=== PATIENT | male | born 1945 | race Caucasian/White ===

== ENCOUNTER 2023-04-27 04:09 | Outpatient (CLI) | payer MEDICARE, SELFPAY | END 2023-04-27 04:10 | disposition home or self-care (01) | LOC: AMB 04-28 12:17 | PROVIDERS: Visit Provider Family Medicine | DX: R50.9 Fever, unspecified (principal); R53.1 Weakness | CPT/HCPCS: A0998 ==

== ENCOUNTER 2023-04-28 07:03 | Outpatient (CLI) | payer MEDICARE, SELFPAY | END 2023-04-28 07:04 | disposition home or self-care (01) | LOC: AMB 05-02 23:54 | PROVIDERS: Visit Provider Family Medicine | DX: R53.1 Weakness (principal) | CPT/HCPCS: A0998 ==

== ENCOUNTER 2023-04-30 07:23 | Outpatient (CLI) | payer MEDICARE, SELFPAY | END 2023-04-30 07:24 | disposition home or self-care (01) | LOC: AMB 05-03 01:24 | PROVIDERS: Visit Provider Internal Medicine | DX: R53.1 Weakness (principal); R06.09 Other forms of dyspnea | CPT/HCPCS: A0425; A0427 ==

== ENCOUNTER 2023-12-06 08:57 | Outpatient (CLI) | payer MEDICARE, SELFPAY ==
--- OUTSIDE RECORDS SUMMARY | 2023-12-13 06:14 | XMS_ITS | Clinical Summary ---
Author Organization [facility] Address [address] [place] [address] Care Team Providers Care Alumnae Secretary Name Role Phone Dalia Dill M.D. Primary Care Provider [phone] Source Comments Patient records contain information from all sites at [facility]. For routine questions regarding patient records, call [phone] during business hours, M-F 8:00 AM - 5:00 PM Central Time. Record requests for emergency care only can be directed to [phone] at any time.[facility] Allergies Active Allergy Reactions Criticality Noted Date Comments Cortisone Rash Medium 02/26/2002 Swelling, rash Prednisone Rash Medium 02/26/2002 Swelling, rash Medications * This document contains information received from the source organization and may not represent a complete record from that organization. blood-glucose meter misc Test as directed for diabetes control. 1 each 02/12/19 Active lancets Test once daily 100 each 1 02/16/19 20 Active DME Bi-level PAPIndications: Central Sleep Apnea Syndrome,Apnea Sleep Obstructive DME Order 1 each 01/20/20 Active blood sugar diagnostic strips (Accu-Chek Guide test strips) 1 test by other route daily. for testing 100 strip 3 07/07/19 24 Active blood glucose ctl high,nml,low solution Glucose control solution provides an easy way to ensure accurate blood glucose testing. 1 each 07/07/19 Active multivitamin tablet Take 1 tablet by mouth daily. 90 tablet 10/31/19 Active nitroglycerin (Nitrostat) 0.[address] 1 tablet (0.4 mg total) under the tongue every 5 (five) minutes as needed for chest pain. Chest pain 10/31/19 Active amLODIPine (Norvasc) 5 mg tabletIndicatio ns:Chronic Kidney Disease (CKD), Stage 3 Unspecified (HCC) Take 1 tablet (5 mg total) by mouth daily. For hypertension 10/31/19 Active aspirin 81 mg chewable tablet Chew 1 tablet (81 mg total) daily. For cardiovascular event prevention 10/31/19 Active cyanocobalamin (Vitamin B-12) 1,000 mcg tablet Take 1 tablet (1,000 mcg total) by mouth daily. For low Vitamin B12 10/31/19 Active FLUoxetine (PROzac) 40 mg capsule Take 1 capsule (40 mg total) by mouth daily. For depression. 10/31/19 Active fluticasone furoate (Arnuity Ellipta) 100 mcg/actuation diskus inhaler Inhale 1 puff daily. For COPD. 10/31/19 Active losartan (Cozaar) 50 mg tablet Take 1 tablet (50 mg total) by mouth daily. For hypertension. 10/31/19 Active metFORMIN (Glucophage) 1,000 mg tablet Take 1 tablet (1,000 mg total) by mouth 2 (two) times a day. For diabetes. 10/31/19 Active metoprolol succinate (Toprol XL) 25 mg 24 hr tablet Take 0.5 tablets (12.5 mg total) by mouth daily. Do not crush or chew. For CAD. 10/31/19 Active pantoprazole (Protonix) 40 mg EC tablet Take 1 tablet (40 mg total) by mouth daily. For GERD. 10/31/19 Active rosuvastatin (Crestor) 10 mg tablet Take 1 tablet (10 mg total) by mouth daily. For hyperlipidemia 10/31/19 Active albuterol 90 mcg/actuation inhaler Inhale 1 puff every 4 (four) hours as needed for wheezing or shortness of breath. For COPD. 11/01/19 Active semaglutide (Ozempic) 1 mg/dose (4 mg/3 mL) injection Inject 1 mg under the skin every 7 (seven) days. on Fridays for diabetes. 4 mL 11/18/19 Active semaglutide (Ozempic) 1 mg/dose (4 mg/3 mL) injection Inject 1 mg under the skin every 7 (seven) days. on Fridays for diabetes. 4 mL 3 11/07/19 24 024 Discontin ued(Reord er) Active Problems Problem Noted Date Diagnosed Date Frailty Age Related Physical Debility 10/30/2023 Assessment & Plan (11/28/2023 1:09 PM CDT): He will have home care PT/OT/nursing and home health aide Sarcopenia 10/30/2023 Obesity Body Mass Index 30-39.9 Adult 10/30/2023 Assessment & Plan (11/01/2023 2:29 PM CDT): Follow with in house dietitian Hypomagnesemia 04/30/2023 Chronic Obstructive Pulmonary Disease Without Ex acerbation 12/21/2022 Assessment & Plan (11/28/2023 1:08 PM CDT): Continue Arnuity Ellipta Continue albuterol as needed Assessment & Plan (11/01/2023 2:27 PM CDT): Continue Arnuity Ellipta Continue albuterol as needed Neuropathy Ulnar Right 11/05/2021 Diabetes Mellitus Type 2 Wit h Diabetic Chronic Kidney Disease 04/21/2021 Assessment & Plan (11/01/2023 2:30 PM CDT): Continue semaglutide 1 mg every 7 days Continue metformin 100 mg twice day with B12 supplementation Chronic Kidney Disease (CKD) , Stage 3a Glomerular Filtration Rate (GFR) 45 To 59 02/29/2020 Assessment & Plan (11/01/2023 2:29 PM CDT): Avoid nephrotoxins Assessment & Plan (08/05/2020 7:20 PM CDT): Blood pressure 119/76. Taking amlodipine and losartan. Urine albumin: 106. EGFR: 49 ml/min. Plan: continue current antihypertensive regimen. Hopeful that with improved glycemic control and addition of Ozempic that urine albumin will have improved with next check. Assessment & Plan (04/08/2020 1:19 PM SURVEY STATISTICIAN): Initial blood pressure is 135/94 but repeat was 116/82. Urine albumin 106 milligrams/gram. Estimated GFR: 54 mL/min. Plan: Continue current antihypertensive regimen. Diabetes Mellitus Type 2 Peripheral Neuropathy 0 08/30/2019 Assessment & Plan (11/28/2023 1:06 PM CDT): Continue metformin 1000 mg twice a day Continue semaglutide weekly Assessment & Plan (08/05/2020 7:21 PM CDT): Continue daily foot exams. Feet not painful to point medication is necessary. This does affect his balance and his walking is limited because of this. 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 seen by Gi. treated with Canasa. no surveillance colonoscopies needed for ulcerative proctitis. However colonoscopy for follow up of colon polyps recommended 09/21: 5 mm and 7 mm polyps. Tubular adenoma low grade dysplasia 11/27: 2 x 2 mm polyps . Path: One polyp: no diagnostic abnormality. The other: hyperplastic. 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 09/21 gi consult: This was based on his original EGD. He has had multiple EGDs here at the clinic since without any intestinal metaplasia noted. He merely has an irregular Z line, and I do not think that he requires any ongoing surveillance upper endoscopies. 11/27: egd done for symptom indications and esophageal biopsy negative/normal Assessment & Plan (11/28/2023 1:08 PM CDT): Continue pantoprazole 40 mg daily Assessment & Plan (11/01/2023 2:28 PM CDT): Continue pantoprazole 40 mg daily Tremor Essential 03/21/2015 Tubular Adenoma Colon Personal History 5 Overview (11/18/2020): 09/21: 5 mm and 7 mm polyps. Tubular adenoma low grade dysplasia 11/27: 2 x 2 mm polyps . Path: One polyp: no diagnostic abnormality. The other: hyperplastic. 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 Small fixed defect consistent with infarction involving the inferior segment. The area of infarction is quantitated at 17% of the myocardium. LVEF is quantitated at 51%. Regional wall motion abnormalities include hypokinesis involving the inferior segment. Compared to 07/10/2007 the inferior perfusion defect is larger and more severe. cath 08/16: totally occluded very distal intermediate vessel at which point the vessel is approximately 1 mm in diameter at most. Mild disease of the remainder of his coronary system including an enlarged right dominant vessel that does not warrant any intervention Assessment & Plan (11/28/2023 1:06 PM CDT): Continue aspirin 81 mg daily Assessment & Plan (11/01/2023 2:24 PM CDT): Continue aspirin 81 mg daily Partner Relational Problem 07/24/2008 Depression Major Recurrent Full Remission 2008 Assessment & Plan (11/28/2023 1:08 PM CDT): Continue fluoxetine Assessment & Plan (11/01/2023 2:30 PM CDT): Continue fluoxetine Neuropathy Peripheral 08/01/2007 Assessment & Plan (11/28/2023 1:07 PM CDT): He is not currently on medication for this. He states it does limit his mobility Assessment & Plan (11/01/2023 2:27 PM CDT): He is not currently on medication for this. He states it does limit his mobility Assessment & Plan (07/25/2019 1:29 PM CDT): Patient reports numbness in his feet. On exam today he does have decreased monofilament sensation. No skin breakdown. He has been having falls. I am not certain that these falls are related to his neuropathy directly as they have occurred at times when he is kneeling or simply standing up and bending forward. Plan: Continue with daily foot exams. He is scheduled for nail care later this month. He is not having pain so no medication is warranted. I recommended that he schedule appoint with his primary care provider in regards to the falls he has been having. Check vitamin B12 today. 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 Recommended: avoid driving, use gait aid, PT/PMR referral if desired. If cognitive or gait decline we will be happy to see him back in follow-up Assessment & Plan (11/28/2023 1:10 PM CDT): He is no longer driving Uses walker Will order transport wheelchair Elevated Prostate-Specific Antigen 04/06/2004 Hypertensive Chronic Kidney Disease With Stage 1 Through Stage 4 Chronic Kidney Disease, Or Unspecified Chronic Kidney Disease 01/14/2003 Overview (06/29/2023): June 2023: home machine checked for accuracy and found to be accurate Assessment & Plan (11/01/2023 2:28 PM CDT): Continue amlodipine 5 mg daily Continue losartan 50 mg daily Continue metoprolol 12.5 mg daily Assessment & Plan (12/12/2019 2:14 PM SURVEY STATISTICIAN): Blood pressure is controlled at 131/87. Continues on amlodipine, losartan, Toprol. Does have elevated urine albumin of 106 milligrams/gram which has been essentially stable for several years. Plan: Continue current antihypertensive regimen. Discussed with patient that he does have early diabetic kidney disease which reinforce is need for good glycemic and hypertension control. He is already on ARB. Assessment & Plan (07/25/2019 1:31 PM CDT): Blood pressure is well-controlled at 113/78 on current regimen of losartan, metoprolol, Norvasc,. Urine albumin is 62 milligrams/gram. Creatinine 1.3. Has had falls but these are not preceded by orthostasis. Plan: Continue current antihypertensive regimen. Check urine albumin in 3 months. Apnea Sleep Obstructive 01/14/2003 Assessment & Plan (11/28/2023 1:07 PM CDT): Continue with BiPAP while sleeping Assessment & Plan (11/01/2023 2:25 PM CDT): Continue with BiPAP Hyperlipidemia 01/14/2003 Assessment & Plan (11/28/2023 1:08 PM CDT): Continue rosuvastatin Assessment & Plan (11/01/2023 2:28 PM CDT): Continue rosuvastatin Resolved Problems Problem Noted Date Diagnosed Date Resolved Date Urinary Tract Infection Site Not Specified 10/27/2023 11/01/2023 Viral Syndrome 04/30/2023 06/13/2023 Diabetes Mellitus Type 2 Wit h Diabetic Neuropathy 02/29/2020 08/05/2020 Dystrophic Toenail 02/29/2020 Morbid Severe Obesity Due To Excess Calories 0 06/13/2023 Dermatochalasis Right Upper Eyelid 04/24/2019 08/31/2021 Dermatochalasis Left Upper Eyelid 04/24/2019 08/31/2021 Astigmatism Regular Bilateral 04/24/2019 06/13/2023 Presbyopia 04/24/2019 06/13/2023 Influenza 03/30/2018 12/21/2022 Lesion Bladder 11/16/2017 03/28/2018 Overview (11/16/2017): Added automatically from request for surgery [id number] Department Of Transportation Examination Department Of Motor Vehicles 09/27/2017 12/21/2022 Microhematuria 08/26/2017 03/28/2018 Overview (11/09/2017): hematuria 10/16. cystoscopy: trabeculation. ct: multiple renal cysts, increased bladder trabeculation. right inguinal hernia. enlarged prostate. fatty liver per urology: no evaluation needed for renal cysts. return visit 08/16: neg cytology. treatment for BPH thought to be optional. follow up in one year with urology recommended--patient declined 08/2011 Ct urogram 11/24: slight interval increase in cysts since 2008 Urinary Tract Infection (UTI)/Bacteriuria NOS 08/22/19 18 12/21/2022 Overview (03/08/2022): Diagnosis Maintenance Updates Parkinsonism Unspecified 04/05/2016 Overview (08/31/2021): wondered about parkinsonism and he went as far as have a trial of carbidopa levodopa in the past but since it did not really do much for him that was discontinued. Dr. Pressley did not think Parkinson's disease was part of this syndrome Dilatation Ascending Aorta 03/25/2015 0 09/12/2019 Overview (09/12/2019): dilated ascending aorta (39 mm) 03/25. 39 mm 02/23. 08/24 echo: 1. Normal ascending aorta dimension. 2. Borderline left ventricular enlargement. Calculated ejection fraction 57%, no regional wall motion abnormalities. 3. Grade 1/4 left ventricular diastolic dysfunction, consistent with low to normal left ventricular filling pressure. 4. Normal right ventricular size with mildly decreased systolic function. 5. Unable to detect peak tricuspid regurgitation velocity for pulmonary artery systolic pressure calculation. 6. No significant valvular heart disease. 7. No pericardial effusion. See communication from [facility] (Dr Andrews) 08/18/17: ?? Given the sinus diameter measurement of 41 mm, I think it would be reasonable to obtain repeat echocardiography in 2 years. If the aortic measurements have not changed at that time, he would not require further surveillance echocardiography, unless he develops uncontrolled hypertension in the interim??(ordered) 08/26: 1. Normal ascending aorta diameter (39 mm). Upper limit of normal for age, sex, and BSA 44 mm. 2. Normal aortic sinus of Valsalva (43 mm). Upper limit of normal for age, sex, and BSA 44 mm. 3. Borderline enlarged left ventricular chamber size, calculated ejection fraction 56%. No regional wall motion abnormalities. 4. Grade 1/4 left ventricular diastolic dysfunction, consistent with low to normal left ventricular filling pressure. 5. Borderline enlarged right ventricular chamber size, normal systolic function. 6. Unable to detect peak tricuspid regurgitation velocity for pulmonary artery systolic pressure calculation. 7. No significant valvular heart disease. 8. No pericardial effusion. 9. Compared to the report of 08/17/2017 no significant change has occurred. Side by side comparison of images performed. Since now considered normal and no change will resolve this problem. Ischemic Heart Chronic Disease 03/21/2015 08/17/2017 Incontinence Fecal 09/08/2014 9 Diabetes Mellitus Type 2 08/17/2011 Assessment & Plan (08/05/2020 7:17 PM CDT): HbA1c improved to 6.3% on Ozempic, Metformin, and Amaryl. Not having hypoglycemia. Weight is down 4 kg since Ozempic start. Diabetes related complications include: CAD, CKD, neuropathy. Plan as follows: Medication: No change recommended. Reviewed that if routinely having readings below 100 to contact provider so Amaryl can be reduced. Does have some cost concerns related to Ozempic as he is currently in the donut hole and anticipates he will be for rest of the year. Encouraged them to check the patient assistance plan for possible enrollment. If cost becomes prohibitive they are to let us know. Monitoring: daily as he has been doing. Goal: 90-140. Goal HbA1c: 7% -lower OK if not having hypoglcyemia. Follow up: no longer needs specialty care. Recommend follow up with PCP in 3-6 months. Other: Needs eye exam-message sent regarding this. Assessment & Plan (04/08/2020 1:18 PM SURVEY STATISTICIAN): Hemoglobin A1c has worsened to 7.8%. He is currently taking Ozempic 0.5 mg weekly, glimepiride, metformin. He is tolerating the Ozempic without problems but they are concerned about the cost. Currently the cost is 45 dollars per month but when he hits the donut hole it will be much more costly. Diabetes-related complications include coronary artery disease, nephropathy, neuropathy. Plan is as follows: Medication: I have recommended increasing the Ozempic to 1 mg weekly. Discussed with him that if the cost becomes too much they should let me know and we will explore other options. Other option likely would be insulin. I have given them the [employer] patient assistance plan literature. They will contact to see if they would be eligible for this based on their income level. Reviewed that this medication must be delivered to their home and not to the clinic if he is going to participate. Continue glimepiride. Continue metformin. Monitoring: Monitor blood sugar before breakfast and supper. Goal glucose 100- 140. Diet: I am hopeful that with the higher Ozempic dose his appetite will be further reduced. Activity: This is significantly limited due to lower extremity weakness and neuropathy. He did undergo physical therapy last fall and found this very helpful. Unfortunately he has gotten away from the exercises and therefore is experiencing more weakness. Encouraged to resume the exercises he learned in PT. Follow-up: Plan to see him back in 3 months with hemoglobin A1c then. Will message him in about 2 weeks to review glucose control and see if they have found anything more from her insurance [employer] patients assistance program regarding his Ozempic cost. Other: Needs to schedule an eye exam on his own. Assessment & Plan (12/12/2019 2:13 PM SURVEY STATISTICIAN): Hemoglobin A1c: 7.3% on current regimen of glimepiride, metformin, Januvia. He is not having hypoglycemia. His last visit we talked about transitioning to a GLP 1 agonist for weight loss benefit, cardiac benefit, further improved glycemic control. He notes that he is currently in the donin hole and therefore has a high co-pay for his Januvia. Notes that after the of the year his medication should again become more affordable. Diabetes-related complications include nephropathy, coronary artery disease, neuropathy. Plan is as follows: Medication: His glucose is reasonably well controlled at this point. Given that he would be paying a high co-pay for GLP 1 agonist at this time we decided to defer this until after the of the year when cost would be more affordable. He has no history of pancreatitis, pancreatic cancer, thyroid cancer which would exclude use of these agents. I plan to call him early February and confirmed that he still wants to move forward with 1 of these. He would prefer to use a weekly formulation. Therefore I have recommended using Ozempic. For now we will continue with his current regimen of Januvia, metformin, glimepiride. Monitoring: Continue to test daily and try to alternate times. Goal glucose 100- 140. Goal hemoglobin A1c 7-7.5%. Activity: He has completed a course of physical therapy and notes that his balance is much improved and his lower extremity strength has improved as well. Encouraged to be as active as possible. Follow-up: Plan to see him back in 3 months with hemoglobin A1c. And again I will call him in early February to review possibility of starting a GLT 1 agonist. Other: He did mention some new eye symptoms today. This includes a dark bar that he notices when he turns the lights off at night. Have given him the Ophthalmology triage number to call for further evaluation. Assessment & Plan (07/25/2019 1:28 PM CDT): Did not have hemoglobin A1c results available at time of visit. Have reviewed patient's glucose record book and based on this I would expect that his hemoglobin A1c has improved. His glimepiride dose was increased mid June and since then we have seen improvement in glycemic control with most readings below 150 morning and before supper. In addition to glimepiride he is taking Januvia and metformin. He has had only 1 episode of hypoglycemia in the past couple months and this was related to increased activity. Diabetes-related complications include coronary artery disease, nephropathy, neuropathy. I am most concerned with his neuropathy and the fact that he has been having falls. I am not certain that these falls are related directly to his neuropathy as they occur when he is not even standing. Plan is as follows: Medication: For now recommend continuing current regimen. It appears that glycemic control has improved with the increase in his glimepiride dose. Today I did introduce the idea of changing to a GLP 1 agonist and metformin alone. If we are able to do this week would eliminate the risk for hypoglycemia which I think is important in this gentleman who has been having falls. I have given he and his the names of these agents to check on their insurance coverage. Of note they do note that there Januvia has not been expensive and therefore I am hopeful that the GLP 1 agonist would be covered well. Can consider making this therapy change at next visit, or if hemoglobin A1c shows need for better control. Monitoring: Continue testing twice daily as he has been doing. Goal glucose 100- 140. Goal hemoglobin A1c 7-7.5%. Slightly higher goal given recent falls. Education: Reviewed hypoglycemia treatment. Treatment options given. Follow-up: Patient has previously seen my colleague. I would be happy to see him back or he can return to see her in 3 months. Will check hemoglobin A1c at that time. Additionally will check hemoglobin A1c and vitamin B12 which were previously ordered today. Loss Hearing Conductive Unilateral 06/10/2010 08/31/2021 Encounters Date Type Department Care Team Description 12/09/2023 Clinical Communication Department of Family Medicine, [address] [address] Dalia Dill M.D. Pand Doc [facility] physician order [id number] 12/09/2023 Clinical Communication [facility] in [place] [address] [place] [address] Nisreen Preciado APRN, C.N.P. PandaDoc Form ([facility] order [id number]) 12/09/2023 Clinical Communication Department of Family Medicine, [address] [phone] Dalia Dill M.D. PandaDoc Form ([facility] order [id number]) 12/09/2023 Clinical Communication Department of Family Medicine, [address] [phone] Nisreen Preciado APRN, C.N.P. PandaDoc Form ([facility] order [id number]) 12/03/2023 CPAP Download Remote Patient Monitoring [id number] [address] [facility] 12/02/2023 Clinical Communication Department of Family Medicine in [place], [place] [address] [place] [address] Nisreen Preciado APRN, C.N.P. Order Request (Verbal ) 11/28/2023 8:30 AM CDT External Outreach [facility] in [place] [address] [place] [id number] Nisreen Preciado APRN, C.N.P. History Of Falling (Primary Dx); Weakness General; Coronary Artery Disease Without Angina Pectoris; Diabetes Mellitus Type 2 Peripheral Neuropathy (HCC); Neuropathy Peripheral; Apnea Sleep Obstructive; Asthma Mild Persistent (HCC); Chronic Obstructive Pulmonary Disease Without Exacerbation (HCC); Depression Major Recurrent Full Remission (HCC); Hyperlipidemia; Valenzuela's Esophagus Personal History; Frailty Age Related Physical Debility; Imbalance Non Orthopedic 11/17/2023 8:00 AM CDT [facility] [place] [address] [place] [address] Jammie Lyons D.O. 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 Kidney Disease, Or Unspecified Chronic Kidney Disease; Chronic Kidney Disease (CKD), Stage 3a Glomerular Filtration Rate (GFR) 45 To 59 (HCC); Coronary Artery Disease Without Angina Pectoris; Asthma Mild Persistent (HCC); Chronic Obstructive Pulmonary Disease Without Exacerbation (HCC); Apnea Sleep Obstructive; Valenzuela's Esophagus Personal History; Hyperlipidemia; Obesity Body Mass Index 30-39.9 Adult; Diabetes Mellitus Type 2 Peripheral Neuropathy (HCC); Depression Major Recurrent Mild (HCC); Deficiency Vitamin B12 11/15/2023 Refill Department of Family Medicine, [address] [phone] Dalia Dill M.D. Med Refill (Nisreen Preciado) 11/09/2023 Clinical Communication [facility] in [place] [address] [place] [address] Veronica Brown R.N. SNF Nurse Intake 11/08/2023 12:33 AM CDT - 11/08/2023 11:59 PM CDT Hospital Encounter Department of Laboratory Medicine in [place], [place] [address] [place] [address] Nisreen Preciado APRN C.N.PAurelio Weakness General Discharge Disposition: Home or Self Care 11/07/2023 [facility] in [place] [address] [place] [address] Veronica Brown R.N. SNF Nurse Intake 11/03/2023 2:50 PM CDT - 11/03/2023 11:59 PM CDT Hospital Encounter Department of Laboratory Medicine in [place], [place] [address] [place] [address] Nisreen Preciado APRN, C.N.P. Test Blood Tuberculosis Discharge Disposition: Home or Self Care 11/03/2023 Clinical [facility] in [place] [address] [place] [address] Veronica Brown R.N. [facility] Nurse Intake 11/02/2023 CPAP Download Remote Patient Monitoring [facility] [address] [place] [address] [facility] 11/01/2023 2:00 PM CDT [facility] in [place] [address] [place] [address] Nisreen Preciado APRN, C.N.P. Coronary Artery Disease Without Angina Pectoris (Primary Dx); Hypertensive Chronic Kidney Disease With Stage 1 Through Stage 4 Chronic Kidney Disease, Or Unspecified Chronic Kidney Disease; Apnea Sleep Obstructive; History Of Falling; Frailty Age Related Physical Debility; Unsteadiness Gait Disorder Non Orthopedic; Weakness General; Imbalance Non Orthopedic; Asthma Mild Persistent (HCC); Chronic Obstructive Pulmonary Disease Without Exacerbation (HCC); Neuropathy Peripheral; Hyperlipidemia; Valenzuela's Esophagus Personal History; Obesity Body Mass Index 30-39.9 Adult; Chronic Kidney Disease (CKD), Stage 3a Glomerular Filtration Rate (GFR) 45 To 59 (HCC); Diabetes Mellitus Type 2 With Diabetic Chronic Kidney Disease (HCC); Diabetes Mellitus Type 2 Peripheral Neuropathy (HCC); Depression Major Recurrent Full Remission (HCC) 10/28/2023 Patient Outreach Division of Community Internal Medicine, [facility], in [place], [place] [address] [place] [address] Gwendolyn Wiggins R.N. CTP Eligibility 10/27/2023 10:56 AM CDT - 10/31/2023 1:43 PM CDT Hospital Encounter [facility], Second Floor [address] [place] [phone] Luis Carlos Card M.D. Wilfahrt, Robert P, M.D. Miller, Nathaniel E, M.D. Mohn, Kelli J, P.A.-C. Urinary Tract Infection Site Not Specified (Primary Dx); Weakness General; Decline Functional Status [R53.81]; Frailty Age Related Physical Debility [R54]; Chronic Kidney Disease (CKD), Stage 3 Unspecified (HCC) Discharge Disposition: Detention Facility 10/20/2023 Clinical Communication Department of Family Medicine, [address] [address] Dalia Dill M.D. 10/02/2023 CPAP Download Remote Patient Monitoring [facility] [address] [place] [address] [facility] 09/23/2023 9:13 AM CDT - 09/23/2023 11:59 PM CDT Hospital Encounter Department of Laboratory Medicine in [address] [address] Dalia Dill M.D. Diabetes Mellitus Type 2 Peripheral Neuropathy (HCC) Discharge Disposition: Home or Self Care 09/23/2023 9:00 AM CDT Office Visit Department of Orthopedic Surgery in [address] [address] Nikki Moraes D.PAurelioMAurelio Diabetes Mellitus Type 2 Peripheral Neuropathy (HCC); Onychomycosis; Pain Toe Left; Pain Toe Right Discharge Disposition: Home or Self Care 09/20/2023 Clinical Communication Department of Family Medicine, [address] [place] [address] [place] [address] Dalia Dill M.D. PandaDoc Form (Diabetic Standard Written Order, Helen) 09/20/2023 Orders Only RST PCP HLTH SHYT Dalia Dill M.D. Diabetes Mellitus Type 2 Peripheral Neuropathy (HCC) from Last 3 Months Immunizations Name Administration Dates Next Due HepB Adult 11/24/2009,04/14/2009,03/13/2009 Influenza high dose QV(65 ye ars or older) (PF) 12/10/2022,12/01/2021,12/08/2020,2019 PCV13 09/06/2014 PPSV23 05/21/2010 SARS-COV-2 (COVID-19) - MODE RNA (12 YEARS AND OLDER) Fall Seasonal 12/10/2022 SARS-COV-2 (COVID-19) - PFIZ ER (Discontinued)(12 years or older) 11/12/2020,04/17/2020,03/27/2020 SARS-COV-2 (COVID-19) - PFIZ ER BIVALENT TS(Discontinued)(12 YEARS OR OLDER) 12/01/2021 SARS-COV-2 (COVID-19) - PFIZ ER TS(Discontinued)(12 years or older) 07/22/2021 Td, (Adult) Unspecified 12/08/2006 Tdap 08/17/2013 influenza trivalent high dos e (HD)(PF) 11/27/2018,12/01/2017,12/13/2016,2015 Family History Medical History Relation Name Comments Coronary artery disease Brother Dangelo Diabetes Brother Dangelo Heart valve replacement Brother Dangelo Diabetes Father Felipe Diabetes Father's Sister Hypertension Mother Breast cancer Sister 1 Mariah Cancer Sister 1 Mariah Breast cancer Sister 2 Barbie Dementia Sister 2 Barbie Diabetes Sister 2 Barbie Lung cancer Sister 2 Barbie Alcoholic Neg Hx Relation Name Status Comments Brother Dangelo Alive Father Felipe Father's Sister Mother Sister 1 Mariah Alive Sister 2 Barbie Alive Son Social History Tobacco Use Types Packs/Day Years Used Date Smoking Tobacco: Former Cigarettes 1 35 0 02/07/1962 - 02/07/1997 Smokeless Tobacco: Never Quit: 05/23/1999 Tobacco Cessation:Counseling Given: Not Answered Alcohol Use Standard Drinks/Week Comments Yes 1 (1 standard drink = 0.6 oz pur e alcohol) [facility] Utilities Answer Date Recorded In the past 12 months has th e [employer], [employer], oil, or water [employer] threatened to shut off services in your home? No 10/27/2023 Humiliation, Afraid, Rape, and Kick questionnair e Answer Date Recorded Within the last year, have y ou been afraid of your partner or ex-partner? No 10/27/2023 Within the last year, have y ou been humiliated or emotionally abused in other ways by your partner or ex-partner? No Within the last year, have y ou been kicked, hit, slapped, or otherwise physically hurt by your partner or ex-partner? No 10/27/2023 Within the last year, have y ou been raped or forced to have any kind of sexual activity by your partner or ex-partner? No 10/27/2023 Social Connection and Isolation Panel [NHANES] A nswer Date Recorded In a typical week, how many times do you talk on the phone with family, friends, or neighbors? Once a week 04/02/19 23 Frequency of Social Gatherin gs with Friends and Family Not on file 04/02/2022 How often do you attend chur ch or adventist services? 1 to 4 times per year 04/02/2022 Do you belong to any clubs o r organizations such as presybeterian groups, unions, fraternal or athletic groups, or school groups? No 04/02/2022 How often do you attend meet ings of the clubs or organizations you belong to? Patient declined 04/02/2022 Are you , , di vorced, , never , or living with a partner? 04/02/2022 AUDIT-C Answer Date Recorded Q1: How often do you have a drink containing alc ohol? Monthly or less 04/02/2022 Q2: How many drinks containi ng alcohol do you have on a typical day when you are drinking? 1 or 2 04/02/2022 Q3: How often do you have si x or more drinks on one occasion? Never 04/02/2022 Overall Financial Resource Strain (CARDIA) Answe r Date Recorded How hard is it for you to pa y for the very basics like food, housing, medical care, and heating? Not hard at all 04/02/2022 PHQ-2 Answer Date Recorded PHQ-2 Score 0 06/13/2023 [facility] Answer Date Recorded Do you feel stress - tense, restless, nervous, or anxious, or unable to sleep at night because your mind is troubled all the time - these days? To some extent 04/02/2022 Exercise Vital Sign Answer Date Recorde d On average, how many days pe r week do you engage in moderate to strenuous exercise (like a brisk walk)? 3 days 05/21/2023 On average, how many minutes do you engage in exercise at this level? 20 min 05/21/2023 Hunger Vital Sign Answer Date Recorded Within the past 12 months, y ou worried that your food would run out before you got the money to buy more. Never true 10/27/19 24 Within the past 12 months, t he food you bought just didn't last and you didn't have money to get more. Never true 10/27/2023 PRAPARE - Transportation Answer Date Re corded In the past 12 months, has l ack of transportation kept you from medical appointments or from getting medications? No 10/08 In the past 12 months, has l ack of transportation kept you from meetings, work, or from getting things needed for daily living? No 10/27/2023 Depression Answer Date Recor ded PHQ-9 Total Score (max 27) 1 06/12 Nutrition Answer Date Recorded On average, how many serving s of fruits and vegetables do you eat per day (serving size is equal to 1 cup or approximately the size of a tennis ball)? 3-5 05/21/2023 Dental Answer Date Recorded Dental: Regular Dentist No 10/14/19 21 Employment Answer Date Recorded Employment status Retired 05/21/2023 Housing Stability Answer Date Recorded What is your living situation today? I have a [facility] place to live 10/27/2023 Education Answer Date Recorded What is the highest level of school you have completed or the highest degree you have received? 12th grade 03/14/2019 Sex and Gender Information Value Date Recorded Sex Assigned at Male 08/23/2017 10:02 AM CDT Legal Sex Male 7:12 PM SURVEY STATISTICIAN Gender Identity Male 08/23/2017 10:02 AM CDT Sexual Orientation Straight 08/23/2017 10 :02 AM CDT Last Filed Vital Signs Vital Sign Reading Time Taken Comments Blood Pressure 115/82 11/28/2023 8:33 AM CDT Pulse 94 11/28/2023 8:33 AM CDT Temperature 36.3 ??C (97.3 ??F) 11/28/2023 8:33 AM CD T Respiratory Rate 16 11/28/2023 8:33 AM CDT Oxygen Saturation 97% 11/28/2023 8:33 AM CDT Inhaled Oxygen Concentration - - Weight 92.7 kg (204 lb 6.4 oz) 11/28/2023 8:33 A M CDT Height 178.5 cm (5' 10.28) 10/27/2023 6:20 PM C DT Body Mass Index 29.1 10/27/2023 6:20 PM CDT Plan of Treatment Upcoming Encounters Date Type Department Care Team (Late st Contact Info) Description 12/14/2023 10:30 AM SURVEY STATISTICIAN Appointment Department of Laboratory Medicine and Pathology, [facility], in [address] [address] Dalia Dill M.D. [address] [place] [phone] 12/14/2023 11:00 AM SURVEY STATISTICIAN Office Visit Department of Family Medicine, [address] [address] Dalia Dill M.D. [address] [place] [phone] 12/19/2023 2:00 PM SURVEY STATISTICIAN Comprehensive Visit Division of Community Internal Medicine, [facility], in [place], [place] [address] [place] [phone] Kiran Hugo M.D. [address] [place] [phone] Health Maintenance Due Date Last Done Comments Zoster Vaccines (1 of 2) 1995 RSV vaccine - (32-36 weeks) or 60+ years (1 - 1-dose 75+ series) 02/01/2020 Dilated Eye Exam 10/16/2022 10/16/2021 (Per formed elsewhere), 10/16/2020 (Performed elsewhere), 09/06/2017, Additional history exists Depression Monitoring (PHQ-9 for quality tracking) 02/07/2023 DTaP,Tdap,and Td Vaccines (2 - Td or Tdap) 08/18/2023 08/17/2013, 12/08/2006 COVID-19 Vaccine ( season) 2023 12/10/2022, 12/01/2021, 07/22/2021, Additional history exists Depression Monitoring (PHQ-9) 10/14/2023 06/13/2023 Influenza Vaccine (#1) 2023 , 12/01/2021, 12/08/2020, Additional history exists Visit: Medicare Annual Wellness 12/23/2023 12/21/2022 Hemoglobin A1C 04/26/2024 10/28/2023, 06/08, 12/21/2022, Additional history exists Diabetic Office Visit with Foot Exam 06/12/2024 06/13/2023, 06/13/2023, 10/17/2020, Additional history exists Visit: Chronic Disease, age 18+ 06/28/2024 06/29/2023, 06/29/2023 Urine Albumin 09/22/2024 09/23/2023, 10/08, 11/09/2021, Additional history exists Creatinine Level (Kidney Function Test) 11/07/2024 11/08/2023, 10/31/2023, 10/30/2023, Additional history exists Potassium Level 11/07/2024 11/08/2023, 10/09, 10/30/2023, Additional history exists Sodium Level 11/07/2024 11/08/2023, 10/09, 10/30/2023, Additional history exists Office Visit for Blood Pressure Check / Re-check 11/27/2024 11/28/2023 Lung Cancer Screening Discontinued 10/22/2008 Hepatitis B Vaccines Completed 11/24/2009, 04/14/2009, 03/13/2009 Hepatitis C Screening Completed 06/15/2012 , 06/15/2012, 12/01/2011 Pneumococcal vaccine (65+ years) Completed 09/06/2014, 05/21/2010 Abdominal Aortic Aneurysm (AAA) Screen Discontinued 03/27/2015 Colonoscopy Discontinued 11/14/2020, 09/2020, 09/20/2014, Additional history exists Colorectal Cancer Surveillance Discontinued Fall Risk Screen (Annual) Completed 10/27/2023 CT Colonography Discontinued Cologuard Discontinued IPV Vaccines Aged Out No longer eligi ble based on patient's age to complete this topic Medical Devices 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 pins/screws /rods [employer] Description:Device Manufactu rer - [employer]. Device Status Text - [id number]. Appleton Screw 2 Canc 6.5 X 40 - Kunz [id number] Implanted:Qty: 1 on 11/30/2011 Hardware e.g. pins/screws /rods [employer] Description:Device Manufactu rer - [employer]. Device Status Text - [id number]. Appleton Screw 2 Canc 6.5 X 30 - Kunz [id number] Implanted:Qty: 1 on 11/30/2011 Hardware e.g. pins/screws /rods [employer] Description:Device Manufactu rer - [employer]. Device Status Text - [id number]. Appleton Screw 2 Canc 6.5 X 20 - Kunz [id number] Implanted:Qty: 1 on 11/30/2011 Hardware e.g. pins/screws /rods [employer] Description:Device Manufactu rer - [employer]. Device Status Text - [id number]. Conversions - Default Historical Implant Device - Kunz [id number] Implanted:11/13 (Quantity not on file) Hardware e.g. pins/screws /rods Description:Device Status Te xt - [id number]. Appleton Shell Multi 2 60mm - Kunz [id number] Implanted:Qty: 1 on 11/30/2011 Hip Implant Other/Legacy - See Implant Description [employer] Description:Device Manufactu rer - [employer]. Body Location - Other. Right. Device Status Text - [id number]. Dep. Head M-Spec 40mm -2 Offset - Kunz [id number] Implanted:Qty: 1 on 11/30/2011 Hip Implant Other/Legacy - See Implant Description [employer] Description:Device Manufactu rer - [employer]. Body Location - Other. Right. Device Status Text - [id number]. Appleton Liner Altrx +4 Neut 40x60 - Kunz [id number] Implanted:Qty: 1 on 11/30/2011 Hip Implant Other/Legacy - See Implant Description [employer] Description:Device Manufactu rer - [employer]. Body Location - Other. Right. Device Status Text - [id number] [id number]. [place]-Stem Jenkins 6 Hi - Kunz [id number] Implanted:Qty: 1 on 11/30/2011 Hip Implant Other/Legacy - See Implant Description [employer] Description:Device Manufactu rer - [employer]. Body Location - Other. Right. Device Status Text - [id number] [id number]. Procedures Procedure Name Priority Date/Time Associated Diagnosis Comments CBC WITHOUT DIFFERENTIAL, B Routine 11/08/2023 7:00 AM CDT Weakness General BASIC METABOLIC PANEL, S/P Routine 11/08/2023 7:00 AM CDT Weakness General QUANTIFERON-TB GOLD PLUS, B Routine 11/03/2023 9:00 PM CDT Test Blood Tuberculosis GLUCOSE POCT, B Routine 10/31/2023 11:51 AM CDT BASIC METABOLIC PANEL, S/P Routine 10/31/2023 10:32 AM CDT CBC WITH DIFFERENTIAL, B Routine 10/31/2023 10:32 AM CDT GLUCOSE POCT, B Routine 10/31/2023 7:46 AM CDT GLUCOSE POCT, B Routine 10/30/2023 8:59 PM CDT GLUCOSE POCT, B Routine 10/30/2023 11:52 AM CDT GLUCOSE POCT, B Routine 10/30/2023 8:32 AM CDT CBC WITH DIFFERENTIAL, B Routine 10/30/2023 5:05 AM CDT BASIC METABOLIC PANEL, S/P Routine 10/30/2023 5:05 AM CDT GLUCOSE POCT, B Routine 10/29/2023 9:32 PM CDT GLUCOSE POCT, B Routine 10/29/2023 5:36 PM CDT GLUCOSE POCT, B Routine 10/29/2023 12:05 PM CDT GLUCOSE POCT, B Routine 10/29/2023 7:35 AM CDT CBC WITH DIFFERENTIAL, B Routine 10/29/2023 7:18 AM CDT BASIC METABOLIC PANEL, S/P Routine 10/29/2023 7:18 AM CDT GLUCOSE POCT, B Routine 10/28/2023 9:57 PM CDT GLUCOSE POCT, B Routine 10/28/2023 7:03 PM CDT GLUCOSE POCT, B Routine 10/28/2023 11:39 AM CDT INFLUENZA A, B, RSV, PCR, RAPID, V Routine 10/28/2023 9:12 AM CDT SARS CORONAVIRUS 2, PCR RAPID, V Routine 10/28/2023 9:12 AM CDT GLUCOSE POCT, B Routine 10/28/2023 8:06 AM CDT HEMOGLOBIN A1C, B Routine 10/28/2023 6:5 7 AM CDT CBC WITH DIFFERENTIAL, B Routine 10/28/2023 6:57 AM CDT COMPREHENSIVE METABOLIC PANEL, S/P Routine 10/28/2023 6:57 AM CDT NON-INVASIVE VENTILATION Routine 10/27/2023 9:06 PM CDT NON-INVASIVE VENTILATION Routine 10/27/2023 9:06 PM CDT GLUCOSE POCT, B Routine 10/27/2023 8:44 PM CDT BACTERIAL CULTURE, AEROBIC + SUSC, URINE Routine 10/27/2023 1:52 PM CDT TROPONIN T, 2H/6H REFLEX, 5TH GEN, P Timed 10/27/2023 1:44 PM CDT MICROSCOPIC MANUAL STAT 10/27/2023 1: 23 PM CDT PH, U STAT 10/27/2023 1:23 PM CDT OSMOLALITY, U STAT 10/27/2023 1:23 PM CDT DIPSTICK, U STAT 10/27/2023 1:23 PM CDT URINALYSIS WITH MICROSCOPIC STAT 10/27/2023 1:23 PM CDT DX CHEST AP OR PA AND LATERAL 2 VIEWS RAD - Semiurgent (Fast; most ED patients; some inpatients) 10/27/2023 12:24 PM CDT GLUCOSE POCT, B STAT 10/27/2023 11:31 AM CDT TROPONIN T, BASELINE, 5TH GEN, P STAT 10/27/2023 11:31 AM CDT CBC WITH DIFFERENTIAL, B STAT 10/27/2023 11:31 AM CDT BASIC METABOLIC PANEL, S/P STAT 10/27/2023 11:31 AM CDT ECG Routine 10/27/2023 11:23 AM CDT ALBUMIN, RANDOM, U Routine 09/23/2023 9: 24 AM CDT Diabetes Mellitus Type 2 Peripheral Neuropathy (HCC) COLONOSCOPY Routine 11/14/2020 2:39 PM CDT Colitis Ulcerative Proctitis (HCC) Belching Gastroesophageal Reflux Disease Pain Generalized Abdominal Screening Cancer Colon US AORTA AAA SCREENING Routine 03/27/2015 11:17 AM SURVEY STATISTICIAN BONE DONOR 6 MONTH SCREEN TEST SET Routine 06/15/2012 9:[address] CHEST WITHOUT IV CONTRAST Routine 10/22/2008 9:06 AM CDT from Last 3 Months or Most Recently Relevant to Health Maintenance Results * (ABNORMAL) CBC without Differential (11/08/2023 7:00 AM CDT) Hemoglobin 15.4 13.2 - 16.6 g/dL 11/08/2023 8:05 AM CDT NPRG Hematocrit 46.0 38.3 - 48.6 % 11/08/2023 8:05 AM CDT NPRG Erythrocytes 5.11 4.35 - 5.65 x10(12)/L 11/08/2023 8:05 AM CDT NPRG MCV 90.0 78.2 - 97.9 fL 11/08/2023 8:05 AM CDT NPRG RBC Distrib Width 12.6 11.8 - 14.5 % 11/08/2023 8:05 AM CDT NPRG Platelet Count 260 135 - 317 x10(9)/L 11/08/2023 8:05 AM CDT NPRG Leukocytes 9.8(H) 3.4 - 9.6 x10(9)/L 11/08/2023 8:05 AM CDT NPRG Blood (Blood, Venous) 11/08/2023 7:00 AM CDT 11/08/2023 7:47 AM CDT us Nisreen Preciado APRN, C.N.P. LAB BLOOD ADD-ON Fi nal Result [facility] [address] [place] [address], [facility] NPRG [facility] [address] [place] [address] * (ABNORMAL) Basic Metabolic Panel (11/08/2023 7:00 AM CDT) Only the most recent of5 resultswithin the time period is included. Potassium, P 4.2 3.6 - 5.2 mmol/L 11/08/2023 8:25 AM CDT NPRG Sodium, P 141 135 - 145 mmol/L 11/08/2023 8:25 AM CDT NPRG Chloride, P 103 98 - 107 mmol/L 11/08/2023 8:25 AM CDT NPRG Bicarbonate, P 26 22 - 29 mmol/L 11/08/2023 8:25 AM CDT NPRG Anion Gap, P 12 7 - 15 11/08/2023 8:25 AM CDT NPRG BUN (Blood Urea Nitrogen), P 25(H) 8 - 24 mg/dL 11/08/2023 8:25 AM CDT NPRG Creatinine 1.22 0.74 - 1.35 mg/dL 11/08/2023 8:25 AM CDT NPRG Estimated GFR (eGFR) 61 >=60 mL/min/BSA 11/08/2023 8:25 AM CDT NPRG Comment: Estimated GFR calculated using the 2020 CKD_EPI creatinine equation. Calcium, Total, P 9.9 8.8 - 10.2 mg/dL 11/08/2023 8:25 AM CDT NPRG Glucose, P 105 70 - 140 mg/dL 11/08/2023 8:25 AM CDT NPRG Blood (Blood, Venous) 11/08/2023 7:00 AM CDT 11/08/2023 7:47 AM CDT Chalo Bustos APRNNXiang LAB BLOOD ADD-ON Fi nal Result [facility] [address] [place] [address], [facility] NPRG [facility] [address] [place] [address] * QuantiFERON-Tb Gold Plus, Blood (11/03/2023 9:00 PM CDT) [facility] QuantiFERON-TB Gold Plus Result Negative Negative 11/08/2023 2:39 PM CDT [facility] Comment: No interferon-gamma response to M. tuberculosis antigens was detected. Latent infection with M. tuberculosis is unlikely. A single negative result does not exclude infection with M. tuberculosis. In patients at high risk for M.tuberculosis infection, a second test should be considered in accordance with the 2017 ATS/IDSA/CDC Clinical Practice Guidelines for Diagnosis of Tuberculosis in Adults and Children [Carmeloinssupriyan SANTA et. al. Clin. Infect. Dis. 2017;64(2):111-115]. The reference range for the 'TB1 Ag minus Nil Result' and 'TB2 Ag minus Nil Result' is an Interferon-gamma level <0.35 IU/mL. TB1 Ag minus Nil Result 0.01 IU/mL 11/08/2023 2:39 PM CDT [facility] TB2 Ag minus Nil Result 0.00 IU/mL 11/08/2023 2:39 PM CDT [facility] Mitogen minus Nil Result >10.00 IU/mL 11/08/2023 2:39 PM CDT [facility] Nil Result 0.02 IU/mL 11/08/2023 2:39 PM CDT [facility] Blood (Blood, Venous) 11/03/2023 9:00 PM CDT 11/04/2023 8:02 PM CDT Narrative [facility] - 11/08/2023 2:39 PM CDT Specimen Information: Specimen ID: [id number] Specimen Type: Blood Specimen Collection Start Date: 11/03/2023 ??9:00 PM Specimen Received Date: 11/04/2023 ??8:02 PM Specimen ID: [id number] Specimen Type: Blood Specimen Collection Start Date: 11/03/2023 ??9:00 PM Specimen Received Date: 11/04/2023 ??8:02 PM Specimen ID: [id number] Specimen Type: Blood Specimen Collection Start Date: 11/03/2023 ??9:00 PM Specimen Received Date: 11/04/2023 ??8:02 PM Specimen ID: [id number] Specimen Type: Blood Specimen Collection Start Date: 11/03/2023 ??9:00 PM Specimen Received Date: 11/04/2023 ??8:02 PM us Miguel Bustos APRN.N.P. LAB MICROBIOLOGY - BLOOD ORDERABLES Final Result Performing Organization Address City/[facility]/ZIP Co de Phone Number [facility] [address] [place] [address], [facility] in [address] [address] * (ABNORMAL) Glucose, POCT (10/31/2023 11:51 AM CDT) Only the most recent of15 resultswithin the time period is included. [facility] Glucose, POCT, B 163(H) 70 - 140 mg/dL 10/31/2023 12:08 PM CDT PCLX Site Capillary 10/31/2023 12:08 PM CDT PCLX Last Intake 3-4 hours 10/31/2023 12:08 PM CDT PCLX Blood 10/31/2023 11:5 1 AM CDT 10/31/2023 12:08 PM CDT us Unknown Provider LAB POCT ORDERABLES-MANUAL Kelsi l Result POC [facility] [address] [place] [address], [facility] PCLX [facility] POC [address] [place] [address] * CBC with Differential, Blood (10/31/2023 10:32 AM CDT) Only the most recent of5 resultswithin the time period is included. Hemoglobin 14.8 13.2 - 16.6 g/dL 10/31/2023 11:47 AM CDT DTL Hematocrit 44.5 38.3 - 48.6 % 10/31/2023 11:47 AM CDT DTL Erythrocytes 4.93 4.35 - 5.65 x10(12)/L 10/31/2023 11:47 AM CDT DTL MCV 90.3 78.2 - 97.9 fL 10/31/2023 11:47 AM CDT DTL RBC Distrib Width 13.2 11.8 - 14.5 % 10/31/2023 11:47 AM CDT DTL Platelet Count 216 135 - 317 x10(9)/L 10/31/2023 11:47 AM CDT DTL Leukocytes 7.1 3.4 - 9.6 x10(9)/L 10/31/2023 11:47 AM CDT DTL Neutrophils 4.87 1.56 - 6.45 x10(9)/L 10/31/2023 11:47 AM CDT DHPM Lymphocytes 1.32 0.95 - 3.07 x10(9)/L 10/31/2023 11:47 AM CDT DTL Monocytes 0.68 0.26 - 0.81 x10(9)/L 10/31/2023 11:47 AM CDT DTL Eosinophils 0.16 0.03 - 0.48 x10(9)/L 10/31/2023 11:47 AM CDT DTL Basophils 0.04 0.01 - 0.08 x10(9)/L 10/31/2023 11:47 AM CDT DTL Blood (Blood, Venous) 10/31/2023 10:32 AM CDT 10/31/2023 10:49 AM CDT us Sunshine Perez M.D. LAB BLOOD ADD-ON Final Result [facility] [address] [place] [address], [facility] DTL [facility] [address] [place] [address] [facility] [address] [place] [address] * Influenza A, B, RSV, PCR, Rapid (10/28/2023 9:12 AM CDT) Pathologist [facility] Influenza A, PCR, Rapid, V Negative Negative 10/28/2023 9:59 AM CDT [facility] Influenza B, PCR, Rapid, V Negative Negative 10/28/2023 9:59 AM CDT [facility] Resp Synctial Virus, PCR, Rapid Negative Negative 10/28/2023 9:59 AM CDT [facility] Specimen Source Swab, Nasopharynx 10/28/2023 9:59 AM CDT [facility] Swab (Nasopharynx) 10/28/2023 9:12 AM CDT 10/28/2023 9:18 AM CDT [facility] M.B.B.S., B.M.B.S. LAB MICROBIOLOGY - G ENERAL ORDERABLES Final Result [facility] [address] [place], [place] [id number] [place] [address] [address] [place] [address] * SARS Coronavirus 2, PCR Rapid Symptomatic (10/28/2023 9:12 AM CDT) [facility] SARS CoV-2, PCR, Rapid, V Undetected Undetected 10/28/2023 9:59 AM CDT [facility] Comment: ----ADDITIONAL INFORMATION---- This RT-PCR test was performed using the [employer] SARS-CoV-2 and Influenza A/B Reagent assay from [employer], which has received Emergency Use Authorization(EUA) by the U.S. Food and Drug Administration. Fact sheets for this Emergency Use Authorization (EUA) assay can be found at the following links: For Healthcare Providers: https://www.fda.gov/media/768947/download For Patients: https://www.fda.gov/media/056168/download SARS Coronavirus 2, Rapid, Source Swab, Nasopharynx 10/28/2023 9:18 AM CDT [facility] Swab (Nasopharynx) 10/28/2023 9:12 AM CDT 10/28/2023 9:18 AM CDT Ciara Carter, [place] LAB MICROBIOLOGY - G ENERAL ORDERABLES Final Result Performing Organization Address [facility] de Phone Number [facility] [address] STMA [facility] [address] [place] [address] * (ABNORMAL) Hemoglobin A1c (10/28/2023 6:57 AM CDT) Hemoglobin A1c, B 6.0(H) 4.0 - 5.6 % 10/28/2023 8:17 AM CDT DTL Comment: Hemoglobin A1c values of 5.7-6.4 percent indicate an increased risk for developing diabetes mellitus. In diabetic patients, HbA1c goals should be discussed with healthcare provider. Blood (Blood, Venous) 10/28/2023 6:57 AM CDT 10/28/2023 7:54 AM CDT Matt Tuttle M.D. LAB BLOOD ADD-ON Final Result Performing Organization Address [facility] Co de Phone Number [facility] [address] [place] [address], [facility] DTL [facility] [address] [place] [address] * Comprehensive Metabolic Panel (10/28/2023 6:57 AM CDT) Potassium, S 3.8 3.6 - 5.2 mmol/L 10/28/2023 8:31 AM CDT DTL Sodium, S 139 135 - 145 mmol/L 10/28/2023 8:31 AM CDT DTL Chloride, S 99 98 - 107 mmol/L 10/28/2023 8:31 AM CDT DTL Bicarbonate, S 25 22 - 29 mmol/L 10/28/2023 8:31 AM CDT DTL Anion Gap 15 7 - 15 10/28/2023 8:31 AM CDT DTL BUN (Blood Urea Nitrogen), S 16 8 - 24 mg/dL 10/28/2023 8:31 AM CDT DTL Creatinine 1.18 0.74 - 1.35 mg/dL 10/28/2023 8:31 AM CDT DTL Estimated GFR (eGFR) 63 >=60 mL/min/BS A 10/28/2023 8:31 AM CDT DTL Comment: Estimated GFR calculated using the 2020 CKD_EPI creatinine equation. Calcium, Total, S 9.4 8.8 - 10.2 mg/dL 10/28/2023 8:31 AM CDT DTL Glucose, S 107 70 - 140 mg/dL 10/28/2023 8:31 AM CDT DTL Protein, Total, S 6.8 6.3 - 7.9 g/dL 10/28/2023 8:31 AM CDT DTL Albumin, S 4.2 3.5 - 5.0 g/dL 10/28/2023 8:31 AM CDT DTL Aspartate Aminotransferase (AST), S 24 8 - 48 U/L 10/28/2023 8:31 AM CDT DTL Alkaline Phosphatase, S 79 40 - 129 U/L 10/28/2023 8:48 AM CDT DTL Alanine Aminotransferase (ALT), S 19 7 - 55 U/L 10/28/2023 8:31 AM CDT DTL Bilirubin, Total, S 0.7 0.0 - 1.2 mg/dL 10/28/2023 8:31 AM CDT DTL Blood (Blood, Venous) 10/28/2023 6:57 AM CDT 10/28/2023 8:12 AM CDT us Matt Tuttle M.D. LAB BLOOD ADD-ON Final Result [facility] [address] [place] [address], [place] DTL [facility] [address] [place] [address] * Bacterial Culture, Aerobic + Susceptibility, Urine (10/27/2023 1:52 PM CDT) [facility] Urine Culture No growth after 1 day of incubation. 10/28/2023 12:23 PM CDT DTL Urine (Urine, Straight Catheter) 10/27/2023 1:52 PM CDT 10/27/2023 2:57 PM CDT Comment:Specimen Source Site : Urine Luis Carlos Card M.D. LAB MICROBIOLOGY - GENERAL ORD ERABLES Final Result Performing Organization Address [facility] de Phone Number [facility] [address] [place], [place] [phone] [place] [address] DTL [facility] [address] [place] [address] * (ABNORMAL) Troponin T, 2 Hour with 6 Hour Reflex, 5th Gen (10/27/2023 1:44 PM CDT) [facility] Troponin T, 2 hr, 5th gen 24(H) <=15 ng/L 10/27/2023 2:20 PM CDT [facility] 2H Delta -2 ng/L 10/27/2023 2:20 PM CDT [facility] Comment:6 hour collection no t indicated. 2H Delta Interp Not Changing 10/27/2023 2:20 PM CDT [facility] Blood 10/27/2023 1:44 PM CDT 10/27/2023 1:51 PM CDT Luis Carlos Card M.D. LAB BLOOD TROPONIN Final Resul t Performing Organization Address [facility] de Phone Number [facility] [address] [place], [place] [phone] [place] [address] STMA [facility] [address] [place] [address] * (ABNORMAL) Dipstick, Urine (10/27/2023 1:23 PM CDT) [facility] Hemoglobin, QL, U Large(A) Negative 10/27/2023 2:25 PM CDT DTL Leukocyte Esterase, U Large(A) Negative 10/27/2023 2:25 PM CDT DTL Nitrite, U Negative Negative 10/27/2023 2:25 PM CDT DTL Ketone, U Negative Negative mg/dL 10/27/2023 2:25 PM CDT DTL Glucose, U Negative Negative mg/dL 10/27/2023 2:25 PM CDT DTL Urine 10/27/2023 1:23 PM CDT 10/27/2023 1:54 PM CDT Luis Carlos Card M.D. LAB URINE ORDERABLES Final Res ult Performing Organization Address [facility] Co de Phone Number [facility] [address] [place] [address], [facility] [address] [place] [address] * (ABNORMAL) Microscopic Manual (10/27/2023 1:23 PM CDT) Microscopy Abnormal 10/27/2023 3:04 PM CDT DTL RBC <3 <3 /hpf 10/27/2023 3:04 PM CDT DTL WBC 21-30(A) /hpf 10/27/2023 3:04 PM CDT DTL Comment: ----REFERENCE VALUE---- <4 ??(Males) <11 (Females) Bacteria Present(A) 10/27/2023 3:04 PM CDT DTL Urine 10/27/2023 1:23 PM CDT 10/27/2023 2:25 PM CDT Luis Carlos Card M.D. LAB URINE ORDERABLES Final Res ult Performing Organization Address [facility] Co de Phone Number [facility] [address] [place] [address], [facility] [address] [place] [address] * pH, Urine (10/27/2023 1:23 PM CDT) pH, U 5.5 4.5 - 8.0 10/27/2023 2:1 3 PM CDT DTL Urine 10/27/2023 1:23 PM CDT 10/27/2023 1:54 PM CDT us Luis Carlos Card M.D. LAB URINE ORDERABLES Final Res ult Performing Organization Address [facility]/ZIP Co de Phone Number [facility] [address] [place] [address], [facility] [address] [place] [address] * Osmolality, Urine (10/27/2023 1:23 PM CDT) Osmolality, U 521 150 - 1150 mOsm/kg 10/27/2023 2:13 PM CDT DTL Urine 10/27/2023 1:23 PM CDT 10/27/2023 1:54 PM CDT us Luis Carlos Card M.D. LAB URINE ORDERABLES Final Res ult Performing Organization Address [facility] Co de Phone Number [facility] [address] [place], [place] [address] [address] [place] [address] * (ABNORMAL) Urinalysis, with Microscopic: Urine, Catheter (10/27/2023 1:23 PM CDT) Source Urine, Urine, Catheter 10/27/2023 1:54 PM CDT DTL Color, U Yellow 10/27/2023 1:54 PM CDT DTL Clarity, U Clear 10/27/2023 1:54 PM CDT DTL Protein, U 54(H) <26 mg/dL 10/27/2023 2:42 PM CDT DTL Protein/Osmola lity 1.04(H) <0.42 ratio 10/27/2023 2:42 PM CDT DTL Predicted 24 HR Protein, U 974(H) <229 mg/24 h 10/27/2023 2:42 PM CDT DTL Predicted Range 309-3070 mg/24 h 10/27/2023 2:42 PM CDT DTL Comment Micro done on <2.5 mL 10/27/2023 2:59 PM CDT DTL Urine (Urine, Catheter) 10/27/2023 1:23 PM CDT 10/27/2023 1:54 PM CDT us Luis Carlos Card M.D. LAB URINE ORDERABLES Final Res ult [facility] [address] [place] [address], [facility] DTL [facility] [address] [place] [address] * DX Chest AP or PA and Lateral 2 Views (10/27/2023 12:24 PM CDT) Anatomical Region Laterality Modality Chest, Thoracic RST LOS, Tho racic ARZ LOS, Thoracic FLA LOS N/A Digital Radiography Impressions 10/27/2023 12:27 PM CDT Comparison 04/30/2023. No significant change. Bibasilar atelectasis/scarring. Aortic calcification. Degenerative changes of both shoulders and the spine. Remainder normal. Narrative 10/27/2023 12:27 PM CDT EXAM: ??DX CHEST AP OR PA AND LATERAL 2 VIEWS Procedure Note Brandee Coffey M.D. - 10/27/2023 EXAM: DX CHEST AP OR PA AND LATERAL 2 VIEWS IMPRESSION: Comparison 04/30/2023. No significant change. Bibasilaratelectasis/scarring. Aortic calcification. Degenerative changes of bothshoulders and the spine. Remainder normal. us Luis Carlos Card M.D. IMG DIAGNOSTIC IMAGING PROCEDU RES Final Result * (ABNORMAL) Troponin T, Baseline with 2 Hour/6 Hour Reflex Biomarker Panel (10/27/2023 11:31 AM CDT) Troponin T, Baseline, 5th gen 26(H) <=15 ng/L 10/27/2023 11:58 AM CDT [facility] Blood (Blood, Venous) 10/27/2023 11:31 AM CDT 10/27/2023 11:35 AM CDT us Luis Carlos Card M.D. LAB BLOOD TROPONIN Final Resul t Performing Organization Address [facility]/ZIP Co de Phone Number [facility] [address] [place] [address], [place] STMA [facility] [address] [place] [address] * ECG 12 Lead (10/27/2023 11:23 AM CDT) Ventricular Rate ECG/Min 88 BPM MUSE SC Interval 304 ms MUSE QRSD Interval 102 ms MUSE QT Interval 370 ms MUSE QTC Interval 447 ms MUSE P Convent 44 degrees MUSE R Convent -66 degrees MUSE T Wave Convent 67 degrees MUSE 10/27/2023 11:2 3 AM CDT 10/27/2023 11:47 AM CDT Impressions MUSE - 10/27/2023 11:47 AM CDT Sinus rhythm with 1st degree A-V block Left anterior fascicular block When compared with ECG of 30-Apr-2023 08:32, Premature ventricular complexes are no longer present Reviewed by CHAPIN Freedman Narrative Procedure Note Chano Elise Jr., M.D. - 10/27/2023 IMPRESSION: Sinus rhythm with 1st degree A-V block Left anterior fascicular block When compared with ECG of 30-Apr-2023 08:32, Premature ventricular complexes are no longer present Reviewed by CHAPIN Freedman us Luis Carlos Card M.D. ECG ORDERABLES Final Result Performing Organization Address City/[facility]/ZIP Co de Phone Number MUSE NA * (ABNORMAL) Albumin, Random, Urine (09/23/2023 9:24 AM CDT) Microalbumin 78.9 mg/L 09/23/2023 9:38 AM CDT CNFL Creatinine 132 mg/dL 09/23/2023 9:38 AM CDT CNFL Albumin/Creatinin e Ratio 60(H) <17 mg/g 09/23/2023 9:38 AM CDT CNFL Urine (Urine, Midstream) 09/23/2023 9:24 AM CDT 09/23/2023 9:24 AM CDT us Dalia Dill M.D. LAB URINE ORDERABLES Kelsi walters Result [facility] [address] [place] [address], [facility] CNFL [facility] in [address] [address] * US Aorta AAA Screening (03/27/2015 11:17 AM SURVEY STATISTICIAN) Anatomical Region Laterality Modality Abdomen, Pelvis N/A Ultrasound 03/27/2015 11:1 7 AM SURVEY STATISTICIAN Impressions 03/27/2015 11:23 AM SURVEY STATISTICIAN ??No aneurysm. FINDINGS: Abdominal aorta and proximal iliac arteries are segmentally visualized and I see no evidence for aneurysm. Aorta: AP - 2.7 cm Aorta: Trans - 2.7 cm Right ROMANA: AP - 1.4 cm Right ROMANA Trans - 1.4 cm Left ROMANA: AP - 1.2 cm Left ROMANA Trans - 1.1 cm Electronically signed by: ?? SHELDON Rich MD. ??[id number] 27-Mar-2015 11:23 Narrative 03/27/2015 11:23 AM SURVEY STATISTICIAN 27-Mar-2015 11:17:00 ??Exam: US AAA Screening Indications: Screening Abdominal Aortic Aneurysm (AAA) ORIGINAL REPORT - 27-Mar-2015 11:23:00 EXAM: ??US AAA Screening COMPARISON: ??None Procedure Note Archana Rich M.D. - 05/05/2017 27-Mar-2015 11:17:00 Exam: US AAA Screening Indications: Screening Abdominal Aortic Aneurysm (AAA) ORIGINAL REPORT - 27-Mar-2015 11:23:00 EXAM: US AAA Screening COMPARISON: None IMPRESSION: No aneurysm. FINDINGS: Abdominal aorta and proximal iliac arteries are segmentallyvisualized and I see no evidence for aneurysm. Aorta: AP - 2.7 cm Aorta: Trans - 2.7 cm Right ROMANA: AP - 1.4 cm Right ROMANA Trans - 1.4 cm Left ROMANA: AP - 1.2 cm Left ROMANA Trans - 1.1 cm Electronically signed by: SHELDON Rich MD. [id number] 27-Mar-2015 11:23 us Dalia Dill M.D. IMG US PROCEDURES Final R esult * Bone Donor 6 Month Screen Test Set (06/15/2012 9:03 AM CDT) Donor HBcore Antibody Negative [facility] HCV Ab Screen Donor Negative [facility] HX Hiv-1/-2, Plus O Ab Screen Donor Negative [facility] 06/15/2012 9:03 AM CDT 06/15/2012 9:03 AM CDT Magdaleno Pathak M.D. LAB BLOOD NON ADD-ON Final Re sult [facility] [address] * CT Chest without IV Contrast (10/22/2008 9:06 AM CDT) Anatomical Region Laterality Modality Chest N/A Computed Tomogra phy 10/22/2008 9:06 AM CDT Narrative 10/22/2008 9:22 AM CDT 22-Oct-2008 09:06:00 ??Exam: CT CHEST wo Indications: pulmonary nodule; lung nodule on renal ct 32 pack yr. hx of tobacco use;pleaes eval for any other lung nodules;th- iv con per rad ORIGINAL REPORT - 22-Oct-2008 09:22:[address] Two to 3 mm nodules are seen in the right lung base series 3 images 151, 169, and 190. These are indeterminate. Small nodular opacity along the left major fissure series 3 image 120. Slight scarring or dependent atelectasis. Coronary artery calcification. Renal cysts. ?GUIDELINES FOR FOLLOW-UP of solid nodules detected incidentally at CT (newly detected indeterminate nodule in persons 35 years of age or older) .~ These apply to solitary pulmonary nodules or multiple pulmonary nodules. If multiple nodules are present, then the size of the largest nodule determines follow-up. NODULE SIZE (mm)* ??LOW-RISK PATIENT@ 4 or less ?No further follow-up >4-6 ?CT at 12 mo; If unchanged, no further follow-up >6-8 ?CT at 6-12 mo then at 18-24 mo if no change >8 ? Consider immediate workup with contrast-enhanced CT or PET, or biopsy or follow-up with CT imaging at 3, 9, and 24 mo NODULE SIZE (mm)* ?? HIGH-RISK PATIENT+ 4 or less ?CT at 12 mo; If unchanged, no further follow-up >4-6 ?CT at 6-12 mo then at 18-24 mo if no change >6-8 ?CT at 3-6 mo then at 9-12 and 24 mo if no change ?? >8 ? Consider immediate workup with contrast-enhanced CT or PET, or biopsy or follow-up with CT imaging at 3, 6, 12 and 24 mo *Average of length and width @Minimal or absent history of smoking and of other known risk factors +History of smoking or of other known risk factors ~Nonsolid (ground-glass) or partly solid nodules may require longer follow-up to exclude indolent adenocarcinoma [id number] Electronically signed by: ?? Singh ??Jennifer ROMAN. ?? [id number] 22-Oct-2008 09:22 Procedure Note Jhoan Rodriguez M.D. - 05/09/2017 22-Oct-2008 09:06:00 Exam: CT CHEST wo Indications: pulmonary nodule; lung nodule on renal ct 32 pack yr. hx oftobacco use;pleaes eval for any other lung nodules;th- iv con per rad ORIGINAL REPORT - 22-Oct-2008 09:22:[address] Two to 3 mm nodules are seen in the right lung baseseries 3 images 151, 169, and 190. These are indeterminate. Small nodularopacity along the left major fissure series 3 image 120. Slight scarringor dependent atelectasis. Coronary artery calcification. Renal cysts.GUIDELINES FOR FOLLOW-UP of solid nodules detected incidentally at CT(newly detected indeterminate nodule in persons 35 years of age or older).~ These apply to solitary pulmonary nodules or multiple pulmonarynodules. If multiple nodules are present, then the size of the largestnodule determines follow-up. NODULE SIZE (mm)* LOW-RISK PATIENT@ 4 or less No further follow-up >4-6 CT at 12 mo; If unchanged, no further follow-up >6-8 CT at 6-12 mo then at 18-24 mo if no change >8 Consider immediate workup with contrast-enhanced CT or PET,or biopsy or follow-up with CT imaging at 3, 9, and 24 mo NODULE SIZE (mm)* HIGH-RISK PATIENT+ [address] at 12 mo; If unchanged, no further follow-up >4-6 CT at 6-12 mo then at 18-24 mo if no change >6-8 CT at 3-6 mo then at 9-12 and 24 mo if no change >8 Consider immediate workup with contrast-enhanced CT or PET,or biopsy or follow-up with CT imaging at 3, 6, 12 and 24 mo *Average of length and width @Minimal or absent history of smoking and of other known risk factors +History of smoking or of other known risk factors ~Nonsolid (ground-glass) or partly solid nodules may require longerfollow-up to exclude indolent adenocarcinoma [id number] Electronically signed by: Singh Rodriguez MD. [id number] 22-Oct-2008 09:[address] PROCEDURES Final R esult from Last 3 Months or Most Recently Relevant to Health Maintenance Insurance MEDICARE [employer] Advance Directives For more information, please contact: [phone] Documents on File Type Date Recorded Patient Digital Product Specialist Expl anation Advance Directives 11/07/2023 10:[address]/MOLST Advance Directives 06/14/2023 5:15 AM POLST /MOLST * Full Code (Latest Code Status on File) Date Activated Date Inactivated Comments 10/27/2023 6:16 PM 10/31/2023 3:54 PM Question Answer Comments Full Code: Discussed * Full Code Date Activated Date Inactivated Comments 05/04/2023 10:49 AM 10/27/2023 10:50 AM Question Answer Comments Full Code: Discussed Designates his w luz Alannah to make decisions if he can not make them himself, does not want to be kept on machines for a prolonged time. * Full Code Date Activated Date Inactivated Comments 04/30/2023 1:17 PM 05/04/2023 10:49 AM Question Answer Comments Full Code: Discussed * Full Code Date Activated Date Inactivated Comments 03/28/2018 9:42 PM 03/31/2018 3:44 PM Question Answer Comments Full Code: Discussed * Full Code Date Activated Date Inactivated Comments 03/28/2018 9:37 PM 03/28/2018 9:42 PM Question Answer Comments Full Code: Not Discussed Due to: Patient not available Care Teams Alumnae Secretary Relationship Specialty Start Date End Date Dalia Dill M.D. [address] [place] [address] PCP - General Family Medicine 12/01/23
--- OUTSIDE RECORDS SUMMARY | 2023-12-13 06:15 | XMS_ITS | Encounter Summary ---
Author Organization [facility] Address [address] [place] [address] Care Team Providers Care Airport Ramp Supervisor Name Role Phone Dalia Dill M.D. Primary Care Provider [phone] Reason for Visit * Reason Onset Date Comments PandaDoc Form 12/09/2023 Orly order [id number] Encounter Details Date Type Department Care Team (Latest Contact Info) Description 12/09/2023 Clinical Communication Department of Family Medicine, [address] [place] [address] [place] [phone] Dalia Dill M.D. [address] [place] [address] PandaDoc Form (Orly order [id number]) Social History Tobacco Use Types Packs/Day Years Used Date Smoking Tobacco: Former Cigarettes 1 35 0 02/07/1962 - 02/07/1997 Smokeless Tobacco: Never Quit: 05/23/1999 Alcohol Use Standard Drinks/Week Comments Yes 1 (1 standard drink = 0.6 oz pur e alcohol) [facility] Utilities Answer Date Recorded In the past 12 months has e electric, gas, oil, or water company threatened to shut off services in your [...] 04/02/2022 How often do you attend chur or latter-day services? 1 to 4 times per year 04/02/2022 Do you belong to any clubs o r organizations such as anabaptist groups, unions, fraternal or athletic groups, or [...] Answer Date Recorded PHQ-2 Score 0 06/13/2023 [facility] Occup[facility] ional [facility] - Occupational Stress Questionnaire Answer Date Recorded [...] your living situation today? I have a [facility] place to live 10/27/2023 Education Answer Date Recorded What is the highest level of school you have completed or the highest degree you have received? 12th grade 03/14/2019 Sex and Gender Information Value Date Recorded Sex Assigned at Male 08/23/2017 10:02 AM CDT Legal Sex Male 7:12 PM CD REACTOR OPERATOR Gender Identity Male 08/23/2017 10:02 AM CDT Sexual Orientation Straight 08/23/2017 10 :02 AM CDT documented as of this encounter Miscellaneous Notes * Telephone Encounter - Karie Patel - 12/09/2023 1:39 PM CDT Form faxed back to facility and sent for scanning. * Telephone Encounter - Karie Patel - 12/09/2023 12:32 PM CDT Form was routed to Nisreen Preciado for electronic review/signature. SAND SCREENER: [facility] PHONE NUMBER: [phone] INFO REQUESTED: order [id number] INSTRUCTIONS: Fax information to [phone] documented in this encounter Plan of Treatment Upcoming Encounters Date Type Department Care Team (Late st Contact Info) Description 12/14/2023 10:30 AM CD REACTOR OPERATOR Appointment Department of Laboratory Medicine and Pathology, [facility], in [address] [phone] Dalia Dill M.D. [address] [place] [phone] 12/14/2023 11:00 AM CD REACTOR OPERATOR Office Visit Department of Family Medicine, [address] [phone] Dalia Dill M.D. [address] [place] [phone] 12/19/2023 2:00 PM CD REACTOR OPERATOR Comprehensive Visit Division of Community Internal Medicine, [facility], in [place], [place] [address] [place] [phone] Kiran Hugo M.D. [address] [place] [phone] documented as of this encounter Visit Diagnoses Not on filedocumented in this encounter Additional Health Concerns Assessment Noted Time PHQ-9 Depression Total Score: 1 06/13/19 24 10:38 AM CDT documented as of this encounter Care Teams Airport Ramp Supervisor Relationship Specialty Start Date End Date Dalia Dill M.D. [address] [place] [address] PCP - General Family Medicine 12/01/23 documented as of this encounter
--- OUTSIDE RECORDS SUMMARY | 2023-12-13 06:15 | XMS_ITS ---
Author Organization [facility] Address [address] [place] [address] Care Team Providers Care Lyft Driver Name Role Phone Dalia Dill M.D. Primary Care Provider [phone] Active Problems * This document contains information received from the source organization and may not represent a complete record from that organization. Problem Noted Date Diagnosed Date Frailty Age [...] check. Assessment & Plan (04/08/2020 1:19 PM METAL PUNCH PRESS OPERATOR): Initial blood pressure is 135/94 but repeat [...] daily Assessment & Plan (12/12/2019 2:14 PM METAL PUNCH PRESS OPERATOR): Blood pressure is controlled at 131/87. Continues [...] Plan (11/01/2023 2:28 PM CDT): Continue rosuvastatin Current Oncology Plans No current plan information found. Past Plans Urology Plan Name Start Date Discontinue Date Treatment Medications Discontinue Reason Plan Provider BCG LIVE (MAINTENANCE ) WEEKLY FOR 3 WEEKS 08/29/2019 12/11/2020 BCG live (Myron BCG) Therapy Complete Anthony yDer M.D. BCG LIVE (MAINTENANCE ) 50 MG/ 50 ML WEEKLY FOR 3 WEEKS & BCG LIVE (MAINTENANCE ) 50 MG/ 50 ML WEEKLY FOR 3 WEEKS 10/31/2018 08/21/2019 BCG live (Myron BCG) Therapy Complete Ethan Wang M.D. BCG LIVE (INDUCTION) 50 MG/ 50 ML WEEKLY FOR 6 WEEKS 01/18/2018 04/13/2018 BCG live (Myron BCG) Therapy Complete Ethan Wang M.D. Radiation Treatments * No radiation treatments are documented for this patient in [facility]. Treatments may have been administered in another system. Resolved Problems Problem Noted Date Diagnosed Date Resolved Date Urinary Tract Infection Site Not Specified 10/27/2023 11/01/2023 Viral Syndrome 04/30/2023 06/13/2023 Diabetes Mellitus Type 2 Wit h Diabetic Neuropathy 02/29/2020 08/05/2020 Dystrophic Toenail 02/29/2020 3 Morbid Severe Obesity Due To Excess Calories 0 06/13/2023 Dermatochalasis Right Upper Eyelid 04/24/2019 08/31/2021 Dermatochalasis Left Upper Eyelid 04/24/2019 08/31/2021 Astigmatism Regular Bilateral 04/24/2019 06/13/2023 Presbyopia 04/24/2019 06/13/2023 Influenza 03/30/2018 12/21/2022 Lesion Bladder 11/16/2017 03/28/2018 Overview (11/16/2017): Added automatically from request for surgery [id number] Department Of Transportation Examination Department Of Motor [...] 7. No pericardial effusion. See communication from [employer] (Dr Andrews) 08/18/17: ?? Given the sinus [...] this. Assessment & Plan (04/08/2020 1:18 PM METAL PUNCH PRESS OPERATOR): Hemoglobin A1c has worsened to 7.8%. He [...] be insulin. I have given them the [employer] patient assistance plan literature. They will contact [...] have found anything more from her insurance company o patients assistance program regarding his Ozempic cost. Other: Needs to schedule an eye exam on his own. Assessment & Plan (12/12/2019 2:13 PM METAL PUNCH PRESS OPERATOR): Hemoglobin A1c: 7.3% on current regimen of glimepiride, metformin, Januvia. He is not having hypoglycemia. His last visit we talked about transitioning to a GLP 1 agonist for weight loss benefit, cardiac benefit, further improved glycemic control. He notes that he is currently in the donut hole and therefore has a high co-pay [...]
--- OUTSIDE RECORDS SUMMARY | 2023-12-13 06:15 | XMS_ITS | Encounter Summary ---
Author Organization [facility] Address [address] [place] [address] Care Team Providers Care Roasterman Name Role Phone Dalia Dill M.D. Primary Care Provider [phone] Reason for Visit * Reason Onset Date Comments Daniel Villalba physician order [id number] 2023 Encounter Details Date Type Department Care Team (Latest Contact Info) Description 12/09/2023 Clinical Communication Department of Family Medicine, [address] in [address] [place] [phone] Dalia Dill M.D. [address] [place] [address] Daniel Villalba physician order [id number] Social History Tobacco Use Types Packs/Day Years Used Date Smoking Tobacco: Former Cigarettes 1 35 0 02/07/1962 - 02/07/1997 Smokeless Tobacco: Never Quit: 05/23/1999 Alcohol Use Standard Drinks/Week Comments Yes 1 (1 standard drink = 0.6 oz pur e alcohol) [facility] Utilities Answer Date Recorded In [...] How often do you attend chur or episcopal services? 1 to 4 times per year 04/02/2022 Do you belong to any clubs o r organizations such as caodaism groups, unions, fraternal or athletic groups, or [...] Answer Date Recorded PHQ-2 Score 0 06/13/2023 [facility] [place] of Occupat ional Health - Occupational Stress [...] your living situation today? I have a [facility] place to live 10/27/2023 Education Answer Date Recorded What is the highest level of school you have completed or the highest degree you have received? 12th grade 03/14/2019 Sex and Gender Information Value Date Recorded Sex Assigned at Male 08/23/2017 10:02 AM CDT Legal Sex Male 7:12 PM DEPUTY DIRECTOR OF NURSING Gender Identity Male 08/23/2017 10:02 AM CDT Sexual Orientation Straight 08/23/2017 10 :02 AM CDT documented as of this encounter Plan of Treatment Upcoming Encounters Date Type Department Care Team (Late st Contact Info) Description 12/14/2023 10:30 AM DEPUTY DIRECTOR OF NURSING Appointment Department of Laboratory Medicine and Pathology, [facility], in [address] [place] [address] Dalia Dill M.D. [address] [place] [phone] 12/14/2023 11:00 AM DEPUTY DIRECTOR OF NURSING Office Visit Department of Family Medicine, [address] in [place], [place] [address] [place] [address] [place] [address] Dalia Dill M.D. [address] [place] [phone] 12/19/2023 2:00 PM DEPUTY DIRECTOR OF NURSING Comprehensive Visit Division of Community Internal Medicine, [facility] in [place], [place] [address] [place] [phone] Kiran Hugo M.D. [address] [place] [phone] documented as of this encounter Visit Diagnoses Not on filedocumented in this encounter Additional Health Concerns Assessment Noted Time PHQ-9 Depression Total Score: 1 06/13/19 24 10:38 AM CDT documented as of this encounter Care Teams Roasterman Relationship Specialty Start Date End Date Dalia Dill M.D. [address] [place] [phone] PCP - General Family Medicine 12/01/23 documented as of this encounter
--- OUTSIDE RECORDS SUMMARY | 2023-12-13 06:15 | XMS_ITS | Encounter Summary ---
Author Organization [facility] Address [address] [place] [address] Care Team Providers Care Document Scanner Name Role Phone Dalia Dill M.D. Primary Care Provider [phone] Reason for Visit * Reason Onset Date Comments SNF Nurse Intake 11/09/2023 Encounter Details Date Type Department Care Team (Latest Contact Info) Description 11/09/2023 Clinical Communication [facility] in [place] [address] [place] [address] Veronica Brown, R.N. SNF Nurse Intake Social History Tobacco Use Types Packs/Day Years Used Date Smoking Tobacco: Former Cigarettes 1 35 0 02/07/1962 - 02/07/1997 Smokeless Tobacco: Never Quit: 05/23/1999 Alcohol Use Standard Drinks/Week Comments Yes 1 (1 standard drink = 0.6 oz pur e alcohol) [facility] Utilities Answer Date Recorded In the past 12 months has [facility] [employer], gas, oil, or water [employer] threatened to shut off services in your [...] often do you attend chur ch or taoism services? 1 to 4 times per year 04/02/2022 Do you belong to any clubs o r organizations such as yarsanism groups, unions, fraternal or athletic groups, or [...] Answer Date Recorded PHQ-2 Score 0 06/13/2023 [facility] of Occupat ional Health - Occupational Stress [...] your living situation today? I have a [facility] place to live 10/27/2023 Education Answer Date Recorded What is the highest level of school you have completed or the highest degree you have received? 12th grade 03/14/2019 Sex and Gender Information Value Date Recorded Sex Assigned at Male 08/23/2017 10:02 AM CDT Legal Sex Male 7:12 PM LINUX VMWARE ADMINISTRATOR Gender Identity Male 08/23/2017 10:02 AM CDT Sexual Orientation Straight 08/23/2017 10 :02 AM CDT documented as of this encounter Miscellaneous Notes * Telephone Encounter - Nisreen Preciado APRN, C.N.P. - 11/09/2023 2:23 PM CDT Noted * Telephone Encounter - Veronica Brown R.N. - 11/09/2023 1:20 PM CDT Received call from Jessie, nurse with [facility] where pt currently resides Staff calling to report an unwitnessed fall Per staff, pt slid out of chair, no injury, no pain, pt stable. Staffing calling as FYI only. Will let PCP know. documented in this encounter Plan of Treatment Upcoming Encounters Date Type Department Care Team (Late st Contact Info) Description 12/14/2023 10:30 AM LINUX VMWARE ADMINISTRATOR Appointment Department of Laboratory Medicine and Pathology, [facility], in [place], [place] [address] [place] [phone] Dalia Dill M.D. [address] [place] [phone] 12/14/2023 11:00 AM LINUX VMWARE ADMINISTRATOR Office Visit Department of Family Medicine, [address] [place] [address] [place] [address] Dalia Dill M.D. [address] [place] [phone] 12/19/2023 2:00 PM LINUX VMWARE ADMINISTRATOR Comprehensive Visit Division of Community Internal Medicine, [facility], in [place], [place] [address] [place] [phone] Kiran Hugo M.D. [address] [place] [phone] documented as of this encounter Visit Diagnoses Not on filedocumented in this encounter Additional Health Concerns Assessment Noted Time PHQ-9 Depression Total Score: 1 06/13/19 24 10:38 AM CDT documented as of this encounter Care Teams Document Scanner Relationship Specialty Start Date End Date Dalia Dill M.D. [address] [place] [phone] PCP - General Family Medicine 12/01/23 documented as of this encounter
--- OUTSIDE RECORDS SUMMARY | 2023-12-13 06:15 | XMS_ITS | Encounter Summary ---
Author Organization [facility] Address [address] [place] [address] Care Team Providers Care Nurse Outreach Case Manager Name Role Phone Nisreen Preciado APRN C.N.P. Primary Care [facility] Encounter Details Date Type Department Care Team (Latest Contact Info) Description 11/08/2023 12:33 AM CDT - 11/08/2023 11:59 PM CDT Hospital Encounter Department of Laboratory Medicine in [place], [place] [address] [place] [phone] Nisreen Preciado APRN, C.N.P. [address] [place] [phone] Weakness General Discharge Disposition: Home or Self Care Social History Tobacco Use Types Packs/Day Years Used Date Smoking Tobacco: Former Cigarettes 1 35 0 02/07/1962 - 02/07/1997 Smokeless Tobacco: Never Quit: 05/23/1999 Alcohol Use Standard Drinks/Week Comments Yes 1 (1 standard drink = 0.6 oz pur e alcohol) [facility] Utilities Answer Date Recorded In the past [...] How often do you attend chur or sikh services? 1 to 4 times per year 04/02/2022 Do you belong to any clubs o r organizations such as roman catholic groups, unions, fraternal or athletic groups, or [...] Answer Date Recorded PHQ-2 Score 0 06/13/2023 [facility] [place] of Occupat ional Health - Occupational Stress [...] your living situation today? I have a [facility] place to live 10/27/2023 Education Answer Date Recorded What is the highest level of school you have completed or the highest degree you have received? 12th grade 03/14/2019 Sex and Gender Information Value Date Recorded Sex Assigned at Male 08/23/2017 10:02 AM CDT Legal Sex Male 7:12 PM FIXING CARPENTER Gender Identity Male 08/23/2017 10:02 AM CDT Sexual Orientation Straight 08/23/2017 10 :02 AM CDT documented as of this encounter Medications at Time of Discharge albuterol 90 mcg/actuation inhaler Inhale 1 puff every 4 (four) hours as needed for wheezing or shortness of breath. For COPD. 11/01/2023 amLODIPine (Norvasc) 5 mg tabletIndication s:Chronic Kidney Disease (CKD), Stage 3 Unspecified (HCC) Take 1 tablet (5 mg total) by mouth daily. For hypertension 10/31/2023 aspirin 81 mg chewable tablet Chew 1 tablet (81 mg total) daily. For cardiovascular event prevention 10/31/2023 blood glucose ctl high,nml,low solution Glucose control solution provides an easy way to ensure accurate blood glucose testing. 1 each 07/07/2023 blood sugar diagnostic strips (Accu-Chek Guide test strips) 1 test by other route daily. for testing 100 strip 3 07/07/2023 blood-glucose meter misc Test as directed for diabetes control. 1 each 02/12/2019 cyanocobalamin (Vitamin B-12) 1,000 mcg tablet Take 1 tablet (1,000 mcg total) by mouth daily. For low Vitamin B12 10/31/2023 DME Bi-level PAPIndications:C entral Sleep Apnea Syndrome,Apnea Sleep Obstructive DME Order 1 each 01/19/2023 FLUoxetine (PROzac) 40 mg capsule Take 1 capsule (40 mg total) by mouth daily. For depression. 10/31/2023 fluticasone furoate (Arnuity Ellipta) 100 mcg/actuation diskus inhaler Inhale 1 puff daily. For COPD. 10/31/2023 lancets Test once daily 100 each 1 02/16/2019 losartan (Cozaar) 50 mg tablet Take 1 tablet (50 mg total) by mouth daily. For hypertension. 10/31/2023 metFORMIN (Glucophage) 1,000 mg tablet Take 1 tablet (1,000 mg total) by mouth 2 (two) times a day. For diabetes. 10/31/2023 metoprolol succinate (Toprol XL) 25 mg 24 hr tablet Take 0.5 tablets (12.5 mg total) by mouth daily. Do not crush or chew. For CAD. 10/31/2023 multivitamin tablet Take 1 tablet by mouth daily. 90 tablet 10/31/2023 nitroglycerin (Nitrostat) 0.[address] 1 tablet (0.4 mg total) under the tongue every 5 (five) minutes as needed for chest pain. Chest pain 10/31/2023 pantoprazole (Protonix) 40 mg EC tablet Take 1 tablet (40 mg total) by mouth daily. For GERD. 10/31/2023 rosuvastatin (Crestor) 10 mg tablet Take 1 tablet (10 mg total) by mouth daily. For hyperlipidemia 10/31/2023 semaglutide (Ozempic) 1 mg/dose (4 mg/3 mL) injection Inject 1 mg under the skin every 7 (seven) days. on Fridays for diabetes. 4 mL 3 11/07/2023 11/18/19 24 documented as of this encounter Plan of Treatment Upcoming Encounters Date Type Department Care Team (Late st Contact Info) Description 12/14/2023 10:30 AM FIXING CARPENTER Appointment Department of Laboratory Medicine and Pathology, [facility], in [address] [phone] Dalia Dill M.D. [address] [place] [phone] 12/14/2023 11:00 AM FIXING CARPENTER Office Visit Department of Family Medicine, [address] [phone] Dalia Dill M.D. [address] [place] [phone] 12/19/2023 2:00 PM FIXING CARPENTER Comprehensive Visit Division of Community Internal Medicine, [facility] in [place], [place] [address] [place] [phone] Kiran Hugo M.D. [address] [place] [phone] documented as of this encounter Procedures Procedure Name Priority Date/Time Associated Diagnosis Comments CBC WITHOUT DIFFERENTIAL, B Routine 11/08/2023 7:00 AM CDT Weakness General BASIC METABOLIC PANEL, S/P Routine 11/08/2023 7:00 AM CDT Weakness General documented in this encounter Results * (ABNORMAL) CBC without Differential (11/08/2023 [...] C.N.P. LAB BLOOD ADD-ON Fi nal Result [facility] [address] [place] [address], [facility] [address] [place] [address] * (ABNORMAL) Basic Metabolic Panel (11/08/2023 7:00 AM CDT) Potassium, P 4.2 3.6 - 5.2 mmol/L [...] 7:00 AM CDT 11/08/2023 7:47 AM CDT Nisreen Preciado APRN, C.N.P. LAB BLOOD ADD-ON Fi nal Result [facility] [address] [place] [address], [facility] [address] [place] [address] documented in this encounter Visit Diagnoses Diagnosis Weakness General documented in this encounter Additional Health Concerns Assessment Noted Time PHQ-9 Depression Total Score: 1 06/13/19 24 10:38 AM CDT documented as of this encounter Care Teams Nurse Outreach Case Manager Relationship Specialty Start Date End Date Nisreen Preciado APRN, C.N.P. [address] [place] [phone] PCP - General Family Medicine 10/31/23 11/30/23 documented as of this encounter
--- OUTSIDE RECORDS SUMMARY | 2023-12-13 06:15 | XMS_ITS | Encounter Summary ---
Author Organization [facility] Address [address] [place] [address] Care Team Providers Care Mechanical Commissioning Engineer Name Role Phone Nisreen Preciado APRN, C.N.P. Primary Care [facility] Encounter Details Date Type Department Care Team (Latest Contact Info) Description 11/03/2023 2:50 PM CDT - 11/03/2023 11:59 PM CDT Hospital Encounter Department of Laboratory Medicine in [place], [place] [address] [place] [phone] Nisreen Preciado APRN, C.N.P. [address] [place] [phone] Test Blood Tuberculosis Discharge Disposition: Home or Self Care Social History Tobacco Use Types Packs/Day Years Used Date Smoking Tobacco: Former Cigarettes 1 35 0 02/07/1962 - 02/07/1997 Smokeless Tobacco: Never Quit: 05/23/1999 Alcohol Use Standard Drinks/Week Comments Yes 1 (1 standard drink = 0.6 oz pur e alcohol) [facility] Utilities Answer Date Recorded In the [...] friends, or neighbors? Once a week 04/02/19 Frequency of Social Gatherin gs with Friends and Family Not on file 04/02/2022 How often do you attend chur or hindu services? 1 to 4 times per year 04/02/2022 Do you belong to any clubs o r organizations such as judaism groups, unions, fraternal or athletic groups, or [...] Answer Date Recorded PHQ-2 Score 0 06/13/2023 [facility] [place] of Occupat ional Health - Occupational Stress [...] your living situation today? I have a [facility] place to live 10/27/2023 Education Answer Date Recorded What is the highest level of school you have completed or the highest degree you have received? 12th grade 03/14/2019 Sex and Gender Information Value Date Recorded Sex Assigned at Male 08/23/2017 10:02 AM CDT Legal Sex Male 7:12 PM PATTERN CUTTER Gender Identity Male 08/23/2017 10:02 AM CDT [...] 7 (seven) days. on Fridays for diabetes. 10/31/2023 11/07/19 documented as of this encounter Plan of Treatment Upcoming Encounters Date Type Department Care Team (Late st Contact Info) Description 12/14/2023 10:30 AM PATTERN CUTTER Appointment Department of Laboratory Medicine and Pathology, [facility], in [address] [phone] Dalia Dill M.D. [address] [place] [phone] 12/14/2023 11:00 AM PATTERN CUTTER Office Visit Department of Family Medicine, [address] [phone] Dalia Dill M.D. [address] [place] [phone] 12/19/2023 2:00 PM PATTERN CUTTER Comprehensive Visit Division of Community Internal Medicine, [facility] in [place], [place] [address] [place] [phone] Kiran Hugo M.D. [address] [place] [phone] documented as of this encounter Procedures Procedure Name Priority Date/Time Associated Diagnosis Comments QUANTIFERON-TB GOLD PLUS, B Routine 11/03/2023 9:00 PM CDT Test Blood Tuberculosis documented in this encounter Results * QuantiFERON-Tb Gold Plus, Blood (11/03/2023 9:00 PM CDT) QuantiFERON-TB Gold Plus Result Negative Negative 11/08/2023 [...] Diagnosis of Tuberculosis in Adults and Children [Kiesha PRATT et. al. Clin. Infect. Dis. 2017;64(2):111-115]. The [...] 9:00 PM CDT 11/04/2023 8:02 PM CDT [facility] - 11/08/2023 2:39 PM CDT Specimen Information: Specimen ID: [id number] Specimen Type: Blood Specimen Collection Start Date: 11/03/2023 ??9:00 PM Specimen Received Date: 11/04/2023 ??8:02 PM Specimen ID: [id number] Specimen Type: Blood Specimen Collection Start Date: 11/03/2023 ??9:00 PM Specimen Received Date: 11/04/2023 ??8:02 PM Specimen ID: [id number] Specimen Type: Blood Specimen Collection Start Date: 11/03/2023 ??9:00 PM Specimen Received Date: 11/04/2023 ??8:02 PM Specimen ID: [id number] Specimen Type: Blood Specimen Collection Start Date: 11/03/2023 ??9:00 PM Specimen Received Date: 11/04/2023 ??8:02 PM Nisreen Preciado APRN C.N.P. LAB MICROBIOLOGY - BLOOD ORDERABLES Final Result [facility] [address] [place] [address], [facility] in [place] [address] [place] [phone] documented in this encounter Visit Diagnoses Diagnosis Test Blood Tuberculosis documented in this encounter Additional Health Concerns Assessment Noted Time PHQ-9 Depression Total Score: 1 06/13/19 10:38 AM CDT documented as of this encounter Care Teams Mechanical Commissioning Engineer Relationship Specialty Start Date End Date Nisreen Preciado APRN, C.N.P. [address] [place] [phone] PCP - General Family Medicine 10/31/23 11/30/23 documented as of this encounter
--- OUTSIDE RECORDS SUMMARY | 2023-12-13 06:15 | XMS_ITS | Encounter Summary ---
Author Organization [facility] Address [address] [place] [address] Care Team Providers Care Supervisor Electrolytic Tinning Name Role Phone Nisreen Preciado APRN, C.N.P. Primary Care Provi cole Reason for Visit * Reason Comments Discharge Orders Encounter Details Date Type Department Care Team (Latest Contact Info) Description 11/28/2023 8:30 AM CDT External Outreach [facility] [place] [address] [place] [address] Nisreen Preciado APRN, C.N.P. [address] [place] [address] History Of Falling (Primary Dx); Weakness General; Coronary Artery Disease Without Angina Pectoris; Diabetes Mellitus Type 2 Peripheral Neuropathy (HCC); Neuropathy Peripheral; Apnea Sleep Obstructive; Asthma Mild Persistent (HCC); Chronic Obstructive Pulmonary Disease Without Exacerbation (HCC); Depression Major Recurrent Full Remission (HCC); Hyperlipidemia; Valenzuela's Esophagus Personal History; Frailty Age Related Physical Debility; Imbalance Non Orthopedic Social History Tobacco Use Types Packs/Day Years Used Date Smoking Tobacco: Former Cigarettes 1 35 0 02/07/1962 - 02/07/1997 Smokeless Tobacco: Never Quit: 05/23/1999 Tobacco Cessation:Counseling Given: Not Answered Alcohol Use Standard Drinks/Week Comments Yes 1 (1 standard drink = 0.6 oz pur e alcohol) [facility] Utilities Answer Date Recorded In the past 12 months has th e electric, gas, oil, or water [employer] threatened to shut off services in your [...] often do you attend chur ch or denominational services? 1 to 4 times per year 04/02/2022 Do you belong to any clubs o r organizations such as catholic groups, unions, fraternal or athletic groups, [...] Answer Date Recorded PHQ-2 Score 0 06/13/2023 [facility] of Occupat ional Health - Occupational Stress [...] your living situation today? I have a [facility] place to live 10/27/2023 Education Answer Date Recorded What is the highest level of school you have completed or the highest degree you have received? 12th grade 03/14/2019 Sex and Gender Information Value Date Recorded Sex Assigned at Male 08/23/2017 10:02 AM CDT Legal Sex Male 7:12 PM COLLEGE ATHLETE Gender Identity Male 08/23/2017 10:02 AM CDT Sexual Orientation Straight 08/23/2017 10 :02 AM CDT documented as of this encounter Last Filed Vital Signs Vital Sign Reading [...] oz) 11/28/2023 8:33 A M CDT Height - - Body Mass Index 29.1 10/27/2023 6:20 PM CDT documented in this encounter Progress Notes * Imani Rider L.P.N. - 11/28/2023 8:30 AM CDT Images from the original note were not included. SNF VISIT for a [facility] Discharge Visit Anticipated Discharge Date: Pending Anticipated Discharge to: Own Home Full Code The resident was admitted to the skilled nursing on 10/27/2023 for: Need for strengthening and rehabilitation He will need Home Health: Unknown Medication List has been reconciled: Yes Rx needed: Yes and Preferred Home Pharmacy: [facility] Future Appointments 11/28/2023 8:30 AM Nisreen Preciado APRN, C.N.P. [facility] [place] * Nisreen Preciado APRN, C.N.P. - 11/28/2023 8:30 AM CDT CHIEF COMPLAINT / REASON FOR VISIT The resident is being seen at [place], [place] for Discharge H&P Visit Visit Type: In Person Face-to- Face visit SUBJECTIVE HISTORY OF PRESENT ILLNESS Obtained from Patient, Nursing, and SBAR: SNF VISIT for a [facility] Discharge Visit Anticipated Discharge Date: 12/01/23 Anticipated Discharge to: Own Home with his Mr. Potts is a 78 y.o. male admitted for generalized weakness. Pertinent past medical history of hypertension, hyperlipidemia, type 2 diabetes, depression, anxiety, GERD. He noticed significant urinary frequency, inability to stand and presented to the emergency room. He had elevated white count of 12. He was admitted for weakness, originally suspicious for UTI, he received ceftriaxone. Physical exam was not significant except for weakness. Given low suspicion for aurinary tract infection, his ceftriaxone wad discontinued. Respiratory swabs were negative. PT and OT in the hospital recommended ongoing rehab. He is from [place]. He is on a consistent carb diabetic diet with regular textures. His vital signs have been stable since admission. He has had multiple falls reported over the last 6 months, patient states this is related to his neuropathy in his legs. He is alert and oriented. He does have decreased range of motion in his right shoulder- this is chronic. He is seen in his room. He feels he is doing much better. He is walking with one assist. He does not have any skin impairments. I personally reviewed the most recent following items: clinical notes, lab results The following medical problems were actively reviewed (including updating overview sections as necessary) and addressed as part of today's visit: #1 History Of Falling #2 Weakness General #3 Coronary Artery Disease Without Angina Pectoris #4 Diabetes Mellitus Type 2 Peripheral Neuropathy (HCC) #5 Neuropathy Peripheral #6 Apnea Sleep Obstructive #7 Asthma Mild Persistent (HCC) #8 Chronic Obstructive Pulmonary Disease Without Exacerbation (HCC) #9 Depression Major Recurrent Full Remission (HCC) #10 Hyperlipidemia #11 Valenzuela's Esophagus Personal History #12 Frailty Age Related Physical Debility #13 Imbalance Non Orthopedic CODE STATUS: FULL CODE REVIEW OF SYSTEMS Complete review of systems was performed, as allowable by patient's cognitive status, and incorporating collateral history if applicable. Relevant positives are noted elsewhere in this note, otherwise negative. OBJECTIVE Vital signs provided by facility: BP 115/82 Pulse 94 Temp 36.3 ??C Resp 16 Wt 92.7 kg SpO2 97% BMI 29.10 kg/m?? PHYSICAL EXAM Constitutional General: He is not in acute distress. Appearance: Normal appearance. He is not ill-appearing. HENT Nose: Nose normal. No congestion or rhinorrhea. Eyes Conjunctiva/sclera: Conjunctivae normal. Cardiovascular Rate and Rhythm: Normal rate and regular rhythm. Heart sounds: Normal heart sounds. Pulmonary Effort: Pulmonary effort is normal. No respiratory distress. Abdominal General: Abdomen is flat. Palpations: Abdomen is soft. Musculoskeletal Right lower leg: No edema. Left lower leg: No edema. Comments: Moves all extremities, has decreased range of motion in right shoulder Skin Coloration: Skin is pale. Neurological Mental Status: He is alert. Mental status is at baseline. Psychiatric Mood and Affect: Mood normal. Behavior: Behavior normal. Thought Content: Thought content normal. Judgment: Judgment normal. ASSESSMENT / PLAN Full background details regarding problems addressed at today's visit can be found in the HPI. Pertinent changes to the care plan based on today's evaluation are explicitly discussed below, otherwiselisted problems are stable and present management will be continued. #1 History Of Falling #2 Weakness General #3 Coronary Artery Disease Without Angina Pectoris Assessment & Plan: Continue aspirin 81 mg daily #4 Diabetes Mellitus Type 2 Peripheral Neuropathy (HCC) Assessment & Plan: Continue metformin 1000 mg twice a day Continue semaglutide weekly #5 Neuropathy Peripheral Assessment & Plan: He is not currently on medication for this. He states it does limit his mobility #6 Apnea Sleep Obstructive Assessment & Plan: Continue with BiPAP while sleeping #7 Asthma Mild Persistent (HCC) Assessment & Plan: Continue albuterol as needed #8 Chronic Obstructive Pulmonary Disease Without Exacerbation (HCC) Assessment & Plan: Continue Arnuity Ellipta Continue albuterol as needed #9 Depression Major Recurrent Full Remission (HCC) Assessment & Plan: Continue fluoxetine #10 Hyperlipidemia Assessment & Plan: Continue rosuvastatin #11 Valenzuela's Esophagus Personal History Assessment & Plan: Continue pantoprazole 40 mg daily #12 Frailty Age Related Physical Debility Assessment & Plan: He will have home care PT/OT/nursing and home health aide #13 Imbalance Non Orthopedic Assessment & Plan: He is no longer driving Uses walker Will order transport wheelchair Okay to discharge with current meds and treatments when all is arranged Follow up with primary care provider in 7-10 days Did review medications with patient, he does not need any medication sent to his pharmacy FACE TO FACE DOCUMENTATION Patient has been prescribed home PT and OT at [facility]'s therapy department for continued balance, strengthening, and to develop a home exercise program. He will have home health nurse for medication management and home health aide for assistance with ADLs such as bathing. Bacilio is considered homebound because he requires a device for ambulation and leaving his home requires a considerable and taxing effort. DME Medical Justification: Manual wheelchair A [id number] encounter was conducted by Nisreen Preciado APRN, RIA on 11/28/2023 to evaluate Jorge Potts for a manual wheelchair and accessories. Jorge Potts does have a mobility limitation that prevents him from accomplishing one or more mobility related activities of daily living that include toileting, dressing, grooming, and bathing in customary locations in the home. oJrge's mobility limitations cannot be sufficiently resolved by the use of an appropriately fitted cane or walker secondary to limit mobility. Use of a manual wheelchair on a regular basis in the home will significantly improve ability to participate in MRADLs. Jorge's home does have adequate access between the rooms, maneuvering space, and surfaces for the manual wheelchair. He or a caregiver is willing to use the wheelchair in the home. Jorge will use the wheelchair inside and outside the home. The type of manual wheelchair ordered is transport chair. He or a caregiver is willing to use the wheelchair in the home. Jorge or a caregiver is willing to use the wheelchair in the home. He has a caregiver who is willing and able to provide assistance with the wheelchair.. Accessories have not been ordered. Most recent height: 10/27/23 : 178.5 cm Most recent weight: 11/28/23 : 92.7 kg PATIENT EDUCATION Ready to learn, no apparent learning barriers were identified; learning preferences include listening. Explained diagnosis and treatment plan; patient/child/caregiver expressed understanding of the content. Billing based on: Time, including the following tasks: reviewing the electronic medical record, reviewing written facility-provided information, reviewing information in facility EMR, medication reconciliation, obtaining collateral history from facility staff, Interviewing and examining the patient, placing orders, communicating orders to facility, providing education/counseling to patient, family, and/or facility staff. Total time 35 minutes. documented in this encounter Miscellaneous Notes * Assessment & Plan Note - Nisreen Preciado APRN, C.N.P. - 11/28/2023 1:10 PM CDTAssociated Problem(s): Imbalance Non Orthopedic He is no longer driving Uses walker Will order transport wheelchair * Assessment & Plan Note - Nisreen Preciado APRN, C.N.P. - 11/28/2023 1:09 PM CDTAssociated Problem(s): Frailty Age Related Physical Debility He will have home care PT/OT/nursing and home health aide * Assessment & Plan Note - Nisreen Preciado APRN, C.N.P. - 11/28/2023 1:08 PM CDTAssociated Problem(s): Valenzuela's Esophagus Personal History Continue pantoprazole 40 mg daily * Assessment & Plan Note - Nisreen Preciado APRN, C.N.P. - 11/28/2023 1:08 PM CDTAssociated Problem(s): Hyperlipidemia Continue rosuvastatin * Assessment & Plan Note - Nisreen Preciado APRN, C.N.P. - 11/28/2023 1:08 PM CDTAssociated Problem(s): Depression Major Recurrent Full Remission (HCC) Continue fluoxetine * Assessment & Plan Note - Nisreen Preciado APRN, C.N.P. - 11/28/2023 1:08 PM CDTAssociated Problem(s): Chronic Obstructive Pulmonary Disease Without Exacerbation (HCC) Continue Arnuity Ellipta Continue albuterol as needed * Assessment & Plan Note - Nisreen Preciado APRN, C.N.P. - 11/28/2023 1:07 PM CDTAssociated Problem(s): Asthma Mild Persistent (HCC) Continue albuterol as needed * Assessment & Plan Note - Nisreen Preciado APRN, C.N.P. - 11/28/2023 1:07 PM CDTAssociated Problem(s): Apnea Sleep Obstructive Continue with BiPAP while sleeping * Assessment & Plan Note - Nisreen Preciado APRN, C.N.P. - 11/28/2023 1:07 PM CDTAssociated Problem(s): Neuropathy Peripheral He is not currently on medication for this. He states it does limit his mobility * Assessment & Plan Note - Nisreen Preciado APRN, C.N.P. - 11/28/2023 1:06 PM CDTAssociated Problem(s): Diabetes Mellitus Type 2 Peripheral Neuropathy (HCC) Continue metformin 1000 mg twice a day Continue semaglutide weekly * Assessment & Plan Note - Nisreen Preciado APRN C.NAurelioP. - 11/28/2023 1:06 PM CDTAssociated Problem(s): Coronary Artery Disease Without Angina Pectoris Continue aspirin 81 mg daily documented in this encounter Plan of Treatment Upcoming Encounters Date Type Department Care Team (Late st Contact Info) Description 12/14/2023 10:30 AM COLLEGE ATHLETE Appointment Department of Laboratory Medicine and Pathology, [facility], in [address] [phone] Dalia Dill M.D. [address] [place] [phone] 12/14/2023 11:00 AM COLLEGE ATHLETE Office Visit Department of Family Medicine, [address] [phone] Dalia Dill M.D. [address] [place] [phone] 12/19/2023 2:00 PM COLLEGE ATHLETE Comprehensive Visit Division of Community Internal Medicine, [facility] in [place], [place] [address] [place] [phone] Kiran Hugo M.D. [address] [place] [phone] documented as of this encounter Visit Diagnoses Diagnosis History Of Falling- Primary Weakness General Coronary Artery Disease Without Angina Pectoris Diabetes Mellitus Type 2 Peripheral Neuropathy (HCC) Neuropathy Peripheral Apnea Sleep Obstructive Asthma Mild Persistent (HCC) Chronic Obstructive Pulmonary Disease Without Exacerbation (HCC) Depression Major Recurrent Full Remission (HCC) Hyperlipidemia Valenzuela's Esophagus Personal History Frailty Age Related Physical Debility Imbalance Non Orthopedic documented in this encounter Additional Health Concerns Assessment Noted Time PHQ-9 Depression Total Score: 1 06/13/19 10:38 AM CDT documented as of this encounter Care Teams Supervisor Electrolytic Tinning Relationship Specialty Start Date End Date Nisreen Preciado APRN, C.N.P. [address] [place] [phone] PCP - General Family Medicine 10/31/23 11/30/23 documented as of this encounter
--- OUTSIDE RECORDS SUMMARY | 2023-12-13 06:15 | XMS_ITS | Encounter Summary ---
Author Organization [facility] Address [address] [place] [address] Care Team Providers Care Track Layer Head Name Role Phone Nisreen Preciado APRN C.NAurelioPAurelio Primary Care Provi cole Reason for Visit * Reason Onset Date Comments SNF Nurse Intake 11/07/2023 Encounter Details Date Type Department Care Team (Latest Contact Info) Description 11/07/2023 Clinical Communication [facility] [place] [address] [place] [phone] Veronica Brown, R.N. SNF Nurse Intake Social History Tobacco Use Types Packs/Day Years Used Date Smoking Tobacco: Former Cigarettes 1 35 0 02/07/1962 - 02/07/1997 Smokeless Tobacco: Never Quit: 05/23/1999 Alcohol Use Standard Drinks/Week Comments Yes 1 (1 standard drink = 0.6 oz pur e alcohol) [facility] Utilities Answer Date Recorded In the past 12 months has e electric, gas, oil, or water [employer] threatened to shut off services in your [...] How often do you attend chur or confucianist services? 1 to 4 times per year 04/02/2022 Do you belong to any clubs o r organizations such as baptism groups, unions, fraternal or athletic groups, or [...] Answer Date Recorded PHQ-2 Score 0 06/13/2023 [facility] of Occupat ional Health - Occupational Stress [...] your living situation today? I have a [facility] place to live 10/27/2023 Education Answer Date Recorded What is the highest level of school you have completed or the highest degree you have received? 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 - 11/07/2023 11:58 AM CDT Addended by: BRITTNI IZAGUIRRE on: 11/07/2023 11:58 AM Modules accepted: Orders * Telephone Encounter - Brittni Izaguirre APRN, C.N.P. - 11/07/2023 11:54 AM CDT I called and spoke to Jessie the RN at [facility]. Patients does not want a therapeutic interchange for Ozempic. Patient has been on Ozempic for the past 2 years and has worked very well for him. She does not want to use Liraglutide on a daily dosing which according to [facility] was therapeutically exchanged for the Ozempic. Patient's stating that she will take patient out of [facility] if they can not use the Ozempic. Order given to DC Liraglutide and restart Ozempic as previously written. * Telephone Encounter - Brittni Izaguirre APRN, C.N.P. - 11/07/2023 11:17 AM CDT Jose Martin, Please Call Dr. Devlin please to get clarification on Ozempic order. Liraglutide needs to be given daily as written. Brittni Hansen * Telephone Encounter - Veronica Brown R.N. - 11/07/2023 9:43 AM CDT Received call from [facility] where pt resides S: staff wondering if pt can have liraglutide 0.2 ML (1.2MG) dose this AM, 11/07/23 B/A: Per SNF staff, pt received Ozempic 1 mg on 11/04/23 (staff stated brought dose from home) per SNF EHR, Ozempic was discontinued on 11/04/23, unclear who discontinued it. Per SNF staff, pt was to start Liraglutide 0.2mL daily in AM by Dr. Claus Felipe: Grades 7 8 Tutor to send question to provider secondary set up man documented in this encounter Plan of Treatment Upcoming Encounters Date Type Department Care Team (Late st Contact Info) Description 12/14/2023 10:30 AM PANTS PRESSER Appointment Department of Laboratory Medicine and Pathology, [facility], in [place], [place] [address] [place] [phone] Dalia Dill M.D. [address] [place] [phone] 12/14/2023 11:00 AM PANTS PRESSER Office Visit Department of Family Medicine, [address] in [place], [place] [address] [place] [phone] Dalia Dill M.D. [address] [place] [phone] 12/19/2023 2:00 PM PANTS PRESSER Comprehensive Visit Division of Community Internal Medicine, [facility] in [place], [place] [address] [place] [phone] Kiran Hugo M.D. [address] [place] [phone] documented as of this encounter Visit Diagnoses Not on filedocumented in this encounter Additional Health Concerns Assessment Noted Time PHQ-9 Depression Total Score: 1 06/13/19 24 10:38 AM CDT documented as of this encounter Care Teams Track Layer Head Relationship Specialty Start Date End Date Nisreen Preciado APRN, C.N.P. [address] [place] [phone] PCP - General Family Medicine 10/31/23 11/30/23 documented as of this encounter
--- OUTSIDE RECORDS SUMMARY | 2023-12-13 06:15 | XMS_ITS | Encounter Summary ---
Author Organization [facility] Address [address] [place] [address] Care Team Providers Care Lace Winder Name Role Phone Dalia Dill M.D. Primary Care Provider [phone] Reason for Visit * Reason Onset Date Comments PandaDoc Form 12/09/2023 Orly order [id number] Encounter Details Date Type Department Care Team (Latest Contact Info) Description 12/09/2023 Clinical Communication Department of Family Medicine, [facility] [address] [facility] in [address] [place] [address] Nisreen Preciado, BARBARA, C.N.P. [address] [place] [phone] PandaDoc Form (Orly order [id number]) Social History Tobacco Use Types Packs/Day Years Used Date Smoking Tobacco: Former Cigarettes 1 35 0 02/07/1962 - 02/07/1997 Smokeless Tobacco: Never Quit: 05/23/1999 Alcohol Use Standard Drinks/Week Comments Yes 1 (1 standard drink = 0.6 oz pur e alcohol) [facility] Utilities Answer Date Recorded In the past 12 months has th e electric, gas, oil, or water company [...] How often do you attend chur or quaker services? 1 to 4 times per year 04/02/2022 Do you belong to any clubs o r organizations such as protestant groups, unions, fraternal or athletic groups, or [...] Answer Date Recorded PHQ-2 Score 0 06/13/2023 [facility] of Occupat ional Health - [...] your living situation today? I have a [facility] place to live 10/27/2023 Education Answer Date Recorded What is the highest level of school you have completed or the highest degree you have received? 12th grade 03/14/2019 Sex and Gender Information Value Date Recorded Sex Assigned at Male 08/23/2017 10:02 AM CDT Legal Sex Male 7:12 PM [employer] Gender Identity Male 08/23/2017 10:02 AM CDT Sexual Orientation Straight 08/23/2017 10 :02 AM CDT documented as of this encounter Miscellaneous Notes * Telephone Encounter - Karie Patel - 12/09/2023 1:35 PM CDT Form faxed back to facility and sent for scanning. * Telephone Encounter - Karie Patel - 12/09/2023 12:30 PM CDT Form was routed to Nisreen Preciado for electronic review/signature. 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 [address] [place] [phone] 12/14/2023 11:00 AM [employer] Office Visit Department of Family Medicine, [address] [phone] Dalia Dill M.D. [address] [place] [phone] 12/19/2023 2:00 PM [employer] Comprehensive Visit Division of Community Internal Medicine, [facility] in [place], [place] [address] [place] [phone] Kiran Hugo M.D. [address] [place] [phone] documented as of this encounter Visit Diagnoses Not on filedocumented in this encounter Additional Health Concerns Assessment Noted Time PHQ-9 Depression Total Score: 1 06/13/19 10:38 AM CDT documented as of this encounter Care Teams Lace Winder Relationship Specialty Start Date End Date Dalia Dill M.D. [address] [place] [phone] PCP - General Family Medicine 12/01/23 documented as of this encounter
--- OUTSIDE RECORDS SUMMARY | 2023-12-13 06:15 | XMS_ITS | Encounter Summary ---
Author Organization [facility] Address [address] [place] [address] Care Team Providers Care Living Manager Name Role Phone Dalia Dill M.D. Primary Care Provider [phone] Reason for Visit * Reason Onset Date Comments Order Request 12/02/2023 Verbal Encounter Details Date Type Department Care Team (Latest Contact Info) Description 12/02/2023 Clinical Communication Department of Family Medicine in [place], [place] [address] [place] [address] Nisreen Preciado, BARBARA, C.N.P. [address] [place] [address] Order Request (Verbal ) Social History Tobacco Use Types Packs/Day Years Used Date Smoking Tobacco: Former Cigarettes 1 35 0 02/07/1962 - 02/07/1997 Smokeless Tobacco: Never Quit: 05/23/1999 Alcohol Use Standard Drinks/Week Comments Yes 1 (1 standard drink = 0.6 oz pur e alcohol) [facility] Utilities Answer Date Recorded In the [...] file 04/02/2022 How often do you attend [facility] or restoration services? 1 to 4 times per year 04/02/2022 Do you belong to any clubs o r organizations such as spiritism groups, unions, fraternal or athletic groups, or [...] Answer Date Recorded PHQ-2 Score 0 06/13/2023 [facility] of Occupat ional Health - Occupational Stress [...] your living situation today? I have a [facility] place to live 10/27/2023 Education Answer Date Recorded What is the highest level of school you have completed or the highest degree you have received? 12th grade 03/14/2019 Sex and Gender Information Value Date Recorded Sex Assigned at Male 08/23/2017 10:02 AM CDT Legal Sex Male 7:12 PM CONTINUOUS DRIER HELPER Gender Identity Male 08/23/2017 10:02 AM CDT Sexual Orientation Straight 08/23/2017 10 :02 AM CDT documented as of this encounter Miscellaneous Notes * Telephone Encounter - Peter Terry L.P.N. - 12/02/2023 3:09 PM CDT R: review and approve of deny verbal orders for snf 1 time a week for 2 weeks from [facility]~ S: Verbal orders for snf 1 time a week for 2 weeks from [facility] health care~ B: 78 YO Male: PCP Dr. Dill Recently discharged from SNF in [place]. Next OV: 12/14/2023 with [facility] at 1100 A: From [facility] discharge note from SNF: Okay to discharge with current meds and treatments when all is arranged Follow up with primary care provider in 7-10 days Did review medications with patient, he does not need any medication sent to his pharmacy FACE TO FACE DOCUMENTATION Patient has been prescribed home PT and OT at recommendation of [facility]'s therapy department for continued balance, strengthening, and to develop a home exercise program. He will have home health nurse for medication management and home health aide for assistance with ADLs such as bathing. Bacilio is considered homebound because he requires a device for ambulation and leaving his home requires a considerable and taxing effort. documented in this encounter Plan of Treatment Upcoming Encounters Date Type Department Care Team (Late st Contact Info) Description 12/14/2023 10:30 AM CONTINUOUS DRIER HELPER Appointment Department of Laboratory Medicine and Pathology, [facility], in [address] [address] Dalia Dill M.D. [address] [place] [phone] 12/14/2023 11:00 AM CONTINUOUS DRIER HELPER Office Visit Department of Family Medicine, [address] [address] Dalia Dill M.D. [address] [place] [phone] 12/19/2023 2:00 PM CONTINUOUS DRIER HELPER Comprehensive Visit Division of Community Internal Medicine, [facility], in [place], [place] [address] [place] [phone] Kiran Hugo M.D. [address] [place] [phone] documented as of this encounter Visit Diagnoses Not on filedocumented in this encounter Additional Health Concerns Assessment Noted Time PHQ-9 Depression Total Score: 1 06/13/19 24 10:38 AM CDT documented as of this encounter Care Teams Living Manager Relationship Specialty Start Date End Date Dalia Dill M.D. [address] [place] [address] PCP - General Family Medicine 12/01/23 documented as of this encounter
--- OUTSIDE RECORDS SUMMARY | 2023-12-13 06:15 | XMS_ITS | Encounter Summary ---
Author Organization [facility] Address [address] [place] [address] Care Team Providers Care Rubber Ball Finisher Name Role Phone Dalia Dill M.D. Primary Care Provider [phone] Reason for Visit * Reason Onset Date Comments PandaDoc Form 12/09/2023 [facility] order [id number] Encounter Details Date Type Department Care Team (Latest Contact Info) Description 12/09/2023 Clinical Communication Senior Services in [place] [address] [place] [phone] Nisreen Preciado, BARBARA, C.N.P. [address] [place] [address] PandaDoc Form ([facility] order [id number]) Social History Tobacco Use Types Packs/Day Years Used Date Smoking Tobacco: Former Cigarettes 1 35 0 02/07/1962 - 02/07/1997 Smokeless Tobacco: Never Quit: 05/23/1999 Alcohol Use Standard Drinks/Week Comments Yes 1 (1 standard drink = 0.6 oz pur e alcohol) [facility] Utilities Answer Date Recorded In the past 12 months has [employer], gas, oil, or water company threatened to [...] How often do you attend chur or anabaptist services? 1 to 4 times per year 04/02/2022 Do you belong to any clubs o r organizations such as religion groups, unions, fraternal or athletic groups, or [...] Answer Date Recorded PHQ-2 Score 0 06/13/2023 [facility] of Occupat ional Health - Occupational Stress [...] your living situation today? I have a [facility] place to live 10/27/2023 Education Answer Date Recorded What is the highest level of school you have completed or the highest degree you have received? 12th grade 03/14/2019 Sex and Gender Information Value Date Recorded Sex Assigned at Male 08/23/2017 10:02 AM CDT Legal Sex Male 7:12 PM MEDICAL CENTER REPRESENTATIVE Gender Identity Male 08/23/2017 10:02 AM CDT Sexual Orientation Straight 08/23/2017 10 :02 AM CDT documented as of this encounter Miscellaneous Notes * Telephone Encounter - Karie Patel - 12/09/2023 1:49 PM CDT Form faxed back to facility and sent for scanning. * Telephone Encounter - Karie Patel - 12/09/2023 12:36 PM CDT Form was routed to Nisreen Preciado for electronic review/signature. [employer]: [facility] PHONE NUMBER: [phone] INFO REQUESTED: order [id number] INSTRUCTIONS: Fax information to [phone] documented in this encounter Plan of Treatment Upcoming Encounters Date Type Department Care Team (Late st Contact Info) Description 12/14/2023 10:30 AM MEDICAL CENTER REPRESENTATIVE Appointment Department of Laboratory Medicine and Pathology, [facility], in [address] [phone] Dalia Dill M.D. [address] [place] [phone] 12/14/2023 11:00 AM MEDICAL CENTER REPRESENTATIVE Office Visit Department of Family Medicine, [address] [phone] Dalia Dill M.D. [address] [place] [phone] 12/19/2023 2:00 PM MEDICAL CENTER REPRESENTATIVE Comprehensive Visit Division of Community Internal Medicine, [facility], in [place], [place] [address] [place] [phone] Kiran Hugo M.D. [address] [place] [phone] documented as of this encounter Visit Diagnoses Not on filedocumented in this encounter Additional Health Concerns Assessment Noted Time PHQ-9 Depression Total Score: 1 06/13/19 24 10:38 AM CDT documented as of this encounter Care Teams Rubber Ball Finisher Relationship Specialty Start Date End Date Dalia Dill M.D. [address] [place] [address] PCP - General Family Medicine 12/01/23 documented as of this encounter
--- OUTSIDE RECORDS SUMMARY | 2023-12-13 06:15 | XMS_ITS | Encounter Summary ---
Author Organization [facility] Address [address] [place] [address] Care Team Providers Care Garment Turner Name Role Phone Nisreen Preciado APRN, C.N.P. Primary Care [facility] Encounter Details Date Type Department Care Team (Latest Contact Info) Description 11/17/2023 8:00 AM CDT External Outreach Senior Services in [place] [address] [place] [address] Jammie Lyons D.O. [address] [place] [address] History Of Falling (Primary Dx); Imbalance Non [...] Major Recurrent Mild (HCC); Deficiency Vitamin B12 Social History Tobacco Use Types Packs/Day Years Used Date Smoking Tobacco: Former Cigarettes 1 35 0 02/07/1962 - 02/07/1997 Smokeless Tobacco: Never Quit: 05/23/1999 Tobacco Cessation:Counseling Given: Not Answered Alcohol Use Standard Drinks/Week Comments Yes 1 (1 standard drink = 0.6 oz pur e alcohol) [facility] Utilities Answer Date Recorded In the [...] often do you attend chur ch or gnosticism services? 1 to 4 times per year 04/02/2022 Do you belong to any clubs o r organizations such as scientologist groups, unions, fraternal or athletic groups, or [...] Answer Date Recorded PHQ-2 Score 0 06/13/2023 [facility] of Occupat ional Health - Occupational Stress [...] your living situation today? I have a [facility] place to live 10/27/2023 Education Answer Date Recorded What is the highest level of school you have completed or the highest degree you have received? 12th grade 03/14/2019 Sex and Gender Information Value Date Recorded Sex Assigned at Male 08/23/2017 10:02 AM CDT Legal Sex Male 7:12 PM ENERGY TECHNICIAN Gender Identity Male 08/23/2017 10:02 AM CDT Sexual Orientation Straight 08/23/2017 10 :02 AM CDT documented as of this encounter Last Filed Vital Signs Vital Sign Reading Time Taken Comments Blood Pressure 120/92 11/17/2023 8:32 AM CDT Pulse 85 11/17/2023 8:32 AM CDT Temperature 36.2 ??C (97.1 ??F) 11/17/2023 8:32 AM CD T Respiratory Rate 16 11/17/2023 8:32 AM CDT Oxygen Saturation 96% 11/17/2023 8:32 AM CDT Inhaled Oxygen Concentration - - Weight 92.7 kg (204 lb 6.4 oz) 11/17/2023 8:32 A M CDT Height - - Body Mass Index 29.1 10/27/2023 6:20 PM CDT documented in this encounter Progress Notes * Jammie Lyons D.O. - 11/17/2023 8:00 AM CDT /SUBJECTIVE CHIEF COMPLAINT / REASON FOR VISIT I am asked to see Jorge, f/or a New Admission visit. His is also present for visit. Visit Type: In Person Face-to- Face visit HISTORY OF PRESENT ILLNESS Jorge is a 78 y.o. male who currently resides at [facility] in [place], [place]. Past medical history of hypertension, hyperlipidemia, type 2 diabetes, depression, anxiety, GERD. Obtained from Patient, Family Member, and SBAR: Patient was hospitalized from 10/27/23-10/31/23 for generalized weakness. Initially thought to be due to UTI possibly, but given low suspicion, ceftriaxone was discontinued in the hospital. PT/OT recommended ongoing skilled therapy. Patient had multiple falls at home the 6 months leading up to his h ospitalization. Continues to work with PT/OT. Patient and his have noticed improvement in the last few days regarding his weakness, which they contribute to adding resistance exercises to his physical therapy regimen. His does express significant concern learning that he has a diagnosis of sarcopenia more recently. Expresses concern about his Ozempic use contributing to this. Patient has never required insulin for diabetes. Most recent A1c was 6.0. He follows with both family medicineand endocrinology for his diabetes His appetite has been poor at the custodial due to not liking the food, but does eat balanced diet at home including protein, fruits, vegetables. He did start drinking ensure yesterday evening. Noconcerns with bowel movements or voiding. His also expressed concern that patient seemed more depressed. He acknowledges this, stating that he became quite emotional about 1 week ago. Has had to deal with a lot of loss, most recently his 18 year old cat had to be put down. He is meeting with the psychologist at the facility. Feels that mood is improving overall. Not interested in further medication. Diagnosis Overview 1. Hypertensive Chronic Kidney Disease With Stage 1 Through Stage 4 Chronic Kidney Disease, Or Unspecified Chronic Kidney Disease June 2023: home machine checked for accuracy and found to be accurate 2. Coronary Artery Disease Without Angina Pectoris dobutamine stress test 08/16: 1. Small fixed [...] vessel that does not warrant any intervention 3. Asthma Mild Persistent (HCC) asthma (positive methacholine challenge) normal PFTs with neg bd 08/23 4. Apnea Sleep Obstructive 5. Valenzuela's Esophagus Personal History EGD 07/16: no Valenzuela's, 09/2011- Probable short [...] for symptom indications and esophageal biopsy negative/normal 6. Depression Major Recurrent Full Remission (HCC) 7. Hyperlipidemia 8. 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 Recommended: avoid driving, use gait aid, PT/PMR referral if desired. If cognitive or gait decline we will be happy to see him back in follow-up 9. Neuropathy Peripheral 10. Thrombocytopenia (HCC) 11. History Of Falling - Primary 12. Diabetes Mellitus Type 2 Peripheral Neuropathy (HCC) 13. Chronic Kidney Disease (CKD), Stage 3a Glomerular Filtration Rate (GFR) 45 To 59 (HCC) 14. Chronic Obstructive Pulmonary Disease Without Exacerbation (HCC) 15. Frailty Age Related Physical Debility 16. Sarcopenia 17. Obesity Body Mass Index 30-39.9 Adult I reviewed EPIC notes as well as any facility-provided information (if applicable), lab/test results, and images/imaging reports. The following portions of the patient's history were reviewed and updated as appropriate: allergies, current medications, medical history, social history, surgical history and problem list. CODE STATUS: Full Code REVIEW OF SYSTEMS Complete review of systems was performed, as allowable by patient's cognitive status, and incorporating collateral history if applicable. Relevant positives are noted elsewhere in this note, otherwise negative. OBJECTIVE VITAL SIGNS Vitals: 11/17/23 0832 BP: (!) 120/92 Pulse: 85 Temp: 36.2 ??C Resp: 16 Weight: 92.7 kg SpO2: 96% PHYSICAL EXAMINATION General: No acute distress. Resting comfortably in his chair. HEENT: Extraocular movements intact. Conjunctivae normal. Nose normal. Lungs: Normal effort. Clear to auscultation. Cardiovascular: Regular rate and rhythm. Extremities: No edema. Able to move all extremities. Labs: Lab Results Component Value Date WBC 9.8 (H) 11/08/2023 HGB 15.4 11/08/2023 HCT 46.0 11/08/2023 MCV 90.0 11/08/2023 PLT 260 11/08/2023 Lab Results Component Value Date NA 141 11/08/2023 KSERUM 4.3 10/31/2023 KPLASMA 4.2 11/08/2023 CL 103 11/08/2023 BICARB 26 11/08/2023 CREATININE 1.22 11/08/2023 CREATPOC 1.2 08/17/2019 EGFRBLKAA 70 08/21/2021 EGFRNONBLKAA 60 08/21/2021 POCEGFRNONAA 59 (L) 08/17/2019 EGFR 61 11/08/2023 BUN 25 (H) 11/08/2023 ANIONGAP 12 11/08/2023 GLUCOSE 105 11/08/2023 GLUCOSEPOC 163 (H) 10/31/2023 CALCIUM 9.9 11/08/2023 ASSESSMENT / PLAN #1 History Of Falling #2 Imbalance Non Orthopedic #3 Neuropathy Peripheral #4 Frailty Age Related Physical Debility #5 Sarcopenia Patient and his express concern regarding worsening weakness and loss of muscle mass over the last year. Per chart review, evaluated by Neurology and Neurosurgery in 2019. MRI of spine completed. Neurosurgery felt no severe stenosis and symptoms related to peripheral neuropathy. Did not recommend surgery. They recommended physical therapy for balance and gait training. Neurology in 2023 thatgait impairment was multifactorial with most prominent abnormality being peripheral neuropathy, butalso combination of deconditioning and possible mild component of NPH, though questionable. - Discussed with patient and his their concerns regarding diagnosis of sarcopenia. Discussed that this can be a side effect of Ozempic, as well as related to aging. His has already sent message regarding association with Ozempic and sarcopenia, awaiting response. Could consider decreasingOzempic given appropriate A1c control and his sarcopenia. - Continue to work with physical therapy. His goal is ultimately to be able to return home. #6 Hypertensive Chronic Kidney Disease With Stage 1 Through Stage 4 Chronic Kidney Disease, Or Unspecified Chronic Kidney Disease #7 Chronic Kidney Disease (CKD), Stage 3a Glomerular Filtration Rate (GFR) 45 To 59 ([facility]) Blood pressures ranging from 101/78-140-92, though typically within goal. - Continue amlodipine 5 mg daily. - Continue metoprolol succinate ER 12.5 mg daily. - Continue losartan 50 mg daily. #8 Coronary Artery Disease Without Angina Pectoris Per chart review, patient had inferior infract in August 2009. Angiogram completed in 2009, which revealed totally occluded very distal intermediate vessel at which point the vessel is approximately 1 mm in diameter at most. Mild disease of the remainder of his coronary system including an enlarged right dominant vessel that did not warrant any intervention - Continue aspirin 81 mg daily. - Nitroglycerin as needed for chest pain. #9 Asthma Mild Persistent (HCC) #10 Chronic Obstructive Pulmonary Disease Without Exacerbation (HCC) PFTs in 2014 showed positive methacholine challenge, otherwise normal PFTS in 2017. Has 35 total pack year history. - Continue albuterol as needed. - Continue Arnuity Ellipta 1 puff daily. #11 Apnea Sleep Obstructive - Recommend continuing to use CPAP. #12 Valenzuela's Esophagus Personal History EGD 07/16: no Valenzuela's, 09/2011- Probable short [...] requires any ongoing surveillance upper endoscopies. 11/27: EGD done for symptom indications and esophageal biopsy negative/normal - Continue pantoprazole 40 mg daily. #13 Hyperlipidemia - Continue rosuvastatin 10 mg daily. #14 Obesity Body Mass Index 30-39.9 Adult #15 Diabetes Mellitus Type 2 Peripheral Neuropathy (HCC) Most recent A1c was 6.0 in October 2023. Patient follows with Endocrinology (who last saw him in 2020) and Family Medicine. - Has been on Ozempic since 2019. Discussed with patient that given his well controlled A1c and concern for sarcopenia/weakness, could consider decreasing dose of Ozempic or discontinuing. Will deferto his PCP and/or Endocrinology. - Continue metformin 1000 mg twice daily. - Continue Ozempic 1 mg every 7 days for now. #16 Depression Major Recurrent Mild (HCC) Patient reports worsening mood since arriving to [facility] due to the significant change, though does feel this is improving. - Continue fluoxetine 40 mg daily. - Continue to meet with Psychology. #17 Deficiency Vitamin B12 Vitamin B12 869 in June 2023. - Continue vitamin B12 1000 mcg daily. Jammie Lyons D.O. documented in this encounter Plan of Treatment Upcoming Encounters Date Type Department Care Team (Late st Contact Info) Description 12/14/2023 10:30 AM ENERGY TECHNICIAN Appointment Department of Laboratory Medicine and Pathology, [facility], in [address] [place] [address] Dalia Dill M.D. [address] [place] [address] 12/14/2023 11:00 AM ENERGY TECHNICIAN Office Visit Department of Family Medicine, [address] in [place], [place] [address] [place] [address] [place] [address] Dalia Dill M.D. [address] [place] [address] 12/19/2023 2:00 PM ENERGY TECHNICIAN Comprehensive Visit Division of Community Internal Medicine, [facility] in [place], [place] [address] [place] [phone] Kiran Hugo M.D. [address] [place] [phone] documented as of this encounter Visit Diagnoses Diagnosis History Of Falling- Primary Imbalance Non Orthopedic Neuropathy Peripheral Frailty Age Related Physical Debility Sarcopenia Hypertensive Chronic Kidney Disease With Stage 1 Through Stage 4 Chronic Kidney Disease, Or Unspecified Chronic Kidney Disease Chronic Kidney Disease (CKD), Stage 3a Glomerular Filtration Rate (GFR) 45 To 59 (HCC) Coronary Artery Disease Without Angina Pectoris Asthma Mild Persistent (HCC) Chronic Obstructive Pulmonary Disease Without Exacerbation (HCC) Apnea Sleep Obstructive Valenzuela's Esophagus Personal History Hyperlipidemia Obesity Body Mass Index 30-39.9 Adult Diabetes Mellitus Type 2 Peripheral Neuropathy (HCC) Depression Major Recurrent Mild (HCC) Deficiency Vitamin B12 documented in this encounter Additional Health Concerns Assessment Noted Time PHQ-9 Depression Total Score: 1 06/13/19 24 10:38 AM CDT documented as of this encounter Care Teams Garment Turner Relationship Specialty Start Date End Date Nisreen Preciado APRN, C.N.P. [address] [place] [phone] PCP - General Family Medicine 10/31/23 11/30/23 documented as of this encounter
--- OUTSIDE RECORDS SUMMARY | 2023-12-13 06:15 | XMS_ITS | Referral Summary ---
Author Organization [facility] Address [address] [place] [address] Care Team Providers Care Leaf Sucker Operator Name Role Phone Dalia Dill M.D. Primary Care Provider [phone] Source Comments Patient records contain information from all sites at [facility]. For routine questions regarding patient records, call [phone] during business hours, M-F 8:00 AM - 5:00 PM Central Time. Record requests for emergency care only can be directed to [phone] at any time.[facility] Encounters Date Type Department Care Team Description 12/09/2023 Clinical Communication Department of Family Medicine, [address] [phone] Dalia Dill M.D. Panda [facility] physician order [id number] 12/09/2023 Clinical Communication [facility] in [place] [address] [place] [address] Nisreen Preciado APRN C.N.PAurelio PandRosibelc Form (Orly order [id number]) 12/09/2023 Clinical Communication Department of Family Medicine, [address] [place] [address] [place] [phone] Dalia Dill M.D. PandaDoc Form (Orly order [id number]) 12/09/2023 Clinical Communication Department of Family Medicine, [address] in [place], [place] [address] [place] [address] [place] [phone] Nisreen Preciado APRN, C.N.PAurelio PandaDoc Form (Orly order [id number]) 12/03/2023 CPAP Download Remote Patient Monitoring [address] [address] [facility] 12/02/2023 Clinical Communication Department of Family Medicine in [place] [address] [place] [address] Nisreen Preciado APRN, C.N.PAurelio Order Request (Verbal ) 11/28/2023 8:30 AM CDT External Outreach [facility] in [place] [address] [place] [address] Nisreen Preciado APRN, C.N.P. History Of Falling [...] AM CDT External Outreach [facility] in [place] [address] [place] [address] Jammie Lyons D.O. History Of Falling (Primary [...] B12 11/15/2023 Refill Department of Family Medicine, [address] [place] [address] [place] [phone] Dalia Dill M.D. Med Refill (Nisreen Preciado) 11/09/2023 Clinical Communication [facility] in [address] [phone] Veronica Brown R.N. SNF Nurse Intake 11/08/2023 12:33 AM CDT - 11/08/2023 11:59 PM CDT Hospital Encounter Department of Laboratory Medicine in [address] [address] Nisreen Preciado APRN, C.N.P. Weakness General Discharge Disposition: Home or Self Care 11/07/2023 Clinical Communication [facility] in [address] [address] Veronica Brown R.N. SNF Nurse Intake 11/03/2023 2:50 PM CDT - 11/03/2023 11:59 PM CDT Hospital Encounter Department of Laboratory Medicine in [place] [address] [place] [phone] Nisreen Preciado APRN, C.N.P. Test Blood Tuberculosis Discharge Disposition: Home or Self Care 11/03/2023 Clinical Communication [facility] in [place] [address] [place] [phone] Veronica Brown R.N. SNF Nurse Intake 11/02/2023 CPAP Download Remote Patient Monitoring [facility] [address] [place] [address] [facility] 11/01/2023 2:00 PM CDT External Outreach [facility] in [address] [phone] Nisreen Preciado APRN, C.N.P. Coronary Artery Disease [...] (HCC); Depression Major Recurrent Full Remission (HCC) 10/27/2023 10:56 AM CDT - 10/31/2023 1:43 PM CDT Hospital Encounter [facility], [facility], Second Floor [address] [place] [phone] Luis Carlos Card M.D. Wilfahrt, Robert P, M.D. Miller, Nathaniel E, M.D. Mohn, Kelli J, P.A.-C. Urinary Tract Infection Site Not Specified (Primary Dx); Weakness General; Decline Functional Status [R53.81]; Frailty Age Related Physical Debility [R54]; Chronic Kidney Disease (CKD), Stage 3 Unspecified (HCC) Discharge Disposition: Retirement Facility 10/28/2023 Patient Outreach Division of Community Internal Medicine, [facility], in [place], [place] [address] [place] [phone] Gwendolyn Wiggins R.N. CTP Eligibility 10/20/2023 Clinical Communication Department of Family Medicine, [address] in [place], [place] [address] [place] [address] [place] [phone] Dalia Dill M.D. 10/02/2023 CPAP Download Remote Patient Monitoring [facility] [address] [place] [address] [facility] 09/23/2023 9:13 AM CDT - 09/23/2023 11:59 PM CDT Hospital Encounter Department of Laboratory Medicine in [address] [address] Dalia Dill M.D. Diabetes Mellitus Type 2 Peripheral Neuropathy (HCC) Discharge Disposition: Home or Self Care 09/23/2023 9:00 AM CDT Office Visit Department of Orthopedic Surgery in [address] [phone] Nikki Moraes D.P.M. Diabetes Mellitus Type 2 Peripheral Neuropathy (HCC); Onychomycosis; Pain Toe Left; Pain Toe Right Discharge Disposition: Home or Self Care 09/20/2023 Clinical Communication Department of Family Medicine, [address] [place] [address] [place] [address] Dalia Dill M.D. PandaDoc Form (Diabetic Standard Written Order, Chinoclevelandsindi) 09/20/2023 Orders Only RST PCP HLTH MNT Dalia Dill M.D. Diabetes Mellitus Type 2 Peripheral Neuropathy (HCC) from Last 3 Months Allergies Active Allergy Reactions Criticality Noted Date [...] daily. for testing 100 strip 3 07/07/19 Active blood glucose ctl high,nml,low solution Glucose [...] Fridays for diabetes. 4 mL 3 11/07/19 024 Discontin ued(Reord er) Active Problems Problem [...] check. Assessment & Plan (04/08/2020 1:19 PM ENGLISH TUTOR): Initial blood pressure is 135/94 but repeat [...] daily Assessment & Plan (12/12/2019 2:14 PM ENGLISH TUTOR): Blood pressure is controlled at 131/87. Continues [...] (11/16/2017): Added automatically from request for surgery [id number] Department Of Transportation Examination Department Of Motor [...] 7. No pericardial effusion. See communication from [place] (Dr Andrews) 08/18/17: ?? Given the sinus [...] this. Assessment & Plan (04/08/2020 1:18 PM ENGLISH TUTOR): Hemoglobin A1c has worsened to 7.8%. He [...] be insulin. I have given them the [employer] patient assistance plan literature. They will contact [...] have found anything more from her insurance [employer] o patients assistance program regarding his Ozempic cost. Other: Needs to schedule an eye exam on his own. Assessment & Plan (12/12/2019 2:13 PM ENGLISH TUTOR): Hemoglobin A1c: 7.3% on current regimen of glimepiride, metformin, Januvia. He is not having hypoglycemia. His last visit we talked about transitioning to a GLP 1 agonist for weight loss benefit, cardiac benefit, further improved glycemic control. He notes that he is currently in the donnj hole and therefore has a high co-pay [...] today. Loss Hearing Conductive Unilateral 06/10/2010 08/31/2021 Immunizations Name Administration Dates Next Due HepB [...] influenza trivalent high dos e (HD)(PF) 11/27/2018,12/01/2017,12/13/2016,2015 Social History Tobacco Use Types Packs/Day Years Used Date Smoking Tobacco: Former Cigarettes 1 35 0 02/07/1962 - 02/07/1997 Smokeless Tobacco: Never Quit: 05/23/1999 Tobacco Cessation:Counseling Given: Not Answered Alcohol Use Standard Drinks/Week Comments Yes 1 (1 standard drink = 0.6 oz pur e alcohol) [facility] Utilities Answer Date Recorded In the past 12 months has e [employer], gas, oil, or water company threatened to [...] How often do you attend chur or roman catholic services? 1 to 4 times per year 04/02/2022 Do you belong to any clubs o r organizations such as adventism groups, unions, fraternal or athletic groups, or [...] Answer Date Recorded PHQ-2 Score 0 06/13/2023 [facility] [place] of Occupat ional Health - Occupational Stress [...] Date Recorded Dental: Regular Dentist No 10/14/19 Employment Answer Date Recorded Employment status Retired 05/21/2023 Housing Stability Answer Date Recorded What is your living situation today? I have a [facility] place to live 10/27/2023 Education Answer Date Recorded What is the highest level of school you have completed or the highest degree you have received? 12th grade 03/14/2019 Sex and Gender Information Value Date Recorded Sex Assigned at Male 08/23/2017 10:02 AM CDT Legal Sex Male 7:12 PM ENGLISH TUTOR Gender Identity Male 08/23/2017 10:02 AM CDT [...] st Contact Info) Description 12/14/2023 10:30 AM ENGLISH TUTOR Appointment Department of Laboratory Medicine and Pathology, [facility], in [address] [phone] Dalia Dill M.D. [address] [place] [phone] 12/14/2023 11:00 AM ENGLISH TUTOR Office Visit Department of Family Medicine, [address] [address] Dalia Dill M.D. [address] [place] [address] 12/19/2023 2:00 PM ENGLISH TUTOR Comprehensive Visit Division of [facility], [facility] in [place], [place] [address] [place] [address] Kiran Hugo M.D. [address] [place] [phone] Medical Devices Implanted Type Area Property And Supply Officer Device Identifier Shelf Expiration Date Model / Serial / Lot Windsor Screw 2 Canc 6.5 X 35 - Kunz [id number] Implanted:Qty: 1 on 11/30/2011 Hardware e.g. pins/screws /rods [employer] Description:Device Manufactu rer - [employer]. Device Status Text - [id number]. Windsor Screw 2 Canc 6.5 X 40 - Kunz [id number] Implanted:Qty: 1 on 11/30/2011 Hardware e.g. pins/screws /rods [employer] Description:Device Manufactu rer - [employer]. Device Status Text - [id number]. Windsor Screw 2 Canc 6.5 X 30 - Kunz [id number] Implanted:Qty: 1 on 11/30/2011 Hardware e.g. pins/screws /rods [employer] Description:Device Manufactu rer - [employer]. Device Status Text - [id number]. Windsor Screw 2 Canc 6.5 X 20 - Kunz [id number] Implanted:Qty: 1 on 11/30/2011 Hardware e.g. pins/screws /rods [employer] Description:Device Manufactu rer - [employer]. Device Status Text - [id number]. Conversions - Default Historical Implant Device - Kunz [id number] Implanted:11/13 (Quantity not on file) Hardware e.g. pins/screws /rods Description:Device Status Te xt - HARDWARE-[id number]. Windsor Shell Multi 2 60mm - Kunz [id number] Implanted:Qty: 1 on 11/30/2011 Hip Implant Other/Legacy - See Implant Description [employer] Description:Device Manufactu rer - [employer]. Body Location - Other. Right. Device Status Text - [id number] [id number]. Dep. Head M-Spec 40mm -2 Offset - Kunz [id number] Implanted:Qty: 1 on 11/30/2011 Hip Implant Other/Legacy - See Implant Description [employer] Description:Device Manufactu rer - [employer]. Body Location - Other. Right. Device Status Text - [id number] [id number]. Windsor Liner Altrx +4 Neut 40x60 - Kunz [id number] Implanted:Qty: 1 on 11/30/2011 Hip Implant Other/Legacy - See Implant Description [employer] Description:Device Manufactu rer - [employer]. Body Location - Other. Right. Device Status Text - HIP [id number]. Whitt-Stem Jenkins 6 Hi - Kunz [id number] Implanted:Qty: 1 on 11/30/2011 Hip Implant Other/Legacy - See Implant Description [employer] Description:Device Manufactu rer - [employer]. Body Location - Other. Right. Device Status Text - HIP [id number]. Procedures Procedure Name Priority Date/Time Associated Diagnosis [...] AORTA AAA SCREENING Routine 03/27/2015 11:17 AM ENGLISH TUTOR BONE DONOR 6 MONTH SCREEN TEST SET [...] C.N.P. LAB BLOOD ADD-ON Fi nal Result [facility] [address] [place] [address], [facility] NPR[facility] [address] [place] [address] * (ABNORMAL) Basic Metabolic Panel (11/08/2023 7:00 [...] C.N.P. LAB BLOOD ADD-ON Fi nal Result [facility] [address] [place] [address], [facility] [address] [place] [address] * QuantiFERON-Tb Gold Plus, Blood (11/03/2023 9:00 PM CDT) [facility] QuantiFERON-TB Gold Plus Result Negative Negative 11/08/2023 [...] Diagnosis of Tuberculosis in Adults and Children [Tabathan DM et. al. Clin. Infect. Dis. 2017;64(2):111-115]. The [...] PM CDT 11/04/2023 8:02 PM CDT Narrative [facility] - 11/08/2023 2:39 PM CDT Specimen Information: Specimen ID: [id number] Specimen Type: Blood Specimen Collection Start Date: 11/03/2023 ??9:00 PM Specimen Received Date: 11/04/2023 ??8:02 PM Specimen ID: [id number] Specimen Type: Blood Specimen Collection Start Date: 11/03/2023 ??9:00 PM Specimen Received Date: 11/04/2023 ??8:02 PM Specimen ID: [id number] Specimen Type: Blood Specimen Collection Start Date: 11/03/2023 ??9:00 PM Specimen Received Date: 11/04/2023 ??8:02 PM Specimen ID: [id number] Specimen Type: Blood Specimen Collection Start Date: 11/03/2023 ??9:00 PM Specimen Received Date: 11/04/2023 ??8:02 PM us Nisreen Preciado APRN C.N.P. LAB MICROBIOLOGY - BLOOD ORDERABLES Final Result [facility] [address] [place] [address], [facility] in [address] [address] * (ABNORMAL) Glucose, POCT (10/31/2023 11:51 AM CDT) Only the most recent of15 resultswithin the time period is included. Pathologist [facility] Glucose, POCT, B 163(H) 70 - 140 mg/dL 10/31/2023 12:08 PM CDT PCLX Site Capillary 10/31/2023 12:08 PM CDT PCLX Last Intake 3-4 hours 10/31/2023 12:08 PM CDT PCLX Blood 10/31/2023 11:5 1 AM CDT 10/31/2023 12:08 PM CDT us Unknown Provider LAB POCT ORDERABLES-MANUAL Kelsi walters Result POC [facility] [address] [place] [address], [facility] PCLX [facility] POC [address] [place] [address] * CBC with Differential, Blood (10/31/2023 10:32 AM CDT) Only the most recent of5 resultswithin the time period is included. Pathologist [facility] Hemoglobin 14.8 13.2 - 16.6 g/dL 10/31/2023 [...] Perez M.D. LAB BLOOD ADD-ON Final Result Performing Organization Address City/[facility]/ZIP Co de Phone Number [facility] [address] DTL [facility] [address] [place] [address] DHPM [facility] [address] [place] [address] * Influenza A, B, RSV, PCR, Rapid (10/28/2023 9:12 AM CDT) Pathologist [facility] Influenza A, PCR, Rapid, V Negative Negative 10/28/2023 9:59 AM CDT [facility] Influenza B, PCR, Rapid, V Negative Negative 10/28/2023 9:59 AM CDT [facility] Resp Synctial Virus, PCR, Rapid Negative Negative 10/28/2023 9:59 AM CDT [facility] Specimen Source Swab, Nasopharynx 10/28/2023 9:59 AM CDT [facility] Swab (Nasopharynx) 10/28/2023 9:12 AM CDT 10/28/2023 9:18 AM CDT us Ciara Underwood M.B.B.S., B.M.B.S. LAB MICROBIOLOGY - G ENERAL ORDERABLES Final Result [facility] 200 [place], [place] [address] 200 [place] [address] * SARS Coronavirus 2, PCR Rapid Symptomatic (10/28/2023 9:12 AM CDT) SARS CoV-2, PCR, Rapid, V Undetected Undetected 10/28/2023 9:59 AM CDT [facility] Comment: ----ADDITIONAL INFORMATION---- This RT-PCR test was performed using the [employer]aky SARS-CoV-2 and Influenza A/B Reagent assay from [employer], which has received Emergency Use Authorization(EUA) by the U.S. Food and Drug Administration. Fact sheets for this Emergency Use Authorization (EUA) assay can be found at the following links: For Healthcare Providers: https://www.[employer].gov/media/965527/download For Patients: https://www.fda.gov/media/467206/download SARS Coronavirus 2, Rapid, Source Swab, Nasopharynx 10/28/2023 9:18 AM CDT [facility] Swab (Nasopharynx) 10/28/2023 9:12 AM CDT 10/28/2023 9:18 AM CDT [facility] [[email or web address]] Yasmine M.B.B.S., B.M.B.S. LAB MICROBIOLOGY - G ENERAL ORDERABLES Final Result [facility] 200 [place] [address], [facility] 200 [place] [address] * (ABNORMAL) Hemoglobin A1c (10/28/2023 6:57 AM CDT) Hemoglobin A1c, B 6.0(H) 4.0 - 5.6 % 10/28/2023 8:17 AM CDT DTL Comment: Hemoglobin A1c values of 5.7-6.4 percent indicate an increased risk for developing diabetes mellitus. In diabetic patients, HbA1c goals should be discussed with healthcare provider. Blood (Blood, Venous) 10/28/2023 6:57 AM CDT 10/28/2023 7:54 AM CDT us Matt Tuttle M.D. LAB BLOOD ADD-ON Final Result [facility] [address] [place] [address], [facility] DTL [facility] [address] [place] [address] * Comprehensive Metabolic Panel (10/28/2023 6:57 AM CDT) [facility] Potassium, S 3.8 3.6 - 5.2 mmol/L [...] 6:57 AM CDT 10/28/2023 8:12 AM CDT Matt Tuttle M.D. LAB BLOOD ADD-ON Final Result Performing Organization Address City/[facility]/ZIP Co de Phone Number [facility] 200 [place] [address] * Bacterial Culture, Aerobic + Susceptibility, Urine (10/27/2023 1:52 PM CDT) Pathologist [facility] Urine Culture No growth after 1 day of incubation. 10/28/2023 12:23 PM CDT DTL Urine (Urine, Straight Catheter) 10/27/2023 1:52 PM CDT 10/27/2023 2:57 PM CDT Comment:Specimen Source Site : Urine Luis Carlos Card M.D. LAB MICROBIOLOGY - GENERAL ORD ERABLES Final Result Performing Organization Address [facility] Co de Phone Number [facility] 200 [place], [place] [address] [place] [address] 200 [place] [address] * (ABNORMAL) Troponin T, 2 Hour with 6 Hour Reflex, 5th Gen (10/27/2023 1:44 PM CDT) Pathologist [facility] Troponin T, 2 hr, 5th gen 24(H) <=15 ng/L 10/27/2023 2:20 PM CDT [facility] 2H Delta -2 ng/L 10/27/2023 2:20 PM CDT [facility] Comment:6 hour collection no t indicated. 2H Delta Interp Not Changing 10/27/2023 2:20 PM CDT [facility] Blood 10/27/2023 1:44 PM CDT 10/27/2023 1:51 PM CDT us Luis Carlos Card M.D. LAB BLOOD TROPONIN Final Resul t Performing Organization Address [facility] Co de Phone Number [facility] [address] [place] [address] [place] [address] STMA [facility] [address] [place] [address] * (ABNORMAL) Dipstick, Urine (10/27/2023 1:23 PM CDT) Hemoglobin, QL, U Large(A) Negative 10/27/2023 2:25 [...] ORDERABLES Final Res ult Performing Organization Address City/[facility] Co de Phone Number [facility] [address] [place] [address], [facility] DTL [facility] [address] [place] [address] * (ABNORMAL) Microscopic Manual (10/27/2023 1:23 PM CDT) Microscopy Abnormal 10/27/2023 3:04 PM CDT DTL RBC <3 <3 /hpf 10/27/2023 3:04 PM CDT DTL WBC 21-30(A) /hpf 10/27/2023 3:04 PM CDT DTL Comment: ----REFERENCE VALUE---- <4 ??(Males) <11 (Females) Bacteria Present(A) 10/27/2023 3:04 PM CDT DTL Urine 10/27/2023 1:23 PM CDT 10/27/2023 2:25 PM CDT us Luis Carlos Card M.D. LAB URINE ORDERABLES Final Res ult [facility] [address] [place] [address], [facility] [address] [place] [address] * pH, Urine (10/27/2023 1:23 PM CDT) pH, U 5.5 4.5 - 8.0 10/27/2023 2:1 3 PM CDT DTL Urine 10/27/2023 1:23 PM CDT 10/27/2023 1:54 PM CDT us Luis Carlos Card M.D. LAB URINE ORDERABLES Final Res ult Performing Organization Address [facility] Co de Phone Number [facility] [address] [place] [address], [facility] [address] [place] [address] * Osmolality, Urine (10/27/2023 1:23 PM CDT) Osmolality, U 521 150 - 1150 mOsm/kg 10/27/2023 2:13 PM CDT DTL Urine 10/27/2023 1:23 PM CDT 10/27/2023 1:54 PM CDT us Luis Carlos Card M.D. LAB URINE ORDERABLES Final Res ult Performing Organization Address City/[facility]/ZIP Co de Phone Number [facility] [address] [place], [place] [address] DTL [facility] 200 [place] [address] * (ABNORMAL) Urinalysis, with Microscopic: Urine, Catheter [...] M.D. LAB URINE ORDERABLES Final Res ult [facility] 200 [place], [place] [address] DTL [facility] [address] [place] [address] * DX Chest AP or PA and [...] of bothshoulders and the spine. Remainder normal. Luis Carlos Card M.D. IMG DIAGNOSTIC IMAGING PROCEDU RES Final Result * (ABNORMAL) Troponin T, Baseline with 2 Hour/6 Hour Reflex Biomarker Panel (10/27/2023 11:31 AM CDT) [facility] Troponin T, Baseline, 5th gen 26(H) <=15 ng/L 10/27/2023 11:58 AM CDT ST[facility] Blood (Blood, Venous) 10/27/2023 11:31 AM CDT 10/27/2023 11:35 AM CDT us Luis Carlos Card M.D. LAB BLOOD TROPONIN Final Resul t [address] [address], [place] [address] * ECG 12 Lead (10/27/2023 11:23 AM CDT) [facility] Ventricular Rate ECG/Min 88 BPM MUSE MT Interval 304 ms MUSE QRSD Interval 102 ms MUSE QT Interval 370 ms MUSE QTC Interval 447 ms MUSE P [place] 44 degrees MUSE R [place] -66 degrees MUSE T Wave [place] 67 degrees MUSE 10/27/2023 11:2 3 AM [...] Carlos Card M.D. ECG ORDERABLES Final Result MUSE NA * (ABNORMAL) Albumin, Random, Urine (09/23/2023 9:24 AM CDT) Microalbumin 78.9 mg/L 09/23/2023 9:38 AM CDT CNFL Creatinine 132 mg/dL 09/23/2023 9:38 AM CDT CNFL Albumin/Creatinin e Ratio 60(H) <17 mg/g 09/23/2023 9:38 AM CDT CNFL Urine (Urine, Midstream) 09/23/2023 9:24 AM CDT 09/23/2023 9:24 AM CDT us Dalia Dill M.D. LAB URINE ORDERABLES Kelsi l Result Performing Organization Address [facility]/ZIP Co de Phone Number [facility] [address] [place] [address], [facility] CNFL [facility] in [address] [address] * US Aorta AAA Screening (03/27/2015 11:17 AM ENGLISH TUTOR) Anatomical Region Laterality Modality Abdomen, Pelvis N/A Ultrasound 03/27/2015 11:1 7 AM ENGLISH TUTOR Impressions 03/27/2015 11:23 AM ENGLISH TUTOR ??No aneurysm. FINDINGS: Abdominal aorta and proximal [...] ??[id number] 27-Mar-2015 11:23 Narrative 03/27/2015 11:23 AM ENGLISH TUTOR 27-Mar-2015 11:17:00 ??Exam: US AAA Screening Indications: [...] cm Electronically signed by: SHELDON Rich MD. [phone] 27-Mar-2015 11:23 Dalia Dill M.D. IMG US PROCEDURES Final R esult * Bone Donor 6 Month Screen Test Set (06/15/2012 9:03 AM CDT) Donor HBcore Antibody Negative [facility] HCV Ab Screen Donor Negative [facility] HX Hiv-1/-2, Plus O Ab Screen Donor Negative [facility] 06/15/2012 9:03 AM CDT 06/15/2012 9:03 AM CDT Magdaleno Pathak M.D. LAB BLOOD NON ADD-ON Final Re sult [facility] [address] [place] [address], [facility] * CT Chest without IV Contrast (10/22/2008 [...] signed by: ?? Singh ??Jennifer ROMAN. ?? [phone] 22-Oct-2008 09:22 Procedure Note Jhoan Rodriguez M.D. [...] [id number] Electronically signed by: Singh Rodriguez MD. [phone] 22-Oct-2008 09:22 Dalia Dill M.D. IMFred CT PROCEDURES Final R esult from Last 3 Months or Most Recently Relevant to Health Maintenance Insurance MEDICARE [facility] Advance Directives For more information, please contact: [phone] Documents on File Type Date Recorded Patient Model Maker Firearms Expl anation Advance Directives 11/07/2023 10:54 AM [...] Due to: Patient not available Care Teams Leaf Sucker Operator Relationship Specialty Start Date End Date Dalia Dill M.D. [address] [place] [phone] PCP - General Family Medicine 12/01/23
--- OUTSIDE RECORDS SUMMARY | 2023-12-13 06:15 | XMS_ITS | Encounter Summary ---
Author Organization [facility] Address [address] [place] [address] Care Team Providers Care Sash Clamp Operator Name Role Phone Nisreen Preciado APRN, C.NXiang Primary Care Provi cole Reason for Visit * Reason Comments Med Refill Nirseen Preciado Encounter Details Date Type Department Care Team (Late st Contact Info) Description 11/15/2023 Refill Department of Family Medicine, [address] [place] [address] [place] [phone] Dalia Dill M.D. [address] [place] [phone] Med Refill (Nisreen Preciado) Social History Tobacco Use Types Packs/Day Years Used Date Smoking Tobacco: Former Cigarettes 1 35 0 02/07/1962 - 02/07/1997 Smokeless Tobacco: Never Quit: 05/23/1999 Alcohol Use Standard Drinks/Week Comments Yes 1 (1 standard drink = 0.6 oz pur e alcohol) [facility] Utilities Answer Date Recorded In [...] How often do you attend chur or rastafari services? 1 to 4 times per year 04/02/2022 Do you belong to any clubs o r organizations such as pentecostalism groups, unions, fraternal or athletic groups, or [...] Answer Date Recorded PHQ-2 Score 0 06/13/2023 [facility] of Occupat ional Health - Occupational Stress [...] situation today? I have a [facility] place to live 10/27/2023 Education Answer Date Recorded What is the highest level of school you have completed or the highest degree you have received? 12th grade 03/14/2019 Sex and Gender Information Value Date Recorded Sex Assigned at Male 08/23/2017 10:02 AM CDT Legal Sex Male 7:12 PM SHINGLE SAWYER Gender Identity Male 08/23/2017 10:02 AM CDT Sexual Orientation Straight 08/23/2017 10 :02 AM CDT documented as of this encounter Miscellaneous Notes * Telephone Encounter - Veronica Brown R.N. - 11/21/2023 2:10 PM CDT Rosemarie Oneil [facility] has been notified this RX has been sent to [facility]. * Telephone Encounter - Nisreen Preciado APRN, C.N.P. - 11/18/2023 3:30 PM CDT This was sent to [facility]. documented in this encounter Plan of Treatment Upcoming Encounters Date Type Department Care Team (Late st Contact Info) Description 12/14/2023 10:30 AM SHINGLE SAWYER Appointment Department of Laboratory Medicine and Pathology, [facility], in [address] [phone] Dalia Dill M.D. [address] [place] [phone] 12/14/2023 11:00 AM SHINGLE SAWYER Office Visit Department of Family Medicine, [address] [phone] Dalia Dill M.D. [address] [place] [phone] 12/19/2023 2:00 PM SHINGLE SAWYER Comprehensive Visit Division of Community Internal Medicine, [facility] in [place], [place] [address] [place] [phone] Kiran Hugo M.D. [address] [place] [phone] documented as of this encounter Visit Diagnoses Not on filedocumented in this encounter Additional Health Concerns Assessment Noted Time PHQ-9 Depression Total Score: 1 06/13/19 24 10:38 AM CDT documented as of this encounter Care Teams Sash Clamp Operator Relationship Specialty Start Date End Date Nisreen Preciado APRN, C.N.P. [address] [place] [phone] PCP - General Family Medicine 10/31/23 11/30/23 documented as of this encounter
--- OUTSIDE RECORDS SUMMARY | 2023-12-13 06:15 | XMS_ITS ---
Author Organization [facility] Address [address] [place] [address] Care Team Providers Care Welfare Aide Name Role Phone Unavailable Unavailable Unavailable Surgery Details Not on file Complications Check Surgery Details section. Procedure Estimated Blood Loss Check Surgery Details section. Procedure Findings Check Surgery Details section. Procedure Specimens Taken Check Surgery Details section.
--- OUTSIDE RECORDS SUMMARY | 2023-12-13 06:15 | XMS_ITS | Encounter Summary ---
Author Organization [facility] Address [address] [place] [address] Care Team Providers Care Chemistry Account Manager Name Role Phone Dalia Dill M.D. Primary Care Provider [phone] [phone] Encounter Details Date Type Department Care Team (Late st Contact Info) Description 12/03/2023 CPAP Download Remote Patient Monitoring [facility] [address] [place] [address] [facility], Provider, Social History Tobacco Use Types Packs/Day Years Used Date Smoking Tobacco: Former Cigarettes 1 35 0 02/07/1962 - 02/07/1997 Smokeless Tobacco: Never Quit: 05/23/1999 Alcohol Use Standard Drinks/Week Comments Yes 1 (1 standard drink = 0.6 oz pur e alcohol) [facility] Utilities Answer Date Recorded In the past 12 months has [facility] [employer], gas, oil, or water [employer] threatened to shut off services in your [...] often do you attend chur ch or orthodoxy services? 1 to 4 times per year 04/02/2022 Do you belong to any clubs o r organizations such as nondenominational groups, unions, fraternal or athletic groups, or [...] Answer Date Recorded PHQ-2 Score 0 06/13/2023 [facility] of Occupat ional Health - [...] your living situation today? I have a [facility] place to live 10/27/2023 Education Answer Date Recorded What is the highest level of school you have completed or the highest degree you have received? 12th grade 03/14/2019 Sex and Gender Information Value Date Recorded Sex Assigned at Male 08/23/2017 10:02 AM CDT Legal Sex Male 7:12 PM ORGANIZATIONAL DEVELOPMENT SPECIALIST Gender Identity Male 08/23/2017 10:02 AM CDT Sexual Orientation Straight 08/23/2017 10 :02 AM CDT documented as of this encounter Plan of Treatment Upcoming Encounters Date Type Department Care Team (Late st Contact Info) Description 12/14/2023 10:30 AM ORGANIZATIONAL DEVELOPMENT SPECIALIST Appointment Department of Laboratory Medicine and Pathology, [facility], in [address] [place] [phone] Dalia Dill M.D. [address] [place] [address] 12/14/2023 11:00 AM ORGANIZATIONAL DEVELOPMENT SPECIALIST Office Visit Department of Family Medicine, [address] [place] [address] [place] [phone] Dalia Dill M.D. [address] [place] [address] 12/19/2023 2:00 PM ORGANIZATIONAL DEVELOPMENT SPECIALIST Comprehensive Visit Division of Community Internal Medicine, [facility], in [place], [place] [address] [place] [address] Kiran Hugo M.D. [address] [place] [phone] documented as of this encounter Visit Diagnoses Not on filedocumented in this encounter Additional Health Concerns Assessment Noted Time PHQ-9 Depression Total Score: 1 06/13/19 10:38 AM CDT documented as of this encounter Care Teams Chemistry Account Manager Relationship Specialty Start Date End Date Dalia Dill M.D. [address] [place] [phone] PCP - General Family Medicine 12/01/23 documented as of this encounter
--- OUTSIDE RECORDS SUMMARY | 2023-12-13 06:16 | XMS_ITS | Encounter Summary ---
Author Organization [facility] Address [address] [place] [address] Care Team Providers Care Sales Support Administrator Name Role Phone Dalia Dill M.D. Primary Care Provider [phone] [phone] Encounter Details Date Type Department Care Team (Late st Contact Info) Description 11/02/2023 CPAP Download Remote Patient Monitoring [facility] [address] [place] [address] [facility], Provider, Social History Tobacco Use Types Packs/Day Years Used Date Smoking Tobacco: Former Cigarettes 1 35 0 02/07/1962 - 02/07/1997 Smokeless Tobacco: Never Quit: 05/23/1999 Alcohol Use Standard Drinks/Week Comments Yes 1 (1 standard drink = 0.6 oz pur e alcohol) [facility] Utilities Answer Date Recorded In the past 12 months has [facility] [employer], gas, oil, or water [employer] threatened to shut off services in your [...] often do you attend chur ch or mormonism services? 1 to 4 times per year [...] Date Recorded PHQ-2 Score 0 06/13/2023 [facility] of Occupat ional Health - [...] your living situation today? I have a [facility] place to live 10/27/2023 Education Answer Date Recorded What is the highest level of school you have completed or the highest degree you have received? 12th grade 03/14/2019 Sex and Gender Information Value Date Recorded Sex Assigned at Male 08/23/2017 10:02 AM CDT Legal Sex Male 7:12 PM BULK CLERK Gender Identity Male 08/23/2017 10:02 AM CDT Sexual Orientation Straight 08/23/2017 10 :02 AM CDT documented as of this encounter Plan of Treatment Upcoming Encounters Date Type Department Care Team (Late st Contact Info) Description 12/14/2023 10:30 AM BULK CLERK Appointment Department of Laboratory Medicine and Pathology, [facility], in [address] [place] [phone] Dalia Dill M.D. [address] [place] [address] 12/14/2023 11:00 AM BULK CLERK Office Visit Department of Family Medicine, [address] [place] [address] [place] [phone] Dalia Dill M.D. [address] [place] [address] 12/19/2023 2:00 PM BULK CLERK Comprehensive Visit Division of Community Internal Medicine, [facility], in [place], [place] [address] [place] [address] Kiran Hugo M.D. [address] [place] [phone] documented as of this encounter Visit Diagnoses Not on filedocumented in this encounter Additional Health Concerns Assessment Noted Time PHQ-9 Depression Total Score: 1 06/13/19 10:38 AM CDT documented as of this encounter Care Teams Sales Support Administrator Relationship Specialty Start Date End Date Dalia Dill M.D. [address] [place] [phone] PCP - General Family Medicine 12/01/23 documented as of this encounter
--- OUTSIDE RECORDS SUMMARY | 2023-12-13 06:16 | XMS_ITS | Encounter Summary ---
Author Organization [facility] Address [address] [place] [address] Support Name Relationship Address Phone Alannah Potts Personal Relationship [address] [employer] [facility]. [address] [place] [address] Care Team Providers Care Reworker Name Role Phone Dalia Dill M.D. Primary Care Provider [phone] [phone] Reason for Visit * Reason Comments CTP Eligibility Encounter Details Date Type Department Care Team (Late st Contact Info) Description 10/28/2023 Patient Outreach Division of Community Internal Medicine, [facility] in [place], [place] [address] [place] [address] Gwendolyn Wiggins, RAurelioN. CTP Eligibility Social History Tobacco Use Types Packs/Day Years Used Date Smoking Tobacco: Former Cigarettes 1 35 0 02/07/1962 - 02/07/1997 Smokeless Tobacco: Never Quit: 05/23/1999 Alcohol Use Standard Drinks/Week Comments Yes 1 (1 standard drink = 0.6 oz pur e alcohol) [facility] Utilities Answer Date Recorded In the past 12 months has [employer], gas, oil, or water [employer] threatened to shut off services in your [...] How often do you attend chur or baptist services? 1 to 4 times per year 04/02/2022 Do you belong to any clubs o r organizations such as confucianist groups, unions, fraternal or athletic groups, or [...] Answer Date Recorded PHQ-2 Score 0 06/13/2023 [facility] of Occupat ional Health - Occupational Stress [...] AM CDT Legal Sex Male 7:12 PM GRINDING AND POLISHING LABORER Gender Identity Male 08/23/2017 10:02 AM CDT Sexual Orientation Straight 08/23/2017 10 :02 AM CDT documented as of this encounter Progress Notes * Gwendolyn Wiggins R.N. - 10/28/2023 7:21 AM CDT Patient is not eligible for CTP at this time and will not be offered enrollment. documented in this encounter Plan of Treatment Upcoming Encounters Date Type Department Care Team (Late st Contact Info) Description 12/14/2023 10:30 AM GRINDING AND POLISHING LABORER Appointment Department of Laboratory Medicine and Pathology, [facility] in [place], [place] [address] [place] [address] Dalia Dill M.D. [address] [place] [phone] 12/14/2023 11:00 AM GRINDING AND POLISHING LABORER Office Visit Department of Family Medicine, [address] in [place], [place] [address] [facility] [facility] [place] [address] Dalia Dill M.D. [address] [place] [phone] 12/19/2023 2:00 PM GRINDING AND POLISHING LABORER Comprehensive Visit Division of [facility] Internal Medicine, [facility] in [place], [place] [address] [place] [phone] Kiran Hugo M.D. [address] [place] [phone] documented as of this encounter Visit Diagnoses Not on filedocumented in this encounter Additional Health Concerns Assessment Noted Time PHQ-9 Depression Total Score: 1 06/13/19 24 10:38 AM CDT documented as of this encounter Care Teams Reworker Relationship Specialty Start Date End Date Dalia Dill M.D. [address] [place] [phone] PCP - General Family Medicine 12/08/11 10/30/23 documented as of this encounter
--- OUTSIDE RECORDS SUMMARY | 2023-12-13 06:16 | XMS_ITS | Encounter Summary ---
Author Organization [facility] Address [address] [place] [address] Care Team Providers Care Telecommunication Operator Name Role Phone Nisreen Preciado APRN, C.NXiang Primary Care Provi [facility] Encounter Details Date Type Department Care Team (Late st Contact Info) Description 10/02/2023 CPAP Download Remote Patient Monitoring [facility] [address] [place] [address] [facility], Provider, Social History Tobacco Use Types Packs/Day Years Used Date Smoking Tobacco: Former Cigarettes 1 35 0 02/07/1962 - 02/07/1997 Smokeless Tobacco: Never Quit: 05/23/1999 Alcohol Use Standard Drinks/Week Comments Yes 2 (1 standard drink = 0.6 oz pur e alcohol) [facility] Utilities Answer Date Recorded In the past 12 months has [facility] [employer], gas, oil, or water [employer] threatened to shut off services in your [...] often do you attend chur ch or restorationist services? 1 to 4 times per year 04/02/2022 Do you belong to any clubs o r organizations such as holiness groups, unions, fraternal or athletic groups, or [...] Answer Date Recorded PHQ-2 Score 0 06/13/2023 [facility] of Occupat ional Health - Occupational [...] your living situation today? I have a [facility] place to live 10/27/2023 Education Answer Date Recorded What is the highest level of school you have completed or the highest degree you have received? 12th grade 03/14/2019 Sex and Gender Information Value Date Recorded Sex Assigned at Male 08/23/2017 10:02 AM CDT Legal Sex Male 7:12 PM SERVICE DESK SPECIALIST Gender Identity Male 08/23/2017 10:02 AM CDT Sexual Orientation Straight 08/23/2017 10 :02 AM CDT documented as of this encounter Plan of Treatment Upcoming Encounters Date Type Department Care Team (Late st Contact Info) Description 12/14/2023 10:30 AM SERVICE DESK SPECIALIST Appointment Department of Laboratory Medicine and Pathology, [facility], in [place], [place] [address] [place] [address] [place] [address] Dalia Dill M.D. [address] [place] [address] 12/14/2023 11:00 AM SERVICE DESK SPECIALIST Office Visit Department of Family Medicine, [facility] in [place], [place] [address] [place] [address] [place] [address] Dalia Dill M.D. [address] [place] [address] 12/19/2023 2:00 PM SERVICE DESK SPECIALIST Comprehensive Visit Division of [facility] Internal Medicine, [facility], in [place], [place] [address] [place] [address] Kiran Hugo M.D. [address] [place] [address] documented as of this encounter Visit Diagnoses Not on filedocumented in this encounter Additional Health Concerns Infection Onset Date Last Indicated Resolved Time COVID19 Pending 10/28/2023 10/28/2023 10/28/2023 9 :59 AM CDT Assessment Noted Time PHQ-9 Depression Total Score: 1 06/13/19 10:38 AM CDT documented as of this encounter Care Teams Telecommunication Operator Relationship Specialty Start Date End Date Nisreen Preciado APRN, C.N.P. [address] [place] [phone] PCP - General Family Medicine 10/31/23 11/30/23 documented as of this encounter
--- OUTSIDE RECORDS SUMMARY | 2023-12-13 06:16 | XMS_ITS | Encounter Summary ---
Author Organization [facility] Address [address] [place] [id number] Care Team Providers Care Logistics Administrator Name Role Phone Nisreen Preciado APRN, C.N.P. Primary Care Provi cole Reason for Visit * Reason Comments Weakness - Generalized Encounter Details Date Type Department Care Team (Late st Contact Info) Description 10/27/2023 10:56 AM CDT - 10/31/2023 1:43 PM CDT Hospital Encounter [facility], [facility], [facility], Second Floor [address] [place] [address] [phone] Luis Carlos Card M.D. [address] [place] [address] [phone] Mina Olson M.D. [address] [place] [address] [phone] Kyle Martinez M.D. [address] [place] [address] [phone] Swathi Kim, PAurelioAAbiel. [address] [place] [address] [phone] Urinary Tract Infection Site Not Specified (Primary Dx); Weakness General; Decline Functional Status [R53.81]; Frailty Age Related Physical Debility [R54]; Chronic Kidney Disease (CKD), Stage 3 Unspecified (HCC) Discharge Disposition: Half-Way Facility Social History Tobacco Use Types Packs/Day Years Used Date Smoking Tobacco: Former Cigarettes 1 35 0 02/07/1962 - 02/07/1997 Smokeless Tobacco: Never Quit: 05/23/1999 Alcohol Use Standard Drinks/Week Comments Yes 1 (1 standard drink = 0.6 oz pur e alcohol) [facility] Utilities Answer Date Recorded In the past 12 months has e [employer], [employer], oil, or water [facility] threatened to shut off services in your [...] often do you attend chur ch or baptism services? 1 to 4 times per year [...] Date Recorded PHQ-2 Score 0 06/13/2023 [facility] of Occupat ional Health - Occupational Stress [...] your living situation today? [facility] 10/27/2023 Education Answer Date Recorded What is the highest level of school you have completed or the highest degree you have received? 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 Gender Identity Male 08/23/2017 10:02 AM CDT Sexual Orientation Straight 08/23/2017 10 :02 AM CDT documented as of this encounter Last Filed Vital Signs Vital Sign Reading Time Taken Comments Blood Pressure 103/71 10/31/2023 11:58 AM CDT Pulse 85 10/31/2023 11:58 AM CDT Temperature 36.8 ??C (98.2 ??F) 10/31/2023 1 1:58 AM CDT Respiratory Rate 16 10/31/2023 11:5 8 AM CDT Oxygen Saturation 94% 10/31/2023 11: 58 AM CDT Inhaled Oxygen Concentration - - Weight 96.1 kg (211 lb 13.8 oz) 10/28/2023 8:13 AM CDT Height 178.5 cm (5' 10.28) 10/27/2023 6:20 PM C DT Body Mass Index 30.16 10/27/2023 6:20 PM CDT documented in this encounter Discharge Summaries * Marycarmen Galindo M.B., B.Ch., B.A.O. - 10/31/2023 11:31 AM CDT DISCHARGE SUMMARY BRIEF OVERVIEW Hospital: [facility] Discharge Provider: Kyle Martinez M.D. Primary Team: [facility] Primary Care Providers: Dalia Dill M.D. (General) [address] [place] [phone] Primary Care Provider Primary Care Provider Admission Date: 10/27/2023 Discharge Date: 10/31/2023 PRINCIPAL DIAGNOSIS Frailty Age Related Physical Debility SECONDARY DIAGNOSES Principal Problem: Frailty Age Related Physical Debility Active Problems: Sarcopenia Obesity Body Mass Index 30-39.9 Adult Resolved Problems: * No resolved hospital problems. * DISCHARGE DISPOSITION Half-Way Facility [3] ACTIVE ISSUES REQUIRING FOLLOW UP You were cared for by the Family Medicine Inpatient Service during your stay. Please contact our service or your primary care provider with questions or concerns. The number for the hospital is , please ask for the Family Medicine Service. Recommendations for Patient: - Please follow up with your primary care provider as outlined in your appointment guide. - Your fluoxetine was switched from twice daily to once daily. Please continue this new dose. - Please continue to ensure plenty of daily hydration and good oral intake. All prescriptions sent to [facility] Recommendations for Provider: Diagnoses - Jorge Potts has a new diagnosis of UTI and generalized weakness. - We have attempted to capture and summarize incidental findings, abnormal lab values and actionable items from consultations over the course of hospitalization, but we ask that you independently review imaging studies, labs, and consult notes. Follow Up - Please follow up on patient's strength and mobility - Please follow up on oral intake. - Please follow up blood cultures - Fluoxetine was switched from 40 mg twice daily to once daily. Medication Adjustments - Held: none - Discontinued: none - New: None - Changed: fluoxetine from twice daily to once daily Pending at Discharge Pending Labs Order Current Status Bacterial Culture, Aerobic + Susceptibility, Urine In process Incidental Findings none Transfusions/Implants none OUTPATIENT FOLLOW UP For appointment details refer to your Patient Appointment Guide. TEST RESULTS PENDING AT DISCHARGE Pending Labs Order Current Status CBC with Differential, Blood In process DETAILS OF HOSPITAL STAY REASON FOR ADMISSION Urinary Tract Infection Site Not Specified Weakness General HOSPITAL COURSE Mr. Potts is a 78 y.o. male admitted for generalized weakness 2/2 UTI. Pertinent past medical history of HTN, HLD, DM type 2, depression, anxiety, GERD. He noticed significant urinary frequency, inability to stand, I will perform ADLs this morning, andcame to the ED. in the ED he was vitally stable overall, had noticeable generalized weakness. Labs were remarkable for a leukocytosis of 12.4, normal BNP, mildly elevated tropes, but unchanged at 2 hours, urinalysis was obtained that showed pyuria. Blood cultures were obtained and did not show growth to date. Imaging with chest x-ray showed no significant change since April 27, 2023, EKG showed sinus rhythm with first-degree AV block. He was given a dose of ceftriaxone 1 g for UTI, and transferred to the floor. Upon transfer, he continued to endorse overall generalized weakness, but otherwise stable. Physicalexam was not significant except for weakness. Given low suspicion for a urinary tract infection, his ceftriaxone wad discontinued. Respiratory swabs were negative. Patient continued to work with PT/OT during his hospital stay and they recommended ongoing skilled therapy. Patient was discharged on 10/30 to [facility] in stable condition CONSULTS ORDERED DURING THIS ADMISSION IP CONSULT TO CARE MANAGEMENT IP CONSULT TO DIETITIAN CONDITION AT DISCHARGE stable Discharge instructions were provided to the patient and caregiver(s). Cosigned by Kyle Martinez M.D. at 10/31/2023 2:08 PM CDT Associated attestation - Kyle Martinez M.D. - 10/31/2023 2:08 PM CDT I saw the patient on the day of discharge and agree with the discharge plans and disposition. documented in this encounter Discharge Instructions * Discharge Instructions* Abdirizak Gaines - 10/28/2023 6:34 AM CDT You were discharged from the [facility] Service. Please identify this service name if you call with questions after hospitalization. * Patient Instructions* Bebe Muniz R.N. - 10/28/2023 1:22 PM CDT The Senior LinkAge Line?? is a service of the [place] [employer] in partnership with [place]'s Area Agencies on Aging. It is a free service of the [facility] that connects older [place] and their families with the help they need. Call the Senior LinkAge Line?? at: 129.164.1069 M-F, 8am-4:30pm to connect with specialists that are available to assist you with your specific needsor check out their website at https://www.Floop.[employer]Crunch documented in this encounter Medications at Time of Discharge amLODIPine (Norvasc) 5 mg tabletIndication s:Chronic Kidney [...] total) by mouth daily. For hyperlipidemia 10/31/2023 albuterol 90 mcg/actuation inhaler Inhale 1-2 puffs every 4 (four) hours as needed for wheezing or shortness of breath. For COPD. 18 g 10/31/2023 11/01/19 semaglutide (Ozempic) 1 mg/dose (4 mg/3 mL) injection Inject 1 mg under the skin every 7 (seven) days. on Fridays for diabetes. 10/31/2023 11/07/19 documented as of this encounter Progress Notes * Bebe Muniz, RAurelioN. - 10/31/2023 11:24 AM CDT SUBJECTIVE Patient is planning to discharge today, 10/31/23 to [facility]. Anticipated Needs Functional Status: bathing, dressing, toileting, transfers to/from bed, chair, etc., mobility, mealpreparation, medication setup/administration, housekeeping, shopping, and transportation use ([place], use taxi/bus) Assistive Devices: eyeglasses, transfer belt, and walker - front wheeled Modifications to home environment: None Transportation: wheelchair van Anticipated discharge destination: [facility] OBJECTIVE Patient was sitting up in chair on FR1C room 122 with at bedside. ASSESSMENT / PLAN Assessment Those noted above appear to have insight into the patient's needs at this time and are planning appropriately for discharge needs. They report agreement with the below plan with no further questions at this time. Patient is eligible for discharge to a SNF and is being discharged to a SNF Affiliate under ACO 3-day waiver. Plan The patient is being prepared to discharge on 10/31/23 at 1300 if medically ready for transfer. Contact CASE MANAGEMENT if time needs to be changed. Transportation will be provided by [employer] ([phone]). Transportation will be paid for by family. Destination - Admitted Since 10/27/2023 Service Provider Selected Services Address Phone Fax Patient Preferred [facility] [address] [place] [address] [phone] -- Contact: Nursing Transportation oxygen: No oxygen needed. NURSING: - Complete documentation in the Discharge Navigator including Nursing Report Info and Facility/NextLevel of Care Info - Contact facility to give report on morning of discharge. - Send After Visit Summary and required packet of dismissal information with patient, including advance directive. PRIMARY SERVICE: - Provider to Provider call is not required. - Provide written prescriptions for all narcotics. After Visit Summary to Include: - All discharge medications include dosage, times for administration, diagnosis, and stop date. - Ongoing care - wound care, infection precautions and phone numbers to call. CASE MANAGEMENT: - Pre-admission screen has been completed. [id number] - Will continue to follow. Bebe Muniz R.N. 10/31/2023 * Zully Cheung, P.T., D.P.T. - 10/31/2023 9:40 AM CDT Physical Therapy Inpatient Treatment SUBJECTIVE Patient's Name: Jorge Potts Referring/Attending Provider: Kyle Martinez M.D. Reason for Referral: Physical Therapy Evaluate and Treat History of Present Illness: Jorge Potts is a 78 y.o. male who was admitted to [facility] in [place] on 10/27/2023 for Urinary Tract Infection Site Not Specified [N39.0] Weakness General [R53.1] Precautions Other Precautions: Hx falls, neuropathy, COPD/asthma, limited R shoulder ROM Pain Assessment: Patient reports L shoulder discomfort but does not assign numerical value; reports it is more chronic in nature Patient/Caregiver Goals: No goals stated Subjective Comments: Agreeable to therapy session. OBJECTIVE Vital Signs Vitals monitored throughout session; within normal ranges. Outcome Measures: [facility] Inpatient Short Form: -[facility] Basic Mobility (V.2) How much help from another person do you currently need???If the patient hasn't done an activity recently, how much help from another person do you think he/she would needif he/she tried? 1. Turning from your back to your side while in a flat bed without using bedrails?: A Little 2. Moving from lying on your back to sitting on the side of a flat bed without using bedrails?: A Little 3. Moving to and from a bed to a chair (including a wheelchair)?: A Little 4. Standing up from a chair using your arms (e.g., wheelchair, or bedside chair)?: A Little 5. To walk in hospital room?: A Little 6. Climbing 3-5 steps with a railing?: Total -[facility] Basic Mobility (V.2) Raw Score: 16 -[facility] Basic Mobility (V.2) Standardized Score: 38.32 Interpretation: Based on scoring guidelines using the raw score value: Those going to home had an average score at or above 18 Those going to facility had an average score at or below 17 Clinicians answer the -[facility] Inpatient Short Form based on observed patient activity and/or clinical judgement (patient can be scored without physically performing each activity) Therapeutic Interventions: SIT TO STAND: Assistance Level: Minimal Assistance of 1-2 Device: gait belt and front wheeled walker Surface: Chair and Commode Assistance/Cueing: verbal and tactile for Anterior weight shifting, Manual facilitation provided for force generation, Upper extremity placement, and Use of momentum Delivery: instructed, assessed, and assisted Comments: MinAx1 provided from commode, minAx2 from bedside chair for initial stand STAND TO SIT: Assistance Level: Minimal Assistance of 1, + 1 for safety Device: gait belt and front wheeled walker Surface: Chair and Commode Assistance/Cueing: verbal and tactile for Alignment with seated surface, Eccentric control, Lower extremity placement, Upper extremity placement, and Walker placement Delivery: instructed, assessed, and assisted GAIT: Distance: 4.5 meters (x2) Assistance Level:Minimal Assistance of 1, + 1 for chair follow and safety Device: gait belt and front wheeled walker Quality: decreased base of support, decreased gait speed, decreased step height, decreased step length Assistance/Cueing:verbal and tactile for Placement within the walker and Upright posture Delivery: instructed, assessed, and assisted Comments: Patient completes ADLs with OT between trials and benefits from seated rest break prior to initiating 2nd trial THERAPEUTIC ACTIVITY:Facilitated standing tolerance at sink while patient participated in ADLs withOT. Patient tolerates 3.5 minutes of standing, but does benefit from Christina at gait belt and frequentcuing for quad activation as he stands with knee flexed posture. THERAPEUTIC EXERCISE: Seated Therapeutic Exercise: Side: bilateral, lower extremity(ies) Mode: active range of motion Exercises: Long arc quads and glute sets Repetitions: 1x8 LAQ with 3 second hold, 1x5 glute sets Assist/cueing: Full range of motion and Static hold Education: -Home exercise program The patient's status was discussed and the following coordination of care occurred with the RN and OT Co-treat with Occupational Therapy Patient benefitted from having 2 skilled therapists present in order to optimize mobility progression+safety with mobility. OT/PT addressed different goals within treatment session. Patient was left in bedside chair at end of session with call light in reach, all needs met and questions answered. Assessment Discharge Therapy Needs - PT: Ongoing skilled physical therapy If skilled therapy is recommended, skilled therapy can include physical therapy provided by home health, outpatient clinic, or a post-acute facility. The location of these services is determined by the patient's care team in partnership with patient/family. Level of Care Needed - PT: Assistance with transfers (Comment), Assistance with walking and moving around the home, Assistance with bed mobility, Assistance with stairs, Physical assistance needed Equipment Recommended - PT: Front-wheeled walker Barriers to Discharge Home: Current functional status, Fall risk From a physical therapy perspective, the level of care above has been recommended for Mr. Potts after hospital discharge. This level of care is based on his functional abilities during today's session. This may change throughout the hospital course and will be updated as appropriate. Clinical Impression: Patient continues to progress towards therapy goals. He was able to progress with ambulation this date, but does benefit from chair follow due to unpredictable onset of fatigue and potential for subsequent knee buckling due to difficulty with quad activation when upright. Mr. Potts will continue to benefit from skilled physical therapy to address impairments and progress functional mobility in order to optimize independence upon discharge. Rehab potential: Mr. Potts has Good potential to achieve established physical therapy goals within the time frame outlined below. Progress: Progressing toward goals Plan PT Plan Comments: Progress functional transfers, ambulation, LE therex, and bed mobility. Functional Goals: PT Inpatient Goals PT Goal #1: Patient will demonstrate bed mobility with independence to demonstrate improved functional mobility and independence. PT Goal #1 Status: Ongoing PT Goal #2: Patient will demonstrate sit to stand transfer with modified independence and least restrictive assistive device to demonstrate improved functional mobility and independence. PT Goal #2 Status: Progressing PT Goal #3: Patient will be able to ambulate at least 20m with modified independence and least restrictive assistive device while executing the task with good safety awareness, stability, and functional strength. PT Goal #3 Status: Progressing Treatment Plan: Plan: Continue with current plan PT Amount: 1 visit per day PT Frequency: 5 times per week PT Inpatient Duration : Until goals are met or hospital discharge Requires Inpatient Follow-Up: Yes PT - Next Inpatient Appointment: 11/01/23 Patient agrees with the plan of care and goals. Treatment interventions may include: Treatment/Interventions: Therapeutic exercise, Therapeutic functional activity, Neuromuscular re-education, Gait training, Self-care/home management Billing: Time Spent with Patient Therapeutic Interventions Therapeutic Activity (min): 15 min Time Tracking Total Timed Units (min): 15 min Total Treatment Time (min): 15 min *Note: PT spent total of 30 mins with patient, but due to observation status and co-treatment with OT split units to accurately reflect billing. Zully Cheung P.T., D.P.T. * Bianka De Luna O.T., O.T.D. - 10/31/2023 9:40 AM CDT Occupational Therapy Acute Hospital Inpatient Treatment SUBJECTIVE Patient's Name: Jorge Potts Referring/Attending Provider: Kyle Martinez M.D. Reason for Referral: Occupational Therapy Evaluation and Treatment History of Present Illness: Jorge Potts is a 78 y.o. male who was admitted to [facility] in [place] on 10/27/2023 for Urinary Tract Infection Site Not Specified [N39.0] Weakness General [R53.1]. Precautions Other Precautions: Hx falls, neuropathy, COPD/asthma, limited R shoulder ROM Pain Assessment: Pain not reported during session. Subjective Comments: Agreeable to therapy session. OBJECTIVE Vital Signs: Vitals monitored throughout session; within normal ranges. Outcome Measures: -[facility] Inpatient Short Form: Putting on and taking off regular lower body clothing?: A lot Putting on and taking off regular upper body clothing?: A Little Taking care of personal grooming such as brushing teeth?: A Little Bathing (including washing, rinsing, drying)?: A lot Toileting, which includes using toilet, bedpan, or urinal?: A lot Eating meals?: A Little Daily Activities Raw Score (max 24): 15 Daily Activities Standardized Score: 34.69 Interpretation: Based on scoring guidelines using the raw score value: Those going to home had an average score at or above 18 Those going to facility had an average score at or below 17 Clinicians answer the -[facility] Inpatient Short Form based on observed patient activity and/or clinical judgement (patient can be scored without physically performing each activity). O Log: The Orientation Log is a quick, quantitative measure of orientation status to place, time, and circumstance. The O-Log can be used for serial assessment of orientation to document changes overtime. A score of 25 or higher is associated with normal orientation, however does not evaluate executive function. Score Breakdown: City: 04/[address]: 04/09 Name of Hospital: 04/09 Month: 04/09 Date: 04/09 Year: 04/09 Day of the Week: 04/09 Clock Time: 04/09 Etiology/Event: 04/09 Pathology Deficits: 04/09 Total Score: 30/30 Cognition: Will further assess and monitor as warranted Therapeutic Interventions: ACTIVITIES OF DAILY LIVING: GROOMING - Assist Level: Minimal Assist, x 1, + assist for safety - Patient Location: Standing at sink, Seated at sink - Activity: Brushing teeth - regular or soft brush, Washing face - Therapist Delivery: assessed, instructed, educated, assisted, facilitated - Assist/Cues: verbal and manual for sequencing, positioning, increased time, external support for stability, energy conservation techniques, safety Patient requiring minimal assistance to maintain upright standing at sink during face washing due to bilateral lower extremity fatigue. Performed oral hygiene seated on commode at sink for energy conservation. LOWER BODY DRESSING - Assist Level: Minimal Assist - Patient Location: Chair - LB Dressing Item: socks, shoes - Therapist Delivery: assessed, instructed, educated, assisted, facilitated - Assist/Cues: verbal and manual for technique, assistance for thoroughness, increased time Patient reported increased difficulty performing right lower extremity dressing due to previous hiparthroplasty. Patient able to do hospital socks but only able to don left sock using figure four technique. Patient requiring assist to don right sock and shoe. FUNCTIONAL TRANSFERS: SIT to STAND - Assist Level: Minimal Assist, x 1, 2 - Equipment: front wheeled walker and gait belt - Surface: Chair, Commode - Therapist Delivery: assessed, instructed, educated, assisted, facilitated - Assist/Cues: verbal, visual, and manual for technique, sequencing, proper hand placement, anterior weight shift, balance, upright posture, safety - # of reps: 2 STAND to SIT - Assist Level: Minimal Assist, x 1 - Equipment: front wheeled walker and gait belt - Surface: Chair, Commode - Therapist Delivery: assessed, instructed, educated, assisted, facilitated - Assist/Cues: verbal, visual, and manual for technique, sequencing, proper hand placement, eccentric control, balance, safety - # of reps: 2 FUNCTIONAL MOBILITY: In-room mobility performed with minimal assistance x1 (+1 chair follow) and front wheeled walker and gait belt. Patient ambulated 4.5m x2 Education/Training Provided: Provided education on role of occupational therapy in the acute setting. Collaborated with patient and/or family on goals and plan of care. Functional Transfers: - Provided instruction and cues during functional sit to/from stand transfers, including body alignment to surface, appropriate hand placement, and optimal placement of extremities to optimize safetyand technique. Team Communication: The patient's status was discussed and coordination of care occurred with RN Co-treat with physical therapy as patient benefits from 2 skilled therapists present in order to optimize safety and progression of mobility and self-care skills. Spent 30 minutes with patient. OT billed 15 minutes given observation status. Patient was left in bedside chair at end of session with call light in reach, all needs met and questions answered. Assessment Discharge Therapy Needs - OT: Ongoing skilled occupational therapy If skilled therapy is recommended, skilled therapy can include occupational therapy provided in home health, outpatient or post-acute facility. The location of these services is determined by patient's care team in partnership with patient/family. Level of Care Needed - OT: Assistance with toilet/shower transfers, Assistance with toileting, Assistance with medication set up/administration, Assistance with dressing, Assistance with showering/bathing, Assistance with meal preparation, Assistance with transportation, Assistance with financial ma nagement, Assistance with housekeeping, Assistance with shopping, Cognitive assistance needed, Physical assistance needed Barriers to Discharge Home: Current functional status, Fall risk Recommended Adaptive Equipment - OT: Other (Comment) (ongoing assessment) Clinical Impression: Patient is making incremental progress towards occupational therapy goals. Patient performed functional transfers using front-wheeled walker requiring grossly minimal assistance of 1 with additional person for safety. He required minimal assistance during functional mobility to/from bathroom. He was able to stand and perform grooming tasks at sink for approximately 3.5 minutes before requiring seated rest break. Currently, patient presents with following functional barriers: decreased strength,limited activity tolerance, impaired balance, impaired range of motion, and cognitive deficits requiring physical assistance to perform ADLs/IADLs. In-Hospital Activity and Mobility Recommendations: - Transfer into chair 3x/day with assist x 2. - Recommend position changes every 2 hours - Use bedside commode for toileting - Eat ALL meals in chair - Active engagement in daily self-care routine (oral cares, face washing, combing hair) - Maintain typical day/night routine and incorporate sleep hygiene strategies Patient would continue to benefit from skilled occupational therapy services to optimize independence and safety with activities of daily living performance. Plan OT Plan Comments: Next session: grooming in standing, dressing tasks AE, energy conservation techniques, monitor cognition Functional Goals: OT Goal #1: Patient will progress to performing toileting transfers and tasks, and subsequent hygienes standing sinkside, safely with standby assistance by hospital discharge. OT Goal #1 Status: Progressing OT Goal #2: Patient will progress to performing total body dressing, including item retrieval, safely with standby assistance by hospital discharge. OT Goal #2 Status: Progressing OT Goal #3: Patient will participate in intermittent cognitive assessment and activities to facilitate safe discharge recommendations. OT Goal #3 Status: Progressing OT Goal #4: Patient and/or caregiver will verbalize understanding of patient's homegoing safety recommendations, equipment recommendations, and recommended level of assistance with functional tasks by hospital discharge. OT Goal #4 Status: Ongoing Progress: Progressing toward goals Rehab potential: Mr. Potts has good potential to achieve established occupational therapy goals within the time frame outlined below. OT Frequency: OT Amount: 1 visit per day OT Frequency: 5 times per week OT Inpatient Duration : Until goals are met or hospital discharge Requires Inpatient OT Follow-Up: Yes OT - Next Inpatient Appointment: 11/01/23 Plan: Continue with current plan Treatment interventions may include: Treatment Interventions: Therapeutic exercise, Therapeutic functional activity, Self-care/home management, Cognitive skills training Occupational Therapy Attestation Statement: Patient agrees with the plan of care and goals. Billing: Time Spent with Patient Therapeutic Interventions Home Management Training (min): 15 min Time Tracking Total Timed Units (min): 15 min Total Treatment Time (min): 15 min Bianka De Luna O.T., O.TDevin * Matt Tuttle M.D. - 10/31/2023 6:35 AM CDT SUBJECTIVE Hospital Day: LOS: 1 day 78 y.o M admitted for generalized weakness 2/2 UTI. PMH of HTN, HLD, DM type 2, depression, anxiety, GERD Dispo: SNF pending PT/OT assessment Interval History: -Workup has not identified any significant source of infection, or other explanation for patient's weakness. Very likely that this is in the setting of deconditioning. -patient walked with PT yesterday afternoon, pending PT notes at this time. Most recent OT notes state needs ongoing skilled physical therapy and ongoing skilled occupational therapy -continue to encourage adequate oral intake, as he was urine has been little darker, otherwise no dysuria. This Morning: States that he slept better overnight. No new concerns I have reviewed the current medication list. OBJECTIVE Admission Weight: 98 kg Current Weight: 96.1 kg VITAL SIGNS Temperature: [36.3 ??C-36.4 ??C] 36.3 ??C Resp Rate: [16] 16 Blood Pressure: (93-145)/(70-98) 122/78 SpO2: [95 %-100 %] 100 % Flow Rate (L/min): [0 L/min] 0 L/min Pulse Rate: [79-92] 83 I/O 10/28 0701 10/29 0700 10/29 0701 10/30 0700 P.O. 686 Total Intake(mL/kg) 686 (7.1) Urine (mL/kg/hr) 825 (0.4) 400 (0.2) Stool 0 Total Output 825 400 Net -825 +286 Unmeasured Urine Occurrence 1 x Unmeasured Stool Occurrence 1 x PHYSICAL EXAM Gen: NAD resting comfortably Neuro: no aphasia, conversant, A&Ox3 HEENT: normocephalic atraumatic, EOMI, no scleral icterus or injections. Respiratory: breathing comfortably on room air Abdomen: non-distended Cardiac: extremities well perfused, no peripheral edema Extremities: no cyanosis, clubbing or edema, spontaneous movement of all four limbs Skin: warm and dry, no visible abrasions, rashes, or lesions DIAGNOSTICS I have reviewed labs, ECG, xray, ultrasound, and diagnostics. DX Chest AP or PA and Lateral 2 Views Result Date: 10/27/2023 Impression: Comparison 04/30/2023. No significant change. Bibasilar atelectasis/scarring. Aortic calcification. Degenerative changes of both shoulders and the spine. Remainder normal. ASSESSMENT / PLAN Mr. Jorge Potts is a 78 y.o. male admitted with generalized weakness 2/2 UTI. Past medical history significant for hypertension, hyperlipidemia, CKD, diabetes type 2, CAD, asthma, COPD, bladder neoplasm history, MELLY on CPAP, peripheral neuropathy, history of falling. Plan for 10/29 - Continue to work with PT - continue to encourage oral intake. Will follow up on I/Os - Anticipate SNF for dispo. Follow up with CM regarding dispo planning. -labs pending this a.m.. #Urinalysis with pyuria, NGTD on culture # Imbalance Non Orthopedic # Neuropathy Peripheral # Unsteadiness Gait Disorder Non Orthopedic # Weakness General # History Of Falling # Stenosis Spinal - negative urine culture, discontinued antibiotics day 1 of admission. NGTD on culture - Respiratory swabs negative - Follow up PT/OT for assessment of strength. - Continue home vitamin B12, multivitamin daily. 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 He has been getting cystoscopies, and most recently cystoscopy [id number] was normal, and urology plans were to recheck in 1 year, January 27, 2024. Continue to followup outpatient. # Hypertension And Chronic Kidney Disease Stage 3a (HCC) # Coronary Artery Disease -continue home metoprolol, losartan, amlodipine -continue home statin, aspirin low-dose. -avoid nephrotoxic medications -continue to monitor CMP # Chronic Obstructive Pulmonary Disease Without Exacerbation (HCC) # Asthma Mild Persistent (HCC) -PFTs in 2013 showed positive methacholine challenge, otherwise normal PFTs in 2017. -Denies any shortness of breath today, no concerns with exacerbation, continue Arnuity Ellipta inpatient. -continue albuterol for history of asthma. # Diabetes Mellitus Type 2 (HCC) - moderate sliding scale insulin, and bedtime correction scale. - glucose checks q.i.d. and p.r.n. -currently holding home metformin and semaglutide. -Continue metformin today if patient kidney function improving/stable. # Depression Major Recurrent Full Remission (HCC) Mood and affect overall normal, at baseline for patient per patient's report. Continue fluoxetine 40 mg daily. # Colitis Ulcerative Proctitis (HCC) He denies any concerns with diarrhea, constipation. Denies abdominal pain today. -continue to monitor. # Coronary Artery Disease Without Angina Pectoris From chart review, it looks like he has a history of ND from 2008, but there was no intervention noted on his charts. Chest pain, no cardiac concerns at this time. # Advanced care planning Patient confirms he would like to be resuscitated in the event of a cardiac arrest. If he is unableto make decisions, he designates his Alannah to do so. # GERD Continue Pantoprazole 40 mg daily. Diet: Regular diet with carbohydrate restriction 75 mg Tubes/lines: PIV VTE prophylaxis: enoxaparin NHI: 6 Code status: Full Code, Discussed with Dr. Tuttle on admission Disposition: Half-Way Facility Jorge Potts is cared for by the [facility]. Please feel free to page [phone] with any questions or can text page us by clicking here. Cosigned by Kyle Martinez M.D. at 10/31/2023 2:06 PM CDT Associated attestation - Kyle Martinez M.D. - 10/31/2023 2:06 PM CDT I reviewed with the resident/fellow the medical history and the resident/fellow???s findings on physical examination. I discussed with the resident/fellow the patient???s diagnosis and concur with the treatment plan as documented in the resident note. * Marycarmen Galindo M.B., B.Ch., B.A.O. - 10/30/2023 7:00 AM CDT SUBJECTIVE Hospital Day: LOS: 1 day 78 y.o M admitted for generalized weakness 2/2 UTI. PMH of HTN, HLD, DM type 2, depression, anxiety, GERD Dispo: SNF pending PT/OT assessment Interval History: No obvious source of infection responsible for patient's weakness. Suspect frailty as the driving factor. Emphasized the importance of working with PT, which he has not completed yesterday. This Morning: States that he slept better than the day before. Otherwise no new concerns. His urine appears quitedark this morning and patient notes that he hasn't been eating and drinking as much over the last two days. He feels like he was still weak but he was gaining strength. I have reviewed the current medication list. OBJECTIVE Admission Weight: 98 kg Current Weight: 96.1 kg VITAL SIGNS Temperature: [36.8 ??C] 36.8 ??C Resp Rate: [19-20] 19 Blood Pressure: (96-119)/(68-90) 96/68 SpO2: [96 %] 96 % Pulse Rate: [98] 98 I/O 10/27 0701 10/28 0700 10/28 0710/29 0700 P.O. 1510 Intermittent Medications 50 Total Intake(mL/kg) 1560 (16.2) Urine (mL/kg/hr) 1850 (0.8) 150 (0.1) Stool 0 Total Output 1850 150 Net -290 -150 Unmeasured Stool Occurrence 1 x PHYSICAL EXAM Gen: NAD resting comfortably Neuro: no aphasia, conversant, A&Ox3 HEENT: normocephalic atraumatic, EOMI, no scleral icterus or injections, mucus membranes dry Respiratory: breathing comfortably in room air Abdomen: non-distended Cardiac: extremities well perfused, no peripheral edema Extremities: no cyanosis, clubbing or edema, spontaneous movement of all four limbs Skin: warm and dry, no visible abrasions, rashes, or lesions DIAGNOSTICS I have reviewed labs, ECG, xray, ultrasound, and diagnostics. DX Chest AP or PA and Lateral 2 Views Result Date: 10/27/2023 Impression: Comparison 04/30/2023. No significant change. Bibasilar atelectasis/scarring. Aortic calcification. Degenerative changes of both shoulders and the spine. Remainder normal. ASSESSMENT / PLAN Mr. Jorge Potts is a 78 y.o. male admitted with generalized weakness 2/2 UTI. Past medical history significant for hypertension, hyperlipidemia, CKD, diabetes type 2, CAD, asthma, COPD, bladder neoplasm history, MELLY on CPAP, peripheral neuropathy, history of falling. Plan for 10/29 - Continue to work with PT - Encourage oral intake. Will follow up on I/Os - Anticipate SNF for dispo. Follow up with CM regarding dispo planning. #Urinalysis with pyuria, NGTD on culture # Imbalance Non Orthopedic # Neuropathy Peripheral # Unsteadiness Gait Disorder Non Orthopedic # Weakness General # History Of Falling # Stenosis Spinal - No indication to treat as UTI. NGTD on culture - Respiratory swabs negative - Follow up PT/OT for assessment of strength. - Continue home vitamin B12, multivitamin daily. 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 He has been getting cystoscopies, and most recently cystoscopy [id number] was normal, and urology plans were to recheck in 1 year, January 27, 2024. Continue to followup outpatient. # Hypertension And Chronic Kidney Disease Stage 3a (HCC) # Coronary Artery Disease -continue home metoprolol, losartan, amlodipine -continue home statin, aspirin low-dose. -avoid nephrotoxic medications -continue to monitor CMP # Chronic Obstructive Pulmonary Disease Without Exacerbation (HCC) # Asthma Mild Persistent (HCC) -PFTs in 2013 showed positive methacholine challenge, otherwise normal PFTs in 2017. -Denies any shortness of breath today, no concerns with exacerbation, continue Arnuity Ellipta inpatient. -continue albuterol for history of asthma. # Diabetes Mellitus Type 2 (HCC) - moderate sliding scale insulin, and bedtime correction scale. - glucose checks q.i.d. and p.r.n. -currently holding home metformin and semaglutide. -can continue home metformin after 1 day of stable glucoses. Continue outpatient. # Depression Major Recurrent Full Remission (HCC) Mood and affect overall normal, at baseline for patient per patient's report. Continue fluoxetine 40 mg daily. He reportedly has been taking this b.i.d., and pharmacy discussed with him that he needsto be taking this daily. We will continue to school counsellor him on this # Colitis Ulcerative Proctitis (HCC) He denies any concerns with diarrhea, constipation. Denies abdominal pain today. -continue to monitor. # Coronary Artery Disease Without Angina Pectoris From chart review, it looks like he has a history of ND from 2008, but there was no intervention noted on his charts. # Advanced care planning Per chart review, and upon assessment today, patient confirms he would like to be resuscitated in the event of a cardiac arrest. If he was unable to make decisions, he designates his Alannah to do so. # GERD Continue Pantoprazole 40 mg daily. Diet: Regular diet with carbohydrate restriction 75 mg Tubes/lines: PIV VTE prophylaxis: enoxaparin NHI: 6 Code status: Full Code, Discussed with Dr. Tuttle on admission Disposition: Home and Half-Way Facility Jorge Potts is cared for by the [facility]. Please feel free to page [phone] with any questions or can text page us by clicking here. Cosigned by Mina Olson M.D. at 10/30/2023 1:41 PM CDT Associated attestation - Mina Olson M.D. - 10/30/2023 1:41 PM CDT I saw and evaluated the patient, participating in the navarro portions of the service. I reviewed the resident/fellow???s note. I agree with the resident/fellow???s findings and plan. #1 Frailty Age Related Physical Debility #2 Sarcopenia #3 Obesity Body Mass Index 30-39.9 Adult We looked for a source of infection that tipped him into worsened weakness, and have found none -- nor any iatrogenic trouble. 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 PT and likely placement is in order. He is medically ready for dismissal when safe placement can be found. * Heather Cartagena C.R.T., VigneshRAurelioT. - 10/29/2023 11:06 PM CDT Patient refused CPAP for the night. Patient stated has own device and doesn't like ours. Doesn't want to keep being asked about wearing the CPAP so RT will discontinue the order. Electronically signed by: Nisha Cartagena C.R.T., L.RSkylar 10/29/23 11:08 PM CDT * Rehan Malave D.O. - 10/29/2023 4:19 AM CDT SUBJECTIVE Hospital Day: LOS: 1 day 78 y.o M admitted for generalized weakness 2/2 UTI. PMH of HTN, HLD, DM type 2, depression, anxiety, GERD On CTX (current antibiotics/oxygen). Dispo: Home or SNF pending PT/OT assessment Interval History: We tested the patient's orthostatic vitals yesterday which came back positive. Urine cultures as ofnow continue to show no growth to date so ceftriaxone was discontinued. His nasal swab for COVID flu and RSV came back negative. This Morning: States that he did not sleep well, due to discomfort with the in the hospital. Otherwise no new concerns. He was eating and drinking appropriately in his no concerns in regards to his urination and bowel movements. He was in no pain. He feels like he was still weak but he was gaining strength. I have reviewed the current medication list. OBJECTIVE Admission Weight: 98 kg Current Weight: 96.1 kg VITAL SIGNS Temperature: [36 ??C-36.4 ??C] 36.4 ??C Resp Rate: [17-18] 18 Blood Pressure: (112-142)/(72-100) 125/72 SpO2: [91 %-98 %] 98 % Weight: [96.1 kg] 96.1 kg BMI (Calculated): [30.2 kg/m??] 30.2 kg/m?? Pulse Rate: [77-111] 101 I/O 10/26 0701 10/27 0700 10/27 0701 10/28 0700 P.O. 1510 Intermittent Medications 50 Total Intake(mL/kg) 1560 (16.2) Urine (mL/kg/hr) 1275 1050 (0.5) Stool 0 Total Output 1275 1050 Net -1275 +510 Unmeasured Urine Occurrence 1 x Unmeasured Stool Occurrence 1 x PHYSICAL EXAM Gen: NAD resting comfortably Neuro: no aphasia, conversant, A&Ox3 HEENT: normocephalic atraumatic, EOMI, no scleral icterus or injections, mucus membranes moist Respiratory: breathing comfortably in room air Abdomen: non-distended Cardiac: extremities well perfused, no peripheral edema Extremities: no cyanosis, clubbing or edema, spontaneous movement of all four limbs Skin: warm and dry, no visible abrasions, rashes, or lesions DIAGNOSTICS I have reviewed labs, ECG, xray, ultrasound, and diagnostics. DX Chest AP or PA and Lateral 2 Views Result Date: 10/27/2023 Impression: Comparison 04/30/2023. No significant change. Bibasilar atelectasis/scarring. Aortic calcification. Degenerative changes of both shoulders and the spine. Remainder normal. ASSESSMENT / PLAN Mr. Jorge Potts is a 78 y.o. male admitted with generalized weakness 2/2 UTI. Past medical history significant for hypertension, hyperlipidemia, CKD, diabetes type 2, CAD, asthma, COPD, bladder neoplasm history, MELLY on CPAP, peripheral neuropathy, history of falling. #1 Urinary Tract Infection Site Not Specified # Imbalance Non Orthopedic # Neuropathy Peripheral # Unsteadiness Gait Disorder Non Orthopedic # Weakness General # History Of Falling # Stenosis Spinal -- Urinalysis with microscopy showed pyuria, bacteriuria -- follow up PT/OT for assessment of strength. -- continue home vitamin B12, multivitamin daily. 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 He has been getting cystoscopies, and most recently cystoscopy [id number] was normal, and urology plans were to recheck in 1 year, January 27, 2024. Continue to followup outpatient. # Hypertension And Chronic Kidney Disease Stage 3a (HCC) # Coronary Artery Disease -continue home metoprolol, losartan, amlodipine -continue home statin, aspirin low-dose. -avoid nephrotoxic medications -continue to monitor CMP # Chronic Obstructive Pulmonary Disease Without Exacerbation (HCC) # Asthma Mild Persistent ([facility]) -PFTs in 2013 showed positive methacholine challenge, otherwise normal PFTs in 2017. -Denies any shortness of breath today, no concerns with exacerbation, continue Arnuity Ellipta inpatient. -continue albuterol for history of asthma. # Diabetes Mellitus Type 2 (HCC) - moderate sliding scale insulin, and bedtime correction scale. - glucose checks q.i.d. and p.r.n. -currently holding home metformin and semaglutide. -can continue home metformin after 1 day of stable glucoses. Continue outpatient. # Depression Major Recurrent Full Remission (HCC) Mood and affect overall normal, at baseline for patient per patient's report. Continue fluoxetine 40 mg daily. He reportedly has been taking this b.i.d., and pharmacy discussed with him that he needsto be taking this daily. We will continue to school counsellor him on this in the a.m.. # Colitis Ulcerative Proctitis (HCC) He denies any concerns with diarrhea, constipation. Denies abdominal pain today. -continue to monitor. # Coronary Artery Disease Without Angina Pectoris From chart review, it looks like he has a history of ND from 2008, but there was no intervention noted on his charts. # Advanced care planning Per chart review, and upon assessment today, patient confirms he would like to be resuscitated in the event of a cardiac arrest. If he was unable to make decisions, he designates his Alannah to do so. # GERD Continue Pantoprazole 40 mg daily. Diet: Regular diet with carbohydrate restriction 75 mg Tubes/lines: PIV VTE prophylaxis: enoxaparin NHI: 6 Code status: Full Code, Discussed with Dr. Tuttle on admission Disposition: Home and Half-Way Facility Jorge Potts is cared for by the [facility]. Please feel free to page [phone] with any questions or can text page us by clicking here. Cosigned by iMna Olson M.D. at 10/29/2023 12:25 PM CDT Associated attestation - Mina Olson M.D. - 10/29/2023 12:25 PM CDT I saw and evaluated the patient, participating in the navarro portions of the service. I reviewed the resident/fellow???s note. I agree with the resident/fellow???s findings and plan. We haven't found an obvious source of infection to explain his weakness; Ucx unremarkable. Perhaps this is merely frailty, and so we emphasize PT in our conversation. * Heather Cartagena C.R.T., L.R.T. - 10/29/2023 1:46 AM CDT Patient refused CPAP for the night. Electronically signed by: Nisha Cartagena C.R.T., L.R.T. 10/29/23 1:46 AM CDT * Mukund Zamora Pharm.D., R.Ph. - 10/28/2023 8:42 AM CDT Pharmacist Progress Note Reason for admission: generalized weakness secondary to increased urinary frequency likely UTI. PMH: falling, generalized weakness, CKD, hypertension, diabetes type 2, CAD, asthma, COPD, bladder neoplasm, hyperlipidemia, MELLY on CPAP, peripheral neuropathy. OBJECTIVE Home medications: Med history completed by Pharm.D. student HELD: semaglutide NEW: B12 tabs, aspart insulin CHANGED: none DVT Prophylaxis: Enoxaparin 40 mg SQ daily Last BM Date: 10/26/23 (pt reported) Estimated Creatinine Clearance: 60.3 mL/min (by C-G formula based on SCr of 1.18 mg/dL). ASSESSMENT/PLAN UTI: UA +bacteria, leukocyte esterase +. UC no growth to date. Continue ceftriaxone 2 g q24h. Change to po based on UC results. DM2: A1C 6 (10/28/23), aspart insulin moderate CS tid + hs, holding home metformin, semaglutide. Glucose w/n goal 140-180 mg/dL HTN, CAD, HPL: continue home ASA, amlodipine, losartan, metoprolol succinate, rosuvastatin Changes to medications anticipated at discharge: Cliff Zamora PharmAurelioDAurelio, R.Ph. INPATIENT MED LIST: amLODIPine, 5 mg, oral, Daily aspirin, 81 mg, oral, Daily cefTRIAXone, 2 g, intravenous, Q24H cyanocobalamin, 1,000 mcg, oral, Daily enoxaparin, 40 mg, subcutaneous, Q24H BETHANY FLUoxetine, 40 mg, oral, Daily fluticasone furoate, 1 puff, inhalation, Daily insulin aspart, 0-13 Units, subcutaneous, TID insulin aspart, 0-7 Units, subcutaneous, Daily at bedtime losartan, 50 mg, oral, Daily [Held by provider] metFORMIN, 1,000 mg, oral, BID metoprolol succinate, 12.5 mg, oral, Daily multivitamin/mineral-adult, 1 tablet, oral, Daily pantoprazole, 40 mg, oral, Daily rosuvastatin, 10 mg, oral, Daily sennosides-docusate sodium, 1 tablet, oral, BID sodium chloride, 3 mL, intravenous, Q12H BETHANY * Matt Tuttle M.D. - 10/28/2023 1:42 AM CDT SUBJECTIVE Hospital Day: LOS: 1 day 78 y.o M admitted for generalized weakness 2/2 UTI. PMH of HTN, HLD, DM type 2, depression, anxiety, GERD On CTX (current antibiotics/oxygen). Dispo: Home or SNF pending PT/OT assessment Interval History: -admitted with significant weakness, UTI. This Morning: States that he did not sleep well, due to discomfort with the in the hospital. Otherwise no new concerns. I have reviewed the current medication list. OBJECTIVE Admission Weight: 98 kg Current Weight: 96.2 kg VITAL SIGNS Temperature: [36.4 ??C-37.2 ??C] 37.2 ??C Heart Rate: [83-95] 89 Resp Rate: [14-23] 18 Blood Pressure: (111-171)/(73-101) 139/93 SpO2: [92 %-99 %] 95 % Height: [178.5 cm] 178.5 cm Weight: [96.2 kg-98 kg] 96.2 kg BSA (Calculated - sq m): [2.18 sq meters] 2.18 sq meters BMI (Calculated): [30.2 kg/m??] 30.2 kg/m?? Pulse Rate: [83-101] 95 I/O 10/25 0701 10/26 0700 10/26 0701 10/27 0700 Urine (mL/kg/hr) 1275 Total Output 1275 Net -1275 Unmeasured Urine Occurrence 1 x PHYSICAL EXAM Gen: NAD resting comfortably Neuro: no aphasia, conversant, A&Ox3 HEENT: normocephalic atraumatic, EOMI, no scleral icterus or injections, mucus membranes moist Respiratory: breathing comfortably in room air Abdomen: non-distended Cardiac: extremities well perfused, no peripheral edema Extremities: no cyanosis, clubbing or edema, spontaneous movement of all four limbs Skin: warm and dry, no visible abrasions, rashes, or lesions DIAGNOSTICS I have reviewed labs, ECG, xray, ultrasound, and diagnostics. DX Chest AP or PA and Lateral 2 Views Result Date: 10/27/2023 Impression: Comparison 04/30/2023. No significant change. Bibasilar atelectasis/scarring. Aortic calcification. Degenerative changes of both shoulders and the spine. Remainder normal. Lab results last 24 hours: Recent Results (from the past 24 hour(s)) Basic Metabolic Panel Collection Time: 10/27/23 11:31 AM Result Value Potassium, P 3.8 Sodium, P 139 Chloride, P 103 Bicarbonate, P 25 Anion Gap, P 11 BUN (Blood Urea Nitrogen), P 21 Creatinine 1.25 Estimated GFR (eGFR) 59 (L) Calcium, Total, P 9.6 Glucose, P 111 Glucose, POCT Collection Time: 10/27/23 11:31 AM Result Value Glucose, POCT, B 105 Site Venstick CBC with Differential, Blood Collection Time: 10/27/23 11:31 AM Result Value Hemoglobin 14.5 Hematocrit 42.1 Erythrocytes 4.71 MCV 89.4 RBC Distrib Width 13.1 Platelet Count 166 Leukocytes 12.4 (H) Neutrophils 9.52 (H) Lymphocytes 1.49 Monocytes 1.23 (H) Eosinophils 0.07 Basophils 0.04 Troponin T, Baseline with 2 Hour/6 Hour Reflex Biomarker Panel Collection Time: 10/27/23 11:31 AM Result Value Troponin T, Baseline, 5th gen 26 (H) Urinalysis, with Microscopic: Urine, Catheter Collection Time: 10/27/23 1:23 PM Result Value Source Urine, Urine, Catheter Color, U Yellow Clarity, U Clear Protein, U 54 (H) Protein/Osmolality 1.04 (H) Predicted 24 HR Protein, U 974 (H) Predicted Range [id number] Comment Micro done on <2.5 mL Dipstick, Urine Collection Time: 10/27/23 1:23 PM Result Value Hemoglobin, QL, U Large (A) Leukocyte Esterase, U Large (A) Nitrite, U Negative Ketone, U Negative Glucose, U Negative Osmolality, Urine Collection Time: 10/27/23 1:23 PM Result Value Osmolality, U 521 pH, Urine Collection Time: 10/27/23 1:23 PM Result Value pH, U 5.5 Microscopic Manual Collection Time: 10/27/23 1:23 PM Result Value Microscopy Abnormal RBC <3 WBC 21-30 (A) Bacteria Present (A) Troponin T, 2 Hour with 6 Hour Reflex, 5th Gen Collection Time: 10/27/23 1:44 PM Result Value Troponin T, 2 hr, 5th gen 24 (H) 2H Delta -2 2H Delta Interp Not Changing Glucose, POCT Collection Time: 10/27/23 8:44 PM Result Value Glucose, POCT, B 136 Site Capillary Last Intake 1-2 hours Recent Results (from the past 24 hour(s)) Basic Metabolic Panel Collection Time: 10/27/23 11:31 AM Result Value Potassium, P 3.8 Sodium, P 139 Chloride, P 103 Bicarbonate, P 25 Anion Gap, P 11 BUN (Blood Urea Nitrogen), P 21 Creatinine 1.25 Estimated GFR (eGFR) 59 (L) Calcium, Total, P 9.6 Glucose, P 111 Glucose, POCT Collection Time: 10/27/23 11:31 AM Result Value Glucose, POCT, B 105 Site Venstick CBC with Differential, Blood Collection Time: 10/27/23 11:31 AM Result Value Hemoglobin 14.5 Hematocrit 42.1 Erythrocytes 4.71 MCV 89.4 RBC Distrib Width 13.1 Platelet Count 166 Leukocytes 12.4 (H) Neutrophils 9.52 (H) Lymphocytes 1.49 Monocytes 1.23 (H) Eosinophils 0.07 Basophils 0.04 Troponin T, Baseline with 2 Hour/6 Hour Reflex Biomarker Panel Collection Time: 10/27/23 11:31 AM Result Value Troponin T, Baseline, 5th gen 26 (H) Urinalysis, with Microscopic: Urine, Catheter Collection Time: 10/27/23 1:23 PM Result Value Source Urine, Urine, Catheter Color, U Yellow Clarity, U Clear Protein, U 54 (H) Protein/Osmolality 1.04 (H) Predicted 24 HR Protein, U 974 (H) Predicted Range [id number] Comment Micro done on <2.5 mL Dipstick, Urine Collection Time: 10/27/23 1:23 PM Result Value Hemoglobin, QL, U Large (A) Leukocyte Esterase, U Large (A) Nitrite, U Negative Ketone, U Negative Glucose, U Negative Osmolality, Urine Collection Time: 10/27/23 1:23 PM Result Value Osmolality, U 521 pH, Urine Collection Time: 10/27/23 1:23 PM Result Value pH, U 5.5 Microscopic Manual Collection Time: 10/27/23 1:23 PM Result Value Microscopy Abnormal RBC <3 WBC 21-30 (A) Bacteria Present (A) Troponin T, 2 Hour with 6 Hour Reflex, 5th Gen Collection Time: 10/27/23 1:44 PM Result Value Troponin T, 2 hr, 5th gen 24 (H) 2H Delta -2 2H Delta Interp Not Changing Glucose, POCT Collection Time: 10/27/23 8:44 PM Result Value Glucose, POCT, B 136 Site Capillary Last Intake 1-2 hours ASSESSMENT / PLAN Mr. Jorge Potts is a 78 y.o. male admitted with generalized weakness 2/2 UTI. Past medical history significant for hypertension, hyperlipidemia, CKD, diabetes type 2, CAD, asthma, COPD, bladder neoplasm history, MELLY on CPAP, peripheral neuropathy, history of falling. #1 Urinary Tract Infection Site Not Specified # Imbalance Non Orthopedic # Neuropathy Peripheral # Unsteadiness Gait Disorder Non Orthopedic # Weakness General # History Of Falling # Stenosis Spinal -- Urinalysis with microscopy showed pyuria, bacteriuria -- continue ceftriaxone 2 g Q 24. -- can consider switching to oral cefdinir 300mg BID x 7d pending susceptibilities. -- follow up PT/OT for assessment of strength. -- continue home vitamin B12, multivitamin daily. -- ordered orthostatic vitals # Malignant Neoplasm Of Bladder (HCC) - neoplasm of bladder since 2018. He has been getting cystoscopies, and most recently cystoscopy [id number] was normal, and urology plans were to recheck in 1 year, January 27, 2024. Continue to followup outpatient. # Hypertension And Chronic Kidney Disease Stage 3a (HCC) # Coronary Artery Disease -continue home metoprolol, losartan, amlodipine -continue home statin, aspirin low-dose. -avoid nephrotoxic medications -continue to monitor CMP # Chronic Obstructive Pulmonary Disease Without Exacerbation (HCC) # Asthma Mild Persistent (HCC) -PFTs in 2013 showed positive methacholine challenge, otherwise normal PFTs in 2017. -Denies any shortness of breath today, no concerns with exacerbation, continue Arnuity Ellipta inpatient. -continue albuterol for history of asthma. # Diabetes Mellitus Type 2 (HCC) - moderate sliding scale insulin, and bedtime correction scale. - glucose checks q.i.d. and p.r.n. -currently holding home metformin and semaglutide. -can continue home metformin after 1 day of stable glucoses. Continue outpatient. # Depression Major Recurrent Full Remission (HCC) Mood and affect overall normal, at baseline for patient per patient's report. Continue fluoxetine 40 mg daily. He reportedly has been taking this b.i.d., and pharmacy discussed with him that he needsto be taking this daily. We will continue to school counsellor him on this in the a.m.. # Colitis Ulcerative Proctitis (HCC) He denies any concerns with diarrhea, constipation. Denies abdominal pain today. -continue to monitor. # Coronary Artery Disease Without Angina Pectoris From chart review, it looks like he has a history of ND from 2008, but there was no intervention noted on his charts. # Advanced care planning Per chart review, and upon assessment today, patient confirms he would like to be resuscitated in the event of a cardiac arrest. If he was unable to make decisions, he designates his Alannah to do so. # GERD Continue Pantoprazole 40 mg daily. Diet: Regular diet with carbohydrate restriction 75 mg Tubes/lines: PIV VTE prophylaxis: enoxaparin NHI: 6 Code status: Full Code, Discussed with Dr. Tuttle on admission Disposition: Home and Half-Way Facility Jorge Potts is cared for by the [facility]. Please feel free to page [phone] with any questions or can text page us by clicking here. Matt Tuttle MD Resident Physician Family Medicine Cosigned by Mina Olson M.D. at 10/28/2023 2:01 PM CDT * Noah Mixon, ChristieT., L.R.T. - 10/28/2023 12:58 AM CDT 10/27/230 BPAP/CPAP Therapy BPAP/CPAP Interface Nasal mask BPAP/CPAP Interface Size Medium Skin barrier Not indicated per interface $BPAP/CPAP Yes Ventilator Parameters Ventilator Parameters (Select Groups) BPAP/CPAP Rows BPAP/CPAP Mode (Auto ASV) PEEP/CPAP Setting 9 cm H2O Pressure Support (Min) 3 cm H2O Pressure Support (Max) 15 cm H2O Humidification Heated humidifier RT placed patient on Auto ASV with the above settings and interface. RT will continue to follow andmonitor. Contact RT with any questions or concerns. * Patricia Madison - 10/27/2023 7:38 PM CDT Images from the original note were not included. Admission Medication History Note Adherence issues: No concerns Medication list source: Patient Medication related information: Patient-reported medications are consistent with dispense history. Patient reports that he is taking his fluoxetine twice daily - last fill of this medication was foronce daily dosing. Prior to Admission Medications Med List Status: Pharmacy Complete Set By: Patricia Madison at 10/27/2023 7:37 PM Taking? Last Dose Informant Start Date End Date LT amLODIPine (NORVASC) 5 mg tablet 10/27/2023 at AM Self 01/26/23 -- TAKE 1 TABLET(5 MG) BY MOUTH DAILY aspirin 81 mg chewable tablet 10/27/2023 at AM Self -- -- Chew 81 mg daily. FLUoxetine (PROzac) 40 mg capsule 10/27/2023 at AM -- 05/30/23 -- TAKE 1 CAPSULE(40 MG) BY MOUTH DAILY Notes: ZERO refills remain on this prescription. Your patient is requesting advance approval of refills for this medication to PREVENT ANY MISSED DOSES fluticasone furoate (Arnuity Ellipta) 100 mcg/actuation diskus inhaler 10/26/2023 Self 03/29/23 -- Inhale 1 puff daily. Notes: ICD-10:E11.9 Length of Need: Lifetime, Insulin Dependent: No Last Office Visit: 03/31/18 Pharmacy may substitute brand or adjust quantity per patient preference or insurance coverage. Fastclix lancets losartan (COZAAR) 50 mg tablet 10/27/2023 at AM Self 12/06/22 -- Take 1 tablet (50 mg total) by mouth daily. metFORMIN (GLUCOPHAGE) 1,000 mg tablet 10/27/2023 at AM -- 06/29/23 -- Take 1 tablet (1,000 mg total) by mouth 2 (two) times a day. Notes: Place on file metoprolol succinate (TOPROL-XL) 25 mg 24 hr tablet 10/27/2023 at AM -- 06/29/23 -- Take 0.5 tablets (12.5 mg total) by mouth daily. Do not crush or chew. Notes: Place on file pantoprazole (PROTONIX) 40 mg EC tablet 10/27/2023 at AM -- 06/29/23 -- Take 1 tablet (40 mg total) by mouth daily. Notes: Place on file rosuvastatin (CRESTOR) 10 mg tablet 10/26/2023 at PM Self 11/24/22 -- Take 1 tablet (10 mg total) by mouth daily. semaglutide (Ozempic) 1 mg/dose (4 mg/3 mL) injection 10/21/2023 at AM -- 07/27/23 -- Inject 1 mg under the skin every 7 (seven) days. Patient taking differently: Inject 1 mg under the skin every 7 (seven) days. on Fridays Cosigned by Meg Parham Pharm.D., R.Ph. at 10/27/2023 7:52 PM CDT documented in this encounter H&P Notes * Matt Tuttle M.D. - 10/27/2023 9:07 PM CDT SUBJECTIVE Chief Complaint Patient presents with Weakness - Generalized HISTORY OF PRESENT ILLNESS Mr. Jorge Potts is a 78 y.o. male who presented with generalized weakness secondary toincreased urinary frequency likely UTI. Past medical history significant for history of falling, generalized weakness, CKD, hypertension, diabetes type 2, CAD, asthma, COPD, bladder neoplasm, hyperlip idemia, MELLY on CPAP, peripheral neuropathy. Patient reports that over the past 2 days, he was experiencing significant nocturia, and then this morning tried to get up out of bed but was significantly weak. His tried to help him, but patient was not able to support himself at all. They both decided he needed to come into the ED. In recent past, he was hospitalized for similar symptoms including generalized weakness, which patient noteswas also due to UTI. In the ED, patient was overall vitally stable, afebrile, and saturating normally on room air. Labs were obtained that showed mildly elevated leukocytosis of 12.4, with a left shift, otherwise overallnormal CBC, BMP was unremarkable, troponins were initially elevated to 26, but unchanged at 2 hours. Blood cultures were obtained and pending, urinalysis showed 21-30 white blood cells, bacteria, andpositive leukocyte esterase, negative nitrites. He denied any shortness of breath, cough, fevers. However imaging was still obtained with a chest x-ray that showed no significant change from chest x-ray obtained in April of 2023. There was bibasilar atelectasis/scarring, aortic calcification, but ot herwise no change, no focal consolidation, no pneumothorax. -ECG was obtained that showed sinus rhythm with first-degree AV block, left anterior fascicular block, when compared with ECG April 27, 2023, PVCs were no longer present. -he was started on ceftriaxone 1 g for UTI, and subsequently transferred to the floor. Upon arrival to the floor, patient reiterated the story above. He denied dysuria, reported overall increased urinary frequency, weakness but denied focal neurologic changes, as well as denied diarrhea, constipation. He denies leg edema, or swelling. He confirmed known peripheral neuropathy, but reports that this is stable for him. He was a former smoker, reports that he does not drink alcohol. Hedenied chest pain, palpitations denied cough, shortness for breath. He was most recent admission was April 27, 2023 at the time he was admitted for generalized weakness in the setting of presumed viral infection. He was admitted for about 3 days at the time. I have reviewed and updated the following: Past Medical History, Family History, Social History, and Allergies., Past Medical History: Diagnosis Date Apnea Sleep Obstructive Asthma NOS Cataract Colitis Ulcerative Proctitis (HCC) 10/2014 treated with Canasa Depressive Disorder Diabetes Mellitus Type 2 (HCC) Dilatation Ascending Aorta (HCC) 39mm Gastroesophageal Reflux Disease NOS with Barretts esophagus Hyperlipidemia Malignant Primary Neoplasm (Unknown Site) Unspecified (HCC) bladder Myocardial Infarction Acute (HCC) 08/2008 Cath 08/2008 Polyp Colon , Past Surgical History: Procedure Laterality Date CYSTOSCOPY BIOPSY FULGURATION N/A 12/08/2017 Procedure: CYSTOSCOPY, BIOPSY, FULGURATION.; Surgeon: Mina Flores M.D.; Location: [facility] 07 OR ESOPHAGOGASTRODUODENOSCOPY N/A 09/13/2011 >Esophagogastroduodenoscopy. ESOPHAGOGASTRODUODENOSCOPY N/A 08/21/2001 >Esophagogastroduodenoscopy with Biopsy ESOPHAGOGASTRODUODENOSCOPY N/A 07/15/2008 >Esophagogastroduodenoscopy with biopsy. HIP ARTHROPLASTY N/A 11/30/2011 >Uncemented right total hip arthroplasty. INJECTION, THERAPEUTIC (EG, LOCAL ANESTHETIC, CORTICOSTEROID), CARPAL TUNNEL.. N/A 10/22/1998 >Compound F injection. JOINT REPLACEMENT 11/30/2011 TONSILLECTOMY TOTAL AVULSION OF NAIL PLATE N/A 11/28/2009 >Nail Avulsion/Biopsy. ULTRASOUND TRANSRECTAL WITH BIOPSY GUIDED PROSTATE N/A 04/20/2004 >Transrectal diagnostic echography with needle biopsies of the prostate under ultrasound guidance in the ULTRASOUND TRANSRECTAL WITH BIOPSY GUIDED PROSTATE N/A 07/17/1998 >Transrectal needle biopsies of the prostate under ultrasound control in the office VASECTOMY 11/1975 , Family History Problem Relation Name Age of Onset Hypertension Mother Diabetes Father Felipe Cancer Sister Mariah Breast cancer Sister Mariah Diabetes Brother Dangelo Heart valve replacement Brother Dangelo Coronary artery disease Brother Dangelo Diabetes Father's Sister Diabetes Sister Barbie Dementia Sister Barbie Breast cancer Sister Barbie Lung cancer Sister Barbie Alcoholic Neg Hx , Social History Socioeconomic History Marital status: Highest education level: 12th grade Tobacco Use Smoking status: Former Current packs/day: 0.00 Average packs/day: 1 pack/day for 35.0 years (35.0 ttl pk-yrs) Types: Cigarettes Start date: 02/07/1962 Quit date: 02/07/1997 Years since quittin.7 Smokeless tobacco: Never Vaping Use Vaping status: never used Substance and Sexual Activity Alcohol use: Yes Alcohol/week: 1.0 standard drink of alcohol Types: 1 Glasses of wine per week Drug use: No Sexual activity: Not Currently Partners: Female control/protection: Vasectomy Social Determinants of Health Food Insecurity: No Food Insecurity (10/27/2023) Hunger Vital Sign Worried About Running Out of Food in the Last Year: Never true Ran Out of Food in the Last Year: Never true Transportation Needs: No Transportation Needs (10/27/2023) PRAPARE - Transportation Lack of Transportation (Medical): No Lack of Transportation (Non-Medical): No Intimate Partner Violence: Not At Risk (10/27/2023) Humiliation, Afraid, Rape, and Kick questionnaire Fear of Current or Ex-Partner: No Emotionally Abused: No Physically Abused: No Sexually Abused: No Housing Stability: Low Risk (10/27/2023) Housing Stability Housing: Living Situation: I have a steady place to live , and Allergies Allergen Reactions Cortisone Rash Swelling, rash Prednisone Rash Swelling, rash Current Outpatient Medications on File Prior to Encounter: amLODIPine (NORVASC) 5 mg tablet, TAKE 1 TABLET(5 MG) BY MOUTH DAILY, 10/27/2023 at AM aspirin 81 mg chewable tablet, Chew 81 mg daily., 10/27/2023 at AM FLUoxetine (PROzac) 40 mg capsule, TAKE 1 CAPSULE(40 MG) BY MOUTH DAILY, 10/27/2023 at AM fluticasone furoate (Arnuity Ellipta) 100 mcg/actuation diskus inhaler, Inhale 1 puff daily., 10/26/2023 losartan (COZAAR) 50 mg tablet, Take 1 tablet (50 mg total) by mouth daily., 10/27/2023 at AM metFORMIN (GLUCOPHAGE) 1,000 mg tablet, Take 1 tablet (1,000 mg total) by mouth 2 (two) times a day., 10/27/2023 at AM metoprolol succinate (TOPROL-XL) 25 mg 24 hr tablet, Take 0.5 tablets (12.5 mg total) by mouth daily. Do not crush or chew., 10/27/2023 at AM pantoprazole (PROTONIX) 40 mg EC tablet, Take 1 tablet (40 mg total) by mouth daily., 10/27/2023 at AM rosuvastatin (CRESTOR) 10 mg tablet, Take 1 tablet (10 mg total) by mouth daily., 10/26/2023 at PM semaglutide (Ozempic) 1 mg/dose (4 mg/3 mL) injection, Inject 1 mg under the skin every 7 (seven) days. (Patient taking differently: Inject 1 mg under the skin every 7 (seven) days. on Fridays), 10/21/2023 at AM blood glucose ctl high,nml,low solution, Glucose control solution provides an easy way to ensure accurate blood glucose testing. blood sugar diagnostic strips (Accu-Chek Guide test strips), 1 test by other route daily. for testing blood-glucose meter misc, Test as directed for diabetes control. DME Bi-level PAP, DME Order lancets, Test once daily nitroglycerin (NITROSTAT) 0.4 mg SL tablet, Place 1 tablet (0.4 mg total) under the tongue every 5 (five) minutes as needed for chest pain. Chest pain (Patient not taking: Reported on 10/27/2023), NotTaking [DISCONTINUED] acetaminophen (TYLENOL) 500 mg capsule, Take 1,000 mg by mouth every 6 (six) hours as needed for pain (shoulder pain). [DISCONTINUED] albuterol 90 mcg/actuation inhaler, Inhale 1-2 puffs every 4 (four) hours as needed for wheezing or shortness of breath. [DISCONTINUED] cyanocobalamin (VITAMIN B12) 1,000 mcg tablet, Take 1 tablet by mouth daily., More than a month [DISCONTINUED] MULTIVITAMIN ORAL, Take 1 tablet by mouth daily. [DISCONTINUED] Rx albuterol (RX ACCUNEB) 2.5 mg /3 mL nebulizer solution, Inhale 3 mL (2.5 mg total) by nebulization every 4 (four) hours as needed for wheezing or shortness of breath. REVIEW OF SYSTEMS Pertinent items are noted in HPI; all other review of systems was negative. OBJECTIVE VITAL SIGNS Temperature: [36.4 ??C-36.8 ??C] 36.8 ??C Heart Rate: [83-95] 89 Resp Rate: [14-23] 18 Blood Pressure: (111-171)/(73-101) 142/88 SpO2: [92 %-99 %] 94 % Height: [178.5 cm] 178.5 cm Weight: [96.2 kg-98 kg] 96.2 kg BSA (Calculated - sq m): [2.18 sq meters] 2.18 sq meters BMI (Calculated): [30.2 kg/m??] 30.2 kg/m?? Pulse Rate: [83-95] 95 PHYSICAL EXAM BP (!) 139/93 (BP Location: Left arm;Upper, Patient Position: Semi-recumbent) Pulse 91 Temp 37.2 ??C (Oral) Resp 18 Ht 178.5 cm Wt 96.2 kg SpO2 92% BMI 30.19 kg/m?? General Appearance: Alert, cooperative, in no distress, appears stated age. Head: Normocephalic, without obvious abnormality, atraumatic. Eyes: PERRL, conjunctiva/corneas clear, EOM's intact, fundi benign, both eyes . Nose: Nares normal, septum midline, mucosa normal, no drainage or sinus tenderness. Throat: Lips, mucosa, and tongue normal; teeth and gums normal. Neck: Supple, symmetrical, trachea midline, no adenopathy; thyroid: No enlargement/tenderness/nodules; no carotid bruit or JVD. Back: Symmetric, no curvature, ROM normal, no CVA tenderness. Lungs: Clear to auscultation bilaterally, respirations unlabored. No crackles, no rales, no wheezing. Chest wall: No tenderness or deformity. Heart: Regular rate and rhythm, S1 and S2 normal, no murmur, rub or gallop. Abdomen: Soft, non-tender, bowel sounds active all four quadrants, no masses, no organomegaly. Extremities: Extremities normal, atraumatic, no cyanosis or edema. Pulses: 2+ and symmetric all extremities. Skin: Skin color, texture, turgor normal, no rashes or lesions. Lymph nodes: Cervical, supraclavicular, and axillary nodes normal. Neurologic: CNII-XII grossly intact. Strength is diminished in terms of postural strength, but he has 3/5 strength in all extremities with resistance. DIAGNOSTICS I have reviewed the labs, ECG, xray, and diagnostics from admission. ASSESSMENT / PLAN #1 Urinary Tract Infection Site Not Specified #2 Elevated Prostate-Specific Antigen #3 Imbalance Non Orthopedic #4 Neuropathy Peripheral #5 Unsteadiness Gait Disorder Non Orthopedic #6 Weakness General #7 History Of Falling #8 Hypertensive Chronic Kidney Disease With Stage 1 Through Stage 4 Chronic Kidney Disease, Or Unspecified Chronic Kidney Disease #9 Tremor Essential #10 Combined Forms Age Related Cataract Bilateral #11 Diabetes Mellitus Type 2 Peripheral Neuropathy (HCC) #12 Chronic Kidney Disease (CKD), Stage 3a Glomerular Filtration Rate (GFR) 45 To 59 (HCC) #13 Diabetes Mellitus Type 2 With Diabetic Chronic Kidney Disease (HCC) #14 Coronary Artery Disease Without Angina Pectoris #15 Apnea Sleep Obstructive #16 Central Sleep Apnea Syndrome #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 Jorge Potts is a 78 y.o. male admitted with generalized weakness 2/2 UTI. Past medical history significant for hypertension, hyperlipidemia, CKD, diabetes type 2, CAD, asthma, COPD, bladder neoplasm history, MELLY on CPAP, peripheral neuropathy, history of falling. #1 Urinary Tract Infection Site Not Specified # Imbalance Non Orthopedic # Neuropathy Peripheral # Unsteadiness Gait Disorder Non Orthopedic # Weakness General # History Of Falling # Stenosis Spinal Differential diagnosis for his acute generalized weakness includes this positive UTI result, he does have symptoms consistent with acute UTI including increased frequency, leukocytosis, although he denies dysuria. Differential diagnosis for infection includes pyelonephritis, urethritis. For assessing his generalized weakness, differential diagnosis includes cardiac etiology, neurologic etiology, he was known history of peripheral neuropathy. For cardiac etiology, his ECG was unremarkable. He has not echocardiogram from 2019 that showed an ejection fraction 56%. He presents with noshortness a breath, no lower extremity edema, no concerns for orthopnea, and no cough. When thinking about neurologic disorder, patient has no neurologic focal deficits on examination, and the acuity of his symptoms do lead me to more likely diagnosis of UTI causing his generalized weakness. He does have significant/known peripheral neuropathy, although he does not have pain with this. He was had multiple falls in the past, most recently around April 27, 2023, but he denies any recent fall. He was otherwise at his stable level of health, performing ADLs regularly until this morning. -I note that in June he did have some dizziness, and lightheadedness with getting up, he saw his PCPat the time, and was diagnosed with orthostasis at the time. Recommendation of the time was to justcontinue adequate fluid intake, pulling himself slowly to stated position in the morning before getting up to avoid dizziness. -- diagnosis of cystitis -- Urinalysis with microscopy showed pyuria, bacteriuria -- currently on ceftriaxone 1 g Q 24 H until urine culture and susceptibilities result. I adjusted to 2 g Q 24. -- can consider switching to oral cefdinir 300mg BID x 7d pending susceptibilities. -- ordered PT/OT for assessment of strength. -- continue home vitamin B12, multivitamin daily. -- ordered orthostatic vitals # Malignant Neoplasm Of Bladder ([facility]) -she was neoplasm of bladder since 2018. He has been getting cystoscopies, and most recently cystoscopy in 2022 was normal, and urology plans were to recheck in 1 year, January 27, 2024. Continue tofollow up outpatient. # Hypertension And Chronic Kidney Disease Stage 3a (HCC) # Coronary Artery Disease -continue home metoprolol, losartan, amlodipine -continue home statin, aspirin low-dose. -avoid nephrotoxic medications -continue to monitor CMP in the a.m.. # Chronic Obstructive Pulmonary Disease Without Exacerbation (HCC) # Asthma Mild Persistent (HCC) -PFTs in 2013 showed positive methacholine challenge, otherwise normal PFTs in 2017. -Denies any shortness of breath today, no concerns with exacerbation, continue Arnuity Ellipta inpatient. -continue albuterol for history of asthma. # Diabetes Mellitus Type 2 (HCC) - moderate sliding scale insulin, and bedtime correction scale. - glucose checks q.i.d. and p.r.n. -currently holding home metformin and semaglutide. -can continue home metformin after 1 day of stable glucoses. Continue outpatient. # Depression Major Recurrent Full Remission (HCC) Mood and affect overall normal, at baseline for patient per patient's report. Continue fluoxetine 40 mg daily. He reportedly has been taking this b.i.d., and pharmacy discussed with him that he needsto be taking this daily. We will continue to school counsellor him on this in the a.m.. # Colitis Ulcerative Proctitis (HCC) He denies any concerns with diarrhea, constipation. Denies abdominal pain today. -continue to monitor. # Coronary Artery Disease Without Angina Pectoris From chart review, it looks like he has a history of ND from 2008, but there was no intervention noted on his charts. # Advanced care planning Per chart review, and upon assessment today, patient confirms he would like to be resuscitated in the event of a cardiac arrest. If he was unable to make decisions, he designates his Alannah to do so. Diet: Regular diet with carbohydrate restriction. Tubes/lines: PIV VTE prophylaxis: enoxaparin NHI: 6 Code status: Full Code, Discussed with Dr. Tuttle on admission Disposition: Home and Half-Way Facility Jorge Potts is cared for by the [facility]patient [facility]. Please feel free to page [phone] with any questions or can text page us by clicking here. Matt Tuttle MD Resident Physician Family Medicine Cosigned by Mina Olson M.D. at 10/28/2023 2:02 PM CDT documented in this encounter Consult Notes * Bebe Muniz R.N. - 10/28/2023 1:22 PM CDTAssociated Order(s): IP CONSULT TO CARE MANAGEMENT Discharge Planning Assessment SUBJECTIVE Assessment Information Referral Source: Provider/Service Referral Reason: Discharge Planning Primary Language: Kenyan Assistant Manager/Embalmer Services Used: No Person(s) present during interview: Person(s) Present During Interview: patient and spouse Alannah History of Present Illness #1 Hypertensive Chronic Kidney Disease With Stage 1 Through Stage 4 Chronic Kidney Disease, Or Unspecified Chronic Kidney Disease #2 Coronary Artery Disease Without Angina Pectoris #3 Asthma Mild Persistent ([facility]) #4 Apnea Sleep Obstructive #5 Valenzuela's Esophagus Personal History #6 Central Sleep Apnea Syndrome #7 Depression Major Recurrent Full Remission ([facility]) #8 Elevated Prostate-Specific Antigen #9 Hyperlipidemia #10 Imbalance Non Orthopedic #11 Neuropathy Peripheral #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 Spinal #14 Tremor Essential #15 Unsteadiness Gait Disorder Non Orthopedic #16 Colitis Ulcerative Proctitis (HCC) #17 Malignant Neoplasm Of Bladder ([facility]) #18 Weakness General #19 History Of Falling #20 Combined Forms Age Related Cataract Bilateral #21 Diabetes Mellitus Type 2 Peripheral Neuropathy (HCC) #22 Chronic Kidney Disease (CKD), Stage 3a Glomerular Filtration Rate (GFR) 45 To 59 ([facility]) #23 Diabetes Mellitus Type 2 With Diabetic Chronic Kidney Disease (HCC) #24 Chronic Obstructive Pulmonary Disease Without Exacerbation ([facility]) #25 Urinary Tract Infection Site Not Specified Social History Support System: spouse Primary Caregiver: self and spouse Finance/Insurance Primary insurance: MEDICARE A AND B Secondary insurance: AARP benefits: No Advance Directives Legal Decision Maker: Self Advance Directives: POLST/POST Advance Directives Status: Information given OBJECTIVE Baseline Functional Status Baseline Activities of Daily Living Mobility: Modified independent Dressing: Independent Feeding: Independent Bathing: Needs assistance Grooming: Independent Toileting: Needs assistance Behavior: Appropriate, Pleasant, Calm, Cooperative, Oriented Communication: Can write, Understands speaking, Talks, Understands Kenyan, Reads Shopping: Dependent Medication Management: Independent Housekeeping: Needs assistance Meal Prep: Needs assistance Assistive Devices: Walker - front wheeled, Walker - four wheeled, Eyeglasses, Hearing aid(s), BiPAP/CPAP/VPAP, Tub/shower chair/bench, Grab bars - wall Services/Resources: Lawn care, Snow removal Transportation: Support from family [facility] Services/Resources Primary care clinic and provider: Dalia Dill M.D. Services/Resources: Lawn care, Snow removal Additional Resources: N/A Anticipated Needs Functional Status: Housekeeping, Shopping, Transportation use (drive car, use taxi/bus), Meal preparation, Mobility, Transfer to/from bed, chair, etc., Toileting, Dressing, Bathing, Medication set-up/administration Assistive Devices: Walker - front wheeled, Eyeglasses, Hearing aid(s), BiPAP/CPAP/VPAP, Tub/shower chair/bench, Grab bars - wall Services/Resources: Lawn care, Snow removal, Housekeeping, 24 hour assistance Anticipated Modifications to the Patient's Home: None Transportation Needs: Wheelchair van Does the patient need discharge transport arranged?: Yes Has discharge transport been arranged?: No Anticipated Discharge Destination: Half-Way Facility ASSESSMENT / PLAN Assessment: The dog boarder met with Jorge Potts to discuss his current hospitalization and home going needs. The patient was accompanied by , Alannah . The patient was was a reliable historian. The role of dog boarder was reviewed. The patient reviewed his prior level of care and supportsystem. The patient receives support from his . The patient described his living environment as a single level home with level entry. Housekeeping,grocery shopping, meal prep, and other household responsibilities have previously been completed bypatient and patient's . dog boarder discussed the patient's potential needs at dismissal based on their home setting, previous needs and responsibilities, homebound status, and relevant assessments with the patient. The patient will be safe and supported to discharge to a SNF when medicallyready. Support will be provided by facility staff at discharge. The patient demonstrated understanding when discussing his home going plans and anticipated needs. Patient resides with his , Alannah. [place] which takes care of lawn and snow removal. Alannah does support patient with a lot of his cares. Alannah has concerns related to showering due to the shower being smaller and has tried to have more grab bars installed. Alannah has needed the neighbors assistance to get the patient up in the past. Patient is open to considering a shelter facility. Patient was informed that due to being in observation status, only ACO facilities can be considered at this time. At this time, the care team anticipates the patient will potentially require the following new service(s) to be set up: shelter facility. After reviewing the patient's chart and meeting with the patient, the dog boarder deemed the LACE+/readmission questions were not necessary. The patient reports understanding that he will dismiss from the hospital when medically stable. Thefollowing potential barriers to dismissal have been identified: DC Barriers: bed availability Plan: The patient agrees with the following plan. Patient's anticipated discharge disposition is: Half-Way Facility Referrals sent. Transportation upon dismissal will be Care Management arranged--likely will need wheelchair transport . dog boarder recommended nothing at this time . dog boarder provided information regarding the dismissal process and the Senior Linkage Line ([place] Board on Aging) handout. dog boarder placed or requested the following hospital-based consult orders and/or referrals: None. dog boarder will follow up with the patient to provide a list of available shelter facility options in the geographic area where the patient resides and/or requests. [Disclaimers: If applicable, financial disclosures will be provided informing the patient of any ownership and financial relationships. Current insurance coverage will be reviewed with the patient in order to provide in-network options as appropriate.] A progress note with updates and/or transition plan to come. dog boarder encouraged the patient to reach out with any questions/concerns. Care Management will continue to follow. Signed by: Bebe Muniz R.N. 10/28/2023 * Ayla Nielsen M.S., O.T. - 10/28/2023 11:22 AM CDT Occupational Therapy Acute Hospital Inpatient Evaluation/Treatment SUBJECTIVE Patient's Name: Jorge Potts Referring/Attending Provider: Mina Olson M.D. Reason for Referral: Occupational Therapy Evaluation and Treatment PERTINENT MEDICAL / SURGICAL HISTORY: Jorge Potts has a past medical history of Apnea Sleep Obstructive, Asthma NOS, Cataract, Colitis Ulcerative Proctitis (HCC) (10/2014), Depressive Disorder, Diabetes Mellitus Type 2 (HCC), Dilatation Ascending Aorta (HCC), Gastroesophageal Reflux Disease NOS, Hyperlipidemia, Malignant Primary Neoplasm (Unknown Site) Unspecified (HCC) (bladder), Myocardial Infarction Acute (HCC) (08/2008), and Polyp Colon. Jorge Potts has a past surgical history that includes Esophagogastroduodenoscopy (N/A,09/13/2011); Ultrasound Transrectal with Biopsy Guided Prostate (N/A, 04/20/2004); Ultrasound Transrectal with Biopsy Guided Prostate (N/A, 07/17/1998); Injection, Therapeutic (Eg, Local Anesthetic, C orticosteroid), Carpal Tunnel.. (N/A, 10/22/1998); Esophagogastroduodenoscopy (N/A, 08/21/2001); Total avulsion of nail plate (N/A, 11/28/2009); Esophagogastroduodenoscopy (N/A, 07/15/2008); Hip Arthroplasty (N/A, 11/30/2011); CYSTOSCOPY BIOPSY FULGURATION (N/A, 12/08/2017); Vasectomy (11/1975); Joint replacement (11/30/2011); and Tonsillectomy. History of Present Illness: Jorge Potts is a 78 y.o. male who was admitted to [facility] in [place] on 10/27/2023 for Urinary Tract Infection Site Not Specified [N39.0] Weakness General [R53.1]. Relevant Medical History: HTN, DM2, peripheral neuropathy, history of falls, COPD, asthma Precautions Other Precautions: Hx falls, neuropathy, COPD/asthma, limited R shoulder ROM Falls screen: Fall in the last 12 months: Yes, 8-10 times in the past year. Reports he feels like he is generally week and that his knees give up on him. Did you have an injury with the fall: No - hit head falling backwards onto cement but reported no injuries Are you fearful of falling: Yes Pain Assessment: Pain not reported during session. Subjective Comments: Agreeable to therapy session. Patient/Caregiver Goals: Discharge home however patient seemed receptive to, and even somewhat in agreement with, this OT's sentiment that he would benefit from further rehab to reduce his fall risk. Home Living and Equipment: Lives with: Spouse/Significant other Receives help from: Spouse/Significant other Type of [facility]: [facility] Home Layout: One Level Home Access: Level entry Bathroom Accessibility: Shower: Patient reports having both a walk-in shower and a tub, however he utilizes the walk-in shower. Walk-in Shower Level: Main Floor Bathroom Equipment: Grab bars in shower (1 permanent grab bar, 1 suction cup grab bar due to difficulty getting the landlord to accommodate a second), Hand- held shower head, Built-in shower seat, Non-skid mat Toilet: Comfort Toilet with a grab bar Assistive Device Owned: Front wheeled walker, Four wheeled walker, Single point cane, powered scooter Adaptive Equipment Owned: Blockman, Sock Aid, Long Handled Shoe Horn - only intermittently utilized the sock aid Prior Level of Function and Mobility: Basic Activities of Daily Living: Patient's baseline, before his last (very recent) hospitalization was modified independent with ADLs. He showered from sitting for safety/stability, and his would occasionally tuck in his shirt on the right side due to right shoulder arthritis. Instrumental Activities of Daily Living: Patient and his rent a townhouse where yard work is taken care of. He no longer drives due to neuropathy; his drives. His manages housekeeping, laundry, cooking, and finances. He sortstheir medications into two weekly organizers. Declined any baseline cognitive difficulty. Functional Mobility: Prior to his previous (very recent) hospitalization he intermittently utilized a single-point cane. Recent SNF trained him, and recommended he use, a front-wheeled walker. Upon returning home (he was there for about a month) he had home health OT/PT, and began using his 4WW, as it is easier to manage on uneven surfaces outside of his home. Also utilizes a powered scooter. 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 No concerns during chart review and the patient had nosigns or symptoms consistent with vital changes during therapy session. Evaluation Assessment: STRENGTH: Generalized weakness - patient reported feeling significantly week in his upper and lower extremities, and reported several of his falls have been related to his lower extremities giving out on me RANGE OF MOTION: Right upper extremity impaired - very limited right shoulder flexion against gravity (limited to about 45 degrees), related to arthritis BALANCE: Static Standing: Poor (Requires assist to maintain balance) Dynamic Standing: Poor (Requires assist to maintain balance) ACTIVITY TOLERANCE: Very limited - patient was able to stand at front-wheeled walker for approximately 1 minute, and subsequently reported his energy level was very low. Outcome Measures: [facility] Inpatient Short Form: Putting on and taking off regular lower body clothing?: A lot Putting on and taking off regular upper body clothing?: A lot Taking care of personal grooming such as brushing teeth?: A Little Bathing (including washing, rinsing, drying)?: A lot Toileting, which includes using toilet, bedpan, or urinal?: A lot Eating meals?: A Little Daily Activities Raw Score (max 24): 14 Daily Activities Standardized Score: 33.39 Interpretation: Based on scoring guidelines using the raw score value: Those going to home had an average score at or above 18 Those going to facility had an average score at or below 17 Clinicians answer the [facility] Inpatient Short Form based on observed patient activity and/or clinical judgment (patient can be scored without physically performing each activity). Cognition: Will further assess and monitor as warranted Observable concerns with cognition and further assessment is warranted Cognitive Deficits: Disorganized thoughts, Drowsy, Impaired attention, Impaired insight, Impaired processing, Memory concerns, Safety/judgement concerns, Slow to respond, Wording finding issues Patient reported some difficulties with attention/listening actively at baseline, however reported his cognition was overall good at that time. Patient did demonstrate good cognition, with some delays and difficulties with word finding initially during the session. However upon OT leaving and returning again later (following primary care rounds) patient appeared more fatigued and demonstrated slower processing, more word finding difficulties, more limited attention and disorganized thoughts. Patient reports he did not sleep well and his accurately guessed this over the phone, with herreasoning for guessing he hadn't slept well was his increased difficulty attending to/understandingwhat she was saying. Patient did repeatedly have difficulty finding the right word for his rehab facility. At one point he called this a recycling facility. Patient reliable with his medical history/situation, location, self, general timeline (though his report of this was disorganized). Disoriented to exact date. OT educated patient on cognitive compensatory strategies including note keeping, and calling his on speakerphone during visits with providers so she can more directly listen and ask questions. Patient receptive. Demonstrates limited insight into his current abilities/difficulties, need for assistance, and how much of a risk going home at this time (and at his prior level of assistance) would be. Patient reporting hope to return home, with assistance from his , despite not yet having mobilized with therapy beyond standing yet. Patient reporting he has all the tools he needs to recover, including therapy resistance bands, at home. Therapeutic Interventions: ACTIVITIES OF DAILY LIVING: GROOMING - Assist Level: Minimal Assist - Patient Location: Chair - Activity: Brushing teeth - regular or soft brush - Therapist Delivery: assessed, assisted, facilitated - Assist/Cues: verbal for technique OT providing initial cues to access materials, such as toothbrush, from packaging due to difficultyproblem-solving. Patient attempted to follow but ultimately required minimal assistance. THERAPEUTIC ACTIVITY: Functional mobility and transfer training to progress the patient towards increased safety and independence with toileting transfers and tasks. Patient requiring grossly moderate assistance of 2 people for sit to/from stand transfers at his front wheel walker with initial loss of balance before gaining stability and upright standing position. Patient requiring cues for safe hand placement as wellas upright posture. Patient also requiring assistance to stabilize his front wheel walker during zuh-dy-neron transfer. Patient reporting significant fatigue to follow this and was unable to attempt a 2nd time. OT educated patient on purpose and role of occupational therapy services as well as his plan of care and goals. Patient receptive and in agreement. OT verbally assessed the patient's report his cognitive status, and educated the patient on cognitive compensatory strategies please see cognition section above for further detail Team Communication: The patient's status was discussed and coordination of care occurred with RN, PT Family/Caregiver Present: none Co-treat with physical therapy (during mobility portion of this assessment only) as patient benefits from 2 skilled therapists present in order to optimize safety and progression of mobility and self-care skills. Patient was left in bedside chair at end of session with call light in reach, all needs met and questions answered. Assessment Discharge Therapy Needs - OT: Ongoing skilled occupational therapy If skilled therapy is recommended, skilled therapy can include occupational therapy provided in home health, outpatient or post-acute facility. The location of these services is determined by patient's care team in partnership with patient/family. Level of Care Needed - OT: Assistance with toilet/shower transfers, Assistance with toileting, Assistance with medication set up/administration, Assistance with dressing, Assistance with showering/bathing, Assistance with meal preparation, Assistance with transportation, Assistance with financial ma nagement, Assistance with housekeeping, Assistance with shopping, Cognitive assistance needed, Physical assistance needed Barriers to Discharge Home: Current functional status Recommended Adaptive Equipment - OT: Other (Comment), Grab bar(s) in shower (Would benefit from additional, permanent grab bar in the shower in place of the suction cup one he currently has. Assessment ongoing) Clinical Impression: Bacilio currently demonstrates cognitive difficulty, generalized weakness, limited activity tolerance, and limited balance and stability, resulting in the patient requiring increased assistance for basic activities of daily living. Bacilio was very pleasant and willing to work with occupational therapy. OT and PT did co-treatment just for the mobility portion of the session. Patient demonstrated cognitive concerns that increased as the session progressed and he fatigue. Please see cognition section for further details. However he was motivated and willing to participate throughout the session. He demonstrated difficulty problem-solving, as well as limited dexterity needed to follow the OT directions to access his toothbrush from the packet. He ultimately required minimal assistance with this while seated in his bedside chair. He mobilized to a standing position for approximately 1 minute requiring grossly moderate assistance of 2 people for functional transfers with his front wheel walker. He had an initial loss of balance while standing that he was able to recover with assistance. He also reports a history of 8-10 falls in the last year. OT anticipates that this patient will need ongoing therapy services before safely returning to his prior level of function/assistance given his current high fall risk, weakness, limited activity tolerance, and cognitive difficulties. The patient will benefit from ongoing occupational therapy services while hospitalized in order to improve engagement and independence in meaningful occupations. Plan OT Plan Comments: Next session: co-tx appropriate to progress mobility, commode use as able, grooming in standing, dressing tasks while primarily seated (may need AE), energy conservation techniques,monitor cognition Functional Goals: OT Goal #1: Patient will progress to performing toileting transfers and tasks, and subsequent hygienes standing sinkside, safely with standby assistance by hospital discharge. OT Goal #1 Status: Progressing OT Goal #2: Patient will progress to performing total body dressing, including item retrieval, safely with standby assistance by hospital discharge. OT Goal #2 Status: Ongoing OT Goal #3: Patient will participate in intermittent cognitive assessment and activities to facilitate safe discharge recommendations. OT Goal #3 Status: Slowly progressing OT Goal #4: Patient and/or caregiver will verbalize understanding of patient's homegoing safety recommendations, equipment recommendations, and recommended level of assistance with functional tasks by hospital discharge. OT Goal #4 Status: Progressing Progress: Progressing toward goals Rehab potential: Mr. Potts has good potential to achieve established occupational therapy goals within the time frame outlined below. OT Frequency: OT Amount: 1 visit per day OT Frequency: 5 times per week OT Inpatient Duration : Until goals are met or hospital discharge Requires Inpatient OT Follow-Up: Yes OT - Next Inpatient Appointment: 10/29/23 Plan: Plan of care initiated Treatment interventions may include: Treatment Interventions: Therapeutic exercise, Therapeutic functional activity, Self-care/home management, Cognitive skills training Occupational Therapy Attestation Statement: Patient agrees with the plan of care and goals. Billing: Tiered OT Evaluation Codes: Comorbid Conditions: Arthritis, Cardiopulmonary disease, Diabetes, Mental health disorder Personal Factors: Age, Balance impairment, History of falls, Needs assistive device, Safety awareness Occupational Profile and History review: Expanded Performance Deficits: 3 - 5 performance deficits Evaluation Complexity: Moderate Time Spent with Patient Evaluations OT Eval - Mod Complexity: 10 min Therapeutic Interventions Home Management Training (min): 15 min Therapeutic Activity (min): 36 min Time Tracking Total Timed Units (min): 51 min Total Treatment Time (min): 61 min Ayla Nielsen M.S., O.T. Cosigned by Mina Olson M.D. at 10/28/2023 4:05 PM CDT * Asad Uniqueperico Rivera P.T., D.P.T. - 10/28/2023 11:21 AM CDT Physical Therapy Inpatient Evaluation/Treatment By co-signing this note, the provider certifies the therapy being provided to this patient is reasonable and necessary for the diagnosis or treatment of this patient. SUBJECTIVE Patient's Name: Jorge Potts Referring/Attending Provider: Mina Olson M.D. Reason for Referral: Physical Therapy Evaluate and Treat Pertinent Medical / Surgical History: Jorge Potts has a past medical history of Apnea Sleep Obstructive, Asthma NOS, Cataract, Colitis Ulcerative Proctitis (HCC) (10/2014), Depressive Disorder, Diabetes Mellitus Type 2 (HCC), Dilatation Ascending Aorta (HCC), Gastroesophageal Reflux Disease NOS, Hyperlipidemia, Malignant Primary Neoplasm (Unknown Site) Unspecified (HCC) (bladder), Myocardial Infarction Acute (HCC) (08/2008), and Polyp Colon. Jorge Potts has a past surgical history that includes Esophagogastroduodenoscopy (N/A,09/13/2011); Ultrasound Transrectal with Biopsy Guided Prostate (N/A, 04/20/2004); Ultrasound Transrectal with Biopsy Guided Prostate (N/A, 07/17/1998); Injection, Therapeutic (Eg, Local Anesthetic, C orticosteroid), Carpal Tunnel.. (N/A, 10/22/1998); Esophagogastroduodenoscopy (N/A, 08/21/2001); Total avulsion of nail plate (N/A, 11/28/2009); Esophagogastroduodenoscopy (N/A, 07/15/2008); Hip Arthroplasty (N/A, 11/30/2011); CYSTOSCOPY BIOPSY FULGURATION (N/A, 12/08/2017); Vasectomy (11/1975); Joint replacement (11/30/2011); and Tonsillectomy. History of Present Illness: Jorge Potts is a 78 y.o. male who was admitted to [facility] in [place] on 10/27/2023 for Urinary Tract Infection Site Not Specified [N39.0] Weakness General [R53.1]. Precautions Other Precautions: Hx falls, neuropathy, COPD/asthma, limited R shoulder ROM RST PT/OT Falls screen: Fall in the last 12 months: Yes Did you have an injury with the fall: Yes Are you fearful of falling: Yes Home Living and Equipment: Lives with: Spouse/Significant other Receives help from: Spouse/Significant other [facility] Layout: One Level Home Access: Level entry Bathroom Accessibility: Shower: Patient reports having both a walk-in shower and a tub, however he utilizes the walk-in shower. Walk-in Shower Level: Main Floor Bathroom Equipment: Grab bars in shower (1 permanent grab bar, 1 suction cup grab bar due to difficulty getting the landlord to accommodate a second), Hand- held shower head, Built-in shower seat, Non-skid mat Toilet: Comfort Toilet with a grab bar Assistive Device Owned: Front wheeled walker, Four wheeled walker, Single point cane, powered scooter Adaptive Equipment Owned: Blockman, Sock Aid, Long Handled Shoe Horn - only intermittently utilized the sock aid Prior Level of Function and Mobility: Basic Activities of Daily Living: Patient's baseline, before his last (very recent) hospitalization was modified independent with ADLs. He showered from sitting for safety/stability, and his would occasionally tuck in his shirt on the right side due to right shoulder arthritis. Instrumental Activities of Daily Living: Patient and his rent a townhouse where yard work is taken care of. He no longer drives due to neuropathy; his drives. His manages housekeeping, laundry, cooking, and finances. He sortstheir medications into two weekly organizers. Declined any baseline cognitive difficulty. Functional Mobility: Prior to his previous (very recent) hospitalization he intermittently utilized a single-point cane. Recent SNF trained him, and recommended he use, a front-wheeled walker. Upon returning home (he was there for about a month) he had home health OT/PT, and began using his 4WW, as it is easier to manage on uneven surfaces outside of his home. Also utilizes a powered scooter. N.b., PLOF/home setup copied from OT assessment, but reviewed/confirmed with patient. Pain Assessment: Pain not reported during session. Patient/Caregiver Goals: Return to home Subjective Comments: Patient received resting in bedside chair, agreeable to participation in therapy session. OBJECTIVE Vital Signs: Vitals monitored throughout session; within normal ranges. Evaluation Assessments: Strength: Generalized weakness Upper extremities within functional limits Lower extremities within functional limits Range of Motion: Upper extremities within functional limits Lower extremities within functional limits Balance: Static Sitting: Good (Maintains balance without support) Dynamic Sitting: Good (Maintains balance without support) Static Standing: Fair (Maintains balance with handheld assist) Dynamic Standing: Fair (Maintains balance with handheld assist) Activity Tolerance: Endurance: Tolerates less than 10 minutes of activity Requires rest breaks Cognition: Alert, Oriented x 4 Outcome Measures: [facility] Inpatient Short Form: -[facility] Basic Mobility (V.2) How much help from another person do you currently need???If the patient hasn't done an activity recently, how much help from another person do you think he/she would needif he/she tried? 1. Turning from your back to your side while in a flat bed without using bedrails?: A Little 2. Moving from lying on your back to sitting on the side of a flat bed without using bedrails?: A Little 3. Moving to and from a bed to a chair (including a wheelchair)?: A Lot 4. Standing up from a chair using your arms (e.g., wheelchair, or bedside chair)?: A Lot 5. To walk in hospital room?: A Lot 6. Climbing 3-5 steps with a railing?: Total -[facility] Basic Mobility (V.2) Raw Score: 13 -[facility] Basic Mobility (V.2) Standardized Score: 33.99 Interpretation: Based on scoring guidelines using the raw score value: Those going to home had an average score at or above 18 Those going to facility had an average score at or below 17 Clinicians answer the -[facility] Inpatient Short Form based on observed patient activity and/or clinical judgment (patient can be scored without physically performing each activity) 30 second sit to stand test Score:Unable Interpretation: 8 or less = High fall Risk. Male Normal Values for Age Range Age 75-79, score of 11-17 Therapeutic Interventions: SIT TO STAND: Assistance Level: Moderate Assistance of 2 Device: gait belt and front wheeled walker Surface: Chair Assistance/Cueing: verbal, tactile, and visual for Anterior weight shifting, Lower extremity placement, Sequencing, Technique, and Upper extremity placement Delivery: educated, instructed, assessed, facilitated, and assisted Comments: retropulsion in standing, increased time/effort to anteriorly weight shift STAND TO SIT: Assistance Level: Moderate Assistance of 2 Device: gait belt and front wheeled walker Surface: Chair Assistance/Cueing: verbal, tactile, and visual for Alignment with seated surface, Eccentric control, Lower extremity placement, and Upper extremity placement Delivery: educated, instructed, assessed, facilitated, and assisted PRE-GAIT: Activity:Weight shifting and Marching Assistance Level: Moderate Assistance of 2 Device: gait belt and front wheeled walker Assistance/Cueing:verbal, tactile, and visual for Lower Extremity Placement, Weight Shifting, and Upright Posture Unable to attempt ambulation secondary to weakness/fatigue THERAPEUTIC EXERCISE: Seated Therapeutic Exercise: Side: bilateral, lower extremity(ies) Mode: active range of motion Exercises: Ankle pumps, Long arc quads, and Marching Repetitions: 10 Assist/cueing: Full range of motion The following education was provided and discussed this visit: home setup and/or safety, durable medical equipment recommendations, supportive discharge planning, therapeutic exercise program, appropriate use of assistive devices, energy conservation techniques, activity pacing, purpose of PhysicalTherapy, Physical Therapy plan of care, and Physical therapy goals The patient's status was discussed and the following coordination of care occurred with the RN and OT Co-treat with Occupational Therapy Patient benefitted from having 2 skilled therapists present in order to optimize mobility progression+safety with mobility. OT/PT addressed different goals within treatment session. Patient was left in bedside chair at end of session with call light in reach, all needs met and questions answered. Assessment Discharge Therapy Needs - PT: Ongoing skilled physical therapy If skilled therapy is recommended, skilled therapy can include physical therapy provided by home health, outpatient clinic, or a post-acute facility. The location of these services is determined by the patient's care team in partnership with patient/family. Level of Care Needed - PT: Assistance with transfers (Comment), Assistance with walking and moving around the home, Assistance with bed mobility, Assistance with stairs, Physical assistance needed Equipment Recommended - PT: Front-wheeled walker Barriers to Discharge Home: Current functional status, Fall risk From a physical therapy perspective, the level of care above has been recommended for Mr. Potts after hospital discharge. This level of care is based on his functional abilities during today's session. This may change throughout the hospital course and will be updated as appropriate. Clinical Impression: Jorge Potts is a 78 y.o. male admitted 10/27/2023 for Urinary Tract Infection Site Not Specified [N39.0] Weakness General [R53.1] (see above for full details). Currently, the patient presents with generalized weakness, impaired standing balance, kinesthetic awareness, abnormal gait mechanics, and decreased activity tolerance. The patient required grossly moderate assistance of 2 with use of a FWW for safety during upright mobility. He did demonstrate retropulsion in standing and required increased time/effort weight shift anteriorly. Unfortunately he tolerated very limited upright mobility due to fatigue. Patient would benefit from continued Physical Therapy interventions to optimize functional mobility, strength/balance, activity tolerance, and to assist with dismissal planning. Will continue to workwith the patient throughout this hospitalization to progress towards functional mobility goals and maximize independence. Goals discussed with patientand he is agreeable to the plan of care at this time. Mobility recommendations: - Up to chair 3 times per day with assistance from nursing staff. - Ambulate in hallway/room 3-5 times per day per patient tolerance with assistance from nursing staff, use chair follow for patient safety. Physical therapy treatment is medically necessary to restore and maximize function, maximize safetyand facilitate discharge to home, teach and educate the patient and/or caregivers. Progress: Progressing toward goals Plan PT Plan Comments: Progress bed/out of bed mobility; patient may d/c over the weekend and tolerated limited mobility during eval on 10/27 Functional Goals: PT Inpatient Goals PT Goal #1: Patient will demonstrate bed mobility with independence to demonstrate improved functional mobility and independence. PT Goal #1 Status: Ongoing PT Goal #2: Patient will demonstrate sit to stand transfer with modified independence and least restrictive assistive device to demonstrate improved functional mobility and independence. PT Goal #2 Status: Progressing PT Goal #3: Patient will be able to ambulate at least 20m with modified independence and least restrictive assistive device while executing the task with good safety awareness, stability, and functional strength. PT Goal #3 Status: Slowly progressing Jorge Potts has Good rehab potential to meet the expected outcomes in a reasonable period of time. Treatment Plan: Plan: Plan of care initiated PT Amount: 1 visit per day PT Frequency: 5 times per week PT Inpatient Duration : Until goals are met or hospital discharge Requires Inpatient Follow-Up: Yes PT - Next Inpatient Appointment: 10/29/23 Patient agrees with the plan of care and goals. Treatment interventions may include: Treatment/Interventions: Therapeutic exercise, Therapeutic functional activity, Neuromuscular re-education, Gait training, Self-care/home management Tiered PT Evaluation Codes: Comorbid Conditions: Arthritis, Cardiopulmonary disease, Diabetes, Mental health disorder Personal Factors: Age, Balance impairment, History of falls, Needs assistive device, Safety awareness Examination elements: 3 Clinical Presentation: Evolving Clinical Decision Making: Moderate complexity clinical decision making Billing: Time Spent with Patient Evaluations PT Eval - Mod Complexity: 10 min Therapeutic Interventions Gait Training (min): 3 min Therapeutic Activity (min): 9 min Therapeutic Exercise (min): 3 min Time Tracking Total Timed Units (min): 15 min Total Treatment Time (min): 25 min Roselyn Kamara P.T., D.P.TAurelio Cosigned by Mina Olson M.D. at 10/29/2023 11:39 AM CDT documented in this encounter Nursing Notes * Gala Chan R.NAurelio - 10/31/2023 12:56 PM CDT Shift Goals: Clinical Goals for the Shift: Pt will remain safe throughout the shift Identify possible barriers to meeting goals/advancing plan of care: met End of Shift Summary: VSS. [facility] [place], [place]. Attempted x 2 to call facility and give report. Voicemail not set up, unable to leave message. Transport provided by [facility]. PIV removed. Education done at bedside. Patient left unit via stretcher at 13:44 pm. BP 103/71 (BP Location: Right arm;Upper, Patient Position: Sitting) Pulse 85 Temp 36.8 ??C (Oral) Resp 16 Ht 178.5 cm Wt 96.1 kg SpO2 94% BMI 30.16 kg/m?? Electronically signed by: Yesy Chan R.N. 10/31/23 1:44 PM CDT documented in this encounter ED Notes * Luis Carlos Card M.D. - 10/31/2023 1:43 PM CDT I saw the patient with the medical student. I was present for or re-performed the History of Present Illness. I personally performed a Physical Exam and Medical Decision Making. I reviewed medical student documentation and agree or amended. Assessment and Plan generalized weakness and increased urinary frequency. Patient reports he had to pee 5-6 times during the night then felt too weak to get out of bed this morning. He reports he has had this happen twice before and both previous times the culprit has been an infectious process, one of them being a UTI, one being a chest cold. Patients reports he is too weak to do his ADL's and she is not able to provide the help he needs to perform these tasks. Infectious work up includes CBC, BMP, urinalysis, blood glucose and chest x-ray. CBC showed increased leukocyte count. BMP was clinically insignificant. Troponin is mildly elevated at 26. Patient is signed out to next team before the rest of the labs have come back. . Final Diagnoses: as of 11/07/23 1319 Urinary Tract Infection Site Not Specified Weakness General Luis Carlos Card M.D. 11/07/23 1319 * Adi Barba - 10/27/2023 11:43 AM CDT CHIEF COMPLAINT/REASON FOR VISIT Weakness - Generalized HISTORY OF PRESENT ILLNESS This is a 78 year old man who comes in today with generalized weakness as well as increased urinaryfrequency. Patient claims he woke up 5-6 times through the night to pee until he tried to wake up for the day this morning and felt too weak to get out of bed. He says he has had increased frequency and urgency to pee but denies any dysuria or noticing any blood in his urine. He denies any recent cough or fever. He endorses long standing neuropathy that is the same as it always has been. This weakness has happened at least twice before and both previous times it has turned out to be an infectious process (chest cold then UTI) and the weakness improved after treatment. He reports he has taken all of his medications as prescribed. Patient's reports this morning she watched him try to get out of the bed and slunk back into bed when he became too fatigued. She endorses he was getting out of bed all night to pee. She also endorses the patient has not had any appreciable change in diet or hydration the past few days. She also claims when the patient is at his baseline strength she is able to help him get through his ADL'sappropriately but when he is as weak as he is she cannot provide enough support for the patient to do his ADL's. History provided by: Patient and significant other spanish medical interpreter needed/used: no REVIEW OF SYSTEMS Constitutional: Positive for activity change, appetite change and fatigue. Negative for chills, diaphoresis and fever. Respiratory: Negative for apnea, cough, chest tightness and shortness of breath. Cardiovascular: Negative for chest pain and leg swelling. Gastrointestinal: Negative for abdominal distention and abdominal pain. Genitourinary: Positive for frequency and urgency. Negative for bladder incontinence, decreased urine volume, dysuria, flank pain and hematuria. Neurological: Positive for weakness. Negative for syncope, light-headedness and loss of balance. OBJECTIVE Initial Vitals Temperature 10/27/23 1100 36.7 ??C Pulse Rate 10/27/23 1100 84 Heart Rate 10/27/23 1200 87 Resp Rate 10/27/23 1100 20 Blood Pressure 10/27/23 1100 111/73 SpO2 10/27/23 1100 97 % Pain Score 10/27/23 1118 3 PHYSICAL EXAMINATION Constitutional: Nursing note and vitals reviewed. No distress. Cardiovascular: Normal rate, regular rhythm and normal heart sounds. Pulses are palpable. Capillaryrefill: takes less than 3 seconds Pulmonary/Chest: Effort normal and breath sounds normal. No tachypnea. No respiratory distress. Abdominal: Soft. Bowel sounds are normal. exhibits no distension. There is no abdominal tenderness.There is no rebound and no guarding. Neurological: Alert and oriented to person, place, and time. Skin: Skin is warm and dry. DIFFERENTIAL DIAGNOSIS UTI vs chest cold vs generalized weakness DIAGNOSTIC STUDIES LABORATORY RESULTS: Abnormal Labs Reviewed BASIC METABOLIC PANEL, S/P - Abnormal; Notable for the following components: Result Value Estimated GFR (eGFR) 59 (*) All other components within normal limits CBC WITH DIFFERENTIAL, B - Abnormal; Notable for the following components: Leukocytes 12.4 (*) Neutrophils 9.52 (*) Monocytes 1.23 (*) All other components within normal limits TROPONIN T, BASELINE, 5TH GEN, P - Abnormal; Notable for the following components: Troponin T, Baseline, 5th gen 26 (*) All other components within normal limits TROPONIN T, 2H/6H REFLEX, 5TH GEN, P - Abnormal; Notable for the following components: Troponin T, 2 hr, 5th gen 24 (*) All other components within normal limits DIPSTICK, U - Abnormal; Notable for the following components: Hemoglobin, QL, U Large (*) Leukocyte Esterase, U Large (*) All other components within normal limits IMAGING STUDIES: DX Chest AP or PA and Lateral 2 Views Final Result Comparison 04/30/2023. No significant change. Bibasilar atelectasis/scarring. Aortic calcification. Degenerative changes of both shoulders and the spine. Remainder normal. My ECG Interpretation: # 1 Normal sinus rhythm with no st or t wave abnormalities MEDICAL DECISION MAKING This is a 78 year old man who comes in today with generalized weakness and increased urinary frequency. Patient reports he had to pee 5-6 times during the night then felt too weak to get out of bed this morning. He reports he has had this happen twice before and both previous times the culprit has been an infectious process, one of them being a UTI, one being a chest cold. Patients reports he is too weak to do his ADL's and she is not able to provide the help he needs to perform these tasks. Infectious work up includes CBC, BMP, urinalysis, blood glucose and chest x-ray. CBC showed increased leukocyte count. BMP was clinically insignificant. Troponin is mildly elevated at 26. Patient is signed out to next team before the rest of the labs have come back. 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 at 11/07/2023 1:19 PM CDT * Aleyda Cordero R.N. - 10/27/2023 11:02 AM CDT Pt. C/o weakness for a few months, hospitalized in [place] a few months ago for weakness and then transferred to a rehab facility in [place]. Pt. Has neuropathy in his feet and legs, legs feel weakand has had several close falls. He has also had increased urination but no other urinary symptoms. Aleyda Cordero R.N. 10/27/23 1105 documented in this encounter Miscellaneous Notes * Hospital Course - Marycarmen Galindo M.B., B.Ch., B.A.O. - 10/27/2023 9:08 PM CDT Mr. Potts is a 78 y.o. male admitted for generalized weakness 2/2 UTI. Pertinent past medical history of HTN, HLD, DM type 2, depression, anxiety, GERD. He noticed significant urinary frequency, inability to stand, I will perform ADLs this morning, andcame to the ED. in the ED he was vitally stable overall, had noticeable generalized weakness. Labs were remarkable for a leukocytosis of 12.4, normal BNP, mildly elevated tropes, but unchanged at 2 hours, urinalysis was obtained that showed pyuria. Blood cultures were obtained and did not show growth to date. Imaging with chest x-ray showed no significant change since April 27, 2023, EKG showed sinus rhythm with first-degree AV block. He was given a dose of ceftriaxone 1 g for UTI, and transferred to the floor. Upon transfer, he continued to endorse overall generalized weakness, but otherwise stable. Physicalexam was not significant except for weakness. Given low suspicion for a urinary tract infection, his ceftriaxone wad discontinued. Respiratory swabs were negative. Patient continued to work with PT/OT during his hospital stay and they recommended ongoing skilled therapy. Patient was discharged on 10/30 to [facility] in stable condition documented in this encounter Plan of Treatment Upcoming Encounters Date Type Department Care Team (Late st Contact Info) Description 12/14/2023 10:30 AM FLIGHT SUPERINTENDENT Appointment Department of Laboratory Medicine and Pathology, [facility], in [address] [phone] Dalia Dill M.D. [address] [place] [address] 12/14/2023 11:00 AM FLIGHT SUPERINTENDENT Office Visit Department of Family Medicine, [address] [phone] Dalia Dill M.D. [address] [place] [address] 12/19/2023 2:00 PM FLIGHT SUPERINTENDENT Comprehensive Visit Division of [facility], [facility], in [place], [place] [address] [place] [address] Kiran Hugo M.D. [address] [place] [address] documented as of this encounter Procedures Procedure Name Priority Date/Time Associated Diagnosis Comments GLUCOSE POCT, B Routine 10/31/2023 11:51 AM CDT CBC WITH DIFFERENTIAL, B Routine 10/31/2023 10:32 AM CDT BASIC METABOLIC PANEL, S/P Routine 10/31/2023 10:32 AM CDT GLUCOSE POCT, [...] POCT, B Routine 10/28/2023 8:06 AM CDT CBC WITH DIFFERENTIAL, B Routine 10/28/2023 6:57 AM CDT HEMOGLOBIN A1C, B Routine 10/28/2023 6:5 7 AM CDT COMPREHENSIVE METABOLIC PANEL, S/P Routine 10/28/2023 6:57 AM CDT NON-INVASIVE VENTILATION Routine 10/27/2023 9:06 PM CDT NON-INVASIVE VENTILATION Routine 10/27/2023 9:06 PM CDT GLUCOSE POCT, B Routine 10/27/2023 8:44 PM CDT BACTERIAL CULTURE, AEROBIC + SUSC, URINE Routine 10/27/2023 1:52 PM CDT TROPONIN T, 2H/6H REFLEX, 5TH GEN, P Timed 10/27/2023 1:44 PM CDT DIPSTICK, U STAT 10/27/2023 1:23 PM CDT MICROSCOPIC MANUAL STAT 10/27/2023 1: 23 PM CDT PH, U STAT 10/27/2023 1:23 PM CDT OSMOLALITY, U STAT 10/27/2023 1:23 PM CDT URINALYSIS WITH MICROSCOPIC STAT 10/27/2023 1:23 PM CDT DX CHEST AP OR PA AND LATERAL 2 VIEWS RAD - Semiurgent (Fast; most ED patients; some inpatients) 10/27/2023 12:24 PM CDT TROPONIN T, BASELINE, 5TH GEN, P STAT 10/27/2023 11:31 AM CDT GLUCOSE POCT, B STAT 10/27/2023 11:31 AM CDT CBC WITH DIFFERENTIAL, B STAT 10/27/2023 11:31 AM CDT BASIC METABOLIC PANEL, S/P STAT 10/27/2023 11:31 AM CDT ECG Routine 10/27/2023 11:23 AM CDT documented in this encounter Results * (ABNORMAL) Glucose, POCT (10/31/2023 11:51 AM CDT) Glucose, POCT, B 163(H) 70 - 140 mg/dL 10/31/2023 12:08 PM CDT PCLX Site Capillary 10/31/2023 12:08 PM CDT PCLX Last Intake 3-4 hours 10/31/2023 12:08 PM CDT PCLX Blood 10/31/2023 11:5 1 AM CDT 10/31/2023 12:08 PM CDT us Unknown Provider LAB POCT ORDERABLES-MANUAL Kelsi l Result [facility] [address] [place] [address], [facility] P[facility]X [facility] [address] [place] [address] * (ABNORMAL) Basic Metabolic Panel (10/31/2023 10:32 AM CDT) Pathologist [facility] Potassium, S 4.3 3.6 - 5.2 mmol/L 10/31/2023 11:18 AM CDT DTL Sodium, S 138 135 - 145 mmol/L 10/31/2023 11:18 AM CDT DTL Chloride, S 100 98 - 107 mmol/L 10/31/2023 11:18 AM CDT DTL Bicarbonate, S 26 22 - 29 mmol/L 10/31/2023 11:18 AM CDT DTL Anion Gap 12 7 - 15 10/31/2023 11:18 AM CDT DTL BUN (Blood Urea Nitrogen), S 35(H) 8 - 24 mg/dL 10/31/2023 11:18 AM CDT DTL Creatinine 1.64(H) 0.74 - 1.35 mg/dL 10/31/2023 11:18 AM CDT DTL Estimated GFR (eGFR) 43(L) >=60 mL/min/BSA 10/31/2023 11:18 AM CDT DTL Comment: Estimated GFR calculated using the 2020 CKD_EPI creatinine equation. Calcium, Total, S 9.4 8.8 - 10.2 mg/dL 10/31/2023 11:18 AM CDT DTL Glucose, S 202(H) 70 - 140 mg/dL 10/31/2023 11:18 AM CDT DTL Blood (Blood, Venous) 10/31/2023 10:32 AM CDT 10/31/2023 10:58 AM CDT us Sunshine Perez M.D. LAB BLOOD ADD-ON Final Result [facility] [address] [place], [place] [address] DTL [facility] [address] [place] [address] * CBC with Differential, Blood (10/31/2023 10:32 AM CDT) Hemoglobin 14.8 13.2 - 16.6 g/dL 10/31/2023 [...] 10:32 AM CDT 10/31/2023 10:49 AM CDT Result Rajinder Perez M.D. LAB BLOOD ADD-ON Final Result [facility] [address] [place] [address], [facility] DTL [facility] [address] [place] [address] [facility] [address] [place] [address] * Glucose, POCT (10/31/2023 7:46 AM CDT) Glucose, POCT, B 125 70 - 140 mg/dL 10/31/2023 7:51 AM CDT PCLX Site Capillary 10/31/2023 7:51 AM CDT PCLX Blood 10/31/2023 7:46 AM CDT 10/31/2023 7:51 AM CDT us Unknown Provider LAB POCT ORDERABLES-MANUAL Kelsi l Result Performing Organization Address City/[facility]/ZIP Co de Phone Number [facility] [address] [place] [address], [facility]X [facility]OC [address] [place] [address] * Glucose, POCT (10/30/2023 8:59 PM CDT) Glucose, POCT, B 129 70 - 140 mg/dL 10/30/2023 9:02 PM CDT PCLX Site Capillary 10/30/2023 9:02 PM CDT PCLX Last Intake > 4 hours 10/30/2023 9:02 PM CDT PCLX Blood 10/30/2023 8:59 PM CDT 10/30/2023 9:02 PM CDT us Unknown Provider LAB POCT ORDERABLES-MANUAL Kelsi l Result [facility] [address] [place] [address], [facility] [address] [place] [address] * (ABNORMAL) Glucose, POCT (10/30/2023 11:52 AM CDT) Glucose, POCT, B 157(H) 70 - 140 mg/dL 10/30/2023 12:03 PM CDT PCLX Site Capillary 10/30/2023 12:03 PM CDT PCLX Blood 10/30/2023 11:5 2 AM CDT 10/30/2023 12:03 PM CDT us Unknown Provider LAB POCT ORDERABLES-MANUAL Kelsi l Result Performing Organization Address [facility]/ZIP Co de Phone Number [facility] [address] [place] [address], [facility] [address] [place] [address] * Glucose, POCT (10/30/2023 8:32 AM CDT) Pathologist [facility] Glucose, POCT, B 139 70 - 140 mg/dL 10/30/2023 8:36 AM CDT PCLX Site Capillary 10/30/2023 8:36 AM CDT PCLX Last Intake > 4 hours 10/30/2023 8:36 AM CDT PCLX Blood 10/30/2023 8:32 AM CDT 10/30/2023 8:36 AM CDT us Unknown Provider LAB POCT ORDERABLES-MANUAL Kelsi l Result Performing Organization Address [facility] de Phone Number [facility] [address] [place] [address], [facility] [address] [place] [address] * (ABNORMAL) CBC with Differential, Blood (10/30/2023 5:05 AM CDT) Hemoglobin 14.5 13.2 - 16.6 g/dL 10/30/2023 6:08 AM CDT DTL Hematocrit 42.8 38.3 - 48.6 % 10/30/2023 6:08 AM CDT DTL Erythrocytes 4.78 4.35 - 5.65 x10(12)/L 10/30/2023 6:08 AM CDT DTL MCV 89.5 78.2 - 97.9 fL 10/30/2023 6:08 AM CDT DTL RBC Distrib Width 13.1 11.8 - 14.5 % 10/30/2023 6:08 AM CDT DTL Platelet Count 172 135 - 317 x10(9)/L 10/30/2023 6:08 AM CDT DTL Leukocytes 9.2 3.4 - 9.6 x10(9)/L 10/30/2023 6:08 AM CDT DTL Neutrophils 6.50(H) 1.56 - 6.45 x10(9)/L 10/30/2023 6:08 AM CDT PM Lymphocytes 1.47 0.95 - 3.07 x10(9)/L 10/30/2023 6:08 AM CDT DTL Monocytes 1.01(H) 0.26 - 0.81 x10(9)/L 10/30/2023 6:08 AM CDT DTL Eosinophils 0.19 0.03 - 0.48 x10(9)/L 10/30/2023 6:08 AM CDT DTL Basophils 0.06 0.01 - 0.08 x10(9)/L 10/30/2023 6:08 AM CDT DTL Blood (Blood, Venous) 10/30/2023 5:05 AM CDT 10/30/2023 5:50 AM CDT us Sunshine Perez M.D. LAB BLOOD ADD-ON Final Result [facility] [address] [place] [address], [facility] DTL [facility] [address] [place] [address] [facility] [address] [place] [address] * (ABNORMAL) Basic Metabolic Panel (10/30/2023 5:05 AM CDT) [facility] Potassium, S 3.6 3.6 - 5.2 mmol/L 10/30/2023 6:15 AM CDT DTL Sodium, S 140 135 - 145 mmol/L 10/30/2023 6:15 AM CDT DTL Chloride, S 103 98 - 107 mmol/L 10/30/2023 6:15 AM CDT DTL Bicarbonate, S 24 22 - 29 mmol/L 10/30/2023 6:15 AM CDT DTL Anion Gap 13 7 - 15 10/30/2023 6:15 AM CDT DTL BUN (Blood Urea Nitrogen), S 28(H) 8 - 24 mg/dL 10/30/2023 6:15 AM CDT DTL Creatinine 1.44(H) 0.74 - 1.35 mg/dL 10/30/2023 6:15 AM CDT DTL Estimated GFR (eGFR) 50(L) >=60 mL/min/BSA 10/30/2023 6:15 AM CDT DTL Comment: Estimated GFR calculated using the 2020 CKD_EPI creatinine equation. Calcium, Total, S 9.2 8.8 - 10.2 mg/dL 10/30/2023 6:15 AM CDT DTL Glucose, S 114 70 - 140 mg/dL 10/30/2023 6:15 AM CDT DTL Blood (Blood, Venous) 10/30/2023 5:05 AM CDT 10/30/2023 6:00 AM CDT us Sunshine Perez M.D. LAB BLOOD ADD-ON Final Result Performing Organization Address City/[facility]/ZIP Co de Phone Number [facility] [address] [place] [address], [facility] DTL [facility] [address] [place] [address] * Glucose, POCT (10/29/2023 9:32 PM CDT) Pathologist [facility] Glucose, POCT, B 111 70 - 140 mg/dL 10/29/2023 9:35 PM CDT PCLX Blood 10/29/2023 9:32 PM CDT 10/29/2023 9:35 PM CDT us Unknown Provider LAB POCT ORDERABLES-MANUAL Kelsi l Result Performing Organization Address City/[facility]/ZIP Co de Phone Number [facility] [address] [place] [address], [facility] [address] [place] [address] * (ABNORMAL) Glucose, POCT (10/29/2023 5:36 PM CDT) Glucose, POCT, B 181(H) 70 - 140 mg/dL 10/29/2023 5:43 PM CDT PCLX Site Capillary 10/29/2023 5:43 PM CDT PCLX Last Intake 3-4 hours 10/29/2023 5:43 PM CDT PCLX Blood 10/29/2023 5:36 PM CDT 10/29/2023 5:43 PM CDT us Unknown Provider LAB POCT ORDERABLES-MANUAL Kelsi l Result Performing Organization Address City/[facility]/ZIP Co de Phone Number [facility] [address] [place] [address], [facility] [address] [place] [address] * (ABNORMAL) Glucose, POCT (10/29/2023 12:05 PM CDT) Glucose, POCT, B 176(H) 70 - 140 mg/dL 10/29/2023 12:18 PM CDT PCLX Site Capillary 10/29/2023 12:18 PM CDT PCLX Blood 10/29/2023 12:0 5 PM CDT 10/29/2023 12:18 PM CDT us Unknown Provider LAB POCT ORDERABLES-MANUAL Kelsi l Result Performing Organization Address City/[facility]/ZIP Co de Phone Number [facility] [address] [place] [address], [place] [facility] [address] [place] [address] * (ABNORMAL) Glucose, POCT (10/29/2023 7:35 AM CDT) Glucose, POCT, B 149(H) 70 - 140 mg/dL 10/29/2023 7:43 AM CDT PCLX Site Capillary 10/29/2023 7:43 AM CDT PCLX Last Intake > 4 hours 10/29/2023 7:43 AM CDT PCLX Blood 10/29/2023 7:35 AM CDT 10/29/2023 7:43 AM CDT us Unknown Provider LAB POCT ORDERABLES-YARELIS walters Result [facility] [address] [place] [address], [facility] PCLX [facility] [address] [place] [address] * (ABNORMAL) CBC with Differential, Blood (10/29/2023 7:18 AM CDT) Pathologist [facility] Hemoglobin 15.2 13.2 - 16.6 g/dL 10/29/2023 7:56 AM CDT DTL Hematocrit 45.7 38.3 - 48.6 % 10/29/2023 7:56 AM CDT DTL Erythrocytes 5.10 4.35 - 5.65 x10(12)/L 10/29/2023 7:56 AM CDT DTL MCV 89.6 78.2 - 97.9 fL 10/29/2023 7:56 AM CDT DTL RBC Distrib Width 13.1 11.8 - 14.5 % 10/29/2023 7:56 AM CDT DTL Platelet Count 173 135 - 317 x10(9)/L 10/29/2023 7:56 AM CDT DTL Leukocytes 10.5(H) 3.4 - 9.6 x10(9)/L 10/29/2023 7:56 AM CDT DTL Neutrophils 8.04(H) 1.56 - 6.45 x10(9)/L 10/29/2023 7:56 AM CDT DHPM Lymphocytes 1.21 0.95 - 3.07 x10(9)/L 10/29/2023 7:56 AM CDT DTL Monocytes 0.99(H) 0.26 - 0.81 x10(9)/L 10/29/2023 7:56 AM CDT DTL Eosinophils 0.17 0.03 - 0.48 x10(9)/L 10/29/2023 7:56 AM CDT DTL Basophils 0.05 0.01 - 0.08 x10(9)/L 10/29/2023 7:56 AM CDT DTL Blood (Blood, Venous) 10/29/2023 7:18 AM CDT 10/29/2023 7:40 AM CDT us Sunshine Perez M.D. LAB BLOOD ADD-ON Final Result [facility] [address] [place] [address], [facility] DTL [facility] [address] [place] [address] [facility] [address] [place] [address] * (ABNORMAL) Basic Metabolic Panel (10/29/2023 7:18 AM CDT) Pathologist [facility] Potassium, S 4.0 3.6 - 5.2 mmol/L 10/29/2023 9:16 AM CDT DTL Sodium, S 140 135 - 145 mmol/L 10/29/2023 9:16 AM CDT DTL Chloride, S 101 98 - 107 mmol/L 10/29/2023 9:16 AM CDT DTL Bicarbonate, S 22 22 - 29 mmol/L 10/29/2023 9:16 AM CDT DTL Anion Gap 17(H) 7 - 15 10/29/2023 9:16 AM CDT DTL BUN (Blood Urea Nitrogen), S 21 8 - 24 mg/dL 10/29/2023 9:16 AM CDT DTL Creatinine 1.32 0.74 - 1.35 mg/dL 10/29/2023 9:16 AM CDT DTL Estimated GFR (eGFR) 55(L) >=60 mL/min/BSA 10/29/2023 9:16 AM CDT DTL Comment: Estimated GFR calculated using the 2020 CKD_EPI creatinine equation. Calcium, Total, S 9.3 8.8 - 10.2 mg/dL 10/29/2023 9:16 AM CDT DTL Glucose, S 140 70 - 140 mg/dL 10/29/2023 9:16 AM CDT DTL Blood (Blood, Venous) 10/29/2023 7:18 AM CDT 10/29/2023 7:53 AM CDT us Sunshine Perez M.D. LAB BLOOD ADD-ON Final Result [facility] [address] [place] [address], [place] DTL [facility] [address] [place] [address] * Glucose, POCT (10/28/2023 9:57 PM CDT) Glucose, POCT, B 103 70 - 140 mg/dL 10/28/2023 10:02 PM CDT PCLX Site Capillary 10/28/2023 10:02 PM CDT PCLX Last Intake > 4 hours 10/28/2023 10:02 PM CDT PCLX Blood 10/28/2023 9:57 PM CDT 10/28/2023 10:02 PM CDT us Unknown Provider LAB POCT ORDERABLES-MANUAL Kelsi l Result Performing Organization Address City/[facility]/ZIP Co de Phone Number [facility] [address] [place] [address], [place] [facility] [address] [place] [address] * Glucose, POCT (10/28/2023 7:03 PM CDT) Glucose, POCT, B 116 70 - 140 mg/dL 10/28/2023 7:06 PM CDT PCLX Site Capillary 10/28/2023 7:06 PM CDT PCLX Last Intake 3-4 hours 10/28/2023 7:06 PM CDT PCLX Blood 10/28/2023 7:03 PM CDT 10/28/2023 7:06 PM CDT us Unknown Provider LAB POCT ORDERABLES-MANUAL Kelsi l Result Performing Organization Address City/[facility]/ZIP Co de Phone Number [facility] [address] [place] [address], [place] [facility] [address] [place] [address] * Glucose, POCT (10/28/2023 11:39 AM CDT) Pathologist [facility] Glucose, POCT, B 140 70 - 140 mg/dL 10/28/2023 11:41 AM CDT PCLX Site Capillary 10/28/2023 11:41 AM CDT PCLX Last Intake 3-4 hours 10/28/2023 11:41 AM CDT PCLX Blood 10/28/2023 11:3 9 AM CDT 10/28/2023 11:42 AM CDT Unknown Provider LAB POCT ORDERABLES-MANUAL Kelsi l Result Performing Organization Address City/[facility]/ZIP Co de Phone Number [facility] [address] [place] [address], [facility] PCLX [facility] [address] [place] [address] * Influenza A, B, RSV, PCR, Rapid (10/28/2023 9:12 AM CDT) [facility] Influenza A, PCR, Rapid, V Negative Negative [...] ENERAL ORDERABLES Final Result Performing Organization Address City/[facility]/ZIP Co de Phone Number [facility] [address] [place] [address], [facility] STMA [facility] [address] [place] [address] * SARS Coronavirus 2, PCR Rapid Symptomatic (10/28/2023 9:12 AM CDT) SARS CoV-2, PCR, Rapid, V Undetected Undetected 10/28/2023 9:59 AM CDT STMA Comment: ----ADDITIONAL INFORMATION---- This RT-PCR test was performed using the [employer] SARS-CoV-2 and Influenza A/B Reagent assay from [employer], which has received Emergency Use Authorization(EUA) by the U.S. Food and Drug Administration. Fact sheets for this Emergency Use Authorization (EUA) assay can be found at the following links: For Healthcare Providers: https://www.fda.gov/media/336065/download For Patients: https://www.fda.gov/media/623074/download SARS Coronavirus 2, Rapid, Source Swab, Nasopharynx 10/28/2023 9:18 AM CDT STMA Swab (Nasopharynx) 10/28/2023 9:12 AM CDT 10/28/2023 9:18 AM CDT us Ciara Castellon.B.B.S., B.M.B.S. LAB MICROBIOLOGY - G ENERAL ORDERABLES Final Result [facility] [address] [place] [address], [facility] [address] [place] [address] * Glucose, POCT (10/28/2023 8:06 AM CDT) Pathologist [facility] Glucose, POCT, B 124 70 - 140 mg/dL 10/28/2023 8:07 AM CDT PCLX Site Capillary 10/28/2023 8:07 AM CDT PCLX Last Intake 3-4 hours 10/28/2023 8:07 AM CDT PCLX Blood 10/28/2023 8:06 AM CDT 10/28/2023 8:08 AM CDT us Unknown Provider LAB POCT ORDERABLES-MANUAL Kelsi l Result [facility] [address] [place] [address], [place] PCLX [facility] [address] [place] [address] * (ABNORMAL) Hemoglobin A1c (10/28/2023 6:57 AM CDT) Pathologist [facility] Hemoglobin A1c, B 6.0(H) 4.0 - 5.6 % 10/28/2023 8:17 AM CDT DTL Comment: Hemoglobin A1c values of 5.7-6.4 percent indicate an increased risk for developing diabetes mellitus. In diabetic patients, HbA1c goals should be discussed with healthcare provider. Blood (Blood, Venous) 10/28/2023 6:57 AM CDT 10/28/2023 7:54 AM CDT us Matt Tuttle M.D. LAB BLOOD ADD-ON Final Result [facility] [address] [place] [address], [facility] [address] [place] [address] * (ABNORMAL) CBC with Differential, Blood (10/28/2023 6:57 AM CDT) Pathologist [facility] Hemoglobin 15.4 13.2 - 16.6 g/dL 10/28/2023 8:05 AM CDT DTL Hematocrit 45.1 38.3 - 48.6 % 10/28/2023 8:05 AM CDT DTL Erythrocytes 5.07 4.35 - 5.65 x10(12)/L 10/28/2023 8:05 AM CDT DTL MCV 89.0 78.2 - 97.9 fL 10/28/2023 8:05 AM CDT DTL RBC Distrib Width 13.0 11.8 - 14.5 % 10/28/2023 8:05 AM CDT DTL Platelet Count 183 135 - 317 x10(9)/L 10/28/2023 8:05 AM CDT DTL Leukocytes 12.9(H) 3.4 - 9.6 x10(9)/L 10/28/2023 8:05 AM CDT DTL Neutrophils 10.22(H) 1.56 - 6.45 x10(9)/L 10/28/2023 8:05 AM CDT DHPM Lymphocytes 1.24 0.95 - 3.07 x10(9)/L 10/28/2023 8:05 AM CDT DTL Monocytes 1.30(H) 0.26 - 0.81 x10(9)/L 10/28/2023 8:05 AM CDT DTL Eosinophils 0.06 0.03 - 0.48 x10(9)/L 10/28/2023 8:05 AM CDT DTL Basophils 0.05 0.01 - 0.08 x10(9)/L 10/28/2023 8:05 AM CDT DTL Blood (Blood, Venous) 10/28/2023 6:57 AM CDT 10/28/2023 7:54 AM CDT us Matt Tuttle M.D. LAB BLOOD ADD-ON Final Result [facility] [address] [place] [address], [facility] DTL [facility] [address] [place] [address] * Comprehensive Metabolic Panel (10/28/2023 6:57 AM CDT) Pathologist [facility] Potassium, S 3.8 3.6 - 5.2 mmol/L [...] Tuttle M.D. LAB BLOOD ADD-ON Final Result [facility] [address] [place] [address], [facility] [address] [place] [address] * Glucose, POCT (10/27/2023 8:44 PM CDT) Glucose, POCT, B 136 70 - 140 mg/dL 10/27/2023 8:52 PM CDT PCLX Site Capillary 10/27/2023 8:52 PM CDT PCLX Last Intake 1-2 hours 10/27/2023 8:52 PM CDT PCLX Blood 10/27/2023 8:44 PM CDT 10/27/2023 8:52 PM CDT us Unknown Provider LAB POCT ORDERABLES-MANUAL Kelsi l Result Performing Organization Address City/[facility]/ZIP Co de Phone Number [facility] [address] [place] [address], [facility] PCLX [facility] [address] [place] [address] * Bacterial Culture, Aerobic + Susceptibility, Urine (10/27/2023 1:52 PM CDT) Urine Culture No growth after 1 day of incubation. 10/28/2023 12:23 PM CDT DTL Urine (Urine, Straight Catheter) 10/27/2023 1:52 PM CDT 10/27/2023 2:57 PM CDT Comment:Specimen Source Site : Urine us Luis Carlos Card M.D. LAB MICROBIOLOGY - GENERAL ORD ERABLES Final Result Performing Organization Address [facility] Co de Phone Number [facility] [address] [place] [address], [facility] DTL [facility] [address] [place] [address] * (ABNORMAL) Troponin T, 2 Hour with 6 Hour Reflex, 5th Gen (10/27/2023 1:44 PM CDT) Troponin T, 2 hr, 5th gen 24(H) <=15 ng/L 10/27/2023 2:20 PM CDT ST[facility] 2H Delta -2 ng/L 10/27/2023 2:20 PM CDT [facility] Comment:6 hour collection no t indicated. 2H Delta Interp Not Changing 10/27/2023 2:20 PM CDT [facility] Blood 10/27/2023 1:44 PM CDT 10/27/2023 1:51 PM CDT us Luis Carlos Card M.D. LAB BLOOD TROPONIN Final Resul t Performing Organization Address City/[facility]/ZIP Co de Phone Number [facility] [address] [place], [place] [address] STMA [facility] [address] [place] [address] * (ABNORMAL) Microscopic Manual (10/27/2023 1:23 PM CDT) Pathologist [facility] Microscopy Abnormal 10/27/2023 3:04 PM CDT DTL RBC <3 <3 /hpf 10/27/2023 3:04 PM CDT DTL WBC 21-30(A) /hpf 10/27/2023 3:04 PM CDT DTL Comment: ----REFERENCE VALUE---- <4 ??(Males) <11 (Females) Bacteria Present(A) 10/27/2023 3:04 PM CDT DTL Urine 10/27/2023 1:23 PM CDT 10/27/2023 2:25 PM CDT us Luis Carlos Card M.D. LAB URINE ORDERABLES Final Res ult Performing Organization Address City/[facility]/ZIP Co de Phone Number [facility] [address] [place], [place] [address] [place] [address] [address] [place] [address] * pH, Urine (10/27/2023 1:23 PM CDT) [facility] pH, U 5.5 4.5 - 8.0 10/27/2023 2:1 3 PM CDT DTL Urine 10/27/2023 1:23 PM CDT 10/27/2023 1:54 PM CDT us Luis Carlos Card M.D. LAB URINE ORDERABLES Final Res ult [facility] [address] [place], [place] [address] [address] [place] [address] * Osmolality, Urine (10/27/2023 1:23 PM CDT) [facility] Osmolality, U 521 150 - 1150 mOsm/kg 10/27/2023 2:13 PM CDT DTL Urine 10/27/2023 1:23 PM CDT 10/27/2023 1:54 PM CDT Luis Carlos Card M.D. LAB URINE ORDERABLES Final Res ult Performing Organization Address [facility] Co de Phone Number [facility] [address] [place] [address], [facility] [address] [place] [address] * (ABNORMAL) Dipstick, Urine (10/27/2023 1:23 PM [...] ORDERABLES Final Res ult Performing Organization Address [facility] Co de Phone Number [facility] [address] [place] [address], [facility] [address] [place] [address] * (ABNORMAL) Urinalysis, with Microscopic: Urine, Catheter [...] M.D. LAB URINE ORDERABLES Final Res ult [facility] [address] [place] [address], [facility] [address] [place] [address] * DX Chest AP or PA and [...] Reflex Biomarker Panel (10/27/2023 11:31 AM CDT) [facility] Troponin T, Baseline, 5th gen 26(H) <=15 ng/L 10/27/2023 11:58 AM CDT [facility] Blood (Blood, Venous) 10/27/2023 11:31 AM CDT 10/27/2023 11:35 AM CDT Luis Carlos Card M.D. LAB BLOOD TROPONIN Final Resul t [facility] [address] [place] [address], [facility] [address] [address] * (ABNORMAL) CBC with Differential, Blood (10/27/2023 11:31 AM CDT) [facility] Hemoglobin 14.5 13.2 - 16.6 g/dL 10/27/2023 11:39 AM CDT [facility] Hematocrit 42.1 38.3 - 48.6 % 10/27/2023 11:39 AM CDT [facility] Erythrocytes 4.71 4.35 - 5.65 x10(12)/L 10/27/2023 11:39 AM CDT [facility] MCV 89.4 78.2 - 97.9 fL 10/27/2023 11:39 AM CDT [facility] RBC Distrib Width 13.1 11.8 - 14.5 % 10/27/2023 11:39 AM CDT [facility] Platelet Count 166 135 - 317 x10(9)/L 10/27/2023 11:39 AM CDT [facility] Leukocytes 12.4(H) 3.4 - 9.6 x10(9)/L 10/27/2023 11:39 AM CDT [facility] Neutrophils 9.52(H) 1.56 - 6.45 x10(9)/L 10/27/2023 11:39 AM CDT [facility] Lymphocytes 1.49 0.95 - 3.07 x10(9)/L 10/27/2023 11:39 AM CDT [facility] Monocytes 1.23(H) 0.26 - 0.81 x10(9)/L 10/27/2023 11:39 AM CDT [facility] Eosinophils 0.07 0.03 - 0.48 x10(9)/L 10/27/2023 11:39 AM CDT [facility] Basophils 0.04 0.01 - 0.08 x10(9)/L 10/27/2023 11:39 AM CDT [facility] Blood (Blood, Venous) 10/27/2023 11:31 AM CDT 10/27/2023 11:35 AM CDT Luis Carlos Card M.D. LAB BLOOD ADD-ON Final Result Performing Organization Address City/[facility] Co de Phone Number [facility] [address] [place] [address], [facility] STMA [facility] [address] [place] [address] [facility] [place] [address] [place] [address] * Glucose, POCT (10/27/2023 11:31 AM CDT) [facility] Glucose, POCT, B 105 70 - 140 mg/dL 10/27/2023 11:34 AM CDT PCLX Site Venstick 10/27/2023 11:34 AM CDT PCLX Blood (Blood, Capillary) 10/27/2023 11:31 AM CDT 10/27/2023 11:31 AM CDT us Luis Carlos Card M.D. LAB POCT ORDERABLES-MANUAL Fin al Result Performing Organization Address City/[facility]/ZIP Co de Phone Number [facility] [address] [place] [address], [facility] PCLX [facility] [address] [place] [address] * (ABNORMAL) Basic Metabolic Panel (10/27/2023 11:31 AM CDT) [facility] Potassium, P 3.8 3.6 - 5.2 mmol/L 10/27/2023 11:55 AM CDT [facility] Sodium, P 139 135 - 145 mmol/L 10/27/2023 11:55 AM CDT [facility] Chloride, P 103 98 - 107 mmol/L 10/27/2023 11:55 AM CDT STMA Bicarbonate, P 25 22 - 29 mmol/L 10/27/2023 11:55 AM CDT STMA Anion Gap, P 11 7 - 15 10/27/2023 11:55 AM CDT STMA BUN (Blood Urea Nitrogen), P 21 8 - 24 mg/dL 10/27/2023 11:55 AM CDT STMA Creatinine 1.25 0.74 - 1.35 mg/dL 10/27/2023 11:55 AM CDT STMA Estimated GFR (eGFR) 59(L) >=60 mL/min/BSA 10/27/2023 11:55 AM CDT STMA Comment: Estimated GFR calculated using the 2020 CKD_EPI creatinine equation. Calcium, Total, P 9.6 8.8 - 10.2 mg/dL 10/27/2023 11:55 AM CDT STMA Glucose, P 111 70 - 140 mg/dL 10/27/2023 11:55 AM CDT STMA Blood (Blood, Venous) 10/27/2023 11:31 AM CDT 10/27/2023 11:35 AM CDT us Luis aCrlos Card M.D. LAB BLOOD ADD-ON Final Result [facility] [address] [place] [address], [facility] [address] [place] [address] * ECG 12 Lead (10/27/2023 11:23 AM CDT) Ventricular Rate ECG/Min 88 BPM MUSE MS Interval 304 ms MUSE QRSD Interval 102 ms MUSE QT Interval 370 ms MUSE QTC Interval 447 ms MUSE P [place] 44 degrees MUSE R [place] -66 degrees MUSE T Wave [place] 67 degrees MUSE 10/27/2023 11:2 3 AM [...] M.D. ECG ORDERABLES Final Result MUSE NA documented in this encounter Visit Diagnoses Diagnosis Frailty Age Related Physical Debility- Primary Urinary Tract Infection Site Not Specified Weakness General Decline Functional Status [R53.81] Frailty Age Related Physical Debility [R54] Chronic Kidney Disease (CKD), Stage 3 Unspecified (HCC) Sarcopenia Obesity Body Mass Index 30-39.9 Adult documented in this encounter Admitting Diagnoses Diagnosis Urinary Tract Infection Site Not Specified Weakness General documented in this encounter Administered Medications Inactive Administered Medications - up to 3 most recent administrations Medication Order MAR Action Action Date Dose Rate Site acetaminophen tablet 1,000 mg (TylenoL) 1,000 mg, oral, Every 6 hours PRN, mild pain or score 1-3 of 10, moderate pain or score 4-6 of 10, Starting on Tue10/27/23 at 1834 Given 10/30/2023 9:03 PM CDT 1,000 mg Given 10/28/2023 9:58 PM CDT 1,000 mg amLODIPine tablet 5 mg (Norvasc) 5 mg, oral, Daily, First dose on Tue10/27/23 at 1900 Given 10/31/2023 8:45 AM CDT 5 mg Given 10/30/2023 9:15 AM CDT 5 mg Given 10/29/2023 8:30 AM CDT 5 mg aspirin chewable tablet 81 mg 81 mg, oral, Daily, First dose on Tue10/28/23 at 0900 Given 10/31/2023 8:45 AM CDT 81 mg Given 10/30/2023 9:15 AM CDT 81 mg Given 10/29/2023 8:30 AM CDT 81 mg calcium carbonate chewable tablet 400 mg of calcium (Tums) 400 mg of calcium, oral, Every 2 hour PRN, heartburn, indigestion, Starting on Faye 10/27/23 at 1816, Doses listed are in mg of elemental calcium. Take with food. 500 mg calcium carbonate contains 200 mg of elemental calcium. cefTRIAXone in dextrose (iso osm) IVPB 2 g (Rocephin) 2 g, intravenous, at 200 mL/hr, Administer over 15 Minutes, Every 24 hours, First dose (after last modification) on Tue10/28/23 at 1000, Drug Monitoring Program: Pharmacist to adjust medication dosing based on indication and drug clearance factors., Indications: Lower UTI, Non-CatheterIndications:Lower UTI, Non-Catheter New Bag 10/28/2023 9:29 AM CDT 2 g 200 mL/hr cefTRIAXone injection 1 g (Rocephin) 1 g, intravenous, Once, On Tue10/27/23 at 1509, For 1 dose, [place]minster IV push over 3 minutes., Drug Monitoring Program: Pharmacist to adjust medication dosing based on indication and drug clearance factors., Indications: Lower UTI, Non-CatheterIndications:Lower UTI, Non-Catheter Given 10/27/2023 3:15 PM CDT 1 g cyanocobalamin tablet 1,000 mcg (Vitamin B-12) 1,000 mcg, oral, Daily, First dose on Tue10/28/23 at 0900 Given 10/31/2023 8:45 AM CDT 1,000 mcg Given 10/30/2023 9:15 AM CDT 1,000 mcg Given 10/29/2023 8:30 AM CDT 1,000 mcg enoxaparin injection 40 mg (Lovenox) 40 mg, subcutaneous, Every 24 hours scheduled, First dose on Tue10/27/23 at 1845 Given 10/31/2023 8:45 AM CDT 40 mg Right Upper Arm (Lorena k) Given 10/30/2023 9:14 AM CDT 40 mg Ri ght Lower Abdomen Given 10/29/2023 8:29 AM CDT 40 mg Le ft Upper Arm (Back) FLUoxetine capsule 40 mg (PROzac) 40 mg, oral, Daily, First dose on Tue10/28/23 at 0900, FLUoxetine orderable was interchanged for FLUoxetine tablet/capsule Given 10/31/2023 8:45 AM CDT 40 mg Given 10/30/2023 9:15 AM CDT 40 mg Given 10/29/2023 8:30 AM CDT 40 mg fluticasone furoate 100 mcg/actuation inhaler 1 puff (Arnuity Ellipta) 1 puff, inhalation, Daily, First dose on Tue10/28/23 at 0900, Rinse mouth with water after use to reduce aftertaste and incidence of candidiasis. Do not swallow. 1. Hold device upright in right hand with rough edge. 2. Using left hand open lid (toward left) until click is heard. 3. Tilt inhaler flat so air entrainment vents & counter face up. 4. Inhale to full breath somewhat fast. 5. Hold breath up to 10 seconds. 6. Remove inhaler from mouth. 7. Close lid. Given 10/31/2023 8:44 AM CDT 1 puff Given 10/30/2023 9:23 AM CDT 1 puff Given 10/29/2023 8:30 AM CDT 1 puff insulin aspart U-100 injection 0-13 Units (NovoLOG FlexPen) 0-13 Units, subcutaneous, 3 times daily, First dose on Tue10/28/23 at 0800, Insulin Scale: Moderate Correction Scale, 140 - 179: 2 units, 180 - 219: 4 units, 220 - 259: 6 units, 260 - 299: 8 units, 300 - 339: 10 units, 340 - 379: 12 units, 380 - 399: 13 units, Greater than 399: Call service writing Insulin orders Given 10/31/2023 11:53 AM CDT 2 Units Right Lower Abdomen Given 10/30/2023 11:57 AM CDT 2 Units L eft Lower Abdomen Given 10/29/2023 5:38 PM CDT 4 Units Ri ght Outer Thigh insulin aspart U-100 injection 0-7 Units (NovoLOG FlexPen) 0-7 Units, subcutaneous, Daily at bedtime, First dose on Tue10/27/23 at 2100, Insulin Scale: Modified Bedtime Correction Scale, 220-259: 3 units, 260-299: 4 units, 300-339: 5 units, 340-379: 6 units, 380-399: 7 units, Greater than 399: Call service writing insulin orders losartan tablet 50 mg (Cozaar) 50 mg, oral, Daily, First dose on Tue10/27/23 at 1900 Given 10/31/2023 8:45 AM CDT 50 mg Given 10/30/2023 9:15 AM CDT 50 mg Given 10/29/2023 8:30 AM CDT 50 mg metoprolol succinate 24 hr tablet 12.5 mg (Toprol XL) 12.5 mg, oral, Daily, First dose on Tue10/28/23 at 0900, Do NOT crush or chew. Given 10/31/2023 8:45 AM CDT 12.5 mg Given 10/30/2023 9:15 AM CDT 12.5 mg Given 10/29/2023 8:30 AM CDT 12.5 mg huqsbvogotfq-kkqo-YR-Ca-minerals 400 mcg (folic acid) tablet 1 tablet 1 tablet, oral, Daily, First dose on Tue10/28/23 at 0900 Given 10/31/2023 8:45 AM CDT 1 tablet Given 10/30/2023 9:15 AM CDT 1 tablet Given 10/29/2023 8:30 AM CDT 1 tablet ondansetron ODT disintegrating tablet 4 mg (Zofran-ODT) 4 mg, oral, Every 6 hours PRN, nausea, vomiting, Starting on Tue10/27/23 at 1816, When splitting ODT at bedside, handle with gloves and a pill splitter to prevent moisture contact. pantoprazole DR tablet 40 mg (Protonix) 40 mg, oral, Daily, First dose on Tue10/28/23 at 0900, Swallow whole. Do NOT crush, chew, or split tablet. Given 10/31/2023 8:45 AM CDT 40 mg Given 10/30/2023 9:15 AM CDT 40 mg Given 10/29/2023 8:30 AM CDT 40 mg polyethylene glycol powder packet 17 g (Miralax) 17 g, oral, Daily PRN, constipation, Starting on Tue10/27/23 at 1816, Ordered sequence of administration: polyethylene glycol, then bisacodyl until BM achieved. Avoid mixing with starch-based thickened liquids. rosuvastatin tablet 10 mg (Crestor) 10 mg, oral, Daily, First dose on Tue10/28/23 at 0900 Given 10/31/2023 8:45 AM CDT 10 mg Given 10/30/2023 9:15 AM CDT 10 mg Given 10/29/2023 8:30 AM CDT 10 mg sennosides-docusate sodium 8.6-50 mg per tablet 1 tablet (Senokot-S) 1 tablet, oral, 2 times daily, First dose on Faye 10/27/23 at 2100, Do not give if patient has diarrhea. Given 10/31/2023 8:45 AM CDT 1 tablet Given 10/30/2023 9:01 PM CDT 1 tablet Given 10/30/2023 9:15 AM CDT 1 tablet sodium chloride 0.9 % injection 10 mL 10 mL, intravenous, As needed, line care, Starting on Faye 10/27/23 at 1113, Peripheral Intravenous Catheter and Rapid Infusion Catheter, prior to blood sampling, post blood transfusion or post blood sampling sodium chloride 0.9 % injection 3 mL 3 mL, intravenous, As needed, line care, Starting on Faye 10/27/23 at 1113, Prior to and following infusion and between multiple consecutive infusions: sodium chloride 0.9 % injection sodium chloride 0.9 % injection 3 mL 3 mL, intravenous, Every 12 hours scheduled, First dose on Faye 10/27/23 at 2100, Peripheral Intravenous Catheter and Rapid Infusion Catheter, when no infusion to maintain patency Given 10/31/2023 8: 46 AM CDT 3 mL Given 10/30/2023 9:01 PM CDT 3 mL Given 10/30/2023 9:15 AM CDT 3 mL documented in this encounter Active and Recently Administered Medications Times are shown in CDT. Scheduled Medication Order 10/29/2023 10/30/2023 10/31/2023 amLODIPine tablet 5 mg (Norvasc) 5 mg, oral, Daily, First dose on Tue10/27/23 at 1900 0830 (Given - Provider: Bruce Ross R.N.) 0915 (Given - Provider: Nikki Escobedo R.N.) 0845 (Given - Provider: Gala Chan RAurelioN.) aspirin chewable tablet 81 mg 81 mg, oral, Daily, First dose on Tue10/28/23 at 0900 0830 (Given - Provider: Bruce Ross R.N.) 0915 (Given - Provider: Nikki Escobedo R.N.) 0845 (Given - Provider: Gala Chan R.N.) cyanocobalamin tablet 1,000 mcg (Vitamin B-12) 1,000 mcg, oral, Daily, First dose on Tue10/28/23 at 0900 0830 (Given - Provider: Bruce Ross R.N.) 0915 (Given - Provider: Nikki Escobedo R.N.) 0845 (Given - Provider: Gala Chan R.N.) enoxaparin injection 40 mg (Lovenox) 40 mg, subcutaneous, Every 24 hours scheduled, First dose on Faye 10/27/23 at 1845 0829 (Given - Provider: Bruce Ross R.N.) 0914 (Given - Provider: Nikki Escobdeo R.N.) 0845 (Given - Provider: Gala Chan R.N.) FLUoxetine capsule 40 mg (PROzac) 40 mg, oral, Daily, First dose on Tue10/28/23 at 0900, FLUoxetine orderable was interchanged for FLUoxetine tablet/capsule 0830 (Given - Provider: Bruce Ross R.N.) 0915 (Given - Provider: Nikki Escobedo R.N.) 0845 (Given - Provider: Gala Chan R.N.) fluticasone furoate 100 mcg/actuation inhaler 1 puff (Arnuity Ellipta) 1 puff, inhalation, Daily, First dose on Tue10/28/23 at 0900, Rinse mouth with water after use to reduce aftertaste and incidence of candidiasis. Do not swallow. 1. Hold device upright in right hand with rough edge. 2. Using left hand open lid (toward left) until click is heard. 3. Tilt inhaler flat so air entrainment vents & counter face up. 4. Inhale to full breath somewhat fast. 5. Hold breath up to 10 seconds. 6. Remove inhaler from mouth. 7. Close lid. 0830 (Given - Provider: Bruce Ross R.N.) 0923 (Given - Provider: Nikki Escobedo R.N.) 0844 (Given - Provider: Gala Chan R.N.) insulin aspart U-100 injection 0-13 Units (NovoLOG FlexPen) 0-13 Units, subcutaneous, 3 times daily, First dose on Tue10/28/23 at 0800, Insulin Scale: Moderate Correction Scale, 140 - 179: 2 units, 180 - 219: 4 units, 220 - 259: 6 units, 260 - 299: 8 units, 300 - 339: 10 units, 340 - 379: 12 units, 380 - 399: 13 units, Greater than 399: Call service writing Insulin orders 0833 (Given - Provider: Bruce Ross RJ Carlos.)1207 (Given - Provider: Bruce Ross R.N.)1738 (Given - Provider: Myah Cage R.N. - Comment: BG 181) 0906 (Not Given - Provider: Nikki Escobedo R.N. - Reason: Order parameters not met)1157 (Given - Provider: Bruce Ross R.N.)1926 (Not Given - Provider: Nickie Irving R.NAurelio - Reason: Other - Comment: pt refused dinner. blood sugar will be checked with bedtime [facility]) 0824 (Not Given - Provider: Brionna Palacios RAurelioNAurelio - Reason: Order parameters not met)1153 (Given - Provider: Gala Chan R.N. - Comment: 163) insulin aspart U-100 injection 0-7 Units (NovoLOG FlexPen) 0-7 Units, subcutaneous, Daily at bedtime, First dose on Tue10/27/23 at 2100, Insulin Scale: Modified Bedtime Correction Scale, 220-259: 3 units, 260-299: 4 units, 300-339: 5 units, 340-379: 6 units, 380-399: 7 units, Greater than 399: Call service writing insulin orders 2133 (Not Given - Provider: Koby Cabral R.N. - Reason: Order parameters not met - Comment: BG 111) 2100 (Not Given - Provider: Susu Almaraz - Reason: Order parameters not met - Comment: BG `129) losartan tablet 50 mg (Cozaar) 50 mg, oral, Daily, First dose on Tue10/27/23 at 1900 0830 (Given - Provider: Bruce Ross R.N.) 0915 (Given - Provider: Nikki Escobedo R.N.) 0845 (Given - Provider: Gala Chan R.N.) metFORMIN tablet 1,000 mg (Glucophage) 1,000 mg, oral, 2 times daily, First dose on Tue10/27/23 at 2100, On hold since Tue10/27/2023 at 1831 until manually unheld 0900 (Not Given - Provider: Odette Mcdonald R.N. - Reason: See Provider Order)2100 (Not Given - Provider: Odette Mcdonald R.N. - Reason: See Provider Order) 0900 (Not Given - Provider: Nikki Escobedo R.N. - Reason: See Provider Order)2100 (Not Given - Provider: iNckie Irving R.N. - Reason: See Provider Order) 0900 (Not Given - Provider: Gala Chan R.N. - Reason: See Provider Order)1549 (Unheld by provider - Provider: Discharge Provider, Automatic) metoprolol succinate 24 hr tablet 12.5 mg (Toprol XL) 12.5 mg, oral, Daily, First dose on Tue10/28/23 at 0900, Do NOT crush or chew. 0830 (Given - Provider: Bruce Ross R.N.) 0915 (Given - Provider: Nikki Escobedo R.N.) 0845 (Given - Provider: Gala Chan R.N.) yaprzfsrpxap-skuk-ML-Ca -minerals 400 mcg (folic acid) tablet 1 tablet 1 tablet, oral, Daily, First dose on Tue10/28/23 at 0900 0830 (Given - Provider: Bruce Ross R.N.) 0915 (Given - Provider: Nikki Escobedo R.N.) 0845 (Given - Provider: Gala Chan R.N.) pantoprazole DR tablet 40 mg (Protonix) 40 mg, oral, Daily, First dose on Tue10/28/23 at 0900, Swallow whole. Do NOT crush, chew, or split tablet. 0830 (Given - Provider: Bruce Ross R.N.) 0915 (Given - Provider: Nikki Escobedo R.N.) 0845 (Given - Provider: Gala Chan R.N.) rosuvastatin tablet 10 mg (Crestor) 10 mg, oral, Daily, First dose on Tue10/28/23 at 0900 0830 (Given - Provider: Bruce Ross R.N.) 0915 (Given - Provider: Nikki Escobedo R.N.) 0845 (Given - Provider: Gala Chan R.N.) sennosides-docusate sodium 8.6-50 mg per tablet 1 tablet (Senokot-S) 1 tablet, oral, 2 times daily, First dose on Faye 10/27/23 at 2100, Do not give if patient has diarrhea. 0830 (Given - Provider: Bruce Ross R.N.)2135 (Given - Provider: Koby Cabral R.N.) 0915 (Given - Provider: Nikki Escobedo R.N.)2100 (Given - Provider: Susu Almaraz) 0845 (Given - Provider: Gala Chan R.N.) sodium chloride 0.9 % injection 3 mL 3 mL, intravenous, Every 12 hours scheduled, First dose on Faye 10/27/23 at 2100, Peripheral Intravenous Catheter and Rapid Infusion Catheter, when no infusion to maintain patency 0833 (Given - Provider: Bruce Ross R.N.)2136 (Given - Provider: Koby Cabral R.N.) 0915 (Given - Provider: Nikki Escobedo R.N.)2100 (Given - Provider: Susu Almaraz) 0846 (Given - Provider: Gala Chan R.N.) PRN Medication Order 10/29/2023 10/30/2023 10/31/2023 acetaminophen tablet 1,000 mg (TylenoL) 1,000 mg, oral, Every 6 hours PRN, mild pain or score 1-3 of 10, moderate pain or score 4-6 of 10, Starting on Faye 10/27/23 at 1834 2103 (Given - Provider: Susu Almaraz) albuterol nebulizer solution 2.5 mg 2.5 mg, nebulization, Every 4 hours PRN, shortness of breath, wheezing, Starting on Tue10/27/23 at 1826, Albuterol nebs were interchanged for albuterol/levalbuterol MDI (same frequency) calcium carbonate chewable tablet 400 mg of calcium (Tums) 400 mg of calcium, oral, Every 2 hour PRN, heartburn, indigestion, Starting on Tue10/27/23 at 1816, Doses listed are in mg of elemental calcium. Take with food. 500 mg calcium carbonate contains 200 mg of elemental calcium. ondansetron ODT disintegrating tablet 4 mg (Zofran-ODT) 4 mg, oral, Every 6 hours PRN, nausea, vomiting, Starting on Tue10/27/23 at 1816, When splitting ODT at bedside, handle with gloves and a pill splitter to prevent moisture contact. polyethylene glycol powder packet 17 g (Miralax) 17 g, oral, Daily PRN, constipation, Starting on Tue10/27/23 at 1816, Ordered sequence of administration: polyethylene glycol, then bisacodyl until BM achieved. Avoid mixing with starch-based thickened liquids. sodium chloride 0.9 % injection 10 mL 10 mL, intravenous, As needed, line care, Starting on Tue10/27/23 at 1113, Peripheral Intravenous Catheter and Rapid Infusion Catheter, prior to blood sampling, post blood transfusion or post blood sampling sodium chloride 0.9 % injection 3 mL 3 mL, intravenous, As needed, line care, Starting on Tue10/27/23 at 1113, Prior to and following infusion and between multiple consecutive infusions: sodium chloride 0.9 % injection documented in this encounter Additional Health Concerns Infection Onset Date Last Indicated Resolved Time COVID19 Pending 10/28/2023 10/28/2023 10/28/2023 9 :59 AM CDT Assessment Noted Time PHQ-9 Depression Total Score: 1 06/13/19 24 10:38 AM CDT documented as of this encounter Care Teams Logistics Administrator Relationship Specialty Start Date End Date Nisreen Preciado APRN, C.N.P. [address] [place] [phone] PCP - General Family Medicine 10/31/23 11/30/23 documented as of this encounter
--- OUTSIDE RECORDS SUMMARY | 2023-12-13 06:16 | XMS_ITS | Encounter Summary ---
Author Organization [facility] Address [address] [place] [id number] Care Team Providers Care Painter Helper Sign Name Role Phone Dalia Dill M.D. Primary Care Provider [phone] Encounter Details Date Type Department Care Team (Late st Contact Info) Description 09/01/2023 CPAP Download Remote Patient Monitoring [facility] [address] [place] [address] [facility], Provider, Social History Tobacco Use Types Packs/Day Years Used Date Smoking Tobacco: Former Cigarettes 1 35 0 02/07/1962 - 02/07/1997 Smokeless Tobacco: Never Quit: 05/23/1999 Alcohol Use Standard Drinks/Week Comments Yes 2 (1 standard drink = 0.6 oz pur e alcohol) [facility] Utilities Answer Date Recorded In the past 12 months has [facility] [employer], gas, oil, or water [employer] threatened to shut off services in your home? No 05/21/2023 Humiliation, Afraid, Rape, and Kick questionnair e Answer Date Recorded Within the last year, have y ou been afraid of your partner or ex-partner? No 04/30/2023 Within the last year, have y ou been humiliated or emotionally abused in other ways by your partner or ex-partner? No Within the last year, have y ou been kicked, hit, slapped, or otherwise physically hurt by your partner or ex-partner? No 04/30/2023 Within the last year, have y ou been raped or forced to have any kind of sexual activity by your partner or ex-partner? No 04/30/2023 Social Connection and Isolation Panel [NHANES] A [...] any clubs o r organizations such as uatsdin groups, unions, fraternal or athletic groups, or [...] Answer Date Recorded PHQ-2 Score 0 06/13/2023 [facility] of Occupat ional Health - Occupational Stress [...] the money to buy more. Never true 05/21/19 24 Within the past 12 months, t he food you bought just didn't last and you didn't have money to get more. Never true 05/21/2023 PRAPARE - Transportation Answer Date Re corded In the past 12 months, has l ack of transportation kept you from medical appointments or from getting medications? No 05/08 In the past 12 months, has l ack of transportation kept you from meetings, work, or from getting things needed for daily living? No 05/21/2023 Depression Answer Date Recor ded PHQ-9 Total [...] your living situation today? [facility] 05/21/2023 Education Answer Date Recorded What is the highest level of school you have completed or the highest degree you have received? 12th grade 03/14/2019 Sex and Gender Information Value Date Recorded Sex Assigned at Male 08/23/2017 10:02 AM CDT Legal Sex Male 7:12 PM STRATEGY LEAD Gender Identity Male 08/23/2017 10:02 AM CDT Sexual Orientation Straight 08/23/2017 10 :02 AM CDT documented as of this encounter Plan of Treatment Upcoming Encounters Date Type Department Care Team (Late st Contact Info) Description 12/14/2023 10:30 AM STRATEGY LEAD Appointment Department of Laboratory Medicine and Pathology, [facility], in [address] [place] [phone] Dalia Dill M.D. [address] [place] [address] 12/14/2023 11:00 AM STRATEGY LEAD Office Visit Department of Family Medicine, [address] [place] [address] [place] [phone] Dalia Dill M.D. [address] [place] [address] 12/19/2023 2:00 PM STRATEGY LEAD Comprehensive Visit Division of Community Internal Medicine, [facility], in [place], [place] [address] [place] [address] Kiran Hugo M.D. [address] [place] [phone] documented as of this encounter Visit Diagnoses Not on filedocumented in this encounter Additional Health Concerns Assessment Noted Time PHQ-9 Depression Total Score: 1 06/13/19 24 10:38 AM CDT documented as of this encounter Care Teams Painter Helper Sign Relationship Specialty Start Date End Date Dalia Dill M.D. [address] [place] [phone] PCP - General Family Medicine 12/08/11 10/30/23 documented as of this encounter
--- OUTSIDE RECORDS SUMMARY | 2023-12-13 06:16 | XMS_ITS | Encounter Summary ---
Author Organization [facility] Address [address] [place] [address] Care Team Providers Care Supervisor Phosphatic Fertilizer Name Role Phone Nisreen Preciado APRN, C.N.P. Primary Care [facility] Encounter Details Date Type Department Care Team (Late st Contact Info) Description 10/20/2023 Clinical Communication Department of Family Medicine, [address] [place] [address] [place] [address] Dalia Dill M.D. [address] [place] [phone] Social History Tobacco Use Types Packs/Day Years Used Date Smoking Tobacco: Former Cigarettes 1 35 0 02/07/1962 - 02/07/1997 Smokeless Tobacco: Never Quit: 05/23/1999 Alcohol Use Standard Drinks/Week Comments Yes 2 (1 standard drink = 0.6 oz pur e alcohol) [facility] Utilities Answer Date Recorded In [...] How often do you attend chur or spiritism services? 1 to 4 times per year [...] Answer Date Recorded PHQ-2 Score 0 06/13/2023 [facility] [place] of Occupat ional Health - Occupational Stress [...] your living situation today? I have a [facility] place to live 10/27/2023 Education Answer Date Recorded What is the highest level of school you have completed or the highest degree you have received? 12th grade 03/14/2019 Sex and Gender Information Value Date Recorded Sex Assigned at Male 08/23/2017 10:02 AM CDT Legal Sex Male 7:12 PM SUPERINTENDENT CONSTRUCTION Gender Identity Male 08/23/2017 10:02 AM CDT Sexual Orientation Straight 08/23/2017 10 :02 AM CDT documented as of this encounter Plan of Treatment Upcoming Encounters Date Type Department Care Team (Late st Contact Info) Description 12/14/2023 10:30 AM SUPERINTENDENT CONSTRUCTION Appointment Department of Laboratory Medicine and Pathology, [facility], in [place], [place] [address] [place] [address] [place] [address] Dalia Dill M.D. [address] [place] [address] 12/14/2023 11:00 AM SUPERINTENDENT CONSTRUCTION Office Visit Department of Family Medicine, [address] [place] [address] Dalia Dill M.D. [address] [place] [address] 12/19/2023 2:00 PM SUPERINTENDENT CONSTRUCTION Comprehensive Visit Division of Community Internal Medicine, [facility], in [place], [place] [address] [place] [address] Kiran Hugo M.D. [address] [place] [address] Scheduled Orders Name Type Priority Associated Diagnoses Orde r Schedule Hemoglobin A1c Lab Routine Chronic Kidney Disease (CKD), Stage 3a Glomerular Filtration Rate (GFR) 45 To 59 (HCC) Diabetes Mellitus Type 2 With Diabetic Chronic Kidney Disease (HCC) Hyperlipidemia Hypertensive Chronic Kidney Disease With Stage 1 Through Stage 4 Chronic Kidney Disease, Or Unspecified Chronic Kidney Disease Thrombocytopenia (HCC) Expected: 12/20/2023, Expires: 01/23/2025 Basic Metabolic Panel Lab Routine Chronic Kidney Disease (CKD), Stage 3a Glomerular Filtration Rate (GFR) 45 To 59 (HCC) Diabetes Mellitus Type 2 With Diabetic Chronic Kidney Disease (HCC) Hyperlipidemia Hypertensive Chronic Kidney Disease With Stage 1 Through Stage 4 Chronic Kidney Disease, Or Unspecified Chronic Kidney Disease Thrombocytopenia (HCC) Expected: 05/15/2024, Expires: 07/21/2026 CBC with Differential, Blood Lab Routine Chronic Kidney Disease (CKD), Stage 3a Glomerular Filtration Rate (GFR) 45 To 59 (HCC) Diabetes Mellitus Type 2 With Diabetic Chronic Kidney Disease (HCC) Hyperlipidemia Hypertensive Chronic Kidney Disease With Stage 1 Through Stage 4 Chronic Kidney Disease, Or Unspecified Chronic Kidney Disease Thrombocytopenia (HCC) Expected: 05/15/2024, Expires: 01/15/2035 Hemoglobin A1c Lab Routine Chronic Kidney Disease (CKD), Stage 3a Glomerular Filtration Rate (GFR) 45 To 59 (HCC) Diabetes Mellitus Type 2 With Diabetic Chronic Kidney Disease (HCC) Hyperlipidemia Hypertensive Chronic Kidney Disease With Stage 1 Through Stage 4 Chronic Kidney Disease, Or Unspecified Chronic Kidney Disease Thrombocytopenia (HCC) Expected: 05/15/2024, Expires: 07/21/2026 Lipid Panel Lab Routine Chronic Kidney Disease (CKD), Stage 3a Glomerular Filtration Rate (GFR) 45 To 59 (HCC) Diabetes Mellitus Type 2 With Diabetic Chronic Kidney Disease (HCC) Hyperlipidemia Hypertensive Chronic Kidney Disease With Stage 1 Through Stage 4 Chronic Kidney Disease, Or Unspecified Chronic Kidney Disease Thrombocytopenia (HCC) Expected: 05/15/2024 (Approximate), Expires: 10/24/2024 Glucose, Fasting Lab Routine Chronic Kidney Disease (CKD), Stage 3a Glomerular Filtration Rate (GFR) 45 To 59 (HCC) Diabetes Mellitus Type 2 With Diabetic Chronic Kidney Disease (HCC) Hyperlipidemia Hypertensive Chronic Kidney Disease With Stage 1 Through Stage 4 Chronic Kidney Disease, Or Unspecified Chronic Kidney Disease Thrombocytopenia (HCC) Expected: 05/15/2024, Expires: 10/24/2024 Vitamin B12 Assay Lab Routine Chronic Kidney Disease (CKD), Stage 3a Glomerular Filtration Rate (GFR) 45 To 59 (HCC) Diabetes Mellitus Type 2 With Diabetic Chronic Kidney Disease (HCC) Hyperlipidemia Hypertensive Chronic Kidney Disease With Stage 1 Through Stage 4 Chronic Kidney Disease, Or Unspecified Chronic Kidney Disease Thrombocytopenia (HCC) Expected: 05/15/2024, Expires: 01/23/2025 documented as of this encounter Visit Diagnoses Diagnosis Chronic Kidney Disease (CKD), Stage 3a Glomerular Filtration Rate (GFR) 45 To 59 (HCC)- Primary Diabetes Mellitus Type 2 With Diabetic Chronic Kidney Disease (HCC) Hyperlipidemia Hypertensive Chronic Kidney Disease With Stage 1 Through Stage 4 Chronic Kidney Disease, Or Unspecified Chronic Kidney Disease Thrombocytopenia (HCC) documented in this encounter Additional Health Concerns Infection Onset Date Last Indicated Resolved Time COVID19 Pending 10/28/2023 10/28/2023 10/28/2023 9 :59 AM CDT Assessment Noted Time PHQ-9 Depression Total Score: 1 06/13/19 24 10:38 AM CDT documented as of this encounter Care Teams Supervisor Phosphatic Fertilizer Relationship Specialty Start Date End Date Nisreen Preciado APRN, C.N.P. [address] [place] [phone] PCP - General Family Medicine 10/31/23 11/30/23 documented as of this encounter
--- OUTSIDE RECORDS SUMMARY | 2023-12-13 06:16 | XMS_ITS | Encounter Summary ---
Author Organization [facility] Address [address] [place] [address] Care Team Providers Care Plate Glass Installer Helper Name Role Phone Dalia Dill M.D. Primary Care Provider [phone] Reason for Visit * Reason Onset Date Comments PandaDoc Form 09/20/2023 Diabetic Standar d Written Order, Helen Encounter Details Date Type Department Care Team (Latest Contact Info) Description 09/20/2023 Clinical Communication Department of Family Medicine, [address] [place] [address] [place] [phone] Dalia Dill M.D. [address] [place] [address] PandaDoc Form (Diabetic Standard Written Order, Helen) Social History Tobacco Use Types Packs/Day Years Used Date Smoking Tobacco: Former Cigarettes 1 35 0 02/07/1962 - 02/07/1997 Smokeless Tobacco: Never Quit: 05/23/1999 Alcohol Use Standard Drinks/Week Comments Yes 2 (1 standard drink = 0.6 oz pur e alcohol) [facility] Utilities Answer Date Recorded In [...] How often do you attend chur or christian services? 1 to 4 times per year 04/02/2022 Do you belong to any clubs o r organizations such as evangelical groups, unions, fraternal or athletic groups, or [...] Answer Date Recorded PHQ-2 Score 0 06/13/2023 [facility] [place] of Occupat ional Health - Occupational Stress [...] your living situation today? I have a [facility] place to live 05/21/2023 Education Answer Date Recorded What is the highest level of school you have completed or the highest degree you have received? 12th grade 03/14/2019 Sex and Gender Information Value Date Recorded Sex Assigned at Male 08/23/2017 10:02 AM CDT Legal Sex Male 7:12 PM DINKEY ENGINE MECHANIC Gender Identity Male 08/23/2017 10:02 AM CDT Sexual Orientation Straight 08/23/2017 10 :02 AM CDT documented as of this encounter Plan of Treatment Upcoming Encounters Date Type Department Care Team (Late st Contact Info) Description 12/14/2023 10:30 AM DINKEY ENGINE MECHANIC Appointment Department of Laboratory Medicine and Pathology, [facility], in [address] [place] [address] Dalia Dill M.D. [address] [place] [phone] 12/14/2023 11:00 AM DINKEY ENGINE MECHANIC Office Visit Department of Family Medicine, [facility], [address] [place] [address] in [place], [place] [address] [facility] [place] [address] Dalia Dill M.D. [address] [place] [phone] 12/19/2023 2:00 PM DINKEY ENGINE MECHANIC Comprehensive Visit Division of Community Internal Medicine, [facility], in [place], [place] [address] [place] [phone] Kiran Hugo M.D. [address] [place] [phone] documented as of this encounter Visit Diagnoses Not on filedocumented in this encounter Additional Health Concerns Assessment Noted Time PHQ-9 Depression Total Score: 1 06/13/19 24 10:38 AM CDT documented as of this encounter Care Teams Plate Glass Installer Helper Relationship Specialty Start Date End Date Dalia Dill M.D. [address] [place] [phone] PCP - General Family Medicine 12/08/11 10/30/23 documented as of this encounter
--- OUTSIDE RECORDS SUMMARY | 2023-12-13 06:16 | XMS_ITS | Encounter Summary ---
Author Organization [facility] Address [address] [place] [address] Care Team Providers Care Digital Analyst Name Role Phone Dalia Dill M.D. Primary Care Provider [phone] Encounter Details Date Type Department Care Team (Late st Contact Info) Description 09/20/2023 Orders Only RST PCP [facility] Dalia Dill M.D. [address] [place] [address] Diabetes Mellitus Type 2 Peripheral Neuropathy (HCC) Social History Tobacco Use Types Packs/Day Years Used Date Smoking Tobacco: Former Cigarettes 1 35 0 02/07/1962 - 02/07/1997 Smokeless Tobacco: Never Quit: 05/23/1999 Alcohol Use Standard Drinks/Week Comments Yes 2 (1 standard drink = 0.6 oz pur e alcohol) [facility] Utilities Answer Date Recorded In the past 12 months has e [employer], gas, oil, or water [employer] threatened to shut off services in your [...] How often do you attend chur or mandaen services? 1 to 4 times per year [...] Answer Date Recorded PHQ-2 Score 0 06/13/2023 [facility] [place] of Occupat ional Health - Occupational Stress [...] your living situation today? I have a [facility] place to live 05/21/2023 Education Answer Date Recorded What is the highest level of school you have completed or the highest degree you have received? 12th grade 03/14/2019 Sex and Gender Information Value Date Recorded Sex Assigned at Male 08/23/2017 10:02 AM CDT Legal Sex Male 7:12 PM PLASTIC SEWER Gender Identity Male 08/23/2017 10:02 AM CDT Sexual Orientation Straight 08/23/2017 10 :02 AM CDT documented as of this encounter Plan of Treatment Upcoming Encounters Date Type Department Care Team (Late st Contact Info) Description 12/14/2023 10:30 AM PLASTIC SEWER Appointment Department of Laboratory Medicine and Pathology, [facility], in [place], [place] [address] [place] [address] [place] [phone] Dalia Dill M.D. [address] [place] [address] 12/14/2023 11:00 AM PLASTIC SEWER Office Visit Department of Family Medicine, [facility], [facility] in [place], [place] [address] [place] [phone] Dalia Dill M.D. [address] [place] [address] 12/19/2023 2:00 PM PLASTIC SEWER Comprehensive Visit Division of Community Internal Medicine, [facility], in [place], [place] [address] [place] [address] Kiran Hugo M.D. [address] [place] [phone] documented as of this encounter Results * (ABNORMAL) Albumin, Random, Urine (09/23/2023 9:24 AM CDT) Microalbumin 78.9 mg/L 09/23/2023 9:38 AM CDT CNFL Creatinine 132 mg/dL 09/23/2023 9:38 AM CDT [facility]FL Albumin/Creatinin e Ratio 60(H) <17 mg/g 09/23/2023 9:38 AM CDT [facility]FL Urine (Urine, Midstream) 09/23/2023 9:24 AM CDT 09/23/2023 9:24 AM CDT Dalia Dill M.D. LAB URINE ORDERABLES Kelsi walters Result Performing Organization Address City/State/[facility] Co de Phone Number [facility] [address] [place] [id number], [facility] in [address] [address] documented in this encounter Visit Diagnoses Diagnosis Diabetes Mellitus Type 2 Peripheral Neuropathy (HCC) documented in this encounter Additional Health Concerns Assessment Noted Time PHQ-9 Depression Total Score: 1 06/13/19 24 10:38 AM CDT documented as of this encounter Care Teams Digital Analyst Relationship Specialty Start Date End Date Dalia Dill M.D. [address] [place] [address] PCP - General Family Medicine 12/08/11 10/30/23 documented as of this encounter
--- OUTSIDE RECORDS SUMMARY | 2023-12-13 06:16 | XMS_ITS | Encounter Summary ---
Author Organization [facility] Address [address] [place] [address] Care Team Providers Care Custody Officer Name Role Phone Nisreen Preciado APRN C.N.P. Primary Care [facility] Encounter Details Date Type Department Care Team (Latest Contact Info) Description 11/01/2023 2:00 PM CDT External Outreach [facility] in [place] [address] [place] [phone] Nisreen Preciado APRN, C.N.P. [address] [place] [phone] Coronary Artery Disease Without Angina Pectoris (Primary [...] (HCC); Depression Major Recurrent Full Remission (HCC) Social History Tobacco Use Types Packs/Day Years Used Date Smoking Tobacco: Former Cigarettes 1 35 0 02/07/1962 - 02/07/1997 Smokeless Tobacco: Never Quit: 05/23/1999 Tobacco Cessation:Counseling Given: Not Answered Alcohol Use Standard Drinks/Week Comments Yes 1 (1 standard drink = 0.6 oz pur e alcohol) [facility] Utilities Answer Date Recorded In [...] How often do you attend chur or faith services? 1 to 4 times per year 04/02/2022 Do you belong to any clubs o r organizations such as sikh groups, unions, fraternal or athletic groups, or [...] Answer Date Recorded PHQ-2 Score 0 06/13/2023 [facility] of Occupat ional Health - Occupational Stress [...] AM CDT Legal Sex Male 7:12 PM ORDER ENTRY Gender Identity Male 08/23/2017 10:02 AM CDT Sexual Orientation Straight 08/23/2017 10 :02 AM CDT documented as of this encounter Last Filed Vital Signs Vital Sign Reading Time Taken Comments Blood Pressure 124/82 11/01/2023 9:14 AM CDT Pulse 62 11/01/2023 9:14 AM CDT Temperature 36.6 ??C (97.8 ??F) 11/01/2023 9:14 AM CD T Respiratory Rate 18 11/01/2023 9:14 AM CDT Oxygen Saturation 96% 11/01/2023 9:14 AM CDT Inhaled Oxygen Concentration - - Weight 96 kg (211 lb 9.6 oz) 11/01/2023 9:14 AM CDT Height - - Body Mass Index 30.12 10/27/2023 6:20 PM CDT documented in this encounter Progress Notes * Nisreen Preciado, BARBARA, C.N.P. - 11/01/2023 2:00 PM CDT CHIEF COMPLAINT / REASON FOR VISIT The resident is being seen at [place], [place] for Post hospitalization Follow up Visit Visit Type: In Person Face-to- Face visit SUBJECTIVE HISTORY OF PRESENT ILLNESS Obtained from Patient, Nursing, and SBAR: Mr. Potts is a 78 y.o. male [...] hospital recommended ongoing rehab. He is from [place]. He is on a consistent carb diabetic diet with regular textures. His vital signs have been stable since admission. He has had multiple falls reported over the last 6 months, patient states this is related to his neuropathy in his legs. He is alert and oriented. He does have decreased range of motion in his right shoulder. He has been dealing with arthritis in his right shoulder for about the last year. He does have some stiffness in his arm. His last BM was yesterday. He has had decreased appetite. I personally reviewed the most recent following items: clinical notes, lab results The following medical problems were actively reviewed (including updating overview sections as necessary) and addressed as part of today's visit: Diagnosis Overview 1. Hypertensive Chronic Kidney Disease With Stage 1 Through Stage 4 Chronic Kidney Disease, Or Unspecified Chronic Kidney Disease June 2023: home machine checked for accuracy and found to be accurate 2. Coronary Artery Disease Without Angina Pectoris - Primary dobutamine stress test 08/16: 1. Small fixed [...] back in follow-up 9. Neuropathy Peripheral 10. Unsteadiness Gait Disorder Non Orthopedic Seen by neuro and neurosurgery 2020: mri of spine done. Neurosurgery felt no severe stenosis and symptoms related to peripheral neuropathy.did not recommend surgery. They recommended pmr for balance and gait training 11. Weakness General 12. History Of Falling 13. Diabetes Mellitus Type 2 Peripheral Neuropathy (HCC) 14. Chronic Kidney Disease (CKD), Stage 3a Glomerular Filtration Rate (GFR) 45 To 59 ([facility]) 15. Diabetes Mellitus Type 2 With Diabetic Chronic Kidney Disease ([facility]) 16. Chronic Obstructive Pulmonary Disease Without Exacerbation ([facility]) 17. Frailty Age Related Physical Debility 18. Obesity Body Mass Index 30-39.9 Adult CODE STATUS: FULL CODE REVIEW OF SYSTEMS Complete review of systems was performed, as allowable by patient's cognitive status, and incorporating collateral history if applicable. Relevant positives are noted elsewhere in this note, otherwise negative. OBJECTIVE Vital signs provided by facility: BP 124/82 Pulse 62 Temp 36.6 ??C Resp 18 Wt 96 kg SpO2 96% BMI 30.12 kg/m?? PHYSICAL EXAM Constitutional General: He is [...] and present management will be continued. #1 Coronary Artery Disease Without Angina Pectoris Overview: dobutamine stress test 08/16: 1. Small fixed [...] does not warrant any intervention Assessment & Plan: Continue aspirin 81 mg daily #2 Hypertensive Chronic Kidney Disease With Stage 1 Through Stage 4 Chronic Kidney Disease, Or Unspecified Chronic Kidney Disease Overview: June 2023: home machine checked for accuracy and found to be accurate Assessment & Plan: Continue amlodipine 5 mg daily Continue losartan 50 mg daily Continue metoprolol 12.5 mg daily #3 Apnea Sleep Obstructive Assessment & Plan: Continue with BiPAP #4 History Of Falling #5 Frailty Age Related Physical Debility #6 Unsteadiness Gait Disorder Non Orthopedic Overview: Seen by neuro and neurosurgery 2019: mri of spine done. Neurosurgery felt no severe stenosis and symptoms related to peripheral neuropathy.did not recommend surgery. They recommended pmr for balance and gait training #7 Weakness General Assessment & Plan: Continue PT and OT #8 Imbalance Non Orthopedic Overview: Seen by neuro 04/02: #1 Multifactorial gait [...] happy to see him back in follow-up #9 Asthma Mild Persistent (HCC) Overview: asthma (positive methacholine challenge) normal PFTs with neg bd 08/23 #10 Chronic Obstructive Pulmonary Disease Without Exacerbation (HCC) Assessment & Plan: Continue Arnuity Ellipta Continue albuterol as needed #11 Neuropathy Peripheral Assessment & Plan: He is not currently on medication for this. 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 Personal History Overview: EGD 07/16: no Valenzuela's, 09/2011- Probable short [...] indications and esophageal biopsy negative/normal Assessment & Plan: Continue pantoprazole 40 mg daily #14 Obesity Body Mass Index 30-39.9 Adult Assessment & Plan: Follow with in house dietitian #15 Chronic Kidney Disease (CKD), Stage 3a Glomerular Filtration Rate (GFR) 45 To 59 (HCC) Assessment & Plan: Avoid nephrotoxins #16 Diabetes Mellitus Type 2 With Diabetic Chronic Kidney Disease (HCC) Assessment & Plan: Continue semaglutide 1 mg every 7 days Continue metformin 100 mg twice day with B12 supplementation #17 Diabetes Mellitus Type 2 Peripheral Neuropathy (HCC) #18 Depression Major Recurrent Full Remission (HCC) Assessment & Plan: Continue fluoxetine Other orders - albuterol 90 mcg/actuation inhaler; Inhale 1 puff every 4 (four) hours as needed for wheezing or shortness of breath. For COPD., Starting Tue11/01/2023, No PrintPlace on file May substitute genericProair, generic Ventolin or generic Proventil as appropriate for patient or insurance preference CBC and BMP in 1 week PATIENT EDUCATION Ready to learn, no apparent learning barriers were identified; learning preferences include listening. Explained diagnosis and treatment plan; patient/child/caregiver expressed understanding of the content. Billing based on: Time, including the following tasks: reviewing the electronic medical record, updating the EPIC Problem List, reviewing written facility- provided information, reviewing information in facility EMR, medication reconciliation, obtaining collateral history from facility staff, Interviewing and examining the patient, placing orders, communicating orders to facility, providing education/counseling to patient, family, and/or facility staff. Total time 50 minutes. * Dalia Peguero L.P.N. - 11/01/2023 2:00 PM CDT Images from the original note were not included. SNF VISIT for New Admission visit New Admission to the facility. Recent Hospital admission: Yes,This resident was recently hospitalized at: [facility] Date of hospitalization: Admission Date: 10/27/2023 Discharge Date: 10/31/2023 Reason for hospitalization: Frailty Age Related Physical Debility Urinary Tract Infection Site Not Specified Patient presented with significant urinary frequency, inability to stand, unable to perform morningADLs, and came to the ED. in the ED he was vitally stable overall, had noticeable generalized weakness. Medication changes: Changed: fluoxetine from twice daily to once daily Code Status:Full Code Active issues needing follow up: Follow Up - Please follow up on patient's strength and mobility - Please follow up on oral intake. - Please follow up blood cultures - Fluoxetine was switched from 40 mg twice daily to once daily. Active wound requiring treatment: No Wounds/L/D/A: None SNF Nurse concerns: unknown Future Appointments 11/01/2023 2:00 PM Nisreen Preciado APRN, C.N.P. [facility] in [place] Nursing Comments: documented in this encounter Miscellaneous Notes * Assessment & Plan Note - Nisreen Preciado APRN, C.N.P. - 11/01/2023 2:30 PM CDTAssociated Problem(s): Depression Major Recurrent Full Remission (HCC) Continue fluoxetine * Assessment & Plan Note - Nisreen Preciado APRN, C.N.P. - 11/01/2023 2:30 PM CDTAssociated Problem(s): Diabetes Mellitus Type 2 With Diabetic Chronic Kidney Disease (HCC) Continue semaglutide 1 mg every 7 days Continue metformin 100 mg twice day with B12 supplementation * Assessment & Plan Note - Nisreen Preciado APRN, C.N.P. - 11/01/2023 2:29 PM CDTAssociated Problem(s): Chronic Kidney Disease (CKD), Stage 3a Glomerular Filtration Rate (GFR) 45 To 59 (HCC) Avoid nephrotoxins * Assessment & Plan Note - Nisreen Preciado APRN, C.N.P. - 11/01/2023 2:29 PM CDTAssociated Problem(s): Obesity Body Mass Index 30-39.9 Adult Follow with in house dietitian * Assessment & Plan Note - Nisreen Preciado APRN, C.N.P. - 11/01/2023 2:28 PM CDTAssociated Problem(s): Valenzuela's Esophagus Personal History Continue pantoprazole 40 mg daily * Assessment & Plan Note - Nisreen Preciado APRN, C.N.P. - 11/01/2023 2:28 PM CDTAssociated Problem(s): Hyperlipidemia Continue rosuvastatin * Assessment & Plan Note - Nisreen Preciado APRN, C.N.P. - 11/01/2023 2:27 PM CDTAssociated Problem(s): Neuropathy Peripheral He is not currently on medication for this. He states it does limit his mobility * Assessment & Plan Note - Nisreen Preciado APRN, C.N.P. - 11/01/2023 2:27 PM CDTAssociated Problem(s): Chronic Obstructive Pulmonary Disease Without Exacerbation (HCC) Continue Arnuity Ellipta Continue albuterol as needed * Assessment & Plan Note - Nisreen Preciado APRN, C.N.P. - 11/01/2023 2:26 PM CDTAssociated Problem(s): Weakness General Continue PT and OT * Assessment & Plan Note - Nisreen Preciado APRN, C.N.P. - 11/01/2023 2:25 PM CDTAssociated Problem(s): Apnea Sleep Obstructive Continue with BiPAP * Assessment & Plan Note - Nisreen Perciado APRN, C.N.P. - 11/01/2023 2:24 PM CDTAssociated Problem(s): Hypertensive Chronic Kidney Disease With Stage 1 Through Stage 4 Chronic Kidney Disease, Or Unspecified Chronic Kidney Disease Continue amlodipine 5 mg daily Continue losartan 50 mg daily Continue metoprolol 12.5 mg daily * Assessment & Plan Note - Nisreen Preciado APRN, C.N.P. - 11/01/2023 2:24 PM CDTAssociated Problem(s): Coronary Artery Disease Without Angina Pectoris Continue aspirin 81 mg daily documented in this encounter Plan of Treatment Upcoming Encounters Date Type Department Care Team (Late st Contact Info) Description 12/14/2023 10:30 AM ORDER ENTRY Appointment Department of Laboratory Medicine and Pathology, [facility] in [address] [phone] Dalia Dill M.D. [address] [place] [phone] 12/14/2023 11:00 AM ORDER ENTRY Office Visit Department of Family Medicine, [address] [phone] Dalia Dill M.D. [address] [place] [phone] 12/19/2023 2:00 PM ORDER ENTRY Comprehensive Visit Division of Community Internal Medicine, [place], [place] [address] [place] [phone] Kiran Hugo M.D. [address] [place] [phone] documented as of this encounter Visit Diagnoses Diagnosis Coronary Artery Disease Without Angina Pectoris- Primary Hypertensive Chronic Kidney Disease With Stage 1 Through Stage 4 Chronic Kidney Disease, Or Unspecified Chronic Kidney Disease Apnea Sleep Obstructive History Of Falling Frailty Age Related Physical Debility Unsteadiness Gait Disorder Non Orthopedic Weakness General Imbalance Non Orthopedic Asthma Mild Persistent (HCC) Chronic Obstructive Pulmonary Disease Without Exacerbation (HCC) Neuropathy Peripheral Hyperlipidemia Valenzuela's Esophagus Personal History Obesity Body Mass Index 30-39.9 Adult Chronic Kidney Disease (CKD), Stage 3a Glomerular Filtration Rate (GFR) 45 To 59 (HCC) Diabetes Mellitus Type 2 With Diabetic Chronic Kidney Disease (HCC) Diabetes Mellitus Type 2 Peripheral Neuropathy (HCC) Depression Major Recurrent Full Remission (HCC) documented in this encounter Additional Health Concerns Assessment Noted Time PHQ-9 Depression Total Score: 1 06/13/19 10:38 AM CDT documented as of this encounter Care Teams Custody Officer Relationship Specialty Start Date End Date Nisreen Preciado APRN, C.N.P. [address] [place] [phone] PCP - General Family Medicine 10/31/23 11/30/23 documented as of this encounter
--- OUTSIDE RECORDS SUMMARY | 2023-12-13 06:16 | XMS_ITS | Encounter Summary ---
Author Organization [facility] Address [address] [place] [address] Care Team Providers Care Ticket Printer Name Role Phone Nisreen Preciado APRN C.NAurelioPAurelio Primary Care Provi cole Reason for Visit * Reason Onset Date Comments SNF Nurse Intake 11/03/2023 Encounter Details Date Type Department Care Team (Latest Contact Info) Description 11/03/2023 Clinical Communication [facility] in [place] [address] [place] [phone] Veronica Brown, R.N. SNF Nurse Intake Social History Tobacco Use Types Packs/Day Years Used Date Smoking Tobacco: Former Cigarettes 1 35 0 02/07/1962 - 02/07/1997 Smokeless Tobacco: Never Quit: 05/23/1999 Alcohol Use Standard Drinks/Week Comments Yes 1 (1 standard drink = 0.6 oz pur e alcohol) [facility] Utilities Answer Date Recorded In the past 12 months has e electric, gas, oil, or water [employer] threatened to shut off services in your [...] How often do you attend chur or advent services? 1 to 4 times per year [...] Score 0 06/13/2023 [facility] of Occupat ional Health - Occupational Stress [...] your living situation today? I have a [facility] place to live 10/27/2023 Education Answer Date Recorded What is the highest level of school you have completed or the highest degree you have received? 12th grade 03/14/2019 Sex and Gender Information Value Date Recorded Sex Assigned at Male 08/23/2017 10:02 AM CDT Legal Sex Male 7:12 PM KIER OPERATOR Gender Identity Male 08/23/2017 10:02 AM CDT Sexual Orientation Straight 08/23/2017 10 :02 AM CDT documented as of this encounter Miscellaneous Notes * Telephone Encounter - Veronica Brown RAurelioNAurelio - 11/03/2023 1:32 PM CDT Received call from nurse Jennifer with [facility] Where pt currently resides Jennifer seeking order for pt to receive lab draw for TB Gold test as pt is refusing mantoux test. [address] Magistrate merged Jennifer Garvin APRN, C.N.P who gave order to obtain this. Staff offered no further questions. documented in this encounter Plan of Treatment Upcoming Encounters Date Type Department Care Team (Late st Contact Info) Description 12/14/2023 10:30 AM KIER OPERATOR Appointment Department of Laboratory Medicine and Pathology, [facility], in [address] [phone] Dalia Dill M.D. [address] [place] [phone] 12/14/2023 11:00 AM KIER OPERATOR Office Visit Department of Family Medicine, [address] [phone] Dalia Dill M.D. [address] [place] [phone] 12/19/2023 2:00 PM KIER OPERATOR Comprehensive Visit Division of Community Internal Medicine, [facility], in [place], [place] [address] [place] [phone] Kiran Hugo M.D. [address] [place] [phone] documented as of this encounter Visit Diagnoses Not on filedocumented in this encounter Additional Health Concerns Assessment Noted Time PHQ-9 Depression Total Score: 1 06/13/19 10:38 AM CDT documented as of this encounter Care Teams Ticket Printer Relationship Specialty Start Date End Date Nisreen Preciado APRN, C.N.P. [address] [place] [phone] PCP - General Family Medicine 10/31/23 11/30/23 documented as of this encounter
--- OUTSIDE RECORDS SUMMARY | 2023-12-13 06:16 | XMS_ITS | Encounter Summary ---
Author Organization [facility] Address [address] [place] [address] Care Team Providers Care Rn New Grad Name Role Phone Dalia Dill M.D. Primary Care Provider [phone] Reason for Referral * Outpatient (Routine) - Authorized Specialty Diagnoses / Procedures Referred By Eileen alegria Referred To Contact Orthopedic Surgery Diagnoses Onychomycosis Pain Toe Left Pain Toe Right Nikki Moraes D.P.M. [address] [place] [phone] Phone: tel: [facility]: [facility] Region Referral ID Status Reason Start Date Expiration Date V isits Requested Visits Authorized [id number] Authorized 09/23/2023 03/24/2025 1 1 Reason for Visit * Reason Comments Nail Problem Diabetic nail care Nail Problem * Outpatient (Routine) - Closed Specialty Diagnoses / Procedures Referred By Eileen alegria Referred To Contact Orthopedic Surgery Diagnoses Diabetes Mellitus Type 2 Peripheral Neuropathy (HCC) Onychomycosis Pain Toe Left Pain Toe Right Nikki Moraes D.P.M. [address] [place] [phone] Phone: tel: fax: [facility] Region Referral ID Status Reason Start Date Expiration Date Visits Re quested Visits Authorized [id number] Closed 05/19/2023 11/17/2024 1 1 Encounter Details Date Type Department Care Team (Late st Contact Info) Description 09/23/2023 9:00 AM CDT Office Visit Department of Orthopedic Surgery in [address] [place] [phone] iNkki Moraes, ShwethaP.MAurelio [address] [place] [address] Diabetes Mellitus Type 2 Peripheral Neuropathy (HCC); Onychomycosis; Pain Toe Left; Pain Toe Right Discharge Disposition: Home or Self Care Social History Tobacco Use Types Packs/Day Years Used Date Smoking Tobacco: Former Cigarettes 1 35 0 02/07/1962 - 02/07/1997 Smokeless Tobacco: Never Quit: 05/23/1999 Alcohol Use Standard Drinks/Week Comments Yes 2 (1 standard drink = 0.6 oz pur e alcohol) [facility] Utilities Answer Date Recorded In the past 12 months has [employer], gas, oil, or water [employer] threatened to shut off services in your [...] file 04/02/2022 How often do you attend [facility] or moravian services? 1 to 4 times per year 04/02/2022 Do you belong to any clubs o r organizations such as shinto groups, unions, fraternal or athletic groups, or [...] Answer Date Recorded PHQ-2 Score 0 06/13/2023 [facility] of Occupat ional Health - [...] your living situation today? I have a [facility] place to live 05/21/2023 Education Answer Date Recorded What is the highest level of school you have completed or the highest degree you have received? 12th grade 03/14/2019 Sex and Gender Information Value Date Recorded Sex Assigned at Male 08/23/2017 10:02 AM CDT Legal Sex Male 7:12 PM MENTAL HEALTH PROGRAM DIRECTOR Gender Identity Male 08/23/2017 10:02 AM CDT Sexual Orientation Straight 08/23/2017 10 :02 AM CDT documented as of this encounter Progress Notes * Nikki Moraes D.P.MAurelio - 09/23/2023 9:00 AM CDT SUBJECTIVE CHIEF COMPLAINT/REASON FOR VISIT Chief Complaint Patient presents with Right Foot - Nail Problem Diabetic nail care Left Foot - Nail Problem HISTORY OF PRESENT ILLNESS Jorge Potts is a 78 y.o. male seen for necessary foot care and complaint of painful thickened nails bilaterally. OBJECTIVE PHYSICAL EXAMINATION DP pulse palpable on the left and nonpalpable on the right. PT pulses nonpalpable on the left but palpable on the right. Skin is thin, shiny, frail, xerotic, ruborous, cold, and atrophic bilaterally with absent digital hair growth. Nails are elongated, thick,dystrophic, incurvated, and painful times 10 with lysis, crumbling, and subungual debris. ASSESSMENT / PLAN #1 Diabetes Mellitus Type 2 Peripheral Neuropathy (HCC) #2 Onychomycosis #3 Pain Toe Left #4 Pain Toe Right PLAN Nails debrided x 10. Patient to follow up in 13 weeks for necessary foot care, sooner if questions or problems. documented in this encounter Plan of Treatment Upcoming Encounters Date Type Department Care Team (Late st Contact Info) Description 12/14/2023 10:30 AM MENTAL HEALTH PROGRAM DIRECTOR Appointment Department of Laboratory Medicine and Pathology, [facility], in [address] [phone] Dalia Dill M.D. [address] [place] [phone] 12/14/2023 11:00 AM MENTAL HEALTH PROGRAM DIRECTOR Office Visit Department of Family Medicine, [address] [phone] Dalia Dill M.D. [address] [place] [phone] 12/19/2023 2:00 PM MENTAL HEALTH PROGRAM DIRECTOR Comprehensive Visit Division of Community Internal Medicine, [facility] in [place], [place] [address] [place] [phone] Kiran Hugo M.D. [address] [place] [phone] Scheduled Referrals Name Type Priority Associated Diagnoses Order Schedule Orthopedic Surgery office visit (clinic) Outpatient Referral Routine Onychomycosis Pain Toe Left Pain Toe Right Expected: 12/24/2023, Expires: 12/23/2024 documented as of this encounter Visit Diagnoses Diagnosis Diabetes Mellitus Type 2 Peripheral Neuropathy (HCC) Onychomycosis Pain Toe Left Pain Toe Right documented in this encounter Additional Health Concerns Assessment Noted Time PHQ-9 Depression Total Score: 1 06/13/19 24 10:38 AM CDT documented as of this encounter Care Teams Rn New Grad Relationship Specialty Start Date End Date Dalia Dill M.D. [address] [place] [phone] PCP - General Family Medicine 12/08/11 10/30/23 documented as of this encounter
--- OUTSIDE RECORDS SUMMARY | 2023-12-13 06:16 | XMS_ITS | Encounter Summary ---
Author Organization [facility] Address [address] [place] [address] Care Team Providers Care Film Librarian Name Role Phone Dalia Dill M.D. Primary Care Provider [phone] [phone] Encounter Details Date Type Department Care Team (Latest Contact Info) Description 09/23/2023 9:13 AM CDT - 09/23/2023 11:59 PM CDT Hospital Encounter Department of Laboratory Medicine in [address] [phone] Dalia Dill M.D. [address] [place] [address] Diabetes Mellitus Type 2 Peripheral Neuropathy (HCC) Discharge Disposition: Home or Self Care Social History Tobacco Use Types Packs/Day Years Used Date Smoking Tobacco: Former Cigarettes 1 35 0 02/07/1962 - 02/07/1997 Smokeless Tobacco: Never Quit: 05/23/1999 Alcohol Use Standard Drinks/Week Comments Yes 2 (1 standard drink = 0.6 oz pur e alcohol) [facility] Utilities Answer Date Recorded In the past [...] How often do you attend chur or druze services? 1 to 4 times per year [...] Answer Date Recorded PHQ-2 Score 0 06/13/2023 [facility] [place] of Occupat ional Health - Occupational Stress [...] your living situation today? I have a [facility] place to live 05/21/2023 Education Answer Date Recorded What is the highest level of school you have completed or the highest degree you have received? 12th grade 03/14/2019 Sex and Gender Information Value Date Recorded Sex Assigned at Male 08/23/2017 10:02 AM CDT Legal Sex Male 7:12 PM WARP PLACER Gender Identity Male 08/23/2017 10:02 AM CDT Sexual Orientation Straight 08/23/2017 10 :02 AM CDT documented as of this encounter Medications at Time of Discharge blood glucose ctl high,nml,low solution Glucose control solution provides an easy way to ensure accurate blood glucose testing. 1 each 07/07/2023 blood sugar diagnostic strips (Accu-Chek Guide test strips) 1 test by other route daily. for testing 100 strip 3 07/07/2023 blood-glucose meter misc Test as directed for diabetes control. 1 each 02/12/2019 DME Bi-level PAPIndications:Ce ntral Sleep Apnea Syndrome,Apnea Sleep Obstructive DME Order 1 each 01/19/2023 lancets Test once daily 100 each 1 02/16/2019 acetaminophen (TYLENOL) 500 mg capsule Take 1,000 mg by mouth every 6 (six) hours as needed for pain (shoulder pain). 4 albuterol 90 mcg/actuation inhaler Inhale 1-2 puffs every 4 (four) hours as needed for wheezing or shortness of breath. 54 g 3 06/29/2023 4 amLODIPine (NORVASC) 5 mg tabletIndications :Hypertension And Chronic Kidney Disease Stage 3 TAKE 1 TABLET(5 MG) BY MOUTH DAILY 90 tablet 3 01/26/2023 4 aspirin 81 mg chewable tablet Chew 81 mg daily. 4 cyanocobalamin (VITAMIN B12) 1,000 mcg tablet Take 1 tablet by mouth daily. 06/03/2016 4 FLUoxetine (PROzac) 40 mg capsule TAKE 1 CAPSULE(40 MG) BY MOUTH DAILY 90 capsule 3 05/30/2023 4 fluticasone furoate (Arnuity Ellipta) 100 mcg/actuation diskus inhaler Inhale 1 puff daily. 3 each 3 03/29/2023 4 losartan (COZAAR) 50 mg tablet Take 1 tablet (50 mg total) by mouth daily. 90 tablet 3 12/06/2022 4 metFORMIN (GLUCOPHAGE) 1,000 mg tablet Take 1 tablet (1,000 mg total) by mouth 2 (two) times a day. 180 tablet 3 06/29/2023 4 metoprolol succinate (TOPROL-XL) 25 mg 24 hr tablet Take 0.5 tablets (12.5 mg total) by mouth daily. Do not crush or chew. 45 tablet 3 06/29/2023 4 MULTIVITAMIN ORAL Take 1 tablet by mouth daily. 10/31/2007 4 nitroglycerin (NITROSTAT) 0.[address] 1 tablet (0.4 mg total) under the tongue every 5 (five) minutes as needed for chest pain. Chest pain 25 tablet 3 06/29/2023 4 pantoprazole (PROTONIX) 40 mg EC tablet Take 1 tablet (40 mg total) by mouth daily. 90 tablet 3 06/29/2023 4 rosuvastatin (CRESTOR) 10 mg tablet Take 1 tablet (10 mg total) by mouth daily. 90 tablet 3 11/24/2022 4 Rx albuterol (RX ACCUNEB) 2.5 mg /3 mL nebulizer solution Inhale 3 mL (2.5 mg total) by nebulization every 4 (four) hours as needed for wheezing or shortness of breath. 120 mL 11 04/26/2023 4 semaglutide (Ozempic) 1 mg/dose (4 mg/3 mL) injection Inject 1 mg under the skin every 7 (seven) days. 9 mL 11 07/27/2023 4 documented as of this encounter Plan of Treatment Upcoming Encounters Date Type Department Care Team (Late st Contact Info) Description 12/14/2023 10:30 AM WARP PLACER Appointment Department of Laboratory Medicine and Pathology, [facility], in [address] [phone] Dalia Dill M.D. [address] [place] [phone] 12/14/2023 11:00 AM WARP PLACER Office Visit Department of Family Medicine, [address] in [place], [place] [address] [phone] Dalia Dill M.D. [address] [place] [phone] 12/19/2023 2:00 PM WARP PLACER Comprehensive Visit Division of Community Internal Medicine, [facility], in [place], [place] [address] [place] [phone] Kiran Hugo M.D. [address] [place] [address] [place] [phone] documented as of this encounter Procedures Procedure Name Priority Date/Time Associated Diagnosis Comments ALBUMIN, RANDOM, U Routine 09/23/2023 9: 24 AM CDT Diabetes Mellitus Type 2 Peripheral Neuropathy (HCC) documented in this encounter Results * (ABNORMAL) Albumin, Random, Urine (09/23/2023 9:24 AM CDT) Microalbumin 78.9 mg/L 09/23/2023 9:38 AM CDT CNFL Creatinine 132 mg/dL 09/23/2023 9:38 AM CDT CNFL Albumin/Creatinin e Ratio 60(H) <17 mg/g 09/23/2023 9:38 AM CDT CNFL Urine (Urine, Midstream) 09/23/2023 9:24 AM CDT 09/23/2023 9:24 AM CDT us Dalia Dill M.D. LAB URINE ORDERABLES Kelsi walters Result [facility] [address] [place] [address], [facility] in [address] [address] documented in this encounter Visit Diagnoses Diagnosis Diabetes Mellitus Type 2 Peripheral Neuropathy (HCC) documented in this encounter Additional Health Concerns Assessment Noted Time PHQ-9 Depression Total Score: 1 06/13/19 24 10:38 AM CDT documented as of this encounter Care Teams Film Librarian Relationship Specialty Start Date End Date Dalia Dill M.D. [address] [place] [address] PCP - General Family Medicine 12/08/11 10/30/23 documented as of this encounter
--- OUTSIDE RECORDS SUMMARY | 2023-12-13 06:17 | XMS_ITS | Encounter Summary ---
Author Organization [facility] Address [address] [place] [address] Care Team Providers Care Sal[employer] Officer Name Role Phone Dalia Dill M.D. Primary Care Provider [phone] Encounter Details Date Type Department Care Team (Late st Contact Info) Description 08/20/2013 Historical Ophthalmology [facility] Artie Hill O.D. [address] [place] [phone] Social History Tobacco Use Types Packs/Day Years Used Date Smoking Tobacco: Never Assessed Sex and Gender Information Value Date Recorded Sex Assigned at Male 08/23/2017 10:02 AM CDT Legal Sex Male 7:12 PM INSTRUCTIONAL DESIGN SPECIALIST Gender Identity Male 08/23/2017 10:02 AM CDT Sexual Orientation Straight 08/23/2017 10 :02 AM CDT documented as of this encounter Progress Notes * Artie Hill O.D. - 08/20/2013 9:20 AM CDT Eye General CHIEF COMPLAINT blurred vision; diabetic eye exam HISTORY OF PRESENT ILLNESS Non insulin dependent diabetic , blood sugars 125. Hemoglobin A1c 6.6 on 06/15/13. Blurred near vision; both eyes (left > right); gradually gettin worse. No changes noted in the distance. He has been told he has a cataract in the left eye. Denies pain, flashes, and new floaters. Denies diplopia. IMPRESSION / REPORT / PLAN #1 Diabetes mellitus, Type 2, no eye complications. Plan: monitor annually. #2 Cataract, both eyes, not visually significant. Plan: observe. #3 Refractive error (hyperopic astigmatism, presbyopia). Plan: spectacle prescription (Refraction 1) given. Return every 1 year for vision, tonometry, and dilation. 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 #2 Cataract, both eyes, not visually significant. #3 Refractive error (hyperopic astigmatism, presbyopia). CDM Reports - EYEGEN Id: [id number] Status: Fnl documented in this encounter Plan of Treatment Upcoming Encounters Date Type Department Care Team (Late st Contact Info) Description 12/14/2023 10:30 AM INSTRUCTIONAL DESIGN SPECIALIST Appointment Department of Laboratory Medicine and Pathology, [facility], in [address] [phone] Dalia Dill M.D. [address] [place] [phone] 12/14/2023 11:00 AM INSTRUCTIONAL DESIGN SPECIALIST Office Visit Department of Family Medicine, [address] [address] Dalia Dill M.D. [address] [place] [phone] 12/19/2023 2:00 PM INSTRUCTIONAL DESIGN SPECIALIST Comprehensive Visit Division of Community Internal Medicine, [facility] in [place], [place] [address] [place] [phone] Kiran Hugo M.D. [address] [place] [phone] documented as of this encounter Visit Diagnoses Not on filedocumented in this encounter Additional Health Concerns Infection Onset Date Last Indicated Resolved Time COVID19 Pending 11/12/2020 11/12/202011/1211/12/2020 8 :37 PM CDT COVID19 Pending 04/30/2023 04/30/2023 04/30/2023 1 :34 PM CDT COVID19 Pending 10/28/2023 10/28/2023 10/28/2023 9 :59 AM CDT Assessment Noted Time PHQ-9 Depression Total Score: 9 08/18/19 14 10:49 AM CDT documented as of this encounter Care Teams Sal[employer] Officer Relationship Specialty Start Date End Date Dalia Dill M.D. [address] [place] [phone] PCP - General Family Medicine 12/01/23 documented as of this encounter
--- OUTSIDE RECORDS SUMMARY | 2023-12-13 06:17 | XMS_ITS | Encounter Summary ---
Author Organization [facility] Address [address] [place] [address] Care Team Providers Care Sorting Machine Attendant Name Role Phone Dalia Dill M.D. Primary Care Provider [phone] [phone] Encounter Details Date Type Department Care Team (Latest Contact Info) Description 04/30/2023 Intake [facility] Social History Tobacco Use Types Packs/Day Years Used Date Smoking Tobacco: Former Cigarettes 1 35 0 02/07/1962 - 02/07/1997 Smokeless Tobacco: Never Quit: 05/23/1999 Alcohol Use Standard Drinks/Week Comments Yes 2 (1 standard drink = 0.6 oz pur e alcohol) [facility] Utilities Answer Date Recorded In [...] often do you attend chur ch or synagogue services? 1 to 4 times per year 04/02/2022 Do you belong to any clubs o r organizations such as jainism groups, unions, fraternal or athletic groups, or [...] your living situation today? I have a [facility] place to live 10/27/2023 Education Answer Date Recorded What is the highest level of school you have completed or the highest degree you have received? 12th grade 03/14/2019 Sex and Gender Information Value Date Recorded Sex Assigned at Male 08/23/2017 10:02 AM CDT Legal Sex Male 7:12 PM DIRECTOR ELECTRONICS Gender Identity Male 08/23/2017 10:02 AM CDT Sexual Orientation Straight 08/23/2017 10 :02 AM CDT documented as of this encounter Plan of Treatment Upcoming Encounters Date Type Department Care Team (Late st Contact Info) Description 12/14/2023 10:30 AM DIRECTOR ELECTRONICS Appointment Department of Laboratory Medicine and Pathology, [facility], in [address] [phone] Daila Dill M.D. [address] [place] [phone] 12/14/2023 11:00 AM DIRECTOR ELECTRONICS Office Visit Department of Family Medicine, [address] in [address] [phone] Dalia Dill M.D. [address] [place] [phone] 12/19/2023 2:00 PM DIRECTOR ELECTRONICS Comprehensive Visit Division of Community Internal Medicine, [facility], in [place], [place] [address] [place] [address] Kiran Hugo M.D. [address] [place] [address] documented as of this encounter Visit Diagnoses Not on filedocumented in this encounter Additional Health Concerns Infection Onset Date Last Indicated Resolved Time COVID19 Pending 04/30/2023 04/30/2023 04/30/2023 1 :34 PM CDT Assessment Noted Time PHQ-9 Depression Total Score: 3 08/28/19 2:08 PM CDT documented as of this encounter Care Teams Sorting Machine Attendant Relationship Specialty Start Date End Date Dalia Dill M.D. [address] [place] [address] PCP - General Family Medicine 12/08/11 10/30/23 documented as of this encounter
--- OUTSIDE RECORDS SUMMARY | 2023-12-13 06:17 | XMS_ITS | Encounter Summary ---
Author Organization [facility] Address [address] [place] [address] Care Team Providers Care Stitchdown Toe Former Name Role Phone Dalia Dill M.D. Primary Care Provider [phone] [phone] Encounter Details Date Type Department Care Team (Late st Contact Info) Description 09/24/2013 Historical Ophthalmology [facility] Artie Hill O.D. [address] [place] [phone] Social History Tobacco Use Types Packs/Day Years Used Date Smoking Tobacco: Never Assessed Sex and Gender Information Value Date Recorded Sex Assigned at Male 08/23/2017 10:02 AM CDT Legal Sex Male 7:12 PM MINING ENGINEERING TECHNOLOGIST Gender Identity Male 08/23/2017 10:02 AM CDT Sexual Orientation Straight 08/23/2017 10 :02 AM CDT documented as of this encounter Progress Notes * Artie Hill O.D. - 09/24/2013 1:04 PM CDT Eye Subsequent Visit HISTORY OF PRESENT ILLNESS Patient has had eyeglasses for 2 weeks he said I thought that the vision was going to be better than old eyeglasses. Examples are crossword puzzles and birds at bird feeder (not clear). Patient reports also near vision seems to take longer to focus. IMPRESSION / REPORT / PLAN #1 Diabetes mellitus, Type 2, no eye complications. Plan: monitor annually. #2 Cataract, both eyes, not visually significant. Plan: observe. #3 Refractive error (hyperopic astigmatism, presbyopia). Plan: spectacle prescription (Refraction 1) given, regrind left lens. 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 #2 Cataract, both eyes, not visually significant. #3 Refractive error (hyperopic astigmatism, presbyopia). CDM Reports - EYESV Id: [id number] Status: Fnl documented in this encounter Plan of Treatment Upcoming Encounters Date Type Department Care Team (Late st Contact Info) Description 12/14/2023 10:30 AM MINING ENGINEERING TECHNOLOGIST Appointment Department of Laboratory Medicine and Pathology, [facility], in [address] [phone] Dalia Dill M.D. [address] [place] [phone] 12/14/2023 11:00 AM MINING ENGINEERING TECHNOLOGIST Office Visit Department of Family Medicine, [address] [phone] Dalia Dill M.D. [address] [place] [phone] 12/19/2023 2:00 PM MINING ENGINEERING TECHNOLOGIST Comprehensive Visit Division of Community Internal Medicine, [facility] in [place], [place] [address] [place] [phone] Kiran Hugo M.D. [address] [place] [phone] documented as of this encounter Visit Diagnoses Not on filedocumented in this encounter Additional Health Concerns Infection Onset Date Last Indicated Resolved Time COVID19 Pending 11/12/2020 11/12/2020 11/12/2020 8 :37 PM CDT COVID19 Pending 04/30/2023 04/30/2023 04/30/2023 1 :34 PM CDT COVID19 Pending 10/28/2023 10/28/2023 10/28/2023 9 :59 AM CDT Assessment Noted Time PHQ-9 Depression Total Score: 9 08/18/19 14 10:49 AM CDT documented as of this encounter Care Teams Stitchdown Toe Former Relationship Specialty Start Date End Date Dalia Dill M.D. [address] [place] [phone] PCP - General Family Medicine 12/01/23 documented as of this encounter
--- OUTSIDE RECORDS SUMMARY | 2023-12-13 06:17 | XMS_ITS | Encounter Summary ---
Author Organization [facility] Address [address] [place] [address] Care Team Providers Care Manager System Name Role Phone Dalia Dill M.D. Primary Care Provider [phone] [phone] Encounter Details Date Type Department Care Team (Late st Contact Info) Description 06/19/2010 Historical Ophthalmology [facility] Yolanda Meyer O.D. [address] [place] [phone] Social History Tobacco Use Types Packs/Day Years Used Date Smoking Tobacco: Never Assessed Sex and Gender Information Value Date Recorded Sex Assigned at Male 08/23/2017 10:02 AM CDT Legal Sex Male 7:12 PM JAVA TECH LEAD Gender Identity Male 08/23/2017 10:02 AM CDT Sexual Orientation Straight 08/23/2017 10 :02 AM CDT documented as of this encounter Progress Notes * Yolanda Meyer O.D. - 06/19/2010 3:03 PM CDT Eye General CHIEF COMPLAINT Diabetic Exam HISTORY OF PRESENT ILLNESS Diagnosed with diabetes several years ago, controls with diet and exercise. Blood sugars 112. Hemoglobin A1C@ 6.6 08/17/09. No history of retinopathy. Was told he had a start of a cataract and wants that checked today. Patient reports no visual changes. Floaters both eyes, past several years, intermittent. Denies diplopia, flashes of light, and ocular pain. IMPRESSION / REPORT / PLAN #1 Diabetes mellitus, no eye complications. Plan: monitor annually, emphasized the importance of good diabetic control. #2 Cataract, both eyes, not visually significant, incipient. Plan: monitor periodically. Recommended examination annually. DIAGNOSIS #1 Diabetes mellitus, no eye complications. #2 Cataract, both eyes, not visually significant, incipient. CDM Reports - EYEGEN Id: [id number] Status: Fnl documented in this encounter Plan of Treatment Upcoming Encounters Date Type Department Care Team (Late st Contact Info) Description 12/14/2023 10:30 AM JAVA TECH LEAD Appointment Department of Laboratory Medicine and Pathology, [facility], in [address] [phone] Dalia Dill M.D. [address] [place] [phone] 12/14/2023 11:00 AM JAVA TECH LEAD Office Visit Department of Family Medicine, [address] [phone] Dalia Dill M.D. [address] [place] [phone] 12/19/2023 2:00 PM JAVA TECH LEAD Comprehensive Visit Division of Community Internal Medicine, [facility] in [place], [place] [address] [place] [phone] Kiran Hugo M.D. [address] [place] [phone] documented as of this encounter Visit Diagnoses Not on filedocumented in this encounter Additional Health Concerns Infection Onset Date Last Indicated Resolved Time COVID19 Pending 11/12/2020 11/12/2020 11/12/2020 8 :37 PM CDT COVID19 Pending 04/30/2023 04/30/2023 04/30/2023 1 :34 PM CDT COVID19 Pending 10/28/2023 10/28/2023 10/28/2023 9 :59 AM CDT Assessment Noted Time PHQ-9 Depression Total Score: 4 05/22/19 11 2:32 PM CDT documented as of this encounter Care Teams Manager System Relationship Specialty Start Date End Date Dalia Dill M.D. [address] [place] [phone] PCP - General Family Medicine 12/01/23 documented as of this encounter
--- OUTSIDE RECORDS SUMMARY | 2023-12-13 06:17 | XMS_ITS | Encounter Summary ---
Author Organization [facility] Address [address] [place] [address] Care Team Providers Care Specifications Writer Name Role Phone Dalia Dill M.D. Primary Care Provider [phone] [phone] Encounter Details Date Type Department Care Team (Late st Contact Info) Description 08/18/2011 Historical Ophthalmology RST OPH Nickie Ross M.D. Social History Tobacco Use Types Packs/Day Years Used Date Smoking Tobacco: Never Assessed Sex and Gender Information Value Date Recorded Sex Assigned at Male 08/23/2017 10:02 AM CDT Legal Sex Male 7:12 PM CHIEF COMPLIANCE OFFICER Gender Identity Male 08/23/2017 10:02 AM CDT Sexual Orientation Straight 08/23/2017 10 :02 AM CDT documented as of this encounter Progress Notes * Nickie Ross M.D. 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 Currently using prescription glasses for reading only. He has been controlling is type 2 diabetes with diet in the past, however, evaluation at Family Medicine yesterday (08/17/11) indicates that the patient will begin using Metformin medication and should be having a diabetic education consult in the near future (labs 08/13/11: Glucose 145; A1c 6.8). 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 DM - started on meds yesterday. Wasn't really on a DM diet. 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 Discussed importance of good blood sugar control. Plan: monitor periodically. #2 Cataract, both eyes, not visually significant. Plan: observe. 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 #2 Cataract, both eyes, not visually significant. CDM Reports - EYEGEN Id: [id number] Status: Fnl documented in this encounter Plan of Treatment Upcoming Encounters Date Type Department Care Team (Late st Contact Info) Description 12/14/2023 10:30 AM CHIEF COMPLIANCE OFFICER Appointment Department of Laboratory Medicine and Pathology, [facility], in [address] [phone] Dalia Dill M.D. [address] [place] [phone] 12/14/2023 11:00 AM CHIEF COMPLIANCE OFFICER Office Visit Department of Family Medicine, [address] [phone] Dalia Dill M.D. [address] [place] [phone] 12/19/2023 2:00 PM CHIEF COMPLIANCE OFFICER Comprehensive Visit Division of Community Internal Medicine, [facility], in [place], [place] [address] [place] [phone] Kiran Hugo M.D. [address] [place] [phone] documented as of this encounter Visit Diagnoses Not on filedocumented in this encounter Additional Health Concerns Infection Onset Date Last Indicated Resolved Time COVID19 Pending 11/12/2020 11/12/202011/1211/12/2020 8 :37 PM CDT COVID19 Pending 04/30/2023 04/30/2023 04/30/2023 1 :34 PM CDT COVID19 Pending 10/28/2023 10/28/2023 10/28/2023 9 :59 AM CDT Assessment Noted Time PHQ-9 Depression Total Score: 4 08/17/19 12 8:21 AM CDT documented as of this encounter Care Teams Specifications Writer Relationship Specialty Start Date End Date Dalia Dill M.D. [address] [place] [phone] PCP - General Family Medicine 12/01/23 documented as of this encounter
--- OUTSIDE RECORDS SUMMARY | 2023-12-13 06:17 | XMS_ITS | Encounter Summary ---
Author Organization [facility] Address [address] [place] [address] Care Team Providers Care Knee Bolter Name Role Phone Dalia Dill M.D. Primary Care Provider [phone] [phone] Encounter Details Date Type Department Care Team (Late st Contact Info) Description 11/22/2005 Historical Ophthalmology RST OPH Jammie Mann M.D. [address] [place] [phone] Social History Tobacco Use Types Packs/Day Years Used Date Smoking Tobacco: Never Assessed Sex and Gender Information Value Date Recorded Sex Assigned at Male 08/23/2017 10:02 AM CDT Legal Sex Male 7:12 PM FORMING MILL OPERATOR Gender Identity Male 08/23/2017 10:02 AM CDT Sexual Orientation Straight 08/23/2017 10 :02 AM CDT documented as of this encounter Progress Notes * Jammie Mann M.D. - 11/22/2005 12:00 AM CDT Eye General CHIEF COMPLAINT Halos HISTORY OF PRESENT ILLNESS Patient noted when going from the upwards gaze to downward, (looking at paper) he experiences seeing a halo with colors. Denies visual concerns with distance and near. Denies flashes, floaters, blurred vision or diplopia. Patient denies ocular pain. Patient noted blood pressures are elevated with medications, at this time. ASK: Notices circles in both eyes (closed each eye to confirm). Describes seeing a blind spot in the central vision of both eyes - last 10-15 minutes, then resolved. These symptoms have happened twice. No headache afterwards. Peripheral vision was intact. IMPRESSION / REPORT / PLAN #1 Transient central scotomas, both eyes Normal eye exam today. Differential diagnosis includes ophthalmic migraine versus vertebrobasilar insufficiency. Carotid ultrasound negative. Could consider Neurology consult and MRI/MRA. Instructed patient to contact us for worsening symptoms or questions/concerns. DIAGNOSIS #1 Transient central scotomas, both eyes [facility]: [id number] Status: Fnl documented in this encounter Plan of Treatment Upcoming Encounters Date Type Department Care Team (Late st Contact Info) Description 12/14/2023 10:30 AM FORMING MILL OPERATOR Appointment Department of Laboratory Medicine and Pathology, [facility], in [address] [phone] Dalia Dill M.D. [address] [place] [phone] 12/14/2023 11:00 AM FORMING MILL OPERATOR Office Visit Department of Family Medicine, [address] [phone] Dalia Dill M.D. [address] [place] [phone] 12/19/2023 2:00 PM FORMING MILL OPERATOR Comprehensive Visit Division of Community Internal Medicine, [facility], in [place], [place] [address] [place] [phone] Kiran Hugo M.D. [address] [place] [phone] documented as of this encounter Visit Diagnoses Not on filedocumented in this encounter Additional Health Concerns Infection Onset Date Last Indicated Resolved Time COVID19 Pending 11/12/2020 11/12/2020 11/12/2020 8 :37 PM CDT COVID19 Pending 04/30/2023 04/30/2023 04/30/2023 1 :34 PM CDT COVID19 Pending 10/28/2023 10/28/2023 10/28/2023 9 :59 AM CDT documented as of this encounter Care Teams Knee Bolter Relationship Specialty Start Date End Date Dalia Dill M.D. [address] [place] [phone] PCP - General Family Medicine 12/01/23 documented as of this encounter
--- OUTSIDE RECORDS SUMMARY | 2023-12-13 06:17 | XMS_ITS | Encounter Summary ---
Author Organization [facility] Address [address] [place] [address] Care Team Providers Care Cut Off Operator Scorer Name Role Phone Dalia Dill M.D. Primary Care Provider [phone] [phone] Encounter Details Date Type Department Care Team (Late st Contact Info) Description 04/14/2015 Historical Ophthalmology RST OPH Lucho Finch O.D. [address] [place] [phone] Social History Tobacco Use Types Packs/Day Years Used Date Smoking Tobacco: Never Assessed Sex and Gender Information Value Date Recorded Sex Assigned at Male 08/23/2017 10:02 AM CDT Legal Sex Male 7:12 PM PUPPY TRAINER Gender Identity Male 08/23/2017 10:02 AM CDT Sexual Orientation Straight 08/23/2017 10 :02 AM CDT documented as of this encounter Progress Notes * Lucho Finch O.D. - 04/14/2015 1:27 PM CST Eye General CHIEF COMPLAINT Diabetic retinopathy HISTORY OF PRESENT ILLNESS Hemoglobin A1c,B: 7.2 on 03/20/2015. Patient has no history of diabetic retinopathy. Patient manages diabetes with oral medication. Patient denies blurred vision. Patient denies flashes of light or floaters. IMPRESSION / REPORT / PLAN #1 Diabetes mellitus, Type 2, no eye complications. Plan: monitor annually. #2 Cataract, both eyes, not visually significant. Plan: observe. discussed DIAGNOSIS #1 Diabetes mellitus, Type 2, no eye complications. #2 Cataract, both eyes, not visually significant. CDM Reports - [facility] Id: [id number] Status: Fnl documented in this encounter Plan of Treatment Upcoming Encounters Date Type Department Care Team (Late st Contact Info) Description 12/14/2023 10:30 AM PUPPY TRAINER Appointment Department of Laboratory Medicine and Pathology, [facility], in [address] [phone] Dalia Dill M.D. [address] [place] [phone] 12/14/2023 11:00 AM PUPPY TRAINER Office Visit Department of Family Medicine, [address] [phone] Dalia Dill M.D. [address] [place] [address] 12/19/2023 2:00 PM PUPPY TRAINER Comprehensive Visit Division of Community Internal Medicine, [facility], in [place], [place] [address] [place] [address] Kiran Hugo M.D. [address] [place] [phone] documented as of this encounter Visit Diagnoses Not on filedocumented in this encounter Additional Health Concerns Infection Onset Date Last Indicated Resolved Time COVID19 Pending 11/12/2020 11/12/2020 11/12/2020 8 :37 PM CDT COVID19 Pending 04/30/2023 04/30/2023 04/30/2023 1 :34 PM CDT COVID19 Pending 10/28/2023 10/28/2023 10/28/2023 9 :59 AM CDT Assessment Noted Time PHQ-9 Depression Total Score: 1 09/07/19 15 4:50 PM CDT documented as of this encounter Care Teams Cut Off Operator Scorer Relationship Specialty Start Date End Date Dalia Dill M.D. 200 [place] [address] PCP - General Family Medicine 12/01/23 documented as of this encounter
--- OUTSIDE RECORDS SUMMARY | 2023-12-13 06:17 | XMS_ITS ---
Author Organization [facility] Address [address] [place] [address] Care Team Providers Care Cytogenetic Technician Name Role Phone Dalia Dill M.D. Primary Care Provider [phone] [phone] Senior Services Care Coordination Status:Closed (Closed) Start date:10/28/2023 Enrollment reason:Risk/Algorithm End date:10/28/2023 Close reason:Not eligible, travel Overview Resides in [place] [facility] and Services Coordination
--- OUTSIDE RECORDS SUMMARY | 2023-12-13 06:17 | XMS_ITS | Encounter Summary ---
Author Organization [facility] Address [address] [place] [address] Care Team Providers Care Care Manager Name Role Phone Dalia Dill M.D. Primary Care Provider [phone] [phone] Encounter Details Date Type Department Care Team (Late st Contact Info) Description 06/03/2006 Historical Ophthalmology RST OPH Lashon De La Vega M.D. Social History Tobacco Use Types Packs/Day Years Used Date Smoking Tobacco: Never Assessed Sex and Gender Information Value Date Recorded Sex Assigned at Male 08/23/2017 10:02 AM CDT Legal Sex Male 7:12 PM REFINING SUPERVISOR Gender Identity Male 08/23/2017 10:02 AM CDT Sexual Orientation Straight 08/23/2017 10 :02 AM CDT documented as of this encounter Progress Notes * Lashon De La Vega M.D. - 06/03/2006 12:34 PM CDT Eye General CHIEF COMPLAINT lid lesions HISTORY OF PRESENT ILLNESS Patient here for lid lesions both eyes (left > right), x 2-3 months. Left lid seems to be more droopy and he thinks it's interferring with his vision. He had one removed from his right eye severalyears ago. Denies pain. IMPRESSION / REPORT / PLAN #1 Acrocordon, upper eyelids, multiple Discussed, observe DIAGNOSIS #1 Acrocordon, upper eyelids, multiple CDM Reports - [facility] Id: [id number] Status: Fnl documented in this encounter Plan of Treatment Upcoming Encounters Date Type Department Care Team (Late st Contact Info) Description 12/14/2023 10:30 AM REFINING SUPERVISOR Appointment Department of Laboratory Medicine and Pathology, [facility] [address], in [address] [place] [address] Dalia iDll M.D. [address] [place] [phone] 12/14/2023 11:00 AM REFINING SUPERVISOR Office Visit Department of Family Medicine, [address] [phone] Dalia Dill M.D. [address] [place] [phone] 12/19/2023 2:00 PM REFINING SUPERVISOR Comprehensive Visit Division of Community Internal Medicine, [place], [place] [address] [place] [phone] Kiran Hugo M.D. [address] [place] [phone] documented as of this encounter Visit Diagnoses Not on filedocumented in this encounter Additional Health Concerns Infection Onset Date Last Indicated Resolved Time COVID19 Pending 11/12/2020 11/12/2020 11/12/2020 8 :37 PM CDT COVID19 Pending 04/30/2023 04/30/2023 04/30/2023 1 :34 PM CDT COVID19 Pending 10/28/2023 10/28/2023 10/28/2023 9 :59 AM CDT documented as of this encounter Care Teams Care Manager Relationship Specialty Start Date End Date Dalia Dill M.D. [address] [place] [phone] PCP - General Family Medicine 12/01/23 documented as of this encounter
--- OUTSIDE RECORDS SUMMARY | 2023-12-13 06:17 | XMS_ITS | Encounter Summary ---
Author Organization [facility] Address [address] [place] [address] Care Team Providers Care Parimutuel Ticket Checker Name Role Phone Dalia Dill M.D. Primary Care Provider [phone] [phone] Encounter Details Date Type Department Care Team (Late st Contact Info) Description 08/05/2009 Historical Ophthalmology RST OPH Lucho Finch O.D. [address] [place] [address] Social History Tobacco Use Types Packs/Day Years Used Date Smoking Tobacco: Never Assessed Sex and Gender Information Value Date Recorded Sex Assigned at Male 08/23/2017 10:02 AM CDT Legal Sex Male 7:12 PM RECORDER HELPER GRAVITY PROSPECTING Gender Identity Male 08/23/2017 10:02 AM CDT Sexual Orientation Straight 08/23/2017 10 :02 AM CDT documented as of this encounter Progress Notes * Lucho Finch O.D. - 08/05/2009 1:18 PM CDT Eye General CHIEF COMPLAINT Describes floaters in both eyes. HISTORY OF PRESENT ILLNESS Floaters; both eyes; on and off; many years; mild and remains unchanged. Patient states he was having trouble focusing; both eyes; about 2 months ago; mild, occurred mostlywhen driving. Patient states he did have an eye exam and received new glasses about 2 months ago which has helpedhis vision. Patient denies ocular pain, flashes of lights or diplopia. Hemoglobin A1c was 6.2 on08/01/09; currently does not test blood sugars at home. IMPRESSION / REPORT / PLAN #1 mild cataract, both plan 1. srx 2. 1 year / prn DIAGNOSIS #1 mild cataract, both CDM Reports - [facility] Id: [id number] Status: Fnl documented in this encounter Plan of Treatment Upcoming Encounters Date Type Department Care Team (Late st Contact Info) Description 12/14/2023 10:30 AM RECORDER HELPER GRAVITY PROSPECTING Appointment Department of Laboratory Medicine and Pathology, [facility], in [address] [phone] Dalia Dill M.D. [address] [place] [phone] 12/14/2023 11:00 AM RECORDER HELPER GRAVITY PROSPECTING Office Visit Department of Family Medicine, [address] [phone] Dalia Dill M.D. [address] [place] [phone] 12/19/2023 2:00 PM RECORDER HELPER GRAVITY PROSPECTING Comprehensive Visit Division of Community Internal Medicine, [facility] in [place], [place] [address] [place] [phone] Kiran Hugo M.D. [address] [place] [phone] documented as of this encounter Visit Diagnoses Not on filedocumented in this encounter Additional Health Concerns Infection Onset Date Last Indicated Resolved Time COVID19 Pending 11/12/2020 11/12/2020 11/12/2020 8 :37 PM CDT COVID19 Pending 04/30/2023 04/30/2023 04/30/2023 1 :34 PM CDT COVID19 Pending 10/28/2023 10/28/202310/2710/28/2023 9 :59 AM CDT Assessment Noted Time PHQ-9 Depression Total Score: 2 08/02/19 10 3:09 PM CDT documented as of this encounter Care Teams Parimutuel Ticket Checker Relationship Specialty Start Date End Date Dalia Dill M.D. [address] [place] [address] PCP - General Family Medicine 12/01/23 documented as of this encounter
--- OUTSIDE RECORDS SUMMARY | 2023-12-13 06:17 | XMS_ITS | Encounter Summary ---
Author Organization [facility] Address [address] [place] [address] Care Team Providers Care Stamping Machine Operator Name Role Phone Dalia Dill M.D. Primary Care Provider [phone] [phone] Encounter Details Date Type Department Care Team (Late st Contact Info) Description 08/02/2012 Historical Ophthalmology RST OPH Jameson Burks O.D. [address] [place] [address] Social History Tobacco Use Types Packs/Day Years Used Date Smoking Tobacco: Never Assessed Sex and Gender Information Value Date Recorded Sex Assigned at Male 08/23/2017 10:02 AM CDT Legal Sex Male 7:12 PM WALL MAN Gender Identity Male 08/23/2017 10:02 AM CDT Sexual Orientation Straight 08/23/2017 10 :02 AM CDT documented as of this encounter Progress Notes * Jameson Burks O.D. - 08/02/2012 3:30 PM CDT Eye General CHIEF COMPLAINT Diabetic eye exam HISTORY OF PRESENT ILLNESS Patient is here today for a yearly eye exam. Non-insulin dependent diabetic. Most recent HbA1c was 6.3 % done . No history of eye complications previously noted due to diabetes. Patient reports visual acuity stable in both eyes. He typically wears progressive lenses in his glasses for near tasks only. Denies flashes, new floaters, and diplopia. Denies ocular pain. IMPRESSION / REPORT / PLAN Consult requested by: Dalia Wang [phone] #1 Diabetes mellitus, Type 2, no eye complications. Discussed importance of good blood sugar control. Plan: monitor periodically. #2 Cataract, both eyes, not visually significant. Plan: observe. 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 #2 Cataract, both eyes, not visually significant. CDM Reports - [facility] Id: [id number] Status: Fnl documented in this encounter Plan of Treatment Upcoming Encounters Date Type Department Care Team (Late st Contact Info) Description 12/14/2023 10:30 AM WALL MAN Appointment Department of Laboratory Medicine and Pathology, [facility], in [address] [phone] Dalia Dill M.D. [address] [place] [phone] 12/14/2023 11:00 AM WALL MAN Office Visit Department of Family Medicine, [address] [phone] Dalia Dill M.D. [address] [place] [phone] 12/19/2023 2:00 PM WALL MAN Comprehensive Visit Division of Community Internal Medicine, [facility] in [place], [place] [address] [place] [phone] Kiran Hugo M.D. [address] [place] [phone] documented as of this encounter Visit Diagnoses Not on filedocumented in this encounter Additional Health Concerns Infection Onset Date Last Indicated Resolved Time COVID19 Pending 11/12/2020 11/12/2020 11/12/2020 8 :37 PM CDT COVID19 Pending 04/30/2023 04/30/202304/30/2023 1 :34 PM CDT COVID19 Pending 10/28/2023 10/28/2023 10/28/2023 9 :59 AM CDT Assessment Noted Time PHQ-9 Depression Total Score: 8 07/08/19 13 10:57 AM CDT documented as of this encounter Care Teams Stamping Machine Operator Relationship Specialty Start Date End Date Dalia Dill M.D. [address] [place] [phone] PCP - General Family Medicine 12/01/23 documented as of this encounter
== END 2023-12-06 08:58 | disposition home or self-care (01) ==
LOC: AMB 12-13 06:12
PROVIDERS: Visit Provider Emergency Medicine
DX: R53.1 Weakness (principal)
CPT/HCPCS: A0998

== ENCOUNTER 2024-06-22 02:15 | Outpatient (CLI) | payer MEDICARE, SELFPAY | END 2024-06-22 02:16 | disposition home or self-care (01) | LOC: AMB 06-25 09:23 | PROVIDERS: Visit Provider Internal Medicine | DX: R53.1 Weakness (principal) | CPT/HCPCS: A0425; A0427 ==

== ENCOUNTER 2024-06-22 03:06 | Observation (INO) | payer MEDICARE, SELFPAY ==
[2024-06-22] VITALS (16 sets, daily range): BP systolic 134–160; BP diastolic 81–97; PULSE 72–86; RESP 12–18; TEMP 36.3–36.8; O2SAT 90–100; BMI 29.5
--- NOTE | 2024-06-22 03:07 | ED_ITS ---
HPI - General Adult General Chief complaint: Nausea/Vomiting Stated complaint: Dizzy Time Seen by Provider: 06/22/24 03:09 History of Present Illness HPI narrative: Patient is a 79-year-old gentleman got up to use the restroom in the middle of the night and developed weakness. He said of the edge of the toilet for quite some time with severe nausea. He had no chest pain no shortness a breath. He had weakness to the point where he was unable to get up and his called for an ambulance. Upon arrival his blood pressure was reasonably stable and his blood sugar was roughly 100. He had no focal neurologic defects no falls or seizure activity. Patient otherwise has been in his usual state of health until developing some weakness overnight. Related Data Home Medications ?Medication ?Instructions ?Recorded ?Confirmed amlodipine 5 mg tablet 5 mg PO DAILY 06/22/24 06/22/24 aspirin 81 mg capsule 81 mg PO DAILY 06/22/24 06/22/24 blood sugar diagnostic (Accu-Chek 06/22/24 06/22/24 Guide test strips) fluoxetine 40 mg capsule 40 mg PO DAILY 06/22/24 06/22/24 losartan 50 mg tablet 50 mg PO DAILY 06/22/24 06/22/24 metformin 1,000 mg tablet 1,000 mg PO BID 06/22/24 06/22/24 metoprolol succinate 25 mg 12.5 mg PO DAILY 06/22/24 06/22/24 tablet,extended release 24 hr pantoprazole 40 mg tablet,delayed 40 mg PO DAILY 06/22/24 06/22/24 release rosuvastatin 10 mg tablet 10 mg PO QPM 06/22/24 06/22/24 semaglutide 0.25 mg or 0.5 mg (2 0.5 mg subcut .weekly 06/22/24 06/22/24 mg/3 mL) subcutaneous pen injector (Ozempic) Allergies Allergy/AdvReac Type Severity Reaction Status Date / Time cortisone Allergy Intermediate Swelling Verified 06/22/24 03:11 of Lip/Tongue/Throat Review of Systems Status of ROS: Reports: 10 or more systems reviewed and unremarkable except as noted in History and below [facility] PFS Social History Smoking Status: Never smoker Second hand tobacco smoke exposure: No How often do you have a drink containing alcohol: never AUDIT-C Alcohol total score: 0 Non-prescribed substance use: denies use Exam Narrative: Exam Narrative: EXAM GENERAL: Patient appears comfortable and well. EYES: No scleral icterus. ENT: Tympanic membranes and oropharynx normal. THYROID: no thyroid nodules or thyromegaly. LYMPH: No supraclavicular or cervical lymphadenopathy. SKIN: Visible skin seen during exam normal or with benign process only. EXT: No dependent lower extremity pedal edema. HEART: Regular rate and rhythm with no murmurs, rubs, or gallops. LUNGS: Clear to auscultation bilaterally with no crackles or wheezes. ABD: Soft, non tender, non distended. PSYCH: Good eye contact, speech is not pressured. Neurologic cranial nerves 2-12 grossly intact no focal defects. Const: Vital Signs, click to edit/add: Vital Signs - 24 hr 06/22/24 03:08 06/22/24 03:17 Temperature 97.8 F Pulse Rate [Pulse Oximeter] 73 Respiratory Rate 18 Blood Pressure [Le ft Upper Arm] 151/97 H Pulse Oximetry 100 100 Oxygen Delivery Me thod Room Air Course Course ED Course: Patient seen examined normal saline IV Zofran given. CBC comprehensive metabolic panel troponin EKG UA pending. Vital Signs Vital signs: Initial Vital Signs Temperature 97.8 F 06/22/24 03:08 Temperature Source Temporal Artery Scan 06/22/24 03:08 Pulse Rate 73 06/22/24 03:08 Respiratory Rate 18 06/22/24 03:08 Blood Pressure 151/97 H 06/22/24 03:08 Blood Pressure Mean 115 H 06/22/24 03:08 Pulse Oximetry 100 06/22/24 03:08 Oxygen Delivery Method Room Air 06/22/24 03:08 Vital Signs Temperature 97.8 F 06/22/24 03:08 Pulse Rate 73 06/22/24 03:08 Respiratory Rate 18 06/22/24 03:08 Blood Pressure 151/97 H 06/22/24 03:08 Pulse Oximetry 100 06/22/24 03:08 Oxygen Delivery Method Room Air 06/22/24 03:08 Temperature 97.8 F 06/22/24 03:08 Pulse Rate 73 06/22/24 03:08 Respiratory Rate 18 06/22/24 03:08 Blood Pressure 151/97 H 06/22/24 03:08 Pulse Oximetry 100 06/22/24 03:17 Oxygen Delivery Method Room Air 06/22/24 03:08 Medications Administered Medications: Discontinued Medications Generic Name Dose Route Start Last Admin Trade Name Franco PRN Reason Stop Dose Admin Ondansetron HCl 4 mg 06/22/24 03:10 06/22/24 03:13 Ondansetron 2 Mg/Ml Inj IVP 06/22/24 03:11 4 mg ONCE STA Administration Medical Decision Making MDM Narrative Medical decision making narrative: Patient developed weakness while sitting on the toilet in the middle night. He comes in neurologically intact. Troponin EKG electrolytes CBC all unremarkable. UA is unremarkable. Patient was given normal saline and Zofran with resolution of his symptoms. He is back to baseline. Differential diagnosis includes but not limited to vasovagal symptoms hypotension cardiac arrhythmia myocardial infarction urinary tract infection seizure. This time will return him to home to continue current medications follow-up as needed. Lab Data Labs: Lab Results 06/22/24 06/22/24 Range/Units 03:10 03:21 WBC 7.45 (4.50-11.00) K/uL RBC 4.42 (4.30-5.90) m/uL Hgb 13.5 (13.5-17.5) gm/dL Hct 40.2 (37.0-53.0) % MCV 91 (80-100) fL MCH 31 (26-34) pg MCHC 34 (32-36) gm/dL RDW Coeff of Benjamin 12.6 (11.5-15.5) % Plt Count 166 (140-440) K/uL Neut % (Auto) 69.9 (42.0-72.0) % Lymph % (Auto) 18.4 L (20-44) % [place] % (Auto) 9.3 (0.0-11.0) % Eos % (Auto) 1.5 (0.0-7.0) % Baso % (Auto) 0.4 (0.0-3.0) % Neut # (Auto) 5.21 (1.7-7.0) K/uL Lymph # (Auto) 1.40 (0.90-2.90) K/uL [place] # (Auto) 0.70 (0.00-0.90) K/UL Eos # (Auto) 0.11 (0.00-0.50) K/uL Baso # (Auto) 0.03 (0.00-0.30) K/uL Abs Immat Gran (auto) 0.04 (0.00-0.30) K/uL Imm/Tot Granulo (auto) 0.5 % Sodium 139 (135-149) mmol/L Potassium 3.9 (3.6-5.1) mmol/L Chloride 104 (96-114) mmol/L Carbon Dioxide 25 (20-32) mmol/L Anion Gap 10 (7-15) mEq/L BUN 28 (7-30) mg/dL Creatinine 1.2 (0.5-1.5) mg/dL Estimated GFR 62 ml/min Glucose 206 H (60-115) mg/dL Calcium 9.6 (8.4-10.6) mg/dL Total Bilirubin 0.6 (0.1-1.5) mg/dL AST 31 (12-35) U/L ALT 27 (4-50) U/L Alkaline Phosphatase 75 (40-150) U/L Troponin I < 0.01 (0.01-0.04) ng/mL Total Protein 6.9 (6.0-8.3) g/dL Albumin 4.3 (3.3-5.0) g/dL Urine Color Yellow (Yellow) Urine Appearance Clear (Clear) Urine pH 7.0 (5.0-8.5) Ur Specific [place] 1.020 (1.000-1.030) Urine Protein 1+ A (Negative) Urine Glucose (UA) Trace A (Negative) Urine Ketones Trace A (Negative) Urine Blood Negative (Negative) Urine Nitrite Negative (Negative) Urine Bilirubin Negative (Negative) Urine Urobilinogen 0.2 (0.2-1.0) Ur Leukocyte Esterase Negative (Negative) Urine RBC 0-2 (0-2) Urine WBC 0-2 (0-5) Ur Squamous Epith Cells None (None-Few) Urine Bacteria None (None) Discharge Plan Discharge Clinical Impression: Weakness Patient Disposition: Home, Self-Care Condition: Stable Instructions: Weakness (ED) Additional Instructions: Continue current medication Continue current cares Follow-up with your doctor as needed. Activity Level: No Restrictions Discharge Diet: Regular Prescriptions: No Action losartan 50 mg tablet 50 mg PO DAILY (DME) Accu-Chek Guide test strips Strip MISCELLANEOUS DAILY amlodipine 5 mg tablet 5 mg PO DAILY metformin 1,000 mg tablet 1,000 mg PO BID metoprolol succinate 25 mg tablet extended release 24 hr 12.5 mg PO DAILY rosuvastatin 10 mg tablet 10 mg PO QPM Ozempic 0.25 mg or 0.5 mg (2 mg/3 mL) pen injector 0.5 mg subcut .weekly fluoxetine 40 mg capsule 40 mg PO DAILY pantoprazole 40 mg tablet,delayed release (DR/EC) 40 mg PO DAILY aspirin 81 mg capsule 81 mg PO DAILY Follow Up/Referrals: Provider,Not a Local [Primary Care Provider] - Stand Alone Forms: [employer] Info Instructions
--- OUTSIDE RECORDS SUMMARY | 2024-06-22 03:08 | XMS_ITS ---
Author Organization [facility] Address [address] [place] [address] Care Team Providers Care Hairspring Ii Inspector Name Role Phone Dalia Dill M.D. Primary Care Provider [phone] Active Problems * This document contains information received from the source organization and may not represent a complete record from that organization. Problem Noted Date Diagnosed Date Cyst Renal 05/08/2024 Hematuria Gross 05/07/2024 Frailty Age Related Physical Debility 10/30/2023 Assessment & Plan (11/28/2023 1:09 PM CDT): He will have home care PT/OT/nursing and home health aide Sarcopenia 10/30/2023 Overview (12/19/2023): Reports of worsening weakness and loss of muscle mass over the last year. He has been having fall issues for the past 6-8 yrs. He denies fasciculations, cramps or muscle pain. He doing physical therapy 2 times per week with a focus on resistance training. The patient described inability to lift himself from the floor. No problem with overhead activities however he does mention upper extremity weakness. No family history of autoimmune disease or myositis. He has a low protein intake. Assistive devices: Front wheeled walker and also owns a scooter and also uses a single point cane. Recurrent falls and difficulty with balance. Risk factors: - COPD - CKD Stage III - Ulcerative proctitis. - Peripheral Neuropathy - Lumbar Spinal stenosis ( Mild to moderate bilateral neural foraminal narrowing MRI 2019 future neuro appointment on 01/12/24) - Semaglutide use - Concern for NPH - Deconditioning following hospitalization - lack of physical activity / resistance training. - Suboptimal protein intake - polypharmacy Wt Readings from Last 4 Encounters: 12/14/23 92.2 kg 11/28/23 92.7 kg 11/17/23 92.7 kg 11/01/23 96 kg Estimated Creatinine Clearance: 65.1 mL/min (by C-G formula based on SCr of 1.22 mg/dL). - Normal albumin levels. - CPK and CRP have been elevated. Obesity Body Mass Index 30-39.9 Adult 10/30/2023 [...] check. Assessment & Plan (04/08/2020 1:19 PM GREEN HIDE INSPECTOR): Initial blood pressure is 135/94 but repeat was 116/82. Urine albumin 106 milligrams/gram. Estimated GFR: 54 mL/min. Plan: Continue current antihypertensive regimen. Diabetes Mellitus Type 2 Peripheral Neuropathy 0 08/30/2019 Overview (12/18/2023): Hba1c: 5.5% BMI Readings from Last 4 Encounters: 12/14/23 28.94 kg/m 11/28/23 29.10 kg/m 11/17/23 29.10 kg/m 11/01/23 30.12 kg/m Estimated Creatinine Clearance: 65.1 mL/min (by C-G formula based on SCr of 1.22 mg/dL). Current medications: - Metformin 1000mg BID - Semaglutide 0.5mg weekly. Assessment & Plan (11/28/2023 1:06 PM CDT): [...] Of Bladder 12/19/2017 Cancer Staging:Clinical: Unsigned Overview (05/08/2024): History of high-grade TA urothelial carcinoma of [...] Per emr: should have f/u one year 06/01: seen in urology. 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 Small fixed [...] vessel that does not warrant any intervention EKG: sinus, 1st degree Av block, left anterior fascicular block Echo 2019: EF 56%, grade I diastolic dysfunction, no valvular disease. Current medications: - Aspirin 81mg/day - Losartan 50mg day - Metoprolol succinate 12.5mg/day - rosuvastatin 10mg/day - Nitroglycerin PRN - Assessment & Plan (11/28/2023 1:06 PM CDT): [...] daily Assessment & Plan (12/12/2019 2:14 PM GREEN HIDE INSPECTOR): Blood pressure is controlled at 131/87. Continues [...] (11/01/2023 2:28 PM CDT): Continue rosuvastatin Current Treatment and Therapy Plans No current plan information found. Past Treatment and Therapy Plans Urology Plan Name Start Date Discontinue Date Treatment Medications Discontinue Reason Plan Provider [facility] LIVE (MAINTENANCE ) WEEKLY FOR 3 WEEKS 08/29/2019 12/11/2020 BCG live ([facility]) Therapy Complete Anthony Dyer M.D. BCG LIVE (MAINTENANCE ) 50 MG/ 50 ML WEEKLY FOR 3 WEEKS & BCG LIVE (MAINTENANCE ) 50 MG/ 50 ML WEEKLY FOR 3 WEEKS 10/31/2018 08/21/2019 BCG live ([facility]) Therapy Complete Felipe, Ethan, M.D. BCG LIVE (INDUCTION) 50 MG/ 50 ML WEEKLY FOR 6 WEEKS 01/18/2018 04/13/2018 BCG live ([facility]) Therapy Complete Ethan Wang M.D. Resolved Problems Problem Noted Date Diagnosed Date [...] (11/16/2017): Added automatically from request for surgery [id number] Department Of Transportation Examination Department Of Motor [...] 7. No pericardial effusion. See communication from [facility] (Dr Andrews) 08/18/17: Given the sinus diameter measurement of 41 mm, I think it would be reasonable to obtain repeat echocardiography in 2 years. If the aortic measurements have not changed at that time, he would not require further surveillance echocardiography, unless he develops uncontrolled hypertension in the interim (ordered) 08/26: 1. Normal ascending aorta diameter (39 [...] this. Assessment & Plan (04/08/2020 1:18 PM GREEN HIDE INSPECTOR): Hemoglobin A1c has worsened to 7.8%. He [...] be insulin. I have given them the [employer] patient assistance plan literature. They will contact [...] own. Assessment & Plan (12/12/2019 2:13 PM GREEN HIDE INSPECTOR): Hemoglobin A1c: 7.3% on current regimen of [...]
--- OUTSIDE RECORDS SUMMARY | 2024-06-22 03:08 | XMS_ITS | Encounter Summary ---
Author Organization [facility] Address [address] [place] [id number] Care Team Providers Care Ecological Economist Name Role Phone Dalia Dill M.D. Primary Care Provider [phone] Encounter Details Date Type Department Care Team (Late st Contact Info) Description 05/08/2024 Results Follow-Up Department of Family Medicine, [address] [place] [address] [place] [address] Dalia Dill M.D. [address] [place] [phone] Urinalysis, with Microscopic: Urine, Midstream, Osmolality, Urine, pH, Urine, Additional followed-up results: 2 Social History Tobacco Use Types Packs/Day Years Used Date Smoking Tobacco: Former Cigarettes 1 35 0 02/07/1962 - 02/15/1997 Smokeless Tobacco: Never Quit: 05/23/1999 Alcohol Use Standard Drinks/Week Comments Yes 1 (1 standard drink = 0.6 oz pur e alcohol) [facility] Utilities Answer Date Recorded In the [...] How often do you attend chur or alevism services? 1 to 4 times per year 04/02/2022 Do you belong to any clubs o r organizations such as episcopalian groups, unions, fraternal or athletic groups, or [...] PHQ-2 Answer Date Recorded PHQ-2 Score 0 12/19/[address] [facility] of Occupat ional Health - Occupational Stress [...] Recor ded PHQ-9 Total Score (max 27) 0 12/18 Nutrition Answer Date Recorded On average, how [...] your living situation today? [facility] 10/27/2023 Education Answer Date Recorded What is the highest level of school you have completed or the highest degree you have received? 12th grade 03/14/2019 Sex and Gender Information Value Date Recorded Sex Assigned at Male 08/23/2017 10:02 AM CDT Legal Sex Male 7:12 PM TEXTILE MACHINERY SALES REPRESENTATIVE Gender Identity Male 08/23/2017 10:02 AM CDT Sexual Orientation Straight 08/23/2017 10 :02 AM CDT documented as of this encounter Plan of Treatment Upcoming Encounters Date Type Department Care Team (Late st Contact Info) Description 07/24/2024 9:15 AM CDT Office Visit Department of Neurology in [place], [place] [address] [place] [address] Amrik Negron D.O. [address] [place] [phone] documented as of this encounter Visit Diagnoses Not on filedocumented in this encounter Additional Health Concerns Assessment Noted Time PHQ-9 Depression Total Score: 0 12/19/19 24 1:29 PM TEXTILE MACHINERY SALES REPRESENTATIVE documented as of this encounter Care Teams Ecological Economist Relationship Specialty Start Date End Date Dalia Dill M.D. [address] [place] [phone] PCP - General Family Medicine 12/01/23 documented as of this encounter
--- OUTSIDE RECORDS SUMMARY | 2024-06-22 03:08 | XMS_ITS | Clinical Summary ---
Author Organization [facility] Address [address] [place] [address] Care Team Providers Care Load Out Person Name Role Phone Daila Dill M.D. Primary Care Provider [phone] Source Comments Patient records contain information from all sites at [facility]. For routine questions regarding patient records, call [phone] during business hours, M-F 8:00 AM - 5:00 PM Central Time. Record requests for emergency care only can be directed to [phone] at any time.[facility] Allergies Active Allergy Reactions Criticality Noted Date [...] for chest pain. Chest pain 10/31/19 Active aspirin 81 mg chewable tablet Chew 1 tablet (81 mg total) daily. For cardiovascular event prevention 10/31/19 Active FLUoxetine (PROzac) 40 mg capsule Take 1 capsule (40 mg total) by mouth daily. For depression. 10/31/19 Active metFORMIN (Glucophage) 1,000 mg tablet [...] by mouth daily. For GERD. 10/31/19 Active albuterol 90 mcg/actuation inhaler Inhale 1 puff every 4 (four) hours as needed for wheezing or shortness of breath. For COPD. 11/01/19 Active semaglutide (Ozempic) 0.25 mg or 0.5 mg (2 mg/3 mL) injection Inject 0.5 mg under the skin every 7 (seven) days. 3 mL 11 01/16/20 Active amLODIPine (Norvasc) 5 mg tabletIndicatio ns:Chronic Kidney Disease (CKD), Stage 3 Unspecified (HCC) TAKE 1 TABLET(5 MG) BY MOUTH DAILY 90 tablet 3 02/02/20 Active rosuvastatin (Crestor) 10 mg tablet TAKE 1 TABLET(10 MG) BY MOUTH DAILY 90 tablet 3 02/02/20 24 Active DME Bi-level PAPIndications: Apnea Sleep Obstructive DME Order 1 each 02/14/19 Active losartan (Cozaar) 50 mg tablet Take 1 tablet (50 mg total) by mouth daily. For hypertension. 90 tablet 3 02/27/19 Active Arnuity Ellipta 100 mcg/actuation diskus inhaler Inhale 1 puff by mouth once daily 90 each 3 04/17/19 Active Active Problems Problem Noted Date Diagnosed Date Cyst Renal [...] check. Assessment & Plan (04/08/2020 1:19 PM INTERNET MEDIA PLANNER): Initial blood pressure is 135/94 but repeat [...] daily Assessment & Plan (12/12/2019 2:14 PM INTERNET MEDIA PLANNER): Blood pressure is controlled at 131/87. Continues [...] (11/16/2017): Added automatically from request for surgery [id number] Department Of Transportation Examination Department Of Motor [...] 7. No pericardial effusion. See communication from [employer] (Dr Andrews) 08/18/17: Given the sinus diameter [...] this. Assessment & Plan (04/08/2020 1:18 PM INTERNET MEDIA PLANNER): Hemoglobin A1c has worsened to 7.8%. He [...] be insulin. I have given them the [employer] patient assistance plan literature. They will contact [...] have found anything more from her insurance [employer]PT [employer] o patients assistance program regarding his Ozempic cost. Other: Needs to schedule an eye exam on his own. Assessment & Plan (12/12/2019 2:13 PM INTERNET MEDIA PLANNER): Hemoglobin A1c: 7.3% on current regimen of glimepiride, metformin, Januvia. He is not having hypoglycemia. His last visit we talked about transitioning to a GLP 1 agonist for weight loss benefit, cardiac benefit, further improved glycemic control. He notes that he is currently in the [facility] and therefore has a high co-pay for [...] Loss Hearing Conductive Unilateral 06/10/2010 08/31/2021 Encounters * This document contains information received from the source organization and may not represent a complete record from that organization. Date Type Department Care Team Description 06/06/2024 CPAP Download Remote Patient Monitoring [facility] [address] [place] [address] [facility]24 Orders Only Division of Pulmonary Medicine in [place], [place] [address] [place] [phone] Pro Carr M.D. 05/17/2024 Results Follow-Up Department of Family Medicine, [address] in [address] [place] [phone] Dalia Dill M.D. Basic Metabolic Panel, CBC with Differential, Blood, Hemoglobin A1c, Additional followed-up results: 3 05/15/2024 11:10 AM CDT - 05/15/2024 11:59 PM CDT Hospital Encounter Department of Laboratory Medicine in [address] [phone] Dalia Dill M.D. Chronic Kidney Disease (CKD), Stage 3a Glomerular Filtration Rate (GFR) 45 To 59 (HCC); Diabetes Mellitus Type 2 With Diabetic Chronic Kidney Disease (HCC); Hyperlipidemia; Hypertensive Chronic Kidney Disease With Stage 1 Through Stage 4 Chronic Kidney Disease, Or Unspecified Chronic Kidney Disease; Thrombocytopenia Discharge Disposition: Home or Self Care 05/08/2024 3:30 PM CDT Procedure visit Department of Urology in [place], [place] [address] [place] [phone] Dalia Dill M.D. Hughes, Corinna S, APRN, C.N.P., D.N.P. Malignant Neoplasm Of Bladder (HCC); Hematuria 05/08/2024 1:00 PM CDT Comprehensive Visit Department of Urology in [place], [place] [address] [place] [phone] Kel Patiño APRN, C.N.P., D.N.P., M.S. Malignant Neoplasm Of Bladder (HCC) (Primary Dx); Cyst Renal; Benign Prostatic Hyperplasia Without Obstruction; Hematuria Gross 05/08/2024 10:36 AM CDT - 05/08/2024 11:59 PM CDT Hospital Encounter Department of Radiology, [facility], in [place], [place] [address] [place] [phone] Dalia Dill M.D. Malignant Neoplasm Of Bladder (HCC); Hematuria Discharge Disposition: Home or Self Care 05/08/2024 9:50 AM CDT - 05/08/2024 10:35 AM CDT Hospital Encounter Department of Laboratory Medicine and Pathology, [place], [place] [address] [place] [phone] Dalia Dill M.D. Malignant Neoplasm Of Bladder (HCC); Hematuria Discharge Disposition: Home or Self Care 05/08/2024 9:40 AM CDT - 05/08/2024 9:49 AM CDT Hospital Encounter Department of Laboratory Medicine and Pathology, [place], [place] [address] [place] [phone] Dalia Dill M.D. Malignant Neoplasm Of Bladder (HCC); Hematuria Discharge Disposition: Home or Self Care 05/08/2024 Results Follow-Up Department of Family Medicine, [address] [phone] Urogram without and with IV Contrast 05/08/2024 Results Follow-Up Department of Family Medicine, [address] [phone] Dalia Dill M.D. Urinalysis, with Microscopic: Urine, Midstream, Osmolality, Urine, pH, Urine, Additional followed-up results: 2 05/06/2024 CPAP Download Remote Patient Monitoring [facility] [address] [place] [address] [facility] 05/03/2024 1:45 PM CDT Clinical Communication Virtual Review in [place], [place] [address] [place] [address] Pre-visit Intake 04/16/2024 Refill Department of Family Medicine, [address] [phone] Dalia Dill M.D. Med Refill 04/15/2024 E-Visit Department of Family Medicine, [address] [phone] Dalia Dill M.D. Blood in the urine 04/05/2024 CPAP Download Remote Patient Monitoring [facility] [address] [place] [address] [facility], ProviderMD from Last 3 Months Immunizations Immunization Administration Dates Next Due HepB Adult 11/24/2009,04/14/2009,03/13/2009 Influenza TIV (IM) 11/17/2023 Influenza high dose QV(65 ye ars or [...] = 0.6 oz pur e alcohol) [facility] Utilities Answer Date Recorded In the [...] often do you attend chur ch or yarsani services? 1 to 4 times per year 04/02/2022 Do you belong to any clubs o r organizations such as moravian groups, unions, fraternal or athletic groups, or [...] Answer Date Recorded PHQ-2 Score 0 12/19/2023 [facility] Occupat ional [facility] - Occupational Stress Questionnaire Answer Date Recorded [...] your living situation today? I have a juno place to live 10/27/2023 Education Answer Date Recorded What is the highest level of school you have completed or the highest degree you have received? 12th grade 03/14/2019 Sex and Gender Information Value Date Recorded Sex Assigned at Male 08/23/2017 10:02 AM CDT Legal Sex Male 7:12 PM INTERNET MEDIA PLANNER Gender Identity Male 08/23/2017 10:02 AM CDT Sexual Orientation Straight 08/23/2017 10 :02 AM CDT Last Filed Vital Signs Vital Sign Reading Time Taken Comments Blood Pressure 109/70 12/19/2023 1:46 PM INTERNET MEDIA PLANNER Pulse 79 12/19/2023 1:46 PM INTERNET MEDIA PLANNER Temperature 36.3 C (97.3 F) 11/28/2023 8:33 AM CDT Respiratory Rate 16 11/28/2023 8:33 AM CDT Oxygen Saturation 97% 11/28/2023 8:33 AM CDT Inhaled Oxygen Concentration - - Weight 94.4 kg (208 lb 1.8 oz) 12/19/2023 1:46 P M INTERNET MEDIA PLANNER Height 178.5 cm (5' 10.28) 10/27/2023 6:20 PM C DT Body Mass Index 29.63 10/27/2023 6:20 PM CDT Plan of Treatment Upcoming Encounters Date Type Department Care Team (Late st Contact Info) Description 07/24/2024 9:15 AM CDT Office Visit Department of Neurology in [place], [place] [address] [place] [phone] Amrik Negron D.O. [address] [place] [phone] Health Maintenance Due Date Last Done Comments Zoster Vaccines (1 of 2) 1995 RSV vaccine - (32-36 weeks) or 60+ years (1 - 1-dose 75+ series) 02/01/2020 DTaP,Tdap,and Td Vaccines (2 - Td or Tdap) 08/18/2023 08/17/2013, 12/08/2006 Visit: Medicare Annual Wellness 12/23/2023 12/21/2022 Depression Monitoring (PHQ-9 for quality tracking) 02/08/2024 Fall Risk Screen (Annual) 02/08/2024 Depression Monitoring (PHQ-9) 04/17/2024 12/19/2023 COVID-19 Vaccine ( season) 2024 11/17/2023, 12/10/2022, 12/01/2021, Additional history exists Urine Albumin 09/22/2024 09/23/2023, 10/08, 11/09/2021, Additional history exists Hemoglobin A1C 11/14/2024 05/15/2024, 07/2023, 10/28/2023, Additional history exists Diabetic Office Visit with Foot Exam 12/13/2024 12/14/2023, 12/14/2023, 06/13/2023, Additional history exists Visit: Chronic Disease, age 18+ 12/13/2024 12/14/2023, 06/29/2023 Office Visit for Blood Pressure Check / Re-check 12/18/2024 12/19/2023 Dilated Eye Exam 01/24/2025 01/25/2024 (Per formed elsewhere), 10/16/2021 (Performed elsewhere), 10/16/2020 (Performed elsewhere), Additional history exists Creatinine Level (Kidney Function Test) 05/15/2025 05/15/2024, 05/08/2024, 11/08/2023, Additional history exists Potassium Level 05/15/2025 05/15/2024, 10/0 02/2023, 10/31/2023, Additional history exists Sodium Level 05/15/2025 05/15/2024, 100 02/2023, 10/31/2023, Additional history exists Lung Cancer Screening Discontinued 10/22/2008 Hepatitis B Vaccines Completed 11/24/2009, 04/14/2009, 03/13/2009 Hepatitis C Screening Completed 06/15/2012 , 06/15/2012, 12/01/2011 Pneumococcal vaccine (50+ years) Completed 09/06/2014, 05/21/2010 Abdominal Aortic Aneurysm (AAA) Screen Discontinued 03/27/2015 Colonoscopy Discontinued 11/14/2020, 09/07, 09/13/2011, Additional history exists Colorectal Cancer Surveillance Discontinued Influenza Vaccine Completed 11/17/2023, , 12/01/2021, Additional history exists CT Colonography Discontinued Cologuard Discontinued IPV Vaccines Aged Out No longer eligi ble based on patient's age to complete this topic Medical Devices Implanted Type Area Practice Specialist Device Identifier Shelf Expiration Date Model / Serial / Lot [place] Screw 2 Canc 6.5 X 35 - Kunz [id number] Implanted:Qty: 1 on 11/30/2011 Hardware e.g. pins/screws /rods [employer] Description:Device Manufactu [employer] - J [employer] J Ortho. Device Status Text - [id number]. [place] Screw 2 Canc 6.5 X 40 - Kunz [id number] Implanted:Qty: 1 on 11/30/2011 Hardware e.g. pins/screws /rods [employer] Description:Device Manufactu [employer] - Vinted & J Ortho. Device Status Text - [id number]. [place] Screw 2 Canc 6.5 X 30 - Kunz [id number] Implanted:Qty: 1 on 11/30/2011 Hardware e.g. pins/screws /rods [employer] Description:Device Manufactu rer - J & J Ortho. Device Status Text - [id number]. [place] Screw 2 Canc 6.5 X 20 - Kunz [id number] Implanted:Qty: 1 on 11/30/2011 Hardware e.g. pins/screws /rods [employer] Description:Device Manufactu [employer] - J & J Ortho. Device Status Text - [id number]. Conversions - Default Historical Implant Device - Kunz [id number] Implanted:11/13 (Quantity not on file) Hardware e.g. pins/screws /rods Description:Device Status Te xt - [id number]. [place] Shell Multi 2 60mm - Kunz [id number] Implanted:Qty: 1 on 11/30/2011 Hip Implant Other/Legacy - See Implant Description [employer] Description:Device Manufactu [employer] - J & J Healthcare. Body Location - Other. Right. Device Status Text - [id number] [id number]. Dep. Head M-Spec 40mm -2 Offset - Kunz [id number] Implanted:Qty: 1 on 11/30/2011 Hip Implant Right: Other/Legacy - See Implant Description [employer] Description:Device Manufactu rer - J & J Healthcare. Body Location - Other. Right. Device Status Text - [id number]. [place] Liner Altrx +4 Neut 40x60 - Kunz [id number] Implanted:Qty: 1 on 11/30/2011 Hip Implant Other/Legacy - See Implant Description [employer] Description:Device Manufactu rer - J & J Healthcare. Body Location - Other. Right. Device Status Text - [id number]. [place]-Stem Jenkins 6 Hi - Kunz [id number] Implanted:Qty: 1 on 11/30/2011 Hip Implant Other/Legacy - See Implant Description [employer] Description:Device Manufactu rer - J & J Healthcare. Body Location - Other. Right. Device Status Text - [id number]. Procedures Procedure Name Priority Date/Time Associated Diagnosis Comments VITAMIN B12 ASSAY, S Routine 05/15/2024 11:51 AM CDT Chronic Kidney Disease (CKD), Stage 3a Glomerular Filtration Rate (GFR) 45 To 59 (HCC) Diabetes Mellitus Type 2 With Diabetic Chronic Kidney Disease (HCC) Hyperlipidemia Hypertensive Chronic Kidney Disease With Stage 1 Through Stage 4 Chronic Kidney Disease, Or Unspecified Chronic Kidney Disease Thrombocytopenia GLUCOSE, FASTING, S/P Routine 05/15/2024 11:51 AM CDT Chronic Kidney Disease (CKD), Stage 3a Glomerular Filtration Rate (GFR) 45 To 59 (HCC) Diabetes Mellitus Type 2 With Diabetic Chronic Kidney Disease (HCC) Hyperlipidemia Hypertensive Chronic Kidney Disease With Stage 1 Through Stage 4 Chronic Kidney Disease, Or Unspecified Chronic Kidney Disease Thrombocytopenia LIPID PANEL, S Routine 05/15/2024 11:51 AM CDT Chronic Kidney Disease (CKD), Stage 3a Glomerular Filtration Rate (GFR) 45 To 59 (HCC) Diabetes Mellitus Type 2 With Diabetic Chronic Kidney Disease (HCC) Hyperlipidemia Hypertensive Chronic Kidney Disease With Stage 1 Through Stage 4 Chronic Kidney Disease, Or Unspecified Chronic Kidney Disease Thrombocytopenia HEMOGLOBIN A1C, B Routine 05/15/2024 11:51 AM CDT Chronic Kidney Disease (CKD), Stage 3a Glomerular Filtration Rate (GFR) 45 To 59 (HCC) Diabetes Mellitus Type 2 With Diabetic Chronic Kidney Disease (HCC) Hyperlipidemia Hypertensive Chronic Kidney Disease With Stage 1 Through Stage 4 Chronic Kidney Disease, Or Unspecified Chronic Kidney Disease Thrombocytopenia CBC WITH DIFFERENTIAL, B Routine 05/15/2024 11:51 AM CDT Chronic Kidney Disease (CKD), Stage 3a Glomerular Filtration Rate (GFR) 45 To 59 (HCC) Diabetes Mellitus Type 2 With Diabetic Chronic Kidney Disease (HCC) Hyperlipidemia Hypertensive Chronic Kidney Disease With Stage 1 Through Stage 4 Chronic Kidney Disease, Or Unspecified Chronic Kidney Disease Thrombocytopenia BASIC METABOLIC PANEL, S/P Routine 05/15/2024 11:51 AM CDT Chronic Kidney Disease (CKD), Stage 3a Glomerular Filtration Rate (GFR) 45 To 59 (HCC) Diabetes Mellitus Type 2 With Diabetic Chronic Kidney Disease (HCC) Hyperlipidemia Hypertensive Chronic Kidney Disease With Stage 1 Through Stage 4 Chronic Kidney Disease, Or Unspecified Chronic Kidney Disease Thrombocytopenia MO CYSTOURETHROSCOPY Routine 05/08/2024 3:30 PM CDT Malignant Neoplasm Of Bladder (HCC) Hematuria CT UROGRAM WITHOUT AND WITH IV CONTRAST RAD - Routine (most inpatients and all outpatients) 05/08/2024 12:29 PM CDT Malignant Neoplasm Of Bladder (HCC) Hematuria CREATININE, POCT, B Routine 05/08/2024 11:27 AM CDT CREATININE, POCT, B Routine 05/08/2024 11:27 AM CDT CYTOLOGY NON-FLEET ADMINISTRATOR (SCHEDULED) Routine 05/08/2024 10:22 AM CDT Malignant Neoplasm Of Bladder (HCC) Hematuria MICROSCOPIC AUTOMATED Routine 05/08/2024 10:22 AM CDT DIPSTICK, U Routine 05/08/2024 10:22 AM CDT PH, U Routine 05/08/2024 10:22 AM CDT OSMOLALITY, U Routine 05/08/2024 10:22 AM CDT URINALYSIS WITH MICROSCOPIC Routine 05/08/2024 10:22 AM CDT Malignant Neoplasm Of Bladder (HCC) Hematuria BACTERIAL CULTURE, AEROBIC + SUSC, URINE Routine 05/08/2024 10:22 AM CDT Malignant Neoplasm Of Bladder (HCC) Hematuria ALBUMIN, RANDOM, U Routine 09/23/2023 9:24 AM CDT Diabetes Mellitus Type 2 Peripheral Neuropathy (HCC) COLONOSCOPY Routine 11/14/2020 2:39 PM CDT Colitis Ulcerative Proctitis (HCC) Belching Gastroesophageal Reflux Disease Pain Generalized Abdominal Screening Cancer Colon US AORTA AAA SCREENING Routine 6 11:17 AM INTERNET MEDIA PLANNER BONE DONOR 6 MONTH SCREEN TEST SET Routine 06/15/2012 9:[address] CHEST WITHOUT IV CONTRAST Routine 10/22/2008 9:06 AM CDT from Last 3 Months or Most Recently Relevant to Health Maintenance Results * Lipid Panel (05/15/2024 11:51 AM CDT) Triglycerides 122 mg/dL 05/15/2024 12:17 PM CDT CNFL Comment: ----REFERENCE VALUE---- Normal: <150 mg/dL Borderline High: 150-199 mg/dL High: 200-499 mg/dL Very High: > or =500 mg/dL Cholesterol, Total 113 mg/dL 2024 12:17 PM CDT CNFL Comment: ----REFERENCE VALUE---- Desirable: < 200 mg/dL Borderline High: 200 - 239 mg/dL High: > or = 240 mg/dL Cholesterol, LDL, Calculated 49 mg/dL 05/15/2024 12:17 PM CDT [facility]FL Comment: ----REFERENCE VALUE---- Desirable: <100 mg/dL Above Desirable: 100-129 mg/dL Borderline High: 130-159 mg/dL High: 160-189 mg/dL Very High: >=190 mg/dL ----ADDITIONAL INFORMATION---- LDL cholesterol calculated using the Ho/NIH equation. Cholesterol, HDL 42 >=40 mg/dL 05/16/19 12:17 PM CDT [facility]FL Cholesterol, Non-HDL, Calculated 71 mg/dL 05/15/2024 12:17 PM CDT [facility]FL Comment: ----REFERENCE VALUE---- Desirable: <130 mg/dL Above Desirable: 130-159 mg/dL Borderline High: 160-189 mg/dL High: 190-219 mg/dL Very High: > or =220 mg/dL Fasting (8 HR or more) No 05/15/2024 11:51 AM CDT CNFL Blood (Blood, Venous) 05/15/2024 11:51 AM CDT 05/15/2024 11:55 AM CDT us Dalia Dill M.D. LAB BLOOD ADD-ON Final Re sult [facility] [address] [place] [address], [facility] CNFL [facility] [address] * (ABNORMAL) CBC with Differential, Blood (05/15/2024 11:51 AM CDT) Hemoglobin 13.8 13.2 - 16.6 g/dL 05/15/2024 12:00 PM CDT CNFL Hematocrit 41.2 38.3 - 48.6 % 05/15/2024 12:00 PM CDT CNFL Erythrocytes 4.56 4.35 - 5.65 x10(12)/L 05/15/2024 12:00 PM CDT CNFL MCV 90.4 78.2 - 97.9 fL 05/15/2024 12:00 PM CDT CNFL RBC Distrib Width 12.7 11.8 - 14.5 % 05/15/2024 12:00 PM CDT CNFL Platelet Count 160 135 - 317 x10(9)/L 05/15/2024 12:00 PM CDT CNFL Leukocytes 6.1 3.4 - 9.6 x10(9)/L 05/15/2024 12:00 PM CDT CNFL Neutrophils 4.33 1.56 - 6.45 x10(9)/L 05/15/2024 12:00 PM CDT CNFL Lymphocytes 0.93(L) 0.95 - 3.07 x10(9)/L 05/15/2024 12:00 PM CDT CNFL Monocytes 0.64 0.26 - 0.81 x10(9)/L 05/15/2024 12:00 PM CDT CNFL Eosinophils 0.16 0.03 - 0.48 x10(9)/L 05/15/2024 12:00 PM CDT CNFL Basophils <0.04 0.01 - 0.08 x10(9)/L 05/15/2024 12:00 PM CDT CNFL Blood (Blood, Peripheral Draw) 05/15/2024 11:51 AM CDT 05/15/2024 11:55 AM CDT us Dalia Dill M.D. LAB BLOOD ADD-ON Final Re sult Performing Organization Address City/[facility]/ZIP Co de Phone Number [facility] [address] [place] [address], [facility] [place] [address] * (ABNORMAL) Hemoglobin A1c (05/15/2024 11:51 AM CDT) Hemoglobin A1c, B 6.1(H) 4.2 - 5.6 % 05/15/2024 12:10 PM CDT CNFL Comment: Hemoglobin A1c values of 5.7-6.4 percent indicate an increased risk for developing diabetes mellitus. In diabetic patients, HbA1c goals should be discussed with healthcare provider. Blood (Blood, Peripheral Draw) 05/15/2024 11:51 AM CDT 05/15/2024 11:56 AM CDT us Dalia Dill M.D. LAB BLOOD ADD-ON Final Re sult [facility] [address] [place] [address], [place] [address] * (ABNORMAL) Glucose, Fasting (05/15/2024 11:51 AM CDT) Glucose, P 143(H) 70 - 100 mg/dL 05/15/2024 12:15 PM CDT CNFL Last Intake 4 hr 05/15/2024 11:56 AM CDT CNFL Blood (Blood, Peripheral Draw) 05/15/2024 11:51 AM CDT 05/15/2024 11:55 AM CDT us Dalia Dill M.D. LAB BLOOD NON ADD-ON Kelsi l Result Performing Organization Address [facility]/ZIP Co de Phone Number [facility] [address] [place] [phone], [facility] in [address] [address] * Vitamin B12 Assay (05/15/2024 11:51 AM CDT) Pathologist [facility] Vitamin B12 Assay, S 456 232 - 1245 ng/L 05/15/2024 9:31 PM CDT ECLR Comment: Biotin has been identified by the virtual recruiter as a potential interfering substance. Higher concentrations of biotin may be found in multivitamins, hair/nail supplements, and workout supplements. If the result does not match clinical observations, repeat testing after patient refrains from the use of supplements for at least 12 hours. Blood (Blood, Venous) 05/15/2024 11:51 AM CDT 05/15/2024 8:49 PM CDT us Dalia Dill M.D. LAB BLOOD ADD-ON Final Re sult [facility] [address] [place] [address], [place] ECLR [facility] in [address] [address] * (ABNORMAL) Basic Metabolic Panel (05/15/2024 11:51 AM CDT) Potassium, P 4.3 3.6 - 5.2 mmol/L 05/15/2024 12:17 PM CDT CNFL Sodium, P 139 135 - 145 mmol/L 05/15/2024 12:17 PM CDT CNFL Chloride, P 102 98 - 107 mmol/L 05/15/2024 12:17 PM CDT CNFL Bicarbonate, P 27 22 - 29 mmol/L 05/15/2024 12:17 PM CDT CNFL Anion Gap, P 10 7 - 15 05/15/2024 12:17 PM CDT CNFL BUN (Blood Urea Nitrogen), P 24 8 - 24 mg/dL 05/15/2024 12:17 PM CDT CNFL Creatinine 1.38(H) 0.74 - 1.35 mg/dL 05/15/2024 12:17 PM CDT CNFL Estimated GFR (eGFR) 52(L) >=60 mL/min/BSA 05/15/2024 12:17 PM CDT CNFL Comment: Estimated GFR calculated using the 2020 CKD_EPI creatinine equation. Calcium, Total, P 9.5 8.8 - 10.2 mg/dL 05/15/2024 12:17 PM CDT CNFL Glucose, P CANCELED mg/dL 05/15/2024 11:56 AM CDT CNFL Comment: Duplicate test request. Result canceled by the ancillary. Blood (Blood, Peripheral Draw) 05/15/2024 11:51 AM CDT 05/15/2024 11:55 AM CDT us Dalia Dill M.D. LAB BLOOD ADD-ON Final Re sult [facility] [address] [place] [address], [facility] CNFL [facility] in [address] [address] * MO CYSTOURETHROSCOPY (05/08/2024 3:30 PM CDT) Narrative Holli Sharp APRN, C.N.P., Álvaro.N.P. - 05/08/2024 3:30 PM CDT Holli Sharp APRN, C.N.P., Álvaro.N.P. 05/08/2024 3:48 PM URO Cystoscopy (general) Performed by: Holli Sharp APRN, C.N.PAurelio, Álvaro.N.P. Authorized by: Dalia Dill M.D. Care team members present 1. Holli Sharp APRN, C.N.P., Álvaro.N.P. IMPRESSION negative cystoscopy Additional procedures performed: cystoscopy PROCEDURE DETAILS: Blue light imaging agent used: no A flexible cystoscope was inserted through the urethra into the bladder. Cystoscope was removed at the end of procedure. The patient was brought to the cystoscopy suite and placed in the lithotomy position. The patient was prepped and draped in the standard fashion. A FLEXIBLE CYSTOSCOPE was inserted through the urethra and into the bladder. Urethroscopy was normal. The sphincter coapted normally. The prostatic urethra exhibited moderate bilobar obstructive BPH. The bladder was entered and inspected. There were no diverticula, cellules, stones or foreign bodies noted. Mild trabeculations were noted. The ureteral orifices were identified in their orthotopic position bilaterally effluxing clear urine. There were no areas of concerning erythema or papillary lesions. Retroflex view demonstrated a normal appearing bladder neck with mild intravesical protrusion of the prostate. The cystoscope was then removed with no evidence of active bleeding. The patient tolerated the procedure well. IMPRESSION: #1 no evidence of bladder tumor recurrence #2 BPH PLAN: Follow-up with BARBARA Patiño CONSENT Consent obtained: verbal Consent given by: patient The benefits, risks and alternatives to the procedure and the potential need for sedation or anesthesia as well as the names, roles, and responsibilities of healthcare team members performing significant interventional tasks were discussed with the patient and/or decision maker. [employer] All relevant documentation and testing were reviewed and available. All required blood products, implants, devices and or special equipment were made available as applicable. Pre-procedure verification was conducted and the correct site was marked if required. A fire risk and smoke assessment were done as applicable. The procedural time-out to verify correct patient, correct side/site, and procedure was conducted prior to performing the procedure and confirmed in a procedural pause. PRE-PROCEDURE DETAILS Procedure purpose: Diagnostic Appropriate hand hygiene, gown, cap, mask, protective eyewear, sterile gloves, skin preparation, sterile drape, and strict aseptic technique were utilized as applicable for the procedure.: yes Site preparation: Povidone-iodine SEDATION / ANESTHESIA Anesthesia method: none POST-PROCEDURE DETAILS Procedure completed successfully: yes Complications: no apparent complications us Dalia Dill M.D. UROLOGY ORDERABLES Final Result * CT Urogram without and with IV Contrast (05/08/2024 12:29 PM CDT) Anatomical Region Laterality Modality Abdomen, Pelvis, Abdominal R ST LOS, Abdominal ARZ LOS, Abdominal FLA LOS N/A Computed Tomograp hy, Computed Tomography 05/08/2024 12:1 1 PM CDT Impressions 05/08/2024 2:12 PM CDT 1. Deformed and displaced left renal calyces by multiple renal cysts with small stones or papillary calcifications in the upper and mid kidney. Otherwise unremarkable upper urinary tracts. No hydronephrosis or hydroureter. 2. Persistent diffuse thickening and trabeculation of the bladder wall without suspicious bladder masses. Narrative 05/08/2024 2:12 PM CDT EXAM: CT UROGRAM WITHOUT AND WITH IV CONTRAST. COMPARISON: Multiple prior exams including CT urogram from 11/12/2020. FINDINGS: Postoperative changes from previous fulguration in the urinary bladder. Persistent mild diffuse thickening and trabeculation of the bladder wall. No polypoid masses or focal wall thickening in the bladder. Mild to moderate prostatomegaly. Bilateral renal cysts, with no worrisome features, measuring up to 7.5 cm on the left kidney (series 13, image 245), compared to 6.7 cm previously. No suspicious renal masses. Deformed and displaced left renal calyces by multiple renal cysts. A few new stones or calcifications within or adjacent to, the deformed calyces in the upper and mid left kidney, measuring up to 0.8 cm, likely representing calyceal stones or papillary calcifications. The renal collecting systems and ureters are otherwise unremarkable without masses or filling defects. No hydronephrosis or hydroureter. No suspicious lymphadenopathy in the abdomen or pelvis. No ascites. Small hiatal hernia. A 7 mm cyst or hemangioma (series 13, image 66), unchanged. No suspicious liver lesions. Patent portal and hepatic veins. No intra- or extrahepatic bile duct dilatation. The gallbladder, spleen, and adrenal glands are negative. Scattered punctate calcifications in the pancreatic parenchyma. The pancreas is otherwise unremarkable. Tiny fat-containing umbilical hernia. The small bowel and colon are normal caliber. Colonic diverticulosis. Aortoiliac tortuosity atherosclerosis. Degenerative changes of the spine. No suspicious bone lesions. Stable likely benign focus of sclerosis near the left SI joint. Right PETROS. Bilateral fat-containing inguinal hernia. Bibasilar atelectasis. Procedure Note Jeniffer Antunez M.D., Ph.D. - 05/08/2024 EXAM: CT UROGRAM WITHOUT AND WITH IV CONTRAST. COMPARISON: Multiple prior exams including CT urogram from 11/12/2020. FINDINGS: Postoperative changes from previous fulguration in the urinarybladder. Persistent mild diffuse thickening and trabeculation of thebladder wall. No polypoid masses or focal wall thickening in the bladder.Mild to moderate prostatomegaly. Bilateral renal cysts, with no worrisome features, measuring up to 7.5 cmon the left kidney (series 13, image 245), compared to 6.7 cm previously.No suspicious renal masses. Deformed and displaced left renal calyces by multiple renal cysts. A fewnew stones or calcifications within or adjacent to, the deformed calycesin the upper and mid left kidney, measuring up to 0.8 cm, likelyrepresenting calyceal stones or papillary calcifications. The renal collecting systems and ureters are otherwiseunremarkable without masses or filling defects. No hydronephrosis orhydroureter. No suspicious lymphadenopathy in the abdomen or pelvis. No ascites. Small hiatal hernia. A 7 mm cyst or hemangioma (series 13, image 66),unchanged. No suspicious liver lesions. Patent portal and hepatic veins.No intra- or extrahepatic bile duct dilatation. The gallbladder, spleen, and adrenal glands are negative. Scatteredpunctate calcifications in the pancreatic parenchyma. The pancreas isotherwise unremarkable. Tiny fat-containing umbilical hernia. The small bowel and colon are normalcaliber. Colonic diverticulosis. Aortoiliac tortuosity atherosclerosis.Degenerative changes of the spine. No suspicious bone lesions. Stablelikely benign focus of sclerosis near the left SI joint. Right PETROS. Bilateral fat-containing inguinal hernia.Bibasilar atelectasis. IMPRESSION: 1. Deformed and displaced left renal calyces by multiple renal cysts withsmall stones or papillary calcifications in the upper and mid kidney.Otherwise unremarkable upper urinary tracts. No hydronephrosis orhydroureter. 2. Persistent diffuse thickening and trabeculation of the bladder wallwithout suspicious bladder masses. Dalia Dill M.D. IMG CT PROCEDURES Final R esult * Creatinine, POCT (05/08/2024 11:27 AM CDT) Only the most recent of2 resultswithin the time period is included. Creatinine, POCT, B 1.2 0.7 - 1.4 mg/dL 05/08/2024 11:30 AM CDT PCDT Comment: ----ADDITIONAL INFORMATION---- Performed at the Point of Care Blood 05/08/2024 11:2 7 AM CDT 05/08/2024 11:31 AM CDT Unknown Provider LAB POCT ORDERABLES - DEVICE Fi nal Result [facility] PERFORMING LABS [address] [facility] POC [address] [place] [address] * Dipstick, Urine (05/08/2024 10:22 AM CDT) Hemoglobin, QL, U Negative Negative 05/08/2024 11:09 AM CDT DTL Leukocyte Esterase, U Negative Negative 05/08/2024 11:09 AM CDT DTL Nitrite, U Negative Negative 05/08/2024 11:09 AM CDT DTL Ketone, U Negative Negative mg/dL 05/08/2024 11:09 AM CDT DTL Glucose, U Negative Negative mg/dL 05/08/2024 11:09 AM CDT DTL Urine 05/08/2024 10:2 2 AM CDT 05/08/2024 10:41 AM CDT Dalia Dill M.D. LAB URINE ORDERABLES Kelsi l Result Performing Organization Address City/[facility]/ZIP Co de Phone Number [facility] [address] [place] [address], [facility] 200 [place] [address] * Cytology Non-FLEET ADMINISTRATOR (Scheduled) (05/08/2024 10:22 AM CDT) Pathologist [facility] 05/09/2024 12:11 PM CDT DTL Report electronically signed by Mitchel Rodriguez, Ch.B., M.S. I verify that I have examined all relevant slides/materi als for the specimen(s) and rendered or confirmed the diagnosis. 05/09/2024 12:11 PM CDT DTL Gross Description Received 28 cc of cloudy yellow fluid. 05/09/2024 12:11 PM CDT DTL Source A. Urine, Midstream, voided 05/09/2024 12:11 PM CDT DTL Interpretation A. Urine, Midstream, voided (ThinPrep): Negative for High-Grade Urothelial Carcinoma. 05/09/2024 12:11 PM CDT DTL Urine 05/08/2024 10:2 2 AM CDT 05/08/2024 11:34 AM CDT us Dalia Dill M.D. LAB SURG PATH ORDERABLES Final Result Performing Organization Address [facility]/ZIP Co de Phone Number [facility] [address] [place] [address], [facility] DTL [address] [facility] 200 [place] [address] * Microscopic Automated (05/08/2024 10:22 AM CDT) Pathologist [facility] Microscopy Normal 05/08/2024 11:09 AM CDT DTL RBC None Seen <3 /hpf 05/08/2024 11:09 AM CDT DTL WBC None Seen /hpf 05/08/2024 11:09 AM CDT DTL Comment: ----REFERENCE VALUE---- <4 (Males) <11 (Females) Urine 05/08/2024 10:2 2 AM CDT 05/08/2024 10:41 AM CDT Dalia Dill M.D. LAB URINE ORDERABLES Kelsi l Result Performing Organization Address City/[facility]/ZIP Co de Phone Number [facility] [address] [place] [address] * Bacterial Culture, Aerobic + Susceptibility, Urine (05/08/2024 10:22 AM CDT) [facility] Urine Culture Urogenital microbiota, susceptibilities not performed per laboratory criteria. 05/09/2024 7:07 AM CDT DT Urine (Urine, Midstream) 05/08/2024 10:22 AM CDT 05/08/2024 11:52 AM CDT Comment:Specimen Source Site : Urine Dalia Dill M.D. LAB MICROBIOLOGY - GENERA L ORDERABLES Final Result Performing Organization Address City/[facility]/ZIP Co de Phone Number [facility] [address] [place] [address] * pH, Urine (05/08/2024 10:22 AM CDT) [facility] pH, U 4.9 4.5 - 8.0 05/08/2024 11: 29 AM CDT DTL Urine 05/08/2024 10:2 2 AM CDT 05/08/2024 10:41 AM CDT Dalia Dill M.D. LAB URINE ORDERABLES Kelsi l Result Performing Organization Address City/[facility]/[place] [address] * Osmolality, Urine (05/08/2024 10:22 AM CDT) Osmolality, U 673 150 - 1150 mOsm/kg 05/08/2024 11:29 AM CDT DTL Urine 05/08/2024 10:2 2 AM CDT 05/08/2024 10:41 AM CDT Dalia Dill M.D. LAB URINE ORDERABLES Kelsi l Result Performing Organization Address [facility] [[email or web address]] [place] [address] * (ABNORMAL) Urinalysis, with Microscopic: Urine, Midstream (05/08/2024 10:22 AM CDT) Source Urine, Urine, Midstream 05/08/2024 10:41 AM CDT DTL Color, U Yellow 05/08/2024 10:41 AM CDT DTL Clarity, U Clear 05/08/2024 10:41 AM CDT DTL Protein, U 20 <26 mg/dL 05/08/2024 11:35 AM CDT DTL Protein/Osmol ality 0.30 <0.42 ratio 05/08/2024 11:35 AM CDT DTL Predicted 24 HR Protein, U 296(H) <229 mg/24 h 05/08/2024 11:35 AM CDT DTL Predicted Range 94-933 mg/24 h 05/08/2024 11:35 AM CDT DTL Urine (Urine, Midstream) 05/08/2024 10:22 AM CDT 05/08/2024 10:41 AM CDT Dalia Dill M.D. LAB URINE ORDERABLES Kelsi l Result [facility] [address] [place] [address], [place] [facility] [address] [place] [address] * (ABNORMAL) Albumin, Random, Urine (09/23/2023 9:24 AM CDT) Microalbumin 78.9 mg/L 09/23/2023 9:38 AM CDT CNFL Creatinine 132 mg/dL 09/23/2023 9:38 AM CDT CNFL Albumin/Creatinin e Ratio 60(H) <17 mg/g 09/23/2023 9:38 AM CDT CNFL Urine (Urine, Midstream) 09/23/2023 9:24 AM CDT 09/23/2023 9:24 AM CDT Dalia Dill M.D. LAB URINE ORDERABLES Kelsi l Result Performing Organization Address City/[facility] [[email or web address]] Co de Phone Number [facility] [address] [place] [address], [facility] in [address] [address] * Colonoscopy (11/14/2020 2:39 PM CDT) 11/14/2020 2:39 PM CDT Impressions [facility] - 11/14/2020 3:44 PM CDT Post-op Diagnoses: - The examined portion of the ileum was normal. - Inactive (White Score 0) ulcerative colitis. Biopsied. - Diverticulosis in the sigmoid colon. - One 2 mm polyp in the ascending colon, removed with a cold biopsy forceps. Resected and retrieved. - One 2 mm polyp in the sigmoid colon, removed with a cold biopsy forceps. Resected and retrieved. Narrative [facility] - 11/14/2020 3:44 PM CDT G[facility] 9 GI GI Patient Name: Jorge Potts Date of : 1945 Age: 75 Gender: Male Procedure Date: 11/14/2020 Procedure: Colonoscopy Providers: Pro Gaspar MD Referring Provider: Dalia Dill Pre-op Diagnoses: Chronic ulcerative proctosigmoiditis Recommendation: - Await pathology results. - Return to referring physician as previously scheduled. - PATHOLOGY/MICROBIOLOGY FOLLOW-UP: The ordering provider is responsible for reviewing results from specimens obtained during this endoscopic procedure and communicating the findings to the patient. If guidance is needed for interpreting endoscopic findings or pathology results, please consider a gastroenterology e-consult. - Follow up recommendations for patients with polyps identified during colonoscopy are impacted by several factors including polyp characteristics (size, number and histology), adequacy of colonic preparation and pertinent family history. For [facility] providers, detailed recommendations are available as an AskMayoExpert Care Process Model: <[email or web address] There may be some circumstances, specifically those patients with a personal or family history of significant colorectal neoplasms where these guidelines may not apply. Consider consultation in Gastroenterology for all other polyp findings or for patients who are not at average risk. Findings: The terminal ileum appeared normal. Inflammation was not found based on the endoscopic appearance of the mucosa in the colon. This was graded as White Score 0 (normal or inactive disease). Biopsies were taken with a cold forceps for ulcerative colitis surveillance. These biopsy specimens were sent to Pathology. A few small-mouthed diverticula were found in the sigmoid colon. A 2 mm polyp was found in the ascending colon. The polyp was sessile. The polyp was removed with a cold biopsy forceps. Resection and retrieval were complete (bottle D). A 2 mm polyp was found in the sigmoid colon. The polyp was sessile. The polyp was removed with a cold biopsy forceps. Resection and retrieval were complete (bottle I). Procedural Details: The patient was seen, evaluated, history reviewed, airway and heart-lung exams were performed by licensed provider and were satisfactory for planned level of sedation care. The risks, benefits and alternatives for the procedure and sedation were discussed and informed consent was obtained. A procedural pause was conducted in the presence of assisting personnel to verify the correct patient identity and procedure to be performed. Throughout the procedure, the patient's blood pressure, pulse, and oxygen saturations were monitored continuously. The Colonoscope was introduced under direct vision through the anus and advanced to 5 cm into the ileum. The colonoscopy was performed without difficulty. The patient tolerated the procedure well. The quality of the bowel preparation was evaluated using the BBPS ([place] Bowel Preparation Scale) with scores of: Right Colon = 2 (minor amount of residual staining, small fragments of stool and/or opaque liquid, but mucosa seen well), Transverse Colon = 2 (minor amount of residual staining, small fragments of stool and/or opaque liquid, but mucosa seen well) and Left Colon = 2 (minor amount of residual staining, small fragments of stool and/or opaque liquid, but mucosa seen well). The total BBPS score equals 6. The quality of the bowel preparation was good. Estimated Blood Loss: Estimated blood loss was minimal. Complications: No immediate complications. Sedation: Moderate (conscious) sedation was administered by the endoscopy nurse and supervised by the endoscopist. The following parameters were monitored: oxygen saturation, heart rate, blood pressure, and response to care. Total physician intraservice time was 37 minutes. Attending Participation: I personally performed the entire procedure. Pro Gaspar MD 11/14/2020 3:44:41 PM This report has been signed electronically. Number of Addenda: 0 Dalia Dill M.D. GI PROCEDURE ORDERABLES F inal Result [facility] NA * US Aorta AAA Screening (03/27/2015 11:17 AM INTERNET MEDIA PLANNER) Anatomical Region Laterality Modality Abdomen, Pelvis N/A Ultrasound 03/27/2015 11:1 7 AM INTERNET MEDIA PLANNER Impressions 03/27/2015 11:23 AM INTERNET MEDIA PLANNER No aneurysm. FINDINGS: Abdominal aorta and proximal iliac arteries are segmentally visualized and I see no evidence for aneurysm. Aorta: AP - 2.7 cm Aorta: Trans - 2.7 cm Right ROMANA: AP - 1.4 cm Right ROMANA Trans - 1.4 cm Left ROMANA: AP - 1.2 cm Left ROMANA Trans - 1.1 cm Electronically signed by: SHELDON Rich MD. [id number] 27-Mar-2015 11:23 Narrative 03/27/2015 11:23 AM INTERNET MEDIA PLANNER 27-Mar-2015 11:17:00 Exam: US AAA Screening Indications: Screening Abdominal Aortic Aneurysm (AAA) ORIGINAL REPORT - 27-Mar-2015 11:23:00 EXAM: US AAA Screening COMPARISON: None Procedure Note Archana Rich M.D. - 05/05/2017 [...] cm Electronically signed by: SHELDON Rich MD. [id number] 27-Mar-2015 11:23 Dalia Dill M.D. IMG US PROCEDURES Final R esult * Bone Donor 6 Month Screen Test Set (06/15/2012 9:03 AM CDT) Donor HBcore Antibody Negative [facility] HCV Ab Screen Donor Negative [facility] HX Hiv-1/-2, Plus O Ab Screen Donor Negative [facility] 06/15/2012 9:03 AM CDT 06/15/2012 9:03 AM CDT Magdaleno Pathak M.D. LAB BLOOD NON ADD-ON Final Re sult [facility] [address] * CT Chest without IV Contrast (10/22/2008 9:06 AM CDT) Anatomical Region Laterality Modality Chest N/A Computed Tomogra phy 10/22/2008 9:06 AM CDT Narrative 10/22/2008 9:22 AM CDT 22-Oct-2008 09:06:00 Exam: CT CHEST wo Indications: [...] dependent atelectasis. Coronary artery calcification. Renal cysts. GUIDELINES FOR FOLLOW-UP of solid nodules detected incidentally at CT (newly detected indeterminate nodule in persons 35 years of age or older) .~ These apply to solitary pulmonary nodules or multiple pulmonary nodules. If multiple nodules are present, then the size of the largest nodule determines follow-up. NODULE SIZE (mm)* LOW-RISK PATIENT@ [...] [id number] Electronically signed by: Singh Rodriguez MD. [id number] 22-Oct-2008 09:22 Procedure Note Jhoan Rodriguez M.D. [...] [id number] Electronically signed by: Singh Rodriguez MD. [id number] 22-Oct-2008 09:22 Dalia Dill M.D. IMFred CT PROCEDURES Final R esult from Last 3 Months or Most Recently Relevant to Health Maintenance Insurance [facility]ICARE 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 [address] [place] [phone] PCP - General Family Medicine 12/01/23
--- OUTSIDE RECORDS SUMMARY | 2024-06-22 03:08 | XMS_ITS | Encounter Summary ---
Author Organization [facility] Address [address] [place] [address] Care Team Providers Care Supervisor Shed Workers Name Role Phone Dalia Dill M.D. Primary Care Provider [phone] Reason for Referral * Outpatient (Routine) - Authorized Specialty Diagnoses / Procedures Referred By Eileen alegria Referred To Contact Pulmonary Medicine Pro Carr M.D. [address] [place] [phone] Phone: tel: fax: [facility] Referral ID Status Reason Start Date Expiration Date V isits Requested Visits Authorized [id number] Authorized 06/05/2024 12/05/2025 1 1 Scheduling Instructions Order generated by [facility] Eligibility Campaign Encounter Details Date Type Department Care Team (Late st Contact Info) Description 06/05/2024 Orders Only Division of Pulmonary Medicine in [place], [place] [address] [place] [phone] Pro Carr M.D. [address] [place] [phone] Social History Tobacco Use Types Packs/Day Years Used Date Smoking Tobacco: Former Cigarettes 1 35 0 02/07/1962 - 02/15/1997 Smokeless Tobacco: Never Quit: 05/23/1999 Alcohol Use Standard Drinks/Week Comments Yes 1 (1 standard drink = 0.6 oz pur e alcohol) [facility] Utilities Answer Date Recorded In the [...] often do you attend chur ch or scientology services? 1 to 4 times per year [...] Answer Date Recorded PHQ-2 Score 0 12/19/2023 [facility] of Occupat ional [facility] - Occupational Stress Questionnaire Answer Date [...] your living situation today? I have a [facility] place to live 10/27/2023 Education Answer Date Recorded What is the highest level of school you have completed or the highest degree you have received? 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 [address] [place] [phone] Scheduled Referrals Name Type Priority Associated Diagnoses Orde r Schedule [facility] Lung Cancer screening program referral Initial Outpatient Referral Routine Expected: 06/05/2024, Expires: 12/05/2024 documented as of this encounter Visit Diagnoses Not on filedocumented in this encounter Additional Health Concerns Assessment Noted Time PHQ-9 Depression Total Score: 0 12/19/19 24 1:29 PM CHEMICAL CELL CHANGER documented as of this encounter Care Teams Supervisor Shed Workers Relationship Specialty Start Date End Date Dalia Dill M.D. [address] [place] [phone] PCP - General Family Medicine 12/01/23 documented as of this encounter
--- OUTSIDE RECORDS SUMMARY | 2024-06-22 03:08 | XMS_ITS | Encounter Summary ---
Author Organization [facility] Address [address] [place] [address] Care Team Providers Care Office Professionals Name Role Phone Dalia Dill M.D. Primary Care Provider +1 -[phone] Encounter Details Date Type Department Care Team (Late st Contact Info) Description 05/08/2024 Results Follow-Up Department of Family Medicine, [address] [place] [address] [place] [address] Dalia Dill M.D. [address] [place] [phone] Urogram without and with IV Contrast Social History Tobacco Use Types Packs/Day Years Used Date Smoking Tobacco: Former Cigarettes 1 35 0 02/07/1962 - 02/15/1997 Smokeless Tobacco: Never Quit: 05/23/1999 Alcohol Use Standard Drinks/Week Comments Yes 1 (1 standard drink = 0.6 oz pur e alcohol) [facility] Utilities Answer Date Recorded In the [...] How often do you attend chur or yarsani services? 1 to 4 times [...] Answer Date Recorded PHQ-2 Score 0 12/19/2023 [facility] [place] of Occupat ional Health - Occupational Stress [...] your living situation today? I have a [facility] place to live 10/27/2023 Education Answer Date Recorded What is the highest level of school you have completed or the highest degree you have received? 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 [address] [place] [address] documented as of this encounter Visit Diagnoses Not on filedocumented in this encounter Additional Health Concerns Assessment Noted Time PHQ-9 Depression Total Score: 0 12/19/19 24 1:29 PM BLINDSTITCH LAPEL PADDER documented as of this encounter Care Teams Office Professionals Relationship Specialty Start Date End Date Dalia Dill M.D. [address] [place] [phone] PCP - General Family Medicine 12/01/23 documented as of this encounter
--- OUTSIDE RECORDS SUMMARY | 2024-06-22 03:08 | XMS_ITS | Encounter Summary ---
Author Organization [facility] Address [address] [place] [address] Care Team Providers Care Applicator Sprayer Name Role Phone Dalia Dill M.D. Primary Care Provider +1 -[phone] Encounter Details Date Type Department Care Team (Late st Contact Info) Description 06/06/2024 CPAP Download Remote Patient Monitoring [facility] [address] 200 [place] [address] [facility], Provider, Social History Tobacco Use Types Packs/Day Years Used Date Smoking Tobacco: Former Cigarettes 1 35 0 02/07/1962 - 02/15/1997 Smokeless Tobacco: Never Quit: 05/23/1999 Alcohol Use Standard Drinks/Week Comments Yes 1 (1 standard drink = 0.6 oz pur e alcohol) [facility] Utilities Answer Date Recorded In the past 12 months has [facility] [employer], gas, oil, or water [employer] threatened to shut off services in your [...] often do you attend chur ch or jewish services? 1 to 4 times per year [...] Answer Date Recorded PHQ-2 Score 0 12/19/2023 [facility] of Occupat ional Health - Occupational Stress [...] your living situation today? I have a [facility] place to live 10/27/2023 Education Answer Date Recorded What is the highest level of school you have completed or the highest degree you have received? 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 [address] [place] [address] documented as of this encounter Visit Diagnoses Not on filedocumented in this encounter Additional Health Concerns Assessment Noted Time PHQ-9 Depression Total Score: 0 12/19/19 24 1:29 PM BAG PRESSER documented as of this encounter Care Teams Applicator Sprayer Relationship Specialty Start Date End Date Dalia Dill M.D. [address] [place] [address] PCP - General Family Medicine 12/01/23 documented as of this encounter
--- OUTSIDE RECORDS SUMMARY | 2024-06-22 03:09 | XMS_ITS | Encounter Summary ---
Author Organization [facility] Address [address] [place] [address] Care Team Providers Care Data Entry Manager Name Role Phone Dalia Dill M.D. Primary Care Provider +1 -[phone] Encounter Details Date Type Department Care Team (Late st Contact Info) Description 11/22/2005 Historical Ophthalmology RST OPH Jammie Mann M.D. 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 [address] [place] [address] documented as of this encounter Visit Diagnoses Not on filedocumented in this encounter Additional Health Concerns Infection Onset Date Last Indicated Resolved Time COVID19 Pending 11/12/2020 11/12/2020 11/12/2020 8 :37 PM CDT COVID19 Pending 04/30/2023 04/30/2023 04/30/2023 1 :34 PM CDT COVID19 Pending 10/28/2023 10/28/2023 10/28/2023 9 :59 AM CDT documented as of this encounter Care Teams Data Entry Manager Relationship Specialty Start Date End Date Dalia Dill M.D. [address] [place] [phone] PCP - General Family Medicine 12/01/23 documented as of this encounter
--- OUTSIDE RECORDS SUMMARY | 2024-06-22 03:09 | XMS_ITS | Encounter Summary ---
Author Organization [facility] Address [address] [place] [address] Care Team Providers Care Board Setter Name Role Phone Dalia Dill M.D. Primary Care Provider +1 [phone] Encounter Details Date Type Department Care Team (Late st Contact Info) Description 06/03/2006 Historical Ophthalmology RST OPH Lashon De La Vega M.D. 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 [address] [place] [address] documented as of this encounter Visit Diagnoses Not on filedocumented in this encounter Additional Health Concerns Infection Onset Date Last Indicated Resolved Time COVID19 Pending 11/12/2020 11/12/2020 11/12/2020 8 :37 PM CDT COVID19 Pending 04/30/2023 04/30/2023 04/30/2023 1 :34 PM CDT COVID19 Pending 10/28/2023 10/28/2023 10/28/2023 9 :59 AM CDT documented as of this encounter Care Teams Board Setter Relationship Specialty Start Date End Date Dalia Dill M.D. [address] [place] [address] PCP - General Family Medicine 12/01/23 documented as of this encounter
--- OUTSIDE RECORDS SUMMARY | 2024-06-22 03:09 | XMS_ITS | Encounter Summary ---
Author Organization [facility] Address [address] [place] [address] Care Team Providers Care Waitstaff Captain Name Role Phone Dalia Dill M.D. Primary Care Provider +1 -[phone] Encounter Details Date Type Department Care Team (Latest Contact Info) Description 05/15/2024 11:10 AM CDT - 05/15/2024 11:59 PM CDT Hospital Encounter Department of Laboratory Medicine in [address] [address] Dalia Dill M.D. [address] [place] [address] Chronic Kidney Disease (CKD), Stage 3a Glomerular Filtration Rate (GFR) 45 To 59 (HCC); Diabetes Mellitus Type 2 With Diabetic Chronic Kidney Disease (HCC); Hyperlipidemia; Hypertensive Chronic Kidney Disease With Stage 1 Through Stage 4 Chronic Kidney Disease, Or Unspecified Chronic Kidney Disease; Thrombocytopenia Discharge Disposition: Home or Self Care Social History Tobacco Use Types Packs/Day Years Used Date Smoking Tobacco: Former Cigarettes 1 35 0 02/07/1962 - 02/15/1997 Smokeless Tobacco: Never Quit: 05/23/1999 Alcohol Use Standard Drinks/Week Comments Yes 1 (1 standard drink = 0.6 oz pur e alcohol) [facility] Utilities Answer Date Recorded In the past 12 months has [employer] electric, gas, oil, or water company threatened [...] file 04/02/2022 How often do you attend [facility] or yarsanism services? 1 to 4 times per year [...] Answer Date Recorded PHQ-2 Score 0 12/19/2023 [facility] [place] of Occupat ional Health - Occupational Stress [...] your living situation today? I have a [facility] place to live 10/27/2023 Education Answer Date Recorded What is the highest level of school you have completed or the highest degree you have received? 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 For COPD. 11/01/2023 amLODIPine (Norvasc) 5 mg tabletIndication s:Chronic Kidney Disease (CKD), Stage 3 Unspecified (HCC) TAKE 1 TABLET(5 MG) BY MOUTH DAILY 90 tablet 3 02/02/2024 aspirin 81 mg chewable tablet Chew 1 [...] diabetes control. 1 each 02/12/2019 DME Bi-level PAPIndications:C entral Sleep Apnea Syndrome,Apnea Sleep Obstructive DME Order 1 each 01/19/2023 DME Bi-level PAPIndications:A pnea Sleep Obstructive DME Order 1 each 02/15/2024 FLUoxetine (PROzac) 40 mg capsule Take 1 capsule (40 mg total) by mouth daily. For depression. 10/31/2023 lancets Test once daily 100 each 1 02/16/2019 losartan (Cozaar) 50 mg tablet Take 1 tablet (50 mg total) by mouth daily. For hypertension. 90 tablet 3 02/28/2024 metFORMIN (Glucophage) 1,000 mg tablet Take 1 [...] GERD. 10/31/2023 rosuvastatin (Crestor) 10 mg tablet TAKE 1 TABLET(10 MG) BY MOUTH DAILY 90 tablet 3 02/02/2024 semaglutide (Ozempic) 0.25 mg or 0.5 mg (2 mg/3 mL) injection Inject 0.5 mg under the skin every 7 (seven) days. 3 mL 11 01/16/2024 documented as of this encounter Plan of Treatment Upcoming Encounters Date Type Department Care Team (Late st Contact Info) Description 07/24/2024 9:15 AM CDT Office Visit Department of Neurology in [place], [place] [address] [place] [phone] Amrik Negron D.O. [address] [place] [address] documented as of this encounter Procedures Procedure Name Priority Date/Time Associated Diagnosis Comments LIPID PANEL, S Routine 05/15/2024 11:51 AM [...] Disease Thrombocytopenia HEMOGLOBIN A1C, B Routine 05/15/2024 11: 51 AM CDT Chronic Kidney Disease (CKD), Stage [...] Disease, Or Unspecified Chronic Kidney Disease Thrombocytopenia VITAMIN B12 ASSAY, S Routine 05/15/2024 11:51 [...] Disease, Or Unspecified Chronic Kidney Disease Thrombocytopenia documented in this encounter Results * Vitamin B12 Assay (05/15/2024 11:51 AM CDT) Vitamin B12 Assay, S 456 232 - 1245 ng/L 05/15/2024 9:31 PM CDT [facility] Comment: Biotin has been identified by the research neuropsychologist as a potential interfering substance. Higher concentrations of biotin may be found in multivitamins, hair/nail supplements, and workout supplements. If the result does not match clinical observations, repeat testing after patient refrains from the use of supplements for at least 12 hours. Blood (Blood, Venous) 05/15/2024 11:51 AM CDT 05/15/2024 8:49 PM CDT us Dalia Dill M.D. LAB BLOOD ADD-ON Final Re sult [facility] [address] [place] [address], [facility] ECLR [facility] in [address] [address] * (ABNORMAL) Glucose, Fasting (05/15/2024 11:51 AM CDT) Glucose, P 143(H) 70 - 100 mg/dL 05/15/2024 12:15 PM CDT CNFL Last Intake 4 hr 05/15/2024 11:56 AM CDT CNFL Blood (Blood, Peripheral Draw) 05/15/2024 11:51 AM CDT 05/15/2024 11:55 AM CDT us Dalia Dill M.D. LAB BLOOD NON ADD-ON Kelsi walters Result [facility] [address] [place] [address], [facility] [place] [address] * Lipid Panel (05/15/2024 11:51 AM CDT) [...] Calculated 71 mg/dL 05/15/2024 12:17 PM CDT [facility] Comment: ----REFERENCE VALUE---- Desirable: <130 mg/dL Above Desirable: 130-159 mg/dL Borderline High: 160-189 mg/dL High: 190-219 mg/dL Very High: > or =220 mg/dL Fasting (8 HR or more) No 05/15/2024 11:51 AM CDT [facility] Blood (Blood, Venous) 05/15/2024 11:51 AM CDT 05/15/2024 11:55 AM CDT us Dalia Dill M.D. LAB BLOOD ADD-ON Final Re sult Performing Organization Address [facility] [place] [address], [place] [address] * (ABNORMAL) Hemoglobin A1c (05/15/2024 11:51 AM CDT) Hemoglobin A1c, B 6.1(H) 4.2 - 5.6 % 05/15/2024 12:10 PM CDT [facility] Comment: Hemoglobin A1c values of 5.7-6.4 percent indicate an increased risk for developing diabetes mellitus. In diabetic patients, HbA1c goals should be discussed with healthcare provider. Blood (Blood, Peripheral Draw) 05/15/2024 11:51 AM CDT 05/15/2024 11:56 AM CDT us Dalia Dill M.D. LAB BLOOD ADD-ON Final Re sult Performing Organization Address City/[facility]/[place] [address], [place] [address] * (ABNORMAL) CBC with Differential, Blood (05/15/2024 [...] CDT 05/15/2024 11:55 AM CDT us Dalia Dlil M.D. LAB BLOOD ADD-ON Final Re sult [facility] [address] [place] [address], [facility] in [address] [address] * (ABNORMAL) Basic Metabolic Panel (05/15/2024 11:51 [...] M.D. LAB BLOOD ADD-ON Final Re sult [facility] [address] [place] [address], [facility] CNFL [facility] in [address] [address] documented in this encounter Visit Diagnoses Diagnosis Chronic Kidney Disease (CKD), Stage 3a Glomerular Filtration Rate (GFR) 45 To 59 (HCC) Diabetes Mellitus Type 2 With Diabetic Chronic Kidney Disease (HCC) Hyperlipidemia Hypertensive Chronic Kidney Disease With Stage 1 Through Stage 4 Chronic Kidney Disease, Or Unspecified Chronic Kidney Disease Thrombocytopenia documented in this encounter Additional Health Concerns Assessment Noted Time PHQ-9 Depression Total Score: 0 12/19/19 24 1:29 PM INSTRUCTOR WATCH ASSEMBLY documented as of this encounter Care Teams Waitstaff Captain Relationship Specialty Start Date End Date Dalia Dill M.D. [address] [place] [phone] PCP - General Family Medicine 12/01/23 documented as of this encounter
--- OUTSIDE RECORDS SUMMARY | 2024-06-22 03:09 | XMS_ITS | Encounter Summary ---
Author Organization [facility] Address [address] [place] [address] Care Team Providers Care Ops Analyst Name Role Phone Dalia Dill M.D. Primary Care Provider +1 -[phone] Encounter Details Date Type Department Care Team (Late st Contact Info) Description 08/18/2011 Historical Ophthalmology RST OPH Nickie Ross M.D. 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 Discussed importance of good blood sugar control. Plan: monitor periodically. #2 Cataract, both eyes, not visually significant. Plan: observe. 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 #2 Cataract, both eyes, not visually significant. CDM Reports - EYEGEN Id: [id number] Status: Fnl documented in this encounter Plan of Treatment Upcoming Encounters Date Type Department Care Team (Late st Contact Info) Description 07/24/2024 9:15 AM CDT Office Visit Department of Neurology in [place], [place] [address] [place] [address] Amrik Negron D.O. [address] [place] [phone] documented as of this encounter Visit Diagnoses [...] documented as of this encounter Care Teams Ops Analyst Relationship Specialty Start Date End Date Dalia Dill M.D. [address] [place] [phone] PCP - General Family Medicine 12/01/23 documented as of this encounter
--- OUTSIDE RECORDS SUMMARY | 2024-06-22 03:09 | XMS_ITS | Encounter Summary ---
Author Organization [facility] Address [address] [place] [address] Care Team Providers Care Inspector Type Name Role Phone Dalia Dill M.D. Primary Care Provider +1 -[phone] Encounter Details Date Type Department Care Team (Late st Contact Info) Description 05/06/2024 CPAP Download Remote Patient Monitoring [facility] [address] [place] [address] [facility], Provider, Social History Tobacco Use Types Packs/Day Years Used Date Smoking Tobacco: Former Cigarettes 1 35 0 02/07/1962 - 02/15/1997 Smokeless Tobacco: Never Quit: 05/23/1999 Alcohol Use Standard Drinks/Week Comments Yes 1 (1 standard drink = 0.6 oz pur e alcohol) [facility] Utilities Answer Date Recorded In the past 12 months has [facility] [employer], gas, oil, or water [employer] threatened to shut off services in your [...] any clubs o r organizations such as methodist groups, unions, fraternal or athletic groups, or [...] Answer Date Recorded PHQ-2 Score 0 12/19/2023 [facility] of Occupat ional Health - [...] living situation today? I have a [facility] place to live 10/27/2023 Education Answer Date Recorded What is the highest level of school you have completed or the highest degree you have received? 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 [address] [place] [address] documented as of this encounter Visit Diagnoses Not on filedocumented in this encounter Additional Health Concerns Assessment Noted Time PHQ-9 Depression Total Score: 0 12/19/19 24 1:29 PM CLINICAL LAB SCIENTIST documented as of this encounter Care Teams Inspector Type Relationship Specialty Start Date End Date Dalia Dill M.D. [address] [place] [address] PCP - General Family Medicine 12/01/23 documented as of this encounter
--- OUTSIDE RECORDS SUMMARY | 2024-06-22 03:09 | XMS_ITS | Encounter Summary ---
Author Organization [facility] Address [address] [place] [address] Care Team Providers Care Bank Secrecy Act Officer Name Role Phone Dalia Dill M.D. Primary Care Provider +1 -[phone] Encounter Details Date Type Department Care Team (Late st Contact Info) Description 08/05/2009 Historical Ophthalmology RST OPH Lucho Finch O.D. 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 [address] [place] [phone] documented as of this encounter Visit Diagnoses [...] documented as of this encounter Care Teams Bank Secrecy Act Officer Relationship Specialty Start Date End Date Dalia Dill M.D. [address] [place] [phone] PCP - General Family Medicine 12/01/23 documented as of this encounter
--- OUTSIDE RECORDS SUMMARY | 2024-06-22 03:09 | XMS_ITS | Encounter Summary ---
Author Organization [facility] Address [address] [place] [address] Care Team Providers Care Production Control Expediter Name Role Phone Dalia Dill M.D. Primary Care Provider +1 -[phone] Encounter Details Date Type Department Care Team (Late st Contact Info) Description 09/24/2013 Historical Ophthalmology RST OPH Artie Hill O.D. 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 CDM Reports - EYESV Id: [id number] Status: Fnl documented in this encounter Plan of Treatment Upcoming Encounters Date Type Department Care Team (Late st Contact Info) Description 07/24/2024 9:15 AM CDT Office Visit Department of Neurology in [place], [place] [address] [place] [address] Amrik Negron D.O. [address] [place] [phone] documented as of this encounter Visit Diagnoses [...] documented as of this encounter Care Teams Production Control Expediter Relationship Specialty Start Date End Date Dalia Dill M.D. [address] [place] [phone] PCP - General Family Medicine 12/01/23 documented as of this encounter
--- OUTSIDE RECORDS SUMMARY | 2024-06-22 03:09 | XMS_ITS | Encounter Summary ---
Author Organization [facility] Address [address] [place] [id number] Care Team Providers Care Substitute Crossing Guard Name Role Phone Dalia Dill M.D. Primary Care Provider [phone] Encounter Details Date Type Department Care Team (Late st Contact Info) Description 04/14/2015 Historical Ophthalmology RST OPH Lucho Finch O.D. 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 CDM Reports - EYEGEN Id: [id number] Status: Fnl documented in this encounter Plan of Treatment Upcoming Encounters Date Type Department Care Team (Late st Contact Info) Description 07/24/2024 9:15 AM CDT Office Visit Department of Neurology in [place], [place] [address] [place] [address] Amrik Negron D.O. [address] [place] [address] documented as of this encounter Visit Diagnoses [...] documented as of this encounter Care Teams Substitute Crossing Guard Relationship Specialty Start Date End Date Dalia Dill M.D. [address] [place] [address] PCP - General Family Medicine 12/01/23 documented as of this encounter
--- OUTSIDE RECORDS SUMMARY | 2024-06-22 03:09 | XMS_ITS | Encounter Summary ---
Author Organization [facility] Address [address] [place] [id number] Care Team Providers Care Driver Trainee Name Role Phone Dalia Dill M.D. Primary Care Provider [phone] Reason for Visit * Outpatient (Routine) - Closed Specialty Diagnoses / Procedures Referred By Eileen alegria Referred To Contact Diagnoses Malignant Neoplasm Of Bladder (HCC) Hematuria Procedures URO Cystoscopy (general) Dalia Dill M.D. [address] [place] [phone] Phone: tel: fax: [facility] Referral ID Status Reason Start Date Expiration Date Visits Re quested Visits Authorized [id number] Closed 04/17/2024 07/18/2025 1 1 Encounter Details Date Type Department Care Team (Late st Contact Info) Description 05/08/2024 3:30 PM CDT Procedure visit Department of Urology in [place], [place] [address] [place] [phone] Dalia Dill M.D. [address] [place] [phone] Holli Sharp APRN, C.N.P., D.N.P. [address] [place] [phone] Malignant Neoplasm Of Bladder (HCC); Hematuria Social History Tobacco Use Types Packs/Day Years Used Date Smoking Tobacco: Former Cigarettes 1 35 0 02/07/1962 - 02/15/1997 Smokeless Tobacco: Never Quit: 05/23/1999 Alcohol Use Standard Drinks/Week Comments Yes 1 (1 standard drink = 0.6 oz pur e alcohol) [facility] Utilities Answer Date Recorded In [...] How often do you attend chur or hoahaoism services? 1 to 4 times per year [...] Answer Date Recorded PHQ-2 Score 0 12/19/2023 [facility] - Occupational Stress Questionnaire Answer Date [...] your living situation today? [facility] 10/27/2023 Education Answer Date Recorded What is the highest level of school you have completed or the highest degree you have received? 12th grade 03/14/2019 Sex and Gender Information Value Date Recorded Sex Assigned at Male 08/23/2017 10:02 AM CDT Legal Sex Male 7:12 PM A/C TECH Gender Identity Male 08/23/2017 10:02 AM CDT Sexual Orientation Straight 08/23/2017 10 :02 AM CDT documented as of this encounter Patient Instructions * Patient Instructions* Koby Appiha E - 05/08/2024 3:30 PM CDT Care after your cystoscopy Possible blood in your urine You may see some blood the first few times you urinate after the cystoscopy. There could be some small clots of blood in your urine. Or your urine could be pink or light red. These effects are commonafter a cystoscopy. Discomfort For the first day or two after your cystoscopy, you may need to urinate often, and you may have a mild burning feeling while urinating. You also may have mild low abdominal pain for a day. To relievediscomfort, drink two 8-ounce glasses of water each hour for two hours after the test (a total of four glasses in two hours). This will help flush your bladder. To relieve discomfort, if your provider says it???s OK, you may take a warm tub bath for 20 minutes. Or you may hold a clean, warm, moist washcloth over the urethral opening for 20 minutes. Some common pain relievers can affect blood thinning. Examples include aspirin, aspirin-containing products, ibuprofen (Advil, Motrin), and naproxen(Aleve, Naprosyn). Talk with your health care providers about what you can take for pain. Activity Rest for the remainder of the day after your cystoscopy. Gradually return to your usual activity level when you feel able. Diet For the first two days after your cystoscopy, while you are awake, you may find it more comfortableif you drink at least one glass of fluid every one to two hours. This will help flush your bladder.Drink fluids such as water, juice, caffeine-free carbonated beverages and tea. Resume your usual diet after the procedure, unless you are scheduled for more tests or procedures that require a specialdiet. When to get medical help Contact your health care provider right away if you: Are not able to urinate for 6 to 8 hours. Have blood clots or bright red blood in your urine (not pink or rust colored) that lasts for 4 to 5hours despite increased intake of fluids. Have frequent urination with any of the following: - Pain not relieved by increasing fluids. - Chills. - Temperature of 100.4 degrees Fahrenheit (38 degrees Celsius) or higher. Have a burning feeling while urinating on day three or after. documented in this encounter Procedure Notes * Holli Sharp APRN C.N.PAurelio, D.N.P. - 05/08/2024 3:30 PM CDTAssociated Order(s): URO Cystoscopy (general) Pre-Procedure Diagnose(s): Malignant Neoplasm Of Bladder (HCC); Hematuria Post-Procedure Diagnose(s): Malignant Neoplasm Of Bladder (HCC); Hematuria URO Cystoscopy (general) Performed by: Holli Sharp APRN C.N.PAurelio, D.N.P. Authorized by: Dalia Dill M.D. Care team members present 1. Holli Sharp APRN, C.N.Vu., D.N.P. IMPRESSION negative cystoscopy Additional procedures performed: cystoscopy [...] papillary lesions. Retroflex view demonstrated a normal appearingbladder neck with mild intravesical protrusion of the [...] completed successfully: yes Complications: no apparent complications documented in this encounter Plan of Treatment Upcoming Encounters Date Type Department Care Team (Late st Contact Info) Description 07/24/2024 9:15 AM CDT Office Visit Department of Neurology in [place], [place] [address] [place] [phone] Amrik Negron, Monica [address] [place] [phone] documented as of this encounter Procedures Procedure Name Priority Date/Time Associated Diagnosis Comments AR CYSTOURETHROSCOPY Routine 05/08/2024 3:30 PM CDT Malignant Neoplasm Of Bladder (HCC) Hematuria documented in this encounter Results * AR CYSTOURETHROSCOPY (05/08/2024 3:30 PM CDT) Narrative Holli Sharp APRN, C.N.P., Álvaro.N.P. - 05/08/2024 3:30 PM CDT Holli Sharp APRN, C.N.P., Álvaro.N.P. 05/08/2024 3:48 PM URO Cystoscopy (general) Performed by: Holli Sharp APRN, C.N.P., ShwethaN.P. Authorized by: Dalia Dill M.D. Care team [...] recurrence #2 BPH PLAN: Follow-up with [facility] Consent obtained: verbal Consent given by: [...] completed successfully: yes Complications: no apparent complications Dalia Dill M.D. UROLOGY ORDERABLES Final Result documented in this encounter Visit Diagnoses Diagnosis Malignant Neoplasm Of Bladder (HCC) Hematuria documented in this encounter Additional Health Concerns Assessment Noted Time PHQ-9 Depression Total Score: 0 12/19/19 24 1:29 PM A/C TECH documented as of this encounter Care Teams Driver Trainee Relationship Specialty Start Date End Date Dalia Dill M.D. [address] [place] [phone] PCP - General Family Medicine 12/01/23 documented as of this encounter
--- OUTSIDE RECORDS SUMMARY | 2024-06-22 03:09 | XMS_ITS | Encounter Summary ---
Author Organization [facility] Address [address] [place] [id number] Care Team Providers Care Basin Operator Name Role Phone Dalia Dill M.D. Primary Care Provider [phone] Reason for Referral * Outpatient (Routine) - Authorized Specialty Diagnoses / Procedures Referred By Eileen alegria Referred To Contact Diagnoses Malignant Neoplasm Of Bladder (HCC) Cyst Renal Benign Prostatic Hyperplasia Without Obstruction Hematuria Gross Procedures DX Chest AP or PA and Lateral 2 Views Lb Patiño APRN, C.N.PAurelio, D.N.P., M.S. [address] [place] [phone] Phone: tel: fax: [facility] Referral ID Status Reason Start Date Expiration Date V isits Requested Visits Authorized [id number] Authorized 05/08/2024 08/08/2025 1 1 * Outpatient (Routine) - Authorized Specialty Diagnoses / Procedures Referred By Eileen alegria Referred To Contact Diagnoses Malignant Neoplasm Of Bladder (HCC) Cyst Renal Benign Prostatic Hyperplasia Without Obstruction Hematuria Gross Procedures URO Cystoscopy (general) Lb Patiño APRN, C.N.PAurelio, D.N.P., M.S. [address] [place] [phone] Phone: tel: fax: [facility] Referral ID Status Reason Start Date Expiration Date V isits Requested Visits Authorized [id number] Authorized 05/08/2024 08/08/2025 1 1 * MRI/CAT/PET Scan (Routine) - Authorized Specialty Diagnoses / Procedures Referred By Contac t Referred To Contact Radiology Diagnoses Malignant Neoplasm Of Bladder (HCC) Cyst Renal Benign Prostatic Hyperplasia Without Obstruction Hematuria Gross Procedures CT Urogram without and with IV Contrast Lb Patiño APRN, C.N.P., Álvaro.N.P., M.S. [address] [place] [phone] Phone: tel: fax: [facility] Referral ID Status Reason Start Date Expiration Date V isits Requested Visits Authorized [id number] Authorized 05/08/2024 08/08/2025 1 1 * Outpatient (Routine) - Authorized Specialty Diagnoses / Procedures Referred By Contac t Referred To Contact Urology Lb Patiño APRN, C.N.P., Álvaro.N.P., M.S. [address] [place] [phone] Phone: tel: fax: [facility] Referral ID Status Reason Start Date Expiration Date V isits Requested Visits Authorized [id number] Authorized 05/08/2024 11/07/2025 1 1 Reason for Visit * Outpatient (Routine) - Closed Specialty Diagnoses / Procedures Referred By Contac t Referred To Contact Urology Diagnoses Malignant Neoplasm Of Bladder (HCC) Hematuria Dalia Dill M.D. [address] [place] [address] Phone: tel: fax: [facility] Referral ID Status Reason Start Date Expiration Date Visits Re quested Visits Authorized [id number] Closed 04/17/2024 10/17/2025 1 1 Encounter Details Date Type Department Care Team (Latest Contact Info) Description 05/08/2024 1:00 PM CDT Comprehensive Visit Department of Urology in [place], [place] [address] [place] [phone] Kaylyn, Lb, BARBARA, C.N.P., D.N.P., M.S. [address] [place] [phone] Malignant Neoplasm Of Bladder (HCC) (Primary Dx); Cyst Renal; Benign Prostatic Hyperplasia Without Obstruction; Hematuria Gross Social History Tobacco Use Types Packs/Day Years Used Date Smoking Tobacco: Former Cigarettes 1 35 0 02/07/1962 - 02/15/1997 Smokeless Tobacco: Never Quit: 05/23/1999 Alcohol Use Standard Drinks/Week Comments Yes 1 (1 standard drink = 0.6 oz pur e alcohol) [facility] Utilities Answer Date Recorded In the past 12 months has e [employer], gas, oil, or water [employer] threatened to shut off services in [...] How often do you attend chur or taoism services? 1 to 4 times [...] Answer Date Recorded PHQ-2 Score 0 12/19/2023 [facility] - Occupational [...] your living situation today? I have a [employer] place to live 10/27/2023 Education Answer Date Recorded What is the highest level of school you have completed or the highest degree you have received? 12th grade 03/14/2019 Sex and Gender Information Value Date Recorded Sex Assigned at Male 08/23/2017 10:02 AM CDT Legal Sex Male 7:12 PM HOSPITAL EDUCATOR Gender Identity Male 08/23/2017 10:02 AM CDT Sexual Orientation Straight 08/23/2017 10 :02 AM CDT documented as of this encounter Progress Notes * Kaylyn, BARBARA Begum, C.N.P., D.N.P., M.S. - 05/08/2024 1:00 PM CDT SUBJECTIVE REASON FOR CONSULT Bladder cancer recheck, gross hematuria Patient seen on my calendar HISTORY OF PRESENT ILLNESS Mr. Potts is a pleasant 79 y.o. who presents with a history of recurrent bladder cancer currentlyexperiencing gross hematuria. His medical history is significant for gross hematuria and cystoscopy demonstrated a bladder lesion. He had cystoscopy biopsy and fulguration on 12/08/2017, post biopsy results demonstrated high-grade TA urothelial carcinoma. On 02/22/2018 he completed induction BCG. Unfortunately he presented with recurrent bladder cancer and needed maintenance BCG and completed maintenance BCG on 09/2019. Last CT urogram was on 11/12/2020 and the results demonstrated no significant change since 08/16/2020, no definitive recurrent or metastatic disease identified in the abdomen or pelvic region. On 01/25/2023 he had the last cystoscopy and at that time the results showed BPH and negative for bladder tumor. It was recommended that he should return for cystoscopy in 1 year. Unfortunately of recent he has been presenting with gross hematuria and it was discovered that patient did not return for his follow-up 1 year cystoscopy which would have been January of 2024. Today lab blood test and urine test results demonstrate a normal kidney function with proteinuria. 05/08/2024 CT urogram Imaging results demonstrate; 1. Deformed and displaced left renal calyces by multiple renal cysts with small stones or papillarycalcifications in the upper and mid kidney. Otherwise unremarkable upper urinary tracts. No hydronephrosis or hydroureter. 2. Persistent diffuse thickening and trabeculation of the bladder wall without suspicious bladder masses. His medical history is significant coronary artery disease, ulcerative colitis, type 2 diabetes, neuropathy, nephropathy, essential tremors, obstructive sleep apnea, mild persistent asthma, COPD, thrombocytopenia and Valenzuela's esophagus. Currently he is on aspirin 81 mg daily. He is about 178.5 cm tall, weighs about 94.4 kg with a BMI of 30.2 kg per m2. 05/08/2024 CT urogram results demonstrate deformed and displaced left renal calyces by multiple renal cyst with small stones or papillary calcifications in the upper and mid kidney. Otherwise unremarkable upper urinary tracts no hydronephrosis or hydro ureter. Persistent diffuse thickening and trabeculation of the bladder wall without suspicious bladder masses 05/08/2024 cystoscopy results showed no evidence of bladder tumor recurrence, BPH. During clinic visit he he states that about 3 weeks ago he experienced back pain for 2 days presenting with gross hematuria. After that he has not experienced any gross hematuria or severe back pain. He denies signs and symptoms of urinary tract infection. Medications Ordered Prior to Encounter[1] Medical History[2] Surgical History[3] Family History[4] Social History Socioeconomic History Marital status: Spouse name: Not on file Number of children: Not on file Years of education: Not on file Highest education level: 12th grade Occupational History Not on file Tobacco Use Smoking status: Former Current packs/day: 0.00 Average packs/day: 1 pack/day for 35.0 years (35.0 ttl pk-yrs) Types: Cigarettes Start date: 02/07/1962 Quit date: 02/15/1997 Years since quittin.2 Smokeless tobacco: Never Vaping Use Vaping status: never used Substance and Sexual Activity Alcohol use: Yes Alcohol/week: 1.0 standard drink of alcohol Types: 1 Glasses of wine per week Drug use: Never Sexual activity: Not Currently Partners: Female control/protection: Vasectomy Other Topics Concern Not on file Social History Narrative Not on file Social Drivers of Health Food Insecurity: No Food Insecurity (10/27/2023) Hunger Vital Sign Worried About Running Out of Food in the Last Year: Never true Ran Out of Food in the Last Year: Never true Transportation Needs: No Transportation Needs (10/27/2023) PRAPARE - Transportation Lack of Transportation (Medical): No Lack of Transportation (Non-Medical): No Physical Activity: Insufficiently Active (05/21/2023) Exercise Vital Sign Days of Exercise per Week: 3 days Minutes of Exercise per Session: 20 min Intimate Partner Violence: Not At Risk (10/27/2023) Humiliation, Afraid, Rape, and Kick questionnaire Fear of Current or Ex-Partner: No Emotionally Abused: No Physically Abused: No Sexually Abused: No Housing Stability: Low Risk (10/27/2023) Housing Stability Housing: Living Situation: I have a steady place to live REVIEW OF SYSTEMS Constitutional: Positive for fatigue. ENT: Positive for difficulty hearing. Genitourinary: Positive for blood in urine and urgency. Musculoskeletal: Positive for back pain. The following systems were negative: Skin, Eyes, Respiratory, Cardiovascular, Gastrointestinal, Neurological, Psychiatric OBJECTIVE PHYSICAL EXAM Constitutional: He is oriented to person, place, and time. He appears well- developed and well-nourished. Musculoskeletal: Normal range of motion. Neurological: He is alert and oriented to person, place, and time. Skin: Skin is warm and dry. Capillary refill takes less than 2 seconds. Psychiatric: He has a normal mood and affect. His behavior is normal. Judgment and thought content normal. LABORATORY Recent Results (from the past 72 hours) Urinalysis, with Microscopic: Urine, Midstream Collection Time: 05/08/24 10:22 AM Result Value Source Urine, Urine, Midstream Color, U Yellow Clarity, U Clear Protein, U 20 Protein/Osmolality 0.30 Predicted 24 HR Protein, U 296 (H) Predicted Range 94-933 Osmolality, Urine Collection Time: 05/08/24 10:22 AM Result Value Osmolality, U 673 pH, Urine Collection Time: 05/08/24 10:22 AM Result Value pH, U 4.9 Dipstick, Urine Collection Time: 05/08/24 10:22 AM Result Value Hemoglobin, QL, U Negative Leukocyte Esterase, U Negative Nitrite, U Negative Ketone, U Negative Glucose, U Negative Microscopic Automated Collection Time: 05/08/24 10:22 AM Result Value Microscopy Normal RBC None Seen WBC None Seen Creatinine, POCT Collection Time: 05/08/24 11:27 AM Result Value Estimated GFR (eGFR), POCT 62 Creatinine, POCT Collection Time: 05/08/24 11:27 AM Result Value Creatinine, POCT, B 1.2 IMAGING 05/08/2024 CT urogram results demonstrate Postoperative changes from previous fulguration in the [...] and mid left kidney, measuring up to 0.8cm, likely representing calyceal stones or papillary calcifications. The renal collecting systems and ureters are otherwise unremarkable without masses or filling defects. No hydronephrosis or hydroureter. No suspicious lymphadenopathy in the abdomen or pelvis. No ascites 05/08/2024 cystoscopy results demonstrate: The bladder was entered and inspected. There [...] evidence of bladder tumor recurrence #2 BPH ASSESSMENT / PLAN #1 Malignant Neoplasm Of Bladder (HCC) #2 Cyst Renal #3 Benign Prostatic Hyperplasia Without Obstruction #4 Hematuria Gross It was a pleasure meeting Mr. Potts in clinic for evaluation and treatment of gross hematuria in the setting of bladder cancer. He has a history of bladder cancer has been diagnose since December of 2019 19 and was last seen in the urology department in January of 2023 during which he had a cystoscopy that was negative for possible bladder cancer recurrence. He was supposed to return in 1 year in January of 2024 but he did not make it to the appointment. He was recently seen by his general provider presenting with gross hematuria. 05/08/2024 Cystoscopy demonstrate, no cancer recurrence/BPH. 05/08/2024 CT urogram demonstrate, 1. Deformed and displaced left renal calyces by multiple renal cysts with small stones or papillarycalcifications in the upper and mid kidney. Otherwise unremarkable upper urinary tracts. No hydronephrosis or hydroureter. 2. Persistent diffuse thickening and trabeculation of the bladder wall without suspicious bladder masses. 05/08/2024 labs show a normal creatinine of 1.2, EGFR of 62, urine test with urinalysis that shows a predicted 24 hour urine protein of 296 otherwise negative urine test. Urine cytology results pending. We will communicate results should there be concerns for possible urothelial carcinoma. In view of the fact that patient had experience severe back pain alongside with gross hematuria andhas a history of kidney stones he understands he might have passed some kidney stones. Urine test results and negative for microscopic hematuria. Plan Return in 1 year with survivorship providers for bladder cancer recheck. Prior to clinic visit he will need lab blood test BMP, urine analysis, cystoscopy, CT urogram and urine cytology. Signed by: Lb Patiño APRN, C.N.P., D.N.P., M.S. 05/07/2024 10:48 PM CDT Answers submitted by the patient for this visit: Urinary Symptoms (Submitted on 05/04/2024) None of the above: Yes None of the above: Yes Are you able to sense when your bladder is full?: Yes How many times daily do you typically urinate during the day?: 4 How many times do you typically wake up and urinate at night?: 2 Have you had a urinary tract infection (UTI) within the past 1 year, and if so how many?: none Have you had any kidney infections or required hospitalized for kidney failure?: No Have you required a catheter placed because you could not empty your bladder?: No Do you ever unintentionally leak urine?: Yes Have you ever or are currently taking any treatments to treat your urinary symptoms?: none Have you ever had any surgical or office procedures to improve your urinary symptoms?: No (Submitted on 05/04/2024) Do you leak when you cough, sneeze, or lift heavy objects?: No Do you often experience a feeling of urgency (needing to go the bathroom) before leaking?: Yes [1] Current Outpatient Medications on File Prior to Visit Medication Sig Dispense Refill Arnuity Ellipta 100 mcg/actuation diskus inhaler Inhale 1 puff by mouth once daily 90 each 3 albuterol 90 mcg/actuation inhaler Inhale 1 puff every 4 (four) hours as needed for wheezing or shortness of breath. For COPD. amLODIPine (Norvasc) 5 mg tablet TAKE 1 TABLET(5 MG) BY MOUTH DAILY 90 tablet 3 aspirin 81 mg chewable tablet Chew 1 tablet (81 mg total) daily. For cardiovascular event prevention blood glucose ctl high,nml,low solution Glucose control solution provides an easy way to ensure accurate blood glucose testing. 1 each 0 blood sugar diagnostic strips (Accu-Chek Guide test strips) 1 test by other route daily. for testing 100 strip 3 blood-glucose meter misc Test as directed for diabetes control. 1 each 0 DME Bi-level PAP DME Order 1 each 0 DME Bi-level PAP DME Order 1 each 0 FLUoxetine (PROzac) 40 mg capsule Take 1 capsule (40 mg total) by mouth daily. For depression. lancets Test once daily 100 each 1 losartan (Cozaar) 50 mg tablet Take 1 tablet (50 mg total) by mouth daily. For hypertension. 90 tablet 3 metFORMIN (Glucophage) 1,000 mg tablet Take 1 tablet (1,000 mg total) by mouth 2 (two) times a day.For diabetes. metoprolol succinate (Toprol XL) 25 mg 24 hr tablet Take 0.5 tablets (12.5 mg total) by mouth daily. Do not crush or chew. For CAD. multivitamin tablet Take 1 tablet by mouth daily. 90 tablet 0 nitroglycerin (Nitrostat) 0.[address] 1 tablet (0.4 mg total) under the tongue every 5 (five) minutes as needed for chest pain. Chest pain pantoprazole (Protonix) 40 mg EC tablet Take 1 tablet (40 mg total) by mouth daily. For GERD. rosuvastatin (Crestor) 10 mg tablet TAKE 1 TABLET(10 MG) BY MOUTH DAILY 90 tablet 3 semaglutide (Ozempic) 0.25 mg or 0.5 mg (2 mg/3 mL) injection Inject 0.5 mg under the skin every 7 (seven) days. 3 mL 11 No current facility-administered medications on file prior to visit. [2] Past Medical History: Diagnosis Date Apnea Sleep Obstructive Asthma NOS Cataract Colitis Ulcerative Proctitis (HCC) 10/2014 treated with Canasa Depressive Disorder Diabetes Mellitus Type 2 (HCC) Dilatation Ascending Aorta (HCC) 39mm Gastroesophageal Reflux Disease NOS with Barretts esophagus Hyperlipidemia Hypertension NOS Malignant Primary Neoplasm (Unknown Site) Unspecified (HCC) bladder Myocardial Infarction Acute (HCC) 08/2008 Cath 08/2008 Polyp Colon [3] Past Surgical History: Procedure Laterality Date CYSTOSCOPY BIOPSY FULGURATION N/A 12/08/2017 Procedure: CYSTOSCOPY, BIOPSY, FULGURATION.; Surgeon: Mina Flores M.D.; Location: [place] [address] OR ESOPHAGOGASTRODUODENOSCOPY N/A 09/13/2011 >Esophagogastroduodenoscopy. ESOPHAGOGASTRODUODENOSCOPY N/A 08/21/2001 >Esophagogastroduodenoscopy with Biopsy ESOPHAGOGASTRODUODENOSCOPY N/A 07/15/2008 >Esophagogastroduodenoscopy with biopsy. HIP ARTHROPLASTY N/A 11/30/2011 >Uncemented right total hip arthroplasty. INJECTION, THERAPEUTIC (EG, LOCAL ANESTHETIC, CORTICOSTEROID), CARPAL TUNNEL.. N/A 10/22/1998 >Compound F injection. JOINT REPLACEMENT 11/30/2011 TONSILLECTOMY age 7 yrs. TOTAL AVULSION OF NAIL PLATE N/A 11/28/2009 >Nail Avulsion/Biopsy. ULTRASOUND TRANSRECTAL WITH BIOPSY GUIDED PROSTATE N/A 04/20/2004 >Transrectal diagnostic echography with needle biopsies of the prostate under ultrasound guidance in the ULTRASOUND TRANSRECTAL WITH BIOPSY GUIDED PROSTATE N/A 07/17/1998 >Transrectal needle biopsies of the prostate under ultrasound control in the office VASECTOMY 11/1975 [4] Family History Problem Relation Name Age of Onset Hypertension Mother Diabetes Father Felipe Cancer Sister Mariah Breast cancer Sister Mariah Diabetes Brother Dangelo Heart valve replacement Brother Dangelo Coronary artery disease Brother Dangelo Diabetes Father's Sister Diabetes Sister Barbie Dementia Sister Barbie Breast cancer Sister Barbie Lung cancer Sister Barbie Alcoholic Neg Hx documented in this encounter Consult Notes * Lb Patiño APRN, C.N.P., Jules, M.S. - 05/08/2024 1:00 PM CDT Follow-up call to patient and spouse. We reviewed the cystoscopy results and the CT urogram resultsand they understand there is no cancer recurrence. The patient's gross hematuria might have been from passage of kidney stones. They understand CT urogram showed he has kidney stones. Patient has a history of kidney stones. Patient and spouse we will be calling for follow-up in 1 year for bladder cancer recheck. Should he encounter any pain or want treatment for the kidney stones they will contact us at any time. Patient and spouse have our contact information and have access to the patient portal. Answers submitted by the patient for this visit: Urinary Symptoms (Submitted on 05/04/2024) Blood in the urine: Yes None of the above: Yes None of the above: Yes Are you able to sense when your bladder is full?: Yes How many times daily do you typically urinate during the day?: 4 How many times do you typically wake up and urinate at night?: 2 Have you had a urinary tract infection (UTI) within the past 1 year, and if so how many?: none Have you had any kidney infections or required hospitalized for kidney failure?: No Have you required a catheter placed because you could not empty your bladder?: No Do you ever unintentionally leak urine?: Yes Have you ever or are currently taking any treatments to treat your urinary symptoms?: none Have you ever had any surgical or office procedures to improve your urinary symptoms?: No (Submitted on 05/04/2024) Do you leak when you cough, sneeze, or lift heavy objects?: No Do you often experience a feeling of urgency (needing to go the bathroom) before leaking?: Yes documented in this encounter Miscellaneous Notes * Addendum Note - Lb Patiño APRN, C.N.P., Rodolfo., M.S. - 05/08/2024 1:00 PM CDTAddended by: LB PATIÑO on: 05/08/2024 04:33 PM Modules accepted: Orders documented in this encounter Plan of Treatment Upcoming Encounters Date Type Department Care Team (Late st Contact Info) Description 07/24/2024 9:15 AM CDT Office Visit Department of Neurology in [place], [place] [address] [place] [address] Amrik Negron D.O. [address] [place] [address] Scheduled Orders Name Type Priority Associated Diagnoses Order Schedule CT Urogram without and with IV Contrast Imaging RAD - Routine (most inpatients and all outpatients) Malignant Neoplasm Of Bladder (HCC) Cyst Renal Benign Prostatic Hyperplasia Without Obstruction Hematuria Gross Expected: 05/08/2025, Expires: 08/07/2025 Cytology Non-POLYMERIZATION OVEN OPERATOR (Scheduled) Pathology and Cytology Routine Malignant Neoplasm Of Bladder (HCC) Cyst Renal Benign Prostatic Hyperplasia Without Obstruction Hematuria Gross Expected: 05/08/2025, Expires: 08/07/2025 Urinalysis, with Microscopic: Urine, Midstream Lab Routine Malignant Neoplasm Of Bladder (HCC) Cyst Renal Benign Prostatic Hyperplasia Without Obstruction Hematuria Gross Expected: 05/08/2025, Expires: 08/07/2025 Basic Metabolic Panel Lab Routine Malignant Neoplasm Of Bladder (HCC) Cyst Renal Benign Prostatic Hyperplasia Without Obstruction Hematuria Gross Expected: 05/08/2025, Expires: 05/08/2025 DX Chest AP or PA and Lateral 2 Views Imaging RAD - Routine (most inpatients and all outpatients) Malignant Neoplasm Of Bladder (HCC) Cyst Renal Benign Prostatic Hyperplasia Without Obstruction Hematuria Gross Expected: 05/08/2025, Expires: 08/07/2025 Scheduled Referrals Name Type Priority Associated Diagnoses Orde r Schedule Urology office visit (clinic) Outpatient Referral Routine Expected: 05/08/2025, Expires: 08/07/2025 documented as of this encounter Visit Diagnoses Diagnosis Malignant Neoplasm Of Bladder (HCC)- Primary Cyst Renal Benign Prostatic Hyperplasia Without Obstruction Hematuria Gross documented in this encounter Additional Health Concerns Assessment Noted Time PHQ-9 Depression Total Score: 0 12/19/19 24 1:29 PM HOSPITAL EDUCATOR documented as of this encounter Care Teams Basin Operator Relationship Specialty Start Date End Date Dalia Dill M.D. [address] [place] [phone] PCP - General Family Medicine 12/01/23 documented as of this encounter
--- OUTSIDE RECORDS SUMMARY | 2024-06-22 03:09 | XMS_ITS | Encounter Summary ---
Author Organization [facility] Address [address] [place] [address] Care Team Providers Care Latin American Studies Professor Name Role Phone Dalia Dill M.D. Primary Care Provider [phone] [phone] Reason for Referral * MRI/CAT/PET Scan (Routine) - Closed Specialty Diagnoses / Procedures Referred By Eileen alegria Referred To Contact Radiology Diagnoses Malignant Neoplasm Of Bladder (HCC) Hematuria Procedures CT Urogram without and with IV Contrast Dalia Dill M.D. 200 [place] [address] Phone: tel: fax: [facility] Referral ID Status Reason Start Date Expiration Date Visits Re quested Visits Authorized [id number] Closed 04/17/2024 07/18/2025 1 1 Reason for Visit * MRI/CAT/PET Scan (Routine) - Closed Specialty Diagnoses / Procedures Referred By Eileen alegria Referred To Contact Radiology Diagnoses Malignant Neoplasm Of Bladder (HCC) Hematuria Procedures CT Urogram without and with IV Contrast Dalia Dill M.D. 200 [place] [address] Phone: tel: fax: [facility] Referral ID Status Reason Start Date Expiration Date Visits Re quested Visits Authorized [id number] Closed 04/17/2024 07/18/2025 1 1 Encounter Details Date Type Department Care Team (Latest Contact Info) Description 05/08/2024 10:36 AM CDT - 05/08/2024 11:59 PM CDT Hospital Encounter Department of Radiology, [facility], in [place], [place] [address] [place] [address] Dalia Dill M.D. [address] [place] [address] Malignant Neoplasm Of Bladder (HCC); Hematuria Discharge Disposition: Home or Self Care Social History Tobacco Use Types Packs/Day Years Used Date Smoking Tobacco: Former Cigarettes 1 35 0 02/07/1962 - 02/15/1997 Smokeless Tobacco: Never Quit: 05/23/1999 Alcohol Use Standard Drinks/Week Comments Yes 1 (1 standard drink = 0.6 oz pur e alcohol) [facility] Utilities Answer Date Recorded In the past 12 months has e [employer], gas, oil, or water Canines threatened to shut off services in your [...] file 04/02/2022 How often do you attend [facility] or yarsanism services? 1 to 4 times per year 04/02/2022 Do you belong to any clubs o r organizations such as restorationism groups, unions, fraternal or athletic groups, or [...] Answer Date Recorded PHQ-2 Score 0 12/19/2023 [facility] - Occupational Stress Questionnaire Answer Date Recorded [...] your living situation today? I have a [facility] place to live 10/27/2023 Education Answer Date Recorded What is the highest level of school you have completed or the highest degree you have received? 12th grade 03/14/2019 Sex and Gender Information Value Date Recorded Sex Assigned at Male 08/23/2017 10:02 AM CDT Legal Sex Male 7:12 PM BOTTLE FEEDER Gender Identity Male 08/23/2017 10:02 AM CDT [...] CDT Office Visit Department of Neurology in [place], [place] [address] [place] [phone] Amrik Negron D.O. [address] [place] [address] Scheduled Orders Name Type Priority Associated Diagnoses Orde r Schedule Creatinine, POCT Point of Care Testing-Docked Device Routine Routine lab collecti on (next collection) for 1 Occurrences starting 05/08/2024 until 05/08/2024 documented as of this encounter Procedures Procedure Name Priority Date/Time Associated Diagnosis Comments CT UROGRAM WITHOUT AND WITH IV CONTRAST RAD - Routine (most inpatients and all outpatients) 05/08/2024 12:29 PM CDT Malignant Neoplasm Of Bladder (HCC) Hematuria CREATININE, POCT, B Routine 05/08/2024 11:27 AM CDT CREATININE, POCT, B Routine 05/08/2024 11:27 AM CDT documented in this encounter Results * CT Urogram without and with IV [...] of the bladder wallwithout suspicious bladder masses. us Dalia Dill M.D. IMG CT PROCEDURES Final R esult * Creatinine, POCT (05/08/2024 11:27 AM CDT) [facility] Creatinine, POCT, B 1.2 0.7 - 1.4 mg/dL 05/08/2024 11:30 AM CDT PCDT Comment: ----ADDITIONAL INFORMATION---- Performed at the Point of Care Blood 05/08/2024 11:2 7 AM CDT 05/08/2024 11:31 AM CDT Unknown Provider LAB POCT ORDERABLES - DEVICE Fi nal Result Performing Organization Address [facility] de Phone Number [facility] PERFORM[facility] LABS 200 [place] [address], [facility] PCDT [facility] POC 200 [place] [address] * Creatinine, POCT (05/08/2024 11:27 AM CDT) [facility] Estimated GFR (eGFR), POCT 62 >=60 mL/min/BSA 05/08/2024 11:31 AM CDT PCDT Comment: Estimated GFR calculated using the 2020 CKD_EPI creatinine equation. Blood 05/08/2024 11:2 7 AM CDT 05/08/2024 11:31 AM CDT us Unknown Provider LAB POCT ORDERABLES - DEVICE Fi nal Result Performing Organization Address [facility] Co de Phone Number [facility] PERFORMING LABS [address] [place] [address], [place] PCDT [facility] P[facility] [address] [place] [address] documented in this encounter Visit Diagnoses Diagnosis Malignant Neoplasm Of Bladder (HCC) Hematuria documented in this encounter Administered Medications Inactive Administered Medications - up to 3 most recent administrations Medication Order MAR Action Action Date Dose Rate Site iohexoL 300 mg iodine/mL solution 1-200 mL (Omnipaque) 1-200 mL, intravenous, Once in imaging, contrast, Starting on Tue05/08/24 at 1113, For 1 dose, Imaging Protocol Orders, Dose per Radiant Medication Guidelines Given 05/08/2024 11:55 AM CDT 140 mL sodium chloride (PF) 0.9 % injection 1-100 mL 1-100 mL, intravenous, Once, On Tue05/08/24 at 1130, For 1 dose, Imaging Protocol Orders, Dose per Radiant Medication Guidelines Given 05/08/2024 11:55 AM CDT 50 mL documented in this encounter Additional Health Concerns Assessment Noted Time PHQ-9 Depression Total Score: 0 12/19/19 1:29 PM BOTTLE FEEDER documented as of this encounter Care Teams Latin American Studies Professor Relationship Specialty Start Date End Date Dalia Dill M.D. [address] [place] [address] PCP - General Family Medicine 12/01/23 documented as of this encounter
--- OUTSIDE RECORDS SUMMARY | 2024-06-22 03:09 | XMS_ITS | Encounter Summary ---
Author Organization [facility] Address [address] [place] [address] Care Team Providers Care Economics Teacher Name Role Phone Dalia Dill M.D. Primary Care Provider [phone] [phone] Encounter Details Date Type Department Care Team (Latest Contact Info) Description 05/08/2024 9:40 AM CDT - 05/08/2024 9:49 AM CDT Hospital Encounter Department of Laboratory Medicine and Pathology, [facility] in [place], [place] [address] [place] [address] Dalia Dill M.D. [address] [place] [phone] Malignant Neoplasm Of Bladder (HCC); Hematuria Discharge Disposition: Home or Self Care Social History Tobacco Use Types Packs/Day Years Used Date Smoking Tobacco: Former Cigarettes 1 35 0 02/07/1962 - 02/15/1997 Smokeless Tobacco: Never Quit: 05/23/1999 Alcohol Use Standard Drinks/Week Comments Yes 1 (1 standard drink = 0.6 oz pur e alcohol) [facility] Utilities Answer Date Recorded In the [...] any clubs o r organizations such as latter day groups, unions, fraternal or athletic groups, or [...] Answer Date Recorded PHQ-2 Score 0 12/19/2023 [facility] [place] of Occupat ional Health - Occupational Stress [...] your living situation today? I have a [facility] place to live 10/27/2023 Education Answer Date Recorded What is the highest level of school you have completed or the highest degree you have received? 12th grade 03/14/2019 Sex and Gender Information Value Date Recorded Sex Assigned at Male 08/23/2017 10:02 AM CDT Legal Sex Male 7:12 PM OFFICE MANAGER RECEPTIONIST Gender Identity Male 08/23/2017 10:02 AM CDT [...] CDT Office Visit Department of Neurology in [place], [place] [address] [place] [phone] Amrik Negron D.O. [address] [place] [address] documented as of this encounter Procedures Procedure Name Priority Date/Time Associated Diagnosis Comments DIPSTICK, U Routine 05/08/2024 10:22 AM CDT MICROSCOPIC AUTOMATED Routine 05/08/2024 10:22 AM CDT BACTERIAL CULTURE, AEROBIC + SUSC, URINE Routine 05/08/2024 10:22 AM CDT Malignant Neoplasm Of Bladder (HCC) Hematuria PH, U Routine 05/08/2024 10:22 AM CDT OSMOLALITY, U Routine 05/08/2024 10:22 AM CDT URINALYSIS WITH MICROSCOPIC Routine 05/08/2024 10:22 AM CDT Malignant Neoplasm Of Bladder (HCC) Hematuria documented in this encounter Results * Microscopic Automated (05/08/2024 10:22 AM CDT) Microscopy Normal 05/08/2024 11:09 AM CDT DTL RBC None Seen <3 /hpf 05/08/2024 11:09 AM CDT DTL WBC None Seen /hpf 05/08/2024 11:09 AM CDT DTL Comment: ----REFERENCE VALUE---- <4 (Males) <11 (Females) Urine 05/08/2024 10:2 2 AM CDT 05/08/2024 10:41 AM CDT Dalia Dill M.D. LAB URINE ORDERABLES Kelsi l Result Performing Organization Address City/[facility]/ZIP Co de Phone Number [facility] [address] [place] [address], [facility] 200 [place] [address] * Dipstick, Urine (05/08/2024 10:22 AM CDT) [...] ORDERABLES Kelsi l Result Performing Organization Address [facility] Co de Phone Number [facility] [address] [place] [address], [facility] 200 [place] [address] * pH, Urine (05/08/2024 10:22 AM CDT) pH, U 4.9 4.5 - 8.0 05/08/2024 11: 29 AM CDT DTL Urine 05/08/2024 10:2 2 AM CDT 05/08/2024 10:41 AM CDT Dalia Dill M.D. LAB URINE ORDERABLES Kelsi l Result [facility] [address] [place], [place] [phone] [place] [address] 200 [place] [address] * Osmolality, Urine (05/08/2024 10:22 AM CDT) Osmolality, U 673 150 - 1150 mOsm/kg 05/08/2024 11:29 AM CDT DTL Urine 05/08/2024 10:2 2 AM CDT 05/08/2024 10:41 AM CDT Dalia Dill M.D. LAB URINE ORDERABLES Kelsi l Result Performing Organization Address [facility] Co de Phone Number [facility] [address] [place], [place] [address] [place] [address] * Bacterial Culture, Aerobic + Susceptibility, Urine (05/08/2024 10:22 AM CDT) [facility] Urine Culture Urogenital microbiota, susceptibilities not performed per laboratory criteria. 05/09/2024 7:07 AM CDT DT Urine (Urine, Midstream) 05/08/2024 10:22 AM CDT 05/08/2024 11:52 AM CDT Comment:Specimen Source Site : Urine Dalia Dill M.D. LAB MICROBIOLOGY - GENERA L ORDERABLES Final Result Performing Organization Address City/[facility]/ZIP Co de Phone Number [facility] [address] [place], [place] [address] [place] [address] 200 [place] [address] * (ABNORMAL) Urinalysis, with Microscopic: Urine, Midstream [...] M.D. LAB URINE ORDERABLES Kelsi walters Result [facility] [address] [place], [place] [phone] [place] [address] D[address] [facility] [address] [place] [address] documented in this encounter Visit Diagnoses Diagnosis Malignant Neoplasm Of Bladder (HCC) Hematuria documented in this encounter Additional Health Concerns Assessment Noted Time PHQ-9 Depression Total Score: 0 12/19/19 24 1:29 PM OFFICE MANAGER RECEPTIONIST documented as of this encounter Care Teams Economics Teacher Relationship Specialty Start Date End Date Dalia Dill M.D. [address] [place] [address] PCP - General Family Medicine 12/01/23 documented as of this encounter
--- OUTSIDE RECORDS SUMMARY | 2024-06-22 03:09 | XMS_ITS | Encounter Summary ---
Author Organization [facility] Address [address] [place] [address] Care Team Providers Care Digital Production Manager Name Role Phone Dalia Dill M.D. Primary Care Provider [phone] [phone] Encounter Details Date Type Department Care Team (Late st Contact Info) Description 06/19/2010 Historical Ophthalmology [facility] O[facility] Yolanda Meyer O.D. 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 CDM Reports - EYEGEN Id: [id number] Status: Fnl documented in this encounter Plan of Treatment Upcoming Encounters Date Type Department Care Team (Late st Contact Info) Description 07/24/2024 9:15 AM CDT Office Visit Department of Neurology in [place], [place] [address] [place] [phone] Amrik Negron D.O. [address] [place] [phone] documented as of this encounter Visit Diagnoses [...] as of this encounter Care Teams Digital Production Manager Relationship Specialty Start Date End Date Dalia Dill M.D. [address] [place] [phone] PCP - General Family Medicine 12/01/23 documented as of this encounter
--- OUTSIDE RECORDS SUMMARY | 2024-06-22 03:09 | XMS_ITS | Encounter Summary ---
Author Organization [facility] Address [address] [place] [address] Care Team Providers Care Fisheries Inspector Name Role Phone Dalia Dill M.D. Primary Care Provider [phone] [phone] Encounter Details Date Type Department Care Team (Late st Contact Info) Description 08/02/2012 Historical Ophthalmology [facility] O[facility] Jameson Burks O.D. 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 Discussed importance of good blood sugar control. Plan: monitor periodically. #2 Cataract, both eyes, not visually significant. Plan: observe. 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 #2 Cataract, both eyes, not visually significant. CDM Reports - EYEGEN Id: [id number] Status: Fnl documented in this encounter Plan of Treatment Upcoming Encounters Date Type Department Care Team (Late st Contact Info) Description 07/24/2024 9:15 AM CDT Office Visit Department of Neurology in [place], [place] [address] [place] [phone] Amrik Negron D.O. [address] [place] [phone] documented as of this encounter Visit Diagnoses [...] documented as of this encounter Care Teams Fisheries Inspector Relationship Specialty Start Date End Date Dalia Dill M.D. [address] [place] [phone] PCP - General Family Medicine 12/01/23 documented as of this encounter
--- OUTSIDE RECORDS SUMMARY | 2024-06-22 03:09 | XMS_ITS | Encounter Summary ---
Author Organization [facility] Address [address] [place] [address] Care Team Providers Care Aircraft Maintenance Supervisor Name Role Phone Dalia Dill M.D. Primary Care Provider [phone] [phone] Encounter Details Date Type Department Care Team (Latest Contact Info) Description 05/08/2024 9:50 AM CDT - 05/08/2024 10:35 AM CDT Hospital Encounter Department of Laboratory Medicine and Pathology, [facility] in [place], [place] [address] [place] [address] Dalia Dill M.D. [address] [place] [phone] Malignant Neoplasm Of Bladder (HCC); Hematuria Discharge Disposition: Home or Self Care Social History Tobacco Use Types Packs/Day Years Used Date Smoking Tobacco: Former Cigarettes 1 35 0 02/07/1962 - 02/15/1997 Smokeless Tobacco: Never Quit: 05/23/1999 Alcohol Use Standard Drinks/Week Comments Yes 1 (1 standard drink = 0.6 oz pur e alcohol) [facility] Utilities Answer Date Recorded In the [...] How often do you attend chur or caodaism services? 1 to 4 times per year 04/02/2022 Do you belong to any clubs o r organizations such as tenriism groups, unions, fraternal or athletic groups, or [...] Answer Date Recorded PHQ-2 Score 0 12/19/2023 [facility] of Occupat ional Health - Occupational Stress [...] your living situation today? I have a [facility] place to live 10/27/2023 Education Answer Date Recorded What is the highest level of school you have completed or the highest degree you have received? 12th grade 03/14/2019 Sex and Gender Information Value Date Recorded Sex Assigned at Male 08/23/2017 10:02 AM CDT Legal Sex Male 7:12 PM BOOT AND SHOE LABORER Gender Identity Male 08/23/2017 10:02 AM [...] CDT Office Visit Department of Neurology in [place], [place] [address] [place] [address] Amrik Negron D.O. [address] [place] [address] documented as of this encounter Procedures Procedure Name Priority Date/Time Associated Diagnosis Comments CYTOLOGY NON-AUTOMOTIVE LEASING SALES REPRESENTATIVE (SCHEDULED) Routine 05/08/2024 10:22 AM CDT Malignant Neoplasm Of Bladder (HCC) Hematuria documented in this encounter Results * Cytology Non-AUTOMOTIVE LEASING SALES REPRESENTATIVE (Scheduled) (05/08/2024 10:22 AM CDT) 05/09/2024 12:11 PM CDT DTL Report electronically signed by Eliza Rodriguez., Ch.B., M.S. I verify that I have [...] M.D. LAB SURG PATH ORDERABLES Final Result [facility] [address] [place] [address], [facility] DT 200 [facility] 200 [place] [address] documented in this encounter Visit Diagnoses Diagnosis Malignant Neoplasm Of Bladder (HCC) Hematuria documented in this encounter Additional Health Concerns Assessment Noted Time PHQ-9 Depression Total Score: 0 12/19/19 24 1:29 PM BOOT AND SHOE LABORER documented as of this encounter Care Teams Aircraft Maintenance Supervisor Relationship Specialty Start Date End Date Dalia Dill M.D. [address] [place] [address] PCP - General Family Medicine 12/01/23 documented as of this encounter
--- OUTSIDE RECORDS SUMMARY | 2024-06-22 03:09 | XMS_ITS | Encounter Summary ---
Author Organization [facility] Address [address] [place] [address] Care Team Providers Care Solid Waste Analyst Name Role Phone Dalia Dill M.D. Primary Care Provider [phone] [phone] Encounter Details Date Type Department Care Team (Late st Contact Info) Description 08/20/2013 Historical Ophthalmology [facility] O[facility] Artie Hill O.D. [address] [place] [phone] Social History Tobacco Use Types Packs/Day Years Used Date Smoking Tobacco: Never Assessed Sex and Gender Information Value Date Recorded Sex Assigned at Male 08/23/2017 10:02 AM CDT Legal Sex Male 7:12 PM TABLE SAW OPERATOR Gender Identity Male 08/23/2017 10:02 AM [...] astigmatism, presbyopia). CDM Reports - EYEGEN Id: [id number] Status: Fnl documented in this encounter Plan of Treatment Upcoming Encounters Date Type Department Care Team (Late st Contact Info) Description 07/24/2024 9:15 AM CDT Office Visit Department of Neurology in [place], [place] [address] [place] [address] Amrik Negron D.O. [address] [place] [phone] documented as of this encounter Visit Diagnoses [...] documented as of this encounter Care Teams Solid Waste Analyst Relationship Specialty Start Date End Date Dalia Dill M.D. [address] [place] [phone] PCP - General Family Medicine 12/01/23 documented as of this encounter
--- OUTSIDE RECORDS SUMMARY | 2024-06-22 03:09 | XMS_ITS | Encounter Summary ---
Author Organization [facility] Address [address] [place] [address] Care Team Providers Care Ripsawyer Name Role Phone Dalia Dill M.D. Primary Care Provider +1 [phone] Encounter Details Date Type Department Care Team (Late st Contact Info) Description 05/17/2024 Results Follow-Up Department of Family Medicine, [address] [place] [address] [place] [address] Dalia Dill M.D. [address] [place] [phone] Basic Metabolic Panel, CBC with Differential, Blood, Hemoglobin A1c, Additional followed-up results: 3 Social History Tobacco Use Types Packs/Day Years Used Date Smoking Tobacco: Former Cigarettes 1 35 0 02/07/1962 - 02/15/1997 Smokeless Tobacco: Never Quit: 05/23/1999 Alcohol Use Standard Drinks/Week Comments Yes 1 (1 standard drink = 0.6 oz pur e alcohol) [facility] Utilities Answer Date Recorded In the past [...] file 04/02/2022 How often do you attend [facility] or yarsani services? 1 to 4 times per year 04/02/2022 Do you belong to any clubs o r organizations such as mormonism groups, unions, fraternal or athletic groups, or [...] Answer Date Recorded PHQ-2 Score 0 12/19/2023 [facility] [place] of Occupat ional Health - Occupational Stress [...] your living situation today? I have a [facility] place to live 10/27/2023 Education Answer Date Recorded What is the highest level of school you have completed or the highest degree you have received? 12th grade 03/14/2019 Sex and Gender Information Value Date Recorded Sex Assigned at Male 08/23/2017 10:02 AM CDT Legal Sex Male 7:12 PM GRINDER OPERATOR TOOL Gender Identity Male 08/23/2017 10:02 AM CDT Sexual Orientation Straight 08/23/2017 10 :02 AM CDT documented as of this encounter Plan of Treatment Upcoming Encounters Date Type Department Care Team (Late st Contact Info) Description 07/24/2024 9:15 AM CDT Office Visit Department of Neurology in [place], [place] [address] [place] [address] Amrik Negron D.O. [address] [place] [address] Scheduled Orders Name Type Priority Associated Diagnoses Orde r Schedule Hemoglobin A1c Lab Routine Chronic Kidney Disease (CKD), Stage 3a Glomerular Filtration Rate (GFR) 45 To 59 (HCC) Hyperlipidemia Hypertensive Chronic Kidney Disease With Stage 1 Through Stage 4 Chronic Kidney Disease, Or Unspecified Chronic Kidney Disease Thrombocytopenia Diabetes Mellitus Type 2 Peripheral Neuropathy (HCC) Diabetes Mellitus Type 2 With Diabetic Chronic Kidney Disease (HCC) Expected: 11/16/2024 (Approximate), Expires: 05/17/2025 Hemoglobin A1c Lab Routine Chronic Kidney Disease (CKD), Stage 3a Glomerular Filtration Rate (GFR) 45 To 59 (HCC) Hyperlipidemia Hypertensive Chronic Kidney Disease With Stage 1 Through Stage 4 Chronic Kidney Disease, Or Unspecified Chronic Kidney Disease Thrombocytopenia Diabetes Mellitus Type 2 Peripheral Neuropathy (HCC) Diabetes Mellitus Type 2 With Diabetic Chronic Kidney Disease (HCC) Expected: 05/17/2025 (Approximate), Expires: 08/16/2025 Lipid Panel Lab Routine Chronic Kidney Disease (CKD), Stage 3a Glomerular Filtration Rate (GFR) 45 To 59 (HCC) Hyperlipidemia Hypertensive Chronic Kidney Disease With Stage 1 Through Stage 4 Chronic Kidney Disease, Or Unspecified Chronic Kidney Disease Thrombocytopenia Diabetes Mellitus Type 2 Peripheral Neuropathy (HCC) Diabetes Mellitus Type 2 With Diabetic Chronic Kidney Disease (HCC) Expected: 05/17/2025 (Approximate), Expires: 08/16/2025 Basic Metabolic Panel Lab Routine Chronic Kidney Disease (CKD), Stage 3a Glomerular Filtration Rate (GFR) 45 To 59 (HCC) Hyperlipidemia Hypertensive Chronic Kidney Disease With Stage 1 Through Stage 4 Chronic Kidney Disease, Or Unspecified Chronic Kidney Disease Thrombocytopenia Diabetes Mellitus Type 2 Peripheral Neuropathy (HCC) Diabetes Mellitus Type 2 With Diabetic Chronic Kidney Disease (HCC) Expected: 05/17/2025 (Approximate), Expires: 08/16/2025 CBC with Differential, Blood Lab Routine Chronic Kidney Disease (CKD), Stage 3a Glomerular Filtration Rate (GFR) 45 To 59 (HCC) Hyperlipidemia Hypertensive Chronic Kidney Disease With Stage 1 Through Stage 4 Chronic Kidney Disease, Or Unspecified Chronic Kidney Disease Thrombocytopenia Diabetes Mellitus Type 2 Peripheral Neuropathy (HCC) Diabetes Mellitus Type 2 With Diabetic Chronic Kidney Disease (HCC) Expected: 05/17/2025 (Approximate), Expires: 08/16/2025 Vitamin B12 Assay Lab Routine Chronic Kidney Disease (CKD), Stage 3a Glomerular Filtration Rate (GFR) 45 To 59 (HCC) Hyperlipidemia Hypertensive Chronic Kidney Disease With Stage 1 Through Stage 4 Chronic Kidney Disease, Or Unspecified Chronic Kidney Disease Thrombocytopenia Diabetes Mellitus Type 2 Peripheral Neuropathy (HCC) Diabetes Mellitus Type 2 With Diabetic Chronic Kidney Disease (HCC) Expected: 05/17/2025 (Approximate), Expires: 08/16/2025 documented as of this encounter Visit Diagnoses Diagnosis Chronic Kidney Disease (CKD), Stage 3a Glomerular Filtration Rate (GFR) 45 To 59 (HCC)- Primary Hyperlipidemia Hypertensive Chronic Kidney Disease With Stage 1 Through Stage 4 Chronic Kidney Disease, Or Unspecified Chronic Kidney Disease Thrombocytopenia Diabetes Mellitus Type 2 Peripheral Neuropathy (HCC) Diabetes Mellitus Type 2 With Diabetic Chronic Kidney Disease (HCC) documented in this encounter Additional Health Concerns Assessment Noted Time PHQ-9 Depression Total Score: 0 12/19/19 24 1:29 PM GRINDER OPERATOR TOOL documented as of this encounter Care Teams Ripsawyer Relationship Specialty Start Date End Date Dalia Dill M.D. [address] [place] [phone] PCP - General Family Medicine 12/01/23 documented as of this encounter
[2024-06-22] MEDS: ONDANSETRON 2 MG/ML inj 4 MG IVP (03:13)
[2024-06-22 03:18] LABS: Basophils Absolute Auto 0.03 K/uL (0.00-0.30); Basophils Percent Auto 0.4 % (0.0-3.0); Eosinophils Absolute Auto 0.11 K/uL (0.00-0.50); Eosinophils Percent Auto 1.5 % (0.0-7.0); Hematocrit 40.2 % (37.0-53.0); Hemoglobin* 13.5 gm/dL (13.5-17.5); Immature Granulocytes Abs Auto 0.04 K/uL (0.00-0.30); Immature Granulocytes Pct Auto 0.5 %; Lymphocytes Percent Auto 18.4 % (20-44); Mean Corpuscular HGB Conc 34 gm/dL (32-36); Mean Corpuscular Hemoglobin 31 pg (26-34); Mean Corpuscular Volume 91 fL (80-100); Monocytes Percent Auto 9.3 % (0.0-11.0); Neutrophils Absolute Auto 5.21 K/uL (1.7-7.0); Neutrophils Percent Auto 69.9 % (42.0-72.0); Platelet Count* 166 K/uL (140-440); RDW Coefficient of Variation % 12.6 % (11.5-15.5); Red Blood Count 4.42 m/uL (4.30-5.90); White Blood Count* 7.45 K/uL (4.50-11.00)
[2024-06-22 03:21] LABS: Slide Review Reflex No
[2024-06-22 03:28] LABS: Albumin* 4.3 g/dL (3.3-5.0); Chloride* 104 mmol/L (96-114)
[2024-06-22 03:28] LABS: Appearance Urine Clear (Clear); Bilirubin Urine Negative (Negative); Blood Urine Negative (Negative); Color Urine Yellow (Yellow); Glucose Urine Trace (Negative); Ketones Urine Trace (Negative); Leukocyte Esterase Urine Negative (Negative); Nitrite Urine Negative (Negative); Protein Urine 1+ (Negative); Urobilinogen Urine 0.2 (0.2-1.0)
[2024-06-22 03:29] LABS: Potassium* 3.9 mmol/L (3.6-5.1); Sodium* 139 mmol/L (135-149)
[2024-06-22 03:31] LABS: Blood Urea Nitrogen* 28 mg/dL (7-30); Creatinine* 1.2 mg/dL (0.5-1.5); Estimated Glomerular Filt Rate 62 ml/min
[2024-06-22 03:32] LABS: Alanine Aminotransferase* 27 U/L (4-50); Alkaline Phosphatase* 75 U/L (40-150); Anion Gap 10 mEq/L (7-15); Aspartate Amino Transferase* 31 U/L (12-35); Bilirubin Total* 0.6 mg/dL (0.1-1.5); Calcium* 9.6 mg/dL (8.4-10.6); Carbon Dioxide* 25 mmol/L (20-32); Glucose* 206 mg/dL (60-115); Total Protein* 6.9 g/dL (6.0-8.3)
[2024-06-22 03:35] LABS: RBC Urine 0-2 (0-2); WBC Urine 0-2 (0-5)
--- OUTSIDE RECORDS SUMMARY | 2024-06-22 03:43 | XMS_ITS | Encounter Summary ---
Author Organization [facility] Address [address] [place] [address] Care Team Providers Care Electrician Supervisor Name Role Phone Dalia Dill M.D. Primary Care Provider [phone] [phone] Reason for Referral * Outpatient (Routine) - Authorized Specialty Diagnoses / Procedures Referred By Eileen alegria Referred To Contact Pulmonary Medicine Pro Carr M.D. [address] [place] [phone] Phone: tel: fax: [facility] Referral ID Status Reason Start Date Expiration Date V isits Requested Visits Authorized [id number] Authorized 06/05/2024 12/05/2025 1 1 Scheduling Instructions Order generated by [facility] Scre[facility] Eligibility [facility] Encounter Details Date Type Department Care Team (Late st Contact Info) Description 06/05/2024 Orders Only Division of Pulmonary Medicine in [place], [place] [address] [place] [phone] Pro Carr M.D. [address] [place] [phone] Social History Tobacco Use Types Packs/Day Years Used Date Smoking Tobacco: Former Cigarettes 1 35 0 02/07/1962 - 02/15/1997 Smokeless Tobacco: Never Quit: 05/23/1999 Alcohol Use Standard Drinks/Week Comments Yes 1 (1 standard drink = 0.6 oz pur e alcohol) [facility] Utilities Answer Date Recorded In the [...] often do you attend chur ch or spiritism services? 1 to 4 times per year 04/02/2022 Do you belong to any clubs o r organizations such as sabianism groups, unions, fraternal or athletic groups, or [...] Answer Date Recorded PHQ-2 Score 0 12/19/2023 [facility] [place] of Occupat ional [facility] - Occupational Stress Questionnaire Answer Date [...] your living situation today? I have a [facility] place to live 10/27/2023 Education Answer Date Recorded What is the highest level of school you have completed or the highest degree you have received? 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 [address] [place] [phone] Scheduled Referrals Name Type Priority Associated Diagnoses Orde r Schedule PUL Lung Cancer screening program referral Initial Outpatient Referral Routine Expected: 06/05/2024, Expires: 12/05/2024 documented as of this encounter Visit Diagnoses Not on filedocumented in this encounter Additional Health Concerns Assessment Noted Time PHQ-9 Depression Total Score: 0 12/19/19 24 1:29 PM TAPE CUTTING MACHINE OPERATOR documented as of this encounter Care Teams Electrician Supervisor Relationship Specialty Start Date End Date Dalia Dill M.D. [address] [place] [phone] PCP - General Family Medicine 12/01/23 documented as of this encounter
--- OUTSIDE RECORDS SUMMARY | 2024-06-22 03:43 | XMS_ITS | Encounter Summary ---
Author Organization [facility] Address [address] [place] [address] Care Team Providers Care Offset Press Operator Name Role Phone Dalia Dill M.D. Primary Care Provider [phone] [phone] Encounter Details Date Type Department Care Team (Late st Contact Info) Description 05/08/2024 Results Follow-Up Department of Family Medicine, [address] [place] [address] Dalia Dill M.D. [address] [place] [phone] Urogram without and with IV Contrast Social History Tobacco Use Types Packs/Day Years Used Date Smoking Tobacco: Former Cigarettes 1 35 0 02/07/1962 - 02/15/1997 Smokeless Tobacco: Never Quit: 05/23/1999 Alcohol Use Standard Drinks/Week Comments Yes 1 (1 standard drink = 0.6 oz pur e alcohol) [facility] Utilities Answer Date Recorded In the [...] Answer Date Recorded PHQ-2 Score 0 12/19/2023 [facility] [place] of Occupat ional Health - Occupational Stress [...] your living situation today? I have a [facility] place to live 10/27/2023 Education Answer Date Recorded What is the highest level of school you have completed or the highest degree you have received? 12th grade 03/14/2019 Sex and Gender Information Value Date Recorded Sex Assigned at Male 08/23/2017 10:02 AM CDT Legal Sex Male 7:12 PM WIGS SALESPERSON Gender Identity Male 08/23/2017 10:02 AM CDT Sexual Orientation Straight 08/23/2017 10 :02 AM CDT documented as of this encounter Plan of Treatment Upcoming Encounters Date Type Department Care Team (Late st Contact Info) Description 07/24/2024 9:15 AM CDT Office Visit Department of Neurology in [place], [place] [address] [place] [address] Amrik Negron D.O. [address] [place] [address] documented as of this encounter Visit Diagnoses Not on filedocumented in this encounter Additional Health Concerns Assessment Noted Time PHQ-9 Depression Total Score: 0 12/19/19 24 1:29 PM WIGS SALESPERSON documented as of this encounter Care Teams Offset Press Operator Relationship Specialty Start Date End Date Dalia Dill M.D. [address] [place] [phone] PCP - General Family Medicine 12/01/23 documented as of this encounter
--- OUTSIDE RECORDS SUMMARY | 2024-06-22 03:43 | XMS_ITS | Encounter Summary ---
Author Organization [facility] Address [address] [place] [address] Care Team Providers Care Erosion Control Specialist Name Role Phone Dalia Dill M.D. Primary Care Provider [phone] [phone] Encounter Details Date Type Department Care Team (Latest Contact Info) Description 05/08/2024 9:50 AM CDT - 05/08/2024 10:35 AM CDT Hospital Encounter Department of Laboratory Medicine and Pathology, [facility] in [place], [place] [address] [place] [address] Dalia Dill M.D. [address] [place] [phone] Malignant Neoplasm Of Bladder (HCC); Hematuria Discharge [...] How often do you attend chur or sabianism services? 1 to 4 times per year 04/02/2022 Do you belong to any clubs o r organizations such as yazdanism groups, unions, fraternal or athletic groups, or [...] Answer Date Recorded PHQ-2 Score 0 12/19/2023 [facility] [place] of Occupat ional Health - Occupational Stress [...] your living situation today? I have a [facility] place to live 10/27/2023 Education Answer Date Recorded What is the highest level of school you have completed or the highest degree you have received? 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 For cardiovascular event prevention 10/31/2023 FLUoxetine (PROzac) 40 mg capsule Take 1 capsule (40 mg total) by mouth daily. For depression. 10/31/2023 metFORMIN (Glucophage) 1,000 mg tablet Take [...] total) by mouth daily. For GERD. 10/31/2023 albuterol 90 mcg/actuation inhaler Inhale 1 puff every 4 (four) hours as needed for wheezing or shortness of breath. For COPD. 11/01/2023 amLODIPine (Norvasc) 5 mg tabletIndication s:Chronic Kidney Disease (CKD), Stage 3 Unspecified (HCC) TAKE 1 TABLET(5 MG) BY MOUTH DAILY 90 tablet 3 02/02/2024 blood glucose ctl high,nml,low solution Glucose control solution provides an easy way to ensure accurate blood glucose testing. 1 each 07/07/2023 blood sugar diagnostic strips (Accu-Chek Guide test strips) 1 test by other route daily. for testing 100 strip 3 07/07/2023 blood-glucose meter [facility] [place] Test as directed for diabetes control. 1 each 02/12/2019 DME Bi-level PAPIndications:C entral Sleep Apnea Syndrome,Apnea Sleep Obstructive DME Order 1 each 01/19/2023 DME Bi-level PAPIndications:A pnea Sleep Obstructive DME Order 1 each 02/15/2024 lancets Test once daily 100 each 1 02/16/2019 losartan (Cozaar) 50 mg tablet Take 1 tablet (50 mg total) by mouth daily. For hypertension. 90 tablet 3 02/28/2024 rosuvastatin (Crestor) 10 mg tablet TAKE 1 [...] CDT Office Visit Department of Neurology in [place], [place] [address] [place] [address] Amrik Negron D.O. [address] [place] [address] documented as of this encounter Procedures Procedure Name Priority Date/Time Associated Diagnosis Comments CYTOLOGY NON-WATCH PARTS GRINDER (SCHEDULED) Routine 05/08/2024 10:22 AM CDT Malignant Neoplasm Of Bladder (HCC) Hematuria documented in this encounter Results * Cytology Non-WATCH PARTS GRINDER (Scheduled) (05/08/2024 10:22 AM CDT) 05/09/2024 12:11 [...] M.D. LAB SURG PATH ORDERABLES Final Result [facility] [address] [place] [address], [facility] DT 200 [facility] 200 [place] [address] documented in this encounter Visit Diagnoses Diagnosis Malignant Neoplasm Of Bladder (HCC) Hematuria documented in this encounter Additional Health Concerns Assessment Noted Time PHQ-9 Depression Total Score: 0 12/19/19 24 1:29 PM AUTOMATION LEAD documented as of this encounter Care Teams Erosion Control Specialist Relationship Specialty Start Date End Date Dalia Dill M.D. [address] [place] [address] PCP - General Family Medicine 12/01/23 documented as of this encounter
--- OUTSIDE RECORDS SUMMARY | 2024-06-22 03:43 | XMS_ITS | Encounter Summary ---
Author Organization [facility] Address [address] [place] [address] Care Team Providers Care Fusing Furnace Loader Name Role Phone Dalia Dill M.D. Primary Care Provider [phone] [phone] Encounter Details Date Type Department Care Team (Late st Contact Info) Description 06/06/2024 CPAP Download Remote Patient Monitoring [facility] 200 [place] [address] [facility], Provider, Social History Tobacco Use Types Packs/Day Years Used Date Smoking Tobacco: Former Cigarettes 1 35 0 02/07/1962 - 02/15/1997 Smokeless Tobacco: Never Quit: 05/23/1999 Alcohol Use Standard Drinks/Week Comments Yes 1 (1 standard drink = 0.6 oz pur e alcohol) [facility] Utilities Answer Date Recorded In the past 12 months has [facility] M2G, gas, oil, or water [employer] threatened to shut off services in your [...] often do you attend chur ch or amish services? 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 [address] [place] [address] documented as of this encounter Visit Diagnoses Not on filedocumented in this encounter Additional Health Concerns Assessment Noted Time PHQ-9 Depression Total Score: 0 12/19/19 24 1:29 PM CDL TRUCK DRIVER documented as of this encounter Care Teams Fusing Furnace Loader Relationship Specialty Start Date End Date Dalia Dill M.D. [address] [place] [address] PCP - General Family Medicine 12/01/23 documented as of this encounter
--- OUTSIDE RECORDS SUMMARY | 2024-06-22 03:43 | XMS_ITS | Encounter Summary ---
Author Organization [facility] Address [address] [place] [address] Care Team Providers Care Electric Razor Mechanic Name Role Phone Dalia Dill M.D. Primary Care Provider +1 [phone] Encounter Details Date Type Department Care Team (Latest Contact Info) Description 05/08/2024 9:40 AM CDT - 05/08/2024 9:49 AM CDT Hospital Encounter Department of Laboratory Medicine and Pathology, [facility] in [place], [place] [address] [place] [address] Dalia Dill M.D. [address] [place] [phone] Malignant Neoplasm Of Bladder (HCC); Hematuria Discharge Disposition: Home or Self Care Social History Tobacco Use Types Packs/Day Years Used Date Smoking Tobacco: Former Cigarettes 1 35 0 02/07/1962 - 02/15/1997 Smokeless Tobacco: Never Quit: 05/23/1999 Alcohol Use Standard Drinks/Week Comments Yes 1 (1 standard drink = 0.6 oz pur e alcohol) [facility] Utilities Answer Date Recorded In [...] How often do you attend chur or baptism services? 1 to 4 times per year 04/02/2022 Do you belong to any clubs o r organizations such as quaker groups, unions, fraternal or athletic groups, or [...] Answer Date Recorded PHQ-2 Score 0 12/19/2023 [facility] [place] of Occupat ional Health - Occupational Stress [...] your living situation today? I have a [facility] place to live 10/27/2023 Education Answer Date Recorded What is the highest level of school you have completed or the highest degree you have received? 12th grade 03/14/2019 Sex and Gender Information Value Date Recorded Sex Assigned at Male 08/23/2017 10:02 AM CDT Legal Sex Male 7:12 PM DIRECTOR OF INTELLIGENCE Gender Identity Male 08/23/2017 10:02 AM CDT [...] testing 100 strip 3 07/07/2023 blood-glucose meter [facility] [place] [place] Test as directed for diabetes control. 1 [...] CDT Office Visit Department of Neurology in [place], [place] [address] [place] [phone] Amrik Negron D.O. [address] [place] [address] documented as of this encounter Procedures Procedure [...] ORDERABLES Kelsi l Result Performing Organization Address City/[facility]/ZIP Co de Phone Number [facility] 200 [place] [address], [facility] 200 [place] [address] * Dipstick, Urine (05/08/2024 10:22 AM CDT) [...] ORDERABLES Kelsi l Result Performing Organization Address [facility] Co de Phone Number [facility] 200 [place] [address], [facility] 200 [place] [address] * pH, Urine (05/08/2024 10:22 AM CDT) pH, U 4.9 4.5 - 8.0 05/08/2024 11: 29 AM CDT DTL Urine 05/08/2024 10:2 2 AM CDT 05/08/2024 10:41 AM CDT Dalia Dill M.D. LAB URINE ORDERABLES Kelsi l Result [facility] 200 [place], [place] [phone] [place] [address] 200 [place] [address] * Osmolality, Urine (05/08/2024 10:22 AM CDT) Osmolality, U 673 150 - 1150 mOsm/kg 05/08/2024 11:29 AM CDT DTL Urine 05/08/2024 10:2 2 AM CDT 05/08/2024 10:41 AM CDT Dalia Dill M.D. LAB URINE ORDERABLES Kelsi l Result Performing Organization Address [facility] Co de Phone Number [facility] 200 [place], [place] [phone] [place] [address] * Bacterial Culture, Aerobic + Susceptibility, Urine (05/08/2024 10:22 AM CDT) [facility] Urine Culture Urogenital microbiota, susceptibilities not performed per laboratory criteria. 05/09/2024 7:07 AM CDT DT Urine (Urine, Midstream) 05/08/2024 10:22 AM CDT 05/08/2024 11:52 AM CDT Comment:Specimen Source Site : Urine Dalia Dill M.D. LAB MICROBIOLOGY - GENERA L ORDERABLES Final Result Performing Organization Address City/[facility]/ZIP Co de Phone Number [facility] 200 [place], [place] [phone] [place] [address] 200 [place] [address] * (ABNORMAL) Urinalysis, with Microscopic: Urine, Midstream [...] M.D. LAB URINE ORDERABLES Kelsi walters Result [facility] 200 [place], [place] [phone] [place] [address] DTL [facility] [place] 200 [place] [address] documented in this encounter Visit Diagnoses Diagnosis Malignant Neoplasm Of Bladder (HCC) Hematuria documented in this encounter Additional Health Concerns Assessment Noted Time PHQ-9 Depression Total Score: 0 12/19/19 24 1:29 PM DIRECTOR OF INTELLIGENCE documented as of this encounter Care Teams Electric Razor Mechanic Relationship Specialty Start Date End Date Dalia Dill M.D. [address] [place] [address] PCP - General Family Medicine 12/01/23 documented as of this encounter
--- OUTSIDE RECORDS SUMMARY | 2024-06-22 03:43 | XMS_ITS | Encounter Summary ---
Author Organization [facility] Address [address] [place] [address] Care Team Providers Care Clinical Data Programmer Name Role Phone Dalia Dill M.D. Primary Care Provider [phone] [phone] Encounter Details Date Type Department Care Team (Late st Contact Info) Description 05/08/2024 Results Follow-Up Department of Family Medicine, [address] [place] [address] [place] [address] Dalia Dill M.D. [address] [place] [phone] Urinalysis, with Microscopic: Urine, Midstream, Osmolality, Urine, pH, Urine, Additional followed-up results: 2 Social History Tobacco Use Types Packs/Day Years Used Date Smoking Tobacco: Former Cigarettes 1 35 0 02/07/1962 - 02/15/1997 Smokeless Tobacco: Never Quit: 05/23/1999 Alcohol Use Standard Drinks/Week Comments Yes 1 (1 standard drink = 0.6 oz pur e alcohol) [facility] Utilities Answer Date Recorded In [...] How often do you attend chur or shinto services? 1 to 4 times per year 04/02/2022 Do you belong to any clubs o r organizations such as zoroastrian groups, unions, fraternal or athletic groups, or [...] Answer Date Recorded PHQ-2 Score 0 12/19/2023 [facility] [place] of Occupat ional Health - Occupational Stress [...] your living situation today? I have a [facility] place to live 10/27/2023 Education Answer Date Recorded What is the highest level of school you have completed or the highest degree you have received? 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 [address] [place] [address] documented as of this encounter Visit Diagnoses Not on filedocumented in this encounter Additional Health Concerns Assessment Noted Time PHQ-9 Depression Total Score: 0 12/19/19 24 1:29 PM BOTTOM SANDER documented as of this encounter Care Teams Clinical Data Programmer Relationship Specialty Start Date End Date Dalia Dill M.D. [address] [place] [address] PCP - General Family Medicine 12/01/23 documented as of this encounter
--- OUTSIDE RECORDS SUMMARY | 2024-06-22 03:43 | XMS_ITS | Encounter Summary ---
Author Organization [facility] Address [address] [place] [address] Care Team Providers Care Agriculture Research Director Name Role Phone Dalia Dill M.D. Primary Care Provider [phone] Encounter Details Date Type Department Care Team (Late st Contact Info) Description 05/17/2024 Results Follow-Up Department of Family Medicine, [address] [place] [address] [place] [address] Dalia Dill M.D. [address] [place] [phone] Basic Metabolic Panel, CBC with Differential, Blood, Hemoglobin A1c, Additional followed-up results: 3 Social History Tobacco Use Types Packs/Day Years Used Date Smoking Tobacco: Former Cigarettes 1 35 0 02/07/1962 - 02/15/1997 Smokeless Tobacco: Never Quit: 05/23/1999 Alcohol Use Standard Drinks/Week Comments Yes 1 (1 standard drink = 0.6 oz pur e alcohol) [facility] Utilities Answer Date Recorded In the [...] file 04/02/2022 How often do you attend [facility] or alevism services? 1 to 4 times [...] Answer Date Recorded PHQ-2 Score 0 12/19/2023 [facility] [place] of Occupat ional Health - Occupational Stress [...] living situation today? I have a [facility] place to live 10/27/2023 Education Answer Date Recorded What is the highest level of school you have completed or the highest degree you have received? 12th grade 03/14/2019 Sex and Gender Information Value Date Recorded Sex Assigned at Male 08/23/2017 10:02 AM CDT Legal Sex Male 7:12 PM PAINT SPRAYER SANDBLASTER Gender Identity Male 08/23/2017 10:02 AM CDT Sexual Orientation Straight 08/23/2017 10 :02 AM CDT documented as of this encounter Plan of Treatment Upcoming Encounters Date Type Department Care Team (Late st Contact Info) Description 07/24/2024 9:15 AM CDT Office Visit Department of Neurology in [place], [place] [address] [place] [address] Amrik Negron D.O. [address] [place] [address] Scheduled Orders Name Type Priority Associated Diagnoses [...] Total Score: 0 12/19/19 24 1:29 PM PAINT SPRAYER SANDBLASTER documented as of this encounter Care Teams Agriculture Research Director Relationship Specialty Start Date End Date Dalia Dill M.D. [address] [place] [phone] PCP - General Family Medicine 12/01/23 documented as of this encounter
--- OUTSIDE RECORDS SUMMARY | 2024-06-22 03:43 | XMS_ITS | Encounter Summary ---
Author Organization [facility] Address [address] [place] [address] Care Team Providers Care Road Oiler Name Role Phone Dalia Dill M.D. Primary Care Provider [phone] Encounter Details Date Type Department Care Team (Latest Contact Info) Description 05/15/2024 11:10 AM CDT - 05/15/2024 11:59 PM CDT Hospital Encounter Department of Laboratory Medicine in [address] [phone] Dalia Dill M.D. [address] [place] [address] Chronic Kidney Disease (CKD), Stage 3a Glomerular [...] drink = 0.6 oz pur e alcohol) [facility] Utilities Answer Date Recorded In the past 12 months has [employer] electric, gas, oil, or water company threatened [...] often do you attend [facility] or protestant services? 1 to 4 times per year [...] Answer Date Recorded PHQ-2 Score 0 12/19/2023 [facility] [place] of Occupat ional Health - Occupational Stress [...] a [facility] place to live 10/27/2023 Education Answer Date Recorded What is the highest level of school you have completed or the highest degree you have received? 12th grade 03/14/2019 Sex and Gender Information Value Date Recorded Sex Assigned at Male 08/23/2017 10:02 AM CDT Legal Sex Male 7:12 PM CLINICAL RESEARCH PHYSICIAN Gender Identity Male 08/23/2017 10:02 AM CDT [...] testing 100 strip 3 07/07/2023 blood-glucose meter mis Test as directed for diabetes control. 1 [...] CDT Office Visit Department of Neurology in [place], [place] [address] [place] [phone] Amrik Negron D.O. [address] [place] [address] documented as of this encounter Procedures Procedure [...] Comment: Biotin has been identified by the casino surveillance officer as a potential interfering substance. Higher concentrations of biotin may be found in multivitamins, hair/nail supplements, and workout supplements. If the result does not match clinical observations, repeat testing after patient refrains from the use of supplements for at least 12 hours. Blood (Blood, Venous) 05/15/2024 11:51 AM CDT 05/15/2024 8:49 PM CDT us Dalia Dill M.D. LAB BLOOD ADD-ON Final Re sult [facility] [address] [place] [phone], [facility] ECLR [facility] in [address] [address] * (ABNORMAL) Glucose, Fasting (05/15/2024 11:51 AM CDT) Glucose, P 143(H) 70 - 100 mg/dL 05/15/2024 12:15 PM CDT CNFL Last Intake 4 hr 05/15/2024 11:56 AM CDT CNFL Blood (Blood, Peripheral Draw) 05/15/2024 11:51 AM CDT 05/15/2024 11:55 AM CDT us Dalia Dill M.D. LAB BLOOD NON ADD-ON Kelsi walters Result [facility] [address] [place] [address], [facility] [place] [address] * Lipid Panel (05/15/2024 11:51 AM CDT) [...] Calculated 71 mg/dL 05/15/2024 12:17 PM CDT [facility] Comment: ----REFERENCE VALUE---- Desirable: <130 mg/dL Above Desirable: 130-159 mg/dL Borderline High: 160-189 mg/dL High: 190-219 mg/dL Very High: > or =220 mg/dL Fasting (8 HR or more) No 05/15/2024 11:51 AM CDT [facility] Blood (Blood, Venous) 05/15/2024 11:51 AM CDT 05/15/2024 11:55 AM CDT us Dalia Dill M.D. LAB BLOOD ADD-ON Final Re sult Performing Organization Address [facility] [place] [address], [place] [address] * (ABNORMAL) Hemoglobin A1c (05/15/2024 11:51 AM CDT) Hemoglobin A1c, B 6.1(H) 4.2 - 5.6 % 05/15/2024 12:10 PM CDT [facility] Comment: Hemoglobin A1c values of 5.7-6.4 percent indicate an increased risk for developing diabetes mellitus. In diabetic patients, HbA1c goals should be discussed with healthcare provider. Blood (Blood, Peripheral Draw) 05/15/2024 11:51 AM CDT 05/15/2024 11:56 AM CDT us Dalia Dill M.D. LAB BLOOD ADD-ON Final Re sult Performing Organization Address City/[facility]/[place] [address], [place] [address] * (ABNORMAL) CBC with Differential, Blood (05/15/2024 [...] M.D. LAB BLOOD ADD-ON Final Re sult [facility] [address] [place] [phone], [facility] in [address] [address] * (ABNORMAL) Basic Metabolic Panel (05/15/2024 11:51 [...] M.D. LAB BLOOD ADD-ON Final Re sult [facility] [address] [place] [phone], [facility] CNFL [facility] in [address] [address] documented in this encounter Visit Diagnoses Diagnosis [...] Score: 0 12/19/19 24 1:29 PM CLINICAL RESEARCH PHYSICIAN documented as of this encounter Care Teams Road Oiler Relationship Specialty Start Date End Date Dalia Dill M.D. [address] [place] [phone] PCP - General Family Medicine 12/01/23 documented as of this encounter
--- OUTSIDE RECORDS SUMMARY | 2024-06-22 03:43 | XMS_ITS | Clinical Summary ---
Author Organization [facility] Address [address] [place] [address] Care Team Providers Care Culinary Manager Name Role Phone Dalia Dill M.D. Primary Care Provider [phone] Source Comments Patient records contain information from all sites at [facility]. For routine questions regarding patient records, call [phone] during business hours, M-F 8:00 AM - 5:00 PM Central Time. Record requests for emergency care only can be directed to [phone] at any time.[facility] Allergies Active Allergy Reactions Criticality Noted [...] check. Assessment & Plan (04/08/2020 1:19 PM SURFACING TECHNICIAN): Initial blood pressure is 135/94 but repeat [...] daily Assessment & Plan (12/12/2019 2:14 PM SURFACING TECHNICIAN): Blood pressure is controlled at 131/87. Continues [...] (11/16/2017): Added automatically from request for surgery [id number] Department Of Transportation Examination Department Of Motor [...] 7. No pericardial effusion. See communication from [employer] (Dr Andrews) 08/18/17: Given the sinus diameter [...] this. Assessment & Plan (04/08/2020 1:18 PM SURFACING TECHNICIAN): Hemoglobin A1c has worsened to 7.8%. He [...] be insulin. I have given them the [employer] patient assistance plan literature. They will contact [...] have found anything more from her insurance [employer] o patients assistance program regarding his Ozempic cost. Other: Needs to schedule an eye exam on his own. Assessment & Plan (12/12/2019 2:13 PM SURFACING TECHNICIAN): Hemoglobin A1c: 7.3% on current regimen of glimepiride, metformin, Januvia. He is not having hypoglycemia. His last visit we talked about transitioning to a GLP 1 agonist for weight loss benefit, cardiac benefit, further improved glycemic control. He notes that he is currently in the [facility] and therefore has a high co-pay for [...] Download Remote Patient Monitoring [facility] [address] [place] [address] [facility]24 Orders Only Division of Pulmonary Medicine in [place], [place] [address] [place] [phone] Pro Carr M.D. 05/17/2024 Results Follow-Up Department of Family Medicine, [address] [place] [address] [place] [phone] Dalia Dill M.D. Basic Metabolic Panel, CBC with Differential, Blood, Hemoglobin A1c, Additional followed-up results: 3 05/15/2024 11:10 AM CDT - 05/15/2024 11:59 PM CDT Hospital Encounter Department of Laboratory Medicine in [address] [phone] Dalia Dill M.D. Chronic Kidney Disease (CKD), Stage 3a Glomerular Filtration Rate (GFR) 45 To 59 (HCC); Diabetes Mellitus Type 2 With Diabetic Chronic Kidney Disease (HCC); Hyperlipidemia; Hypertensive Chronic Kidney Disease With Stage 1 Through Stage 4 Chronic Kidney Disease, Or Unspecified Chronic Kidney Disease; Thrombocytopenia Discharge Disposition: Home or Self Care 05/08/2024 3:30 PM CDT Procedure visit Department of Urology in [place], [place] [address] [place] [phone] Dalia Dill M.D. Hughes, Corinna S, APRN, C.N.P., D.N.P. Malignant Neoplasm Of Bladder (HCC); Hematuria 05/08/2024 1:00 PM CDT Comprehensive Visit Department of Urology in [place], [place] [address] [place] [phone] Kel Patiño APRN, C.N.P., D.N.P., M.S. Malignant Neoplasm Of Bladder (HCC) (Primary Dx); Cyst Renal; Benign Prostatic Hyperplasia Without Obstruction; Hematuria Gross 05/08/2024 10:36 AM CDT - 05/08/2024 11:59 PM CDT Hospital Encounter Department of Radiology, [facility], in [place], [place] [address] [place] [phone] Dalia Dill M.D. Malignant Neoplasm Of Bladder (HCC); Hematuria Discharge Disposition: Home or Self Care 05/08/2024 9:50 AM CDT - 05/08/2024 10:35 AM CDT Hospital Encounter Department of Laboratory Medicine and Pathology, [place], [place] [address] [place] [phone] Dalia Dill M.D. Malignant Neoplasm Of Bladder (HCC); Hematuria Discharge Disposition: Home or Self Care 05/08/2024 9:40 AM CDT - 05/08/2024 9:49 AM CDT Hospital Encounter Department of Laboratory Medicine and Pathology, [place], [place] [address] [place] [phone] Dalia Dill M.D. Malignant Neoplasm Of Bladder (HCC); Hematuria Discharge Disposition: Home or Self Care 05/08/2024 Results Follow-Up Department of Family Medicine, [address] [phone] Urogram without and with IV Contrast 05/08/2024 Results Follow-Up Department of Family Medicine, [address] [address] Dalia Dill M.D. Urinalysis, with Microscopic: Urine, Midstream, Osmolality, Urine, pH, Urine, Additional followed-up results: 2 05/06/2024 CPAP Download Remote Patient Monitoring [facility] [address] [place] [address] [facility] 05/03/2024 1:45 PM CDT Clinical Communication Virtual Review in [place], [place] 200 [place] [address] Pre-visit Intake 04/16/2024 Refill Department of Family Medicine, [address] [phone] Dalia Dill M.D. Med Refill 04/15/2024 E-Visit Department of Family Medicine, [address] [address] Dalia Dill M.D. Blood in the urine 04/05/2024 CPAP Download [facility] [address] [place] [address] [facility], ProviderMD from Last 3 Months Immunizations [...] drink = 0.6 oz pur e alcohol) [facility] Utilities Answer Date Recorded In [...] often do you attend chur ch or rastafari services? 1 to 4 times [...] Answer Date Recorded PHQ-2 Score 0 12/19/2023 [facility] Occupat ional [facility] - Occupational Stress Questionnaire Answer Date [...] AM CDT Legal Sex Male 7:12 PM SURFACING TECHNICIAN Gender Identity Male 08/23/2017 10:02 AM CDT Sexual Orientation Straight 08/23/2017 10 :02 AM CDT Last Filed Vital Signs Vital Sign Reading Time Taken Comments Blood Pressure 109/70 12/19/2023 1:46 PM SURFACING TECHNICIAN Pulse 79 12/19/2023 1:46 PM SURFACING TECHNICIAN Temperature 36.3 C (97.3 F) 11/28/2023 8:33 AM CDT Respiratory Rate 16 11/28/2023 8:33 AM CDT Oxygen Saturation 97% 11/28/2023 8:33 AM CDT Inhaled Oxygen Concentration - - Weight 94.4 kg (208 lb 1.8 oz) 12/19/2023 1:46 P M SURFACING TECHNICIAN Height 178.5 cm (5' 10.28) 10/27/2023 6:20 PM C DT Body Mass Index 29.63 10/27/2023 6:20 PM CDT Plan of Treatment Upcoming Encounters Date Type Department Care Team (Late st Contact Info) Description 07/24/2024 9:15 AM CDT Office Visit Department of Neurology in [place], [place] [address] [place] [phone] Amrik Negron D.O. [address] [place] [address] Health Maintenance Due Date Last Done Comments [...] this topic Medical Devices Implanted Type Area Hydraulic Elevator Constructor Device Identifier Shelf Expiration Date Model / Serial / Lot [place] Screw 2 Canc 6.5 X 35 - Kunz [id number] Implanted:Qty: 1 on 11/30/2011 Hardware e.g. pins/screws /rods [employer] Description:Device Manufactu FAD ? IO - [employer]. Device Status Text - [id number]. [place] Screw 2 Canc 6.5 X 40 - Kunz [id number] Implanted:Qty: 1 on 11/30/2011 Hardware e.g. pins/screws /rods [employer] Description:Device Manufactu FAD ? IO - [employer]. Device Status Text - [id number]. [place] Screw 2 Canc 6.5 X 30 - Kunz [id number] Implanted:Qty: 1 on 11/30/2011 Hardware e.g. pins/screws /rods [employer] Description:Device Manufactu rer - [employer]. Device Status Text - [id number]. [place] Screw 2 Canc 6.5 X 20 - Kunz [id number] Implanted:Qty: 1 on 11/30/2011 Hardware e.g. pins/screws /rods [employer] Description:Device Manufactu FAD ? IO - [employer]. Device Status Text - [id number]. Conversions - Default Historical Implant Device - Kunz [id number] Implanted:11/13 (Quantity not on file) Hardware e.g. pins/screws /rods Description:Device Status Te xt - HARDWARE-[id number]. [place] Shell Multi 2 60mm - Kunz [id number] Implanted:Qty: 1 on 11/30/2011 Hip Implant Other/Legacy - See Implant Description [employer] Description:Device Manufactu FAD ? IO - [employer]. Body Location - Other. Right. Device Status Text - [id number] [id number]. Dep. Head M-Spec 40mm -2 Offset - Kunz [id number] Implanted:Qty: 1 on 11/30/2011 Hip Implant Right: Other/Legacy - See Implant Description [employer] Description:Device Manufactu rer - [employer]. Body Location - Other. Right. Device Status Text - [id number] [id number]. [place] Liner Altrx +4 Neut 40x60 - Kunz [id number] Implanted:Qty: 1 on 11/30/2011 Hip Implant Other/Legacy - See Implant Description [employer] Description:Device Manufactu rer - [employer]. Body Location - Other. Right. Device Status Text - [id number] [id number]. [place]-Stem Jenkins 6 Hi - Kunz [id number] Implanted:Qty: 1 on 11/30/2011 Hip Implant Other/Legacy - See Implant Description [employer] Description:Device Manufactu rer - [employer]. Body Location - Other. Right. Device Status Text - [id number] [id number]. Procedures Procedure Name Priority Date/Time Associated Diagnosis [...] Disease, Or Unspecified Chronic Kidney Disease Thrombocytopenia AK CYSTOURETHROSCOPY Routine 05/08/2024 3:30 PM CDT Malignant Neoplasm Of Bladder (HCC) Hematuria CT UROGRAM WITHOUT AND WITH IV CONTRAST RAD - Routine (most inpatients and all outpatients) 05/08/2024 12:29 PM CDT Malignant Neoplasm Of Bladder (HCC) Hematuria CREATININE, POCT, B Routine 05/08/2024 11:27 AM CDT CREATININE, POCT, B Routine 05/08/2024 11:27 AM CDT CYTOLOGY NON-MINING MACHINERY ASSEMBLER (SCHEDULED) Routine 05/08/2024 10:22 AM CDT Malignant [...] AORTA AAA SCREENING Routine 6 11:17 AM SURFACING TECHNICIAN BONE DONOR 6 MONTH SCREEN TEST SET [...] M.D. LAB BLOOD ADD-ON Final Re sult [facility] [address] [place] [address], [facility] CNFL [place] [address] * (ABNORMAL) CBC with Differential, Blood (05/15/2024 [...] ADD-ON Final Re sult Performing Organization Address City/[facility]/ZIP Co de Phone Number [facility] [address] [place] [address], [facility] [place] [address] * (ABNORMAL) Hemoglobin A1c (05/15/2024 11:51 AM [...] M.D. LAB BLOOD ADD-ON Final Re sult [facility] [address] [place] [address], [place] [address] * (ABNORMAL) Glucose, Fasting (05/15/2024 11:51 AM CDT) Glucose, P 143(H) 70 - 100 mg/dL 05/15/2024 12:15 PM CDT CNFL Last Intake 4 hr 05/15/2024 11:56 AM CDT CNFL Blood (Blood, Peripheral Draw) 05/15/2024 11:51 AM CDT 05/15/2024 11:55 AM CDT us Dalia Dill M.D. LAB BLOOD NON ADD-ON Kelsi l Result Performing Organization Address [facility]/ZIP Co de Phone Number [facility] [address] [place] [address], [facility] in [address] [address] * Vitamin B12 Assay (05/15/2024 11:51 AM CDT) Pathologist [facility] Vitamin B12 Assay, S 456 232 - 1245 ng/L 05/15/2024 9:31 PM CDT ECLR Comment: Biotin has been identified by the ethanol operator as a potential interfering substance. Higher concentrations of biotin may be found in multivitamins, hair/nail supplements, and workout supplements. If the result does not match clinical observations, repeat testing after patient refrains from the use of supplements for at least 12 hours. Blood (Blood, Venous) 05/15/2024 11:51 AM CDT 05/15/2024 8:49 PM CDT us Dalia Dill M.D. LAB BLOOD ADD-ON Final Re sult [facility] [address] [place] [address], [place] ECLR [facility] in [address] [address] * (ABNORMAL) Basic Metabolic Panel (05/15/2024 11:51 [...] M.D. LAB BLOOD ADD-ON Final Re sult [facility] [address] [place] [address], [facility] CNFL [facility] in [address] [address] * [place] CYSTOURETHROSCOPY (05/08/2024 3:30 PM CDT) Narrative Holli [...] POCT ORDERABLES - DEVICE Fi nal Result [facility] PERFORM[facility] [address] PCDT [facility] [address] [place] [address] * Dipstick, Urine (05/08/2024 10:22 AM CDT) [...] ORDERABLES Kelsi l Result Performing Organization Address City/[facility]/ZIP Co de Phone Number [facility] [address] [place] [address], [facility] [address] [place] [address] * Cytology Non-MINING MACHINERY ASSEMBLER (Scheduled) (05/08/2024 10:22 AM CDT) Pathologist [facility] 05/09/2024 12:11 PM CDT DTL Report electronically [...] PATH ORDERABLES Final Result Performing Organization Address [facility]/ZIP Co de Phone Number [facility] [address] [place] [address], [facility] DTL 200 [facility] [address] [place] [address] * Microscopic Automated (05/08/2024 10:22 AM CDT) Pathologist [facility] Microscopy Normal 05/08/2024 11:09 AM CDT DTL RBC None Seen <3 /hpf 05/08/2024 11:09 AM CDT DTL WBC None Seen /hpf 05/08/2024 11:09 AM CDT DTL Comment: ----REFERENCE VALUE---- <4 (Males) <11 (Females) Urine 05/08/2024 10:2 2 AM CDT 05/08/2024 10:41 AM CDT Dalia Dill M.D. LAB URINE ORDERABLES Kelsi l Result Performing Organization Address City/[facility]/ZIP Co de Phone Number [facility] [address] [place] [address] * Bacterial Culture, Aerobic + Susceptibility, Urine (05/08/2024 10:22 AM CDT) [facility] Urine Culture Urogenital microbiota, susceptibilities not performed per laboratory criteria. 05/09/2024 7:07 AM CDT DT Urine (Urine, Midstream) 05/08/2024 10:22 AM CDT 05/08/2024 11:52 AM CDT Comment:Specimen Source Site : Urine Dalia Dill M.D. LAB MICROBIOLOGY - GENERA L ORDERABLES Final Result Performing Organization Address City/[facility]/ZIP Co de Phone Number [facility] [address] [place] [address] * pH, Urine (05/08/2024 10:22 AM CDT) [facility] pH, U 4.9 4.5 - 8.0 05/08/2024 11: 29 AM CDT DTL Urine 05/08/2024 10:2 2 AM CDT 05/08/2024 10:41 AM CDT Dalia Dill M.D. LAB URINE ORDERABLES Kelsi l Result Performing Organization Address City/[facility]/ZIP [place] [address] * Osmolality, Urine (05/08/2024 10:22 AM CDT) Osmolality, U 673 150 - 1150 mOsm/kg 05/08/2024 11:29 AM CDT DTL Urine 05/08/2024 10:2 2 AM CDT 05/08/2024 10:41 AM CDT Dalia Dill M.D. LAB URINE ORDERABLES Kelsi l Result Performing Organization Address [facility] [place] [address] * (ABNORMAL) Urinalysis, with Microscopic: Urine, Midstream [...] M.D. LAB URINE ORDERABLES Kelsi l Result [facility] [address] [place] [address], [place] [facility] [address] [place] [address] * (ABNORMAL) Albumin, Random, Urine (09/23/2023 9:24 AM CDT) Microalbumin 78.9 mg/L 09/23/2023 9:38 AM CDT CNFL Creatinine 132 mg/dL 09/23/2023 9:38 AM CDT CNFL Albumin/Creatinin e Ratio 60(H) <17 mg/g 09/23/2023 9:38 AM CDT CNFL Urine (Urine, Midstream) 09/23/2023 9:24 AM CDT 09/23/2023 9:24 AM CDT Dalia Dill M.D. LAB URINE ORDERABLES Kelsi l Result Performing Organization Address City/[facility] Co de Phone Number [facility] [address] [place] [address], [facility] in [address] [address] * Colonoscopy (11/14/2020 2:39 PM CDT) 11/14/2020 2:39 PM CDT Impressions [facility] - 11/14/2020 3:44 PM CDT Post-op Diagnoses: [...] cold biopsy forceps. Resected and retrieved. Narrative [employer] - 11/14/2020 3:44 PM CDT Gonda [...] colonic preparation and pertinent family history. For [facility] providers, detailed recommendations are available as an AskMayoExpert Care Process Model: <[email or web address] There may be some circumstances, specifically [...] bowel preparation was evaluated using the BBPS ([place] Bowel Preparation Scale) with scores of: Right [...] M.D. GI PROCEDURE ORDERABLES F inal Result [facility] NA * US Aorta AAA Screening (03/27/2015 11:17 AM SURFACING TECHNICIAN) Anatomical Region Laterality Modality Abdomen, Pelvis N/A Ultrasound 03/27/2015 11:1 7 AM SURFACING TECHNICIAN Impressions 03/27/2015 11:23 AM SURFACING TECHNICIAN No aneurysm. FINDINGS: Abdominal aorta and proximal [...] [id number] 27-Mar-2015 11:23 Narrative 03/27/2015 11:23 AM SURFACING TECHNICIAN 27-Mar-2015 11:17:00 Exam: US AAA Screening Indications: [...] cm Electronically signed by: SHELDON Rich MD. [id number] 27-Mar-2015 11:23 Dalia Dill M.D. IMG US PROCEDURES Final R esult * Bone Donor 6 Month Screen Test Set (06/15/2012 9:03 AM CDT) Donor HBcore Antibody Negative [facility] HCV Ab Screen Donor Negative [facility] HX Hiv-1/-2, Plus O Ab Screen Donor Negative [facility] 06/15/2012 9:03 AM CDT 06/15/2012 9:03 AM CDT Magdaleno Pathak M.D. LAB BLOOD NON ADD-ON Final Re sult [facility] [address] * CT Chest without IV Contrast [...] [id number] Electronically signed by: Singh Rodriguez MD. [id number] 22-Oct-2008 09:22 Procedure Note Jhoan Rodriguez M.D. [...] [id number] Electronically signed by: Singh Rodriguez MD. [id number] 22-Oct-2008 09:22 Dalia Dill M.D. IMFred CT PROCEDURES Final R esult from Last 3 Months or Most Recently Relevant to Health Maintenance Insurance MEDICARE [facility] Advance Directives For more information, please contact: [phone] Documents on File Type Date Recorded Patient Machine Adjuster Leader Expl anation Advance Directives 11/07/2023 10:54 AM [...] Due to: Patient not available Care Teams Culinary Manager Relationship Specialty Start Date End Date Dalia Dill M.D. [address] [place] [address] PCP - General Family Medicine 12/01/23
--- OUTSIDE RECORDS SUMMARY | 2024-06-22 03:43 | XMS_ITS ---
Author Organization [facility] Address [address] [place] [address] Care Team Providers Care Pipelines Manager Name Role Phone Dalia Dill M.D. Primary Care Provider [phone] Active Problems * This document contains information [...] check. Assessment & Plan (04/08/2020 1:19 PM DETENTION WORKER): Initial blood pressure is 135/94 but repeat [...] daily Assessment & Plan (12/12/2019 2:14 PM DETENTION WORKER): Blood pressure is controlled at 131/87. Continues [...] FOR 3 WEEKS 08/29/2019 12/11/2020 BCG live ([facility]) Therapy Complete Anthony Dyer M.D. BCG [...] (11/16/2017): Added automatically from request for surgery [id number] Department Of Transportation Examination Department Of Motor [...] 7. No pericardial effusion. See communication from [employer] (Dr Andrews) 08/18/17: Given the sinus diameter [...] this. Assessment & Plan (04/08/2020 1:18 PM DETENTION WORKER): Hemoglobin A1c has worsened to 7.8%. He [...] be insulin. I have given them the [employer] patient assistance plan literature. They will contact [...] own. Assessment & Plan (12/12/2019 2:13 PM DETENTION WORKER): Hemoglobin A1c: 7.3% on current regimen of [...]
[2024-06-22 03:44] LABS: Troponin I* < 0.01 ng/mL (0.01-0.04)
--- OUTSIDE RECORDS SUMMARY | 2024-06-22 03:44 | XMS_ITS | Encounter Summary ---
Author Organization [facility] Address [address] [place] [address] Care Team Providers Care Hotel Reservationist Name Role Phone Dalia Dill M.D. Primary Care Provider [phone] Encounter Details Date Type Department Care Team (Late st Contact Info) Description 08/18/2011 Historical Ophthalmology [facility] Nickie Ross M.D. Social History Tobacco Use Types Packs/Day Years Used Date Smoking Tobacco: Never Assessed Sex and Gender Information Value Date Recorded Sex Assigned at Male 08/23/2017 10:02 AM CDT Legal Sex Male 7:12 PM FINANCIAL PLANNER Gender Identity Male 08/23/2017 10:02 AM [...] / PLAN Consult requested by: Dalia Wang [id number] #1 Diabetes mellitus, Type 2, no eye complications. Discussed importance of good blood sugar control. Plan: monitor periodically. #2 Cataract, both eyes, not visually significant. Plan: observe. 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 #2 Cataract, both eyes, not visually significant. CDM Reports - EYEGEN Id: [id number] Status: Fnl documented in this encounter Plan of Treatment Upcoming Encounters Date Type Department Care Team (Late st Contact Info) Description 07/24/2024 9:15 AM CDT Office Visit Department of Neurology in [place], [place] [address] [place] [address] Amrik Negron D.O. [address] [place] [phone] documented as of this encounter Visit Diagnoses [...] documented as of this encounter Care Teams Hotel Reservationist Relationship Specialty Start Date End Date Dalia Dill M.D. [address] [place] [phone] PCP - General Family Medicine 12/01/23 documented as of this encounter
--- OUTSIDE RECORDS SUMMARY | 2024-06-22 03:44 | XMS_ITS | Encounter Summary ---
Author Organization [facility] Address [address] [place] [address] Care Team Providers Care Grain Grader Name Role Phone Dalia Dill M.D. Primary Care Provider +1 [phone] Reason for Referral * Outpatient (Routine) - Authorized Specialty Diagnoses / Procedures Referred By Eileen alegria Referred To Contact Diagnoses Malignant Neoplasm Of Bladder (HCC) Cyst Renal Benign Prostatic Hyperplasia Without Obstruction Hematuria Gross Procedures DX Chest AP or PA and Lateral 2 Views Lb Patiño APRN, C.N.PAurelio, D.N.P., M.S. [address] [place] [phone] Phone: tel: fax: [facility] Referral ID Status Reason Start Date Expiration Date V isits Requested Visits Authorized [id number] Authorized 05/08/2024 08/08/2025 1 1 * Outpatient (Routine) - Authorized Specialty Diagnoses / Procedures Referred By Eileen alegria Referred To Contact Diagnoses Malignant Neoplasm Of Bladder (HCC) Cyst Renal Benign Prostatic Hyperplasia Without Obstruction Hematuria Gross Procedures URO Cystoscopy (general) Lb Patiño APRN, C.N.PAurelio, D.N.P., M.S. [address] [place] [phone] Phone: tel: fax: [facility] Referral ID Status Reason Start Date Expiration Date V isits Requested Visits Authorized [id number] Authorized 05/08/2024 08/08/2025 1 1 * MRI/CAT/PET Scan (Routine) - Authorized Specialty Diagnoses / Procedures Referred By Contac t Referred To Contact Radiology Diagnoses Malignant Neoplasm Of Bladder (HCC) Cyst Renal Benign Prostatic Hyperplasia Without Obstruction Hematuria Gross Procedures CT Urogram without and with IV Contrast Lb Patiño APRN, C.N.P., Álvaro.N.P., M.S. [address] [place] [phone] Phone: tel: fax: [facility] Referral ID Status Reason Start Date Expiration Date V isits Requested Visits Authorized [id number] Authorized 05/08/2024 08/08/2025 1 1 * Outpatient (Routine) - Authorized Specialty Diagnoses / Procedures Referred By Contac t Referred To Contact Urology Lb Patiño APRN, C.N.P., Álvaro.N.P., M.S. [address] [place] [phone] Phone: tel: fax: [facility] Referral ID Status Reason Start Date Expiration Date V isits Requested Visits Authorized [id number] Authorized 05/08/2024 11/07/2025 1 1 Reason for Visit * Outpatient (Routine) - Closed Specialty Diagnoses / Procedures Referred By Contac t Referred To Contact Urology Diagnoses Malignant Neoplasm Of Bladder (HCC) Hematuria Dalia Dill M.D. [address] [place] [address] Phone: tel: fax: [facility] Referral ID Status Reason Start Date Expiration Date Visits Re quested Visits Authorized [id number] Closed 04/17/2024 10/17/2025 1 1 Encounter Details Date Type Department Care Team (Latest Contact Info) Description 05/08/2024 1:00 PM CDT Comprehensive Visit Department of Urology in [place], [place] [address] [place] [phone] Kaylyn, Lb, BARBARA, C.N.P., D.N.P., M.S. [address] [place] [phone] Malignant Neoplasm Of Bladder (HCC) (Primary Dx); Cyst Renal; Benign Prostatic Hyperplasia Without Obstruction; Hematuria Gross Social History Tobacco Use Types Packs/Day Years Used Date Smoking Tobacco: Former Cigarettes 1 35 0 02/07/1962 - 02/15/1997 Smokeless Tobacco: Never Quit: 05/23/1999 Alcohol Use Standard Drinks/Week Comments Yes 1 (1 standard drink = 0.6 oz pur e alcohol) [facility] Utilities Answer Date Recorded In the past 12 months has e [employer], gas, oil, or water [employer] threatened to shut off services in your [...] How often do you attend chur or hinduism services? 1 to 4 times per year [...] Answer Date Recorded PHQ-2 Score 0 12/19/2023 [facility] - Occupational [...] your living situation today? [facility] 10/27/2023 Education Answer Date Recorded What is the highest level of school you have completed or the highest degree you have received? 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 ESOPHAGOGASTRODUODENOSCOPY N/A [...] CDT Office Visit Department of Neurology in [place], [place] [address] [place] [address] Amrik Negron D.O. [address] [place] [address] Scheduled Orders Name Type Priority Associated Diagnoses Order Schedule CT Urogram without and with IV Contrast Imaging RAD - Routine (most inpatients and all outpatients) Malignant Neoplasm Of Bladder (HCC) Cyst Renal Benign Prostatic Hyperplasia Without Obstruction Hematuria Gross Expected: 05/08/2025, Expires: 08/07/2025 Cytology Non-MERCHANDISE ADJUSTMENT CLERK (Scheduled) Pathology and Cytology Routine Malignant Neoplasm [...] Total Score: 0 12/19/19 24 1:29 PM DAYTIME CAREGIVER documented as of this encounter Care Teams Grain Grader Relationship Specialty Start Date End Date Dalia Dill M.D. [address] [place] [phone] PCP - General Family Medicine 12/01/23 documented as of this encounter
--- OUTSIDE RECORDS SUMMARY | 2024-06-22 03:44 | XMS_ITS | Encounter Summary ---
Author Organization [facility] Address [address] [place] [address] Care Team Providers Care Websphere Portal Developer Name Role Phone Dalia Dill M.D. Primary Care Provider [phone] [phone] Encounter Details Date Type Department Care Team (Late st Contact Info) Description 06/03/2006 Historical Ophthalmology RST OPH Lashon De La Vega M.D. 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 [address] [place] [address] documented as of this encounter Visit Diagnoses Not on filedocumented in this encounter Additional Health Concerns Infection Onset Date Last Indicated Resolved Time COVID19 Pending 11/12/2020 11/12/2020 11/12/2020 8 :37 PM CDT COVID19 Pending 04/30/2023 04/30/2023 04/30/2023 1 :34 PM CDT COVID19 Pending 10/28/2023 10/28/2023 10/28/2023 9 :59 AM CDT documented as of this encounter Care Teams Websphere Portal Developer Relationship Specialty Start Date End Date Dalia Dill M.D. [address] [place] [address] PCP - General Family Medicine 12/01/23 documented as of this encounter
--- OUTSIDE RECORDS SUMMARY | 2024-06-22 03:44 | XMS_ITS | Encounter Summary ---
Author Organization [facility] Address [address] [place] [address] Care Team Providers Care Casino Games Dealer Name Role Phone Dalia Dill M.D. Primary Care Provider +1 [phone] Reason for Referral * MRI/CAT/PET Scan (Routine) - Closed Specialty Diagnoses / Procedures Referred By Eileen alegria Referred To Contact Radiology Diagnoses Malignant Neoplasm Of Bladder (HCC) Hematuria Procedures CT Urogram without and with IV Contrast Dalia Dill M.D. 200 [place] [address] Phone: tel: fax: [facility] Referral ID Status Reason Start Date Expiration Date Visits Re quested Visits Authorized [id number] Closed 04/17/2024 07/18/2025 1 1 Reason for Visit * MRI/CAT/PET Scan (Routine) - Closed Specialty Diagnoses / Procedures Referred By Eileen alegria Referred To Contact Radiology Diagnoses Malignant Neoplasm Of Bladder (HCC) Hematuria Procedures CT Urogram without and with IV Contrast Dalia Dill M.D. 200 [place] [address] Phone: tel: fax: [facility] Referral ID Status Reason Start Date Expiration Date Visits Re quested Visits Authorized [id number] Closed 04/17/2024 07/18/2025 1 1 Encounter Details Date Type Department Care Team (Latest Contact Info) Description 05/08/2024 10:36 AM CDT - 05/08/2024 11:59 PM CDT Hospital Encounter Department of Radiology, [facility], in [place], [place] [address] [place] [address] Dalia Dill M.D. [address] [place] [address] Malignant Neoplasm Of Bladder (HCC); Hematuria Discharge [...] In the past 12 months has e [employer], gas, oil, or water [employer] threatened to shut off services in your [...] file 04/02/2022 How often do you attend [facility] health system or muslim services? 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 200 [place] [address] Scheduled Orders Name Type Priority Associated Diagnoses [...] * Creatinine, POCT (05/08/2024 11:27 AM CDT) [facility] Creatinine, POCT, B 1.2 0.7 - 1.4 mg/dL 05/08/2024 11:30 AM CDT PCDT Comment: ----ADDITIONAL INFORMATION---- Performed at the Point of Care Blood 05/08/2024 11:2 7 AM CDT 05/08/2024 11:31 AM CDT Unknown Provider LAB POCT ORDERABLES - DEVICE Fi nal Result Performing Organization Address [facility] de Phone Number [facility] 200 [place] [address], [facility] PCDT [facility] [place] [facility] POC 200 [place] [address] * Creatinine, POCT (05/08/2024 11:27 AM CDT) [facility] Estimated GFR (eGFR), POCT 62 >=60 mL/min/BSA 05/08/2024 11:31 AM CDT PCDT Comment: Estimated GFR calculated using the 2020 CKD_EPI creatinine equation. Blood 05/08/2024 11:2 7 AM CDT 05/08/2024 11:31 AM CDT us Unknown Provider LAB POCT ORDERABLES - DEVICE Fi nal Result Performing Organization Address [facility] Co de Phone Number [facility] [address] [place] [address], [place] PCDT [facility] POC [address] [place] [address] documented in this encounter Visit Diagnoses Diagnosis [...] Depression Total Score: 0 12/19/19 1:29 PM FAST FOOD DELIVERY DRIVER documented as of this encounter Care Teams Casino Games Dealer Relationship Specialty Start Date End Date Dalia Dill M.D. [address] [place] [address] PCP - General Family Medicine 12/01/23 documented as of this encounter
--- OUTSIDE RECORDS SUMMARY | 2024-06-22 03:44 | XMS_ITS | Encounter Summary ---
Author Organization [facility] Address [address] [place] [address] Care Team Providers Care Nutrition Instructor Name Role Phone Dalia Dill M.D. Primary Care Provider [phone] [phone] Encounter Details Date Type Department Care Team (Late st Contact Info) Description 09/24/2013 Historical Ophthalmology RST OPH Artie Hill O.D. 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 CDM Reports - EYESV Id: [id number] Status: Fnl documented in this encounter Plan of Treatment Upcoming Encounters Date Type Department Care Team (Late st Contact Info) Description 07/24/2024 9:15 AM CDT Office Visit Department of Neurology in [place], [place] [address] [place] [address] Amrik Negron D.O. [address] [place] [phone] documented as of this encounter Visit Diagnoses [...] documented as of this encounter Care Teams Nutrition Instructor Relationship Specialty Start Date End Date Dalia Dill M.D. [address] [place] [phone] PCP - General Family Medicine 12/01/23 documented as of this encounter
--- OUTSIDE RECORDS SUMMARY | 2024-06-22 03:44 | XMS_ITS | Encounter Summary ---
Author Organization [facility] Address [address] [place] [address] Care Team Providers Care Painter Ordnance Name Role Phone Dalia Dill M.D. Primary Care Provider +1 -[phone] Reason for Visit * Outpatient (Routine) - Closed Specialty Diagnoses / Procedures Referred By Eileen alegria Referred To Contact Diagnoses Malignant Neoplasm Of Bladder (HCC) Hematuria Procedures URO Cystoscopy (general) Dalia Dill M.D. [address] [place] [phone] Phone: tel: fax: [facility] Referral ID Status Reason Start Date Expiration Date Visits Re quested Visits Authorized [id number] Closed 04/17/2024 07/18/2025 1 1 Encounter Details Date Type Department Care Team (Late st Contact Info) Description 05/08/2024 3:30 PM CDT Procedure visit Department of Urology in [place], [place] [address] [place] [phone] Dalia Dill M.D. [address] [place] [phone] Holli Sharp APRN, C.N.P., D.N.P. [address] [place] [phone] Malignant Neoplasm Of Bladder (HCC); Hematuria Social History Tobacco Use Types Packs/Day Years Used Date Smoking Tobacco: Former Cigarettes 1 35 0 02/07/1962 - 02/15/1997 Smokeless Tobacco: Never Quit: 05/23/1999 Alcohol Use Standard Drinks/Week Comments Yes 1 (1 standard drink = 0.6 oz pur e alcohol) [facility] Utilities Answer Date Recorded In the [...] How often do you attend chur or jewish services? 1 to 4 times per year 04/02/2022 Do you belong to any clubs o r organizations such as buddhism groups, unions, fraternal or athletic groups, or [...] Answer Date Recorded PHQ-2 Score 0 12/19/2023 [facility]ational Stress Questionnaire Answer Date [...] your living situation today? [facility] 10/27/2023 Education Answer Date Recorded What is the highest level of school you have completed or the highest degree you have received? 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 Gender Identity Male 08/23/2017 10:02 AM CDT Sexual Orientation Straight 08/23/2017 10 :02 AM CDT documented as of this encounter Patient Instructions * Patient Instructions* Koby Appiah E - 05/08/2024 3:30 PM CDT Care [...] CDT Office Visit Department of Neurology in [place], [place] [address] [place] [phone] Amrik Negron, Monica [address] [place] [address] documented as of this encounter Procedures Procedure Name Priority Date/Time Associated Diagnosis Comments [place] CYSTOURETHROSCOPY Routine 05/08/2024 3:30 PM CDT Malignant Neoplasm Of Bladder (HCC) Hematuria documented in this encounter Results * [place] CYSTOURETHROSCOPY (05/08/2024 3:30 PM CDT) Narrative Holli [...] Total Score: 0 12/19/19 24 1:29 PM CHUCKING MACHINE SET UP OPERATOR documented as of this encounter Care Teams Painter Ordnance Relationship Specialty Start Date End Date Dalia Dill M.D. [address] [place] [phone] PCP - General Family Medicine 12/01/23 documented as of this encounter
--- OUTSIDE RECORDS SUMMARY | 2024-06-22 03:44 | XMS_ITS | Encounter Summary ---
Author Organization [facility] Address [address] [place] [address] Care Team Providers Care Metalsmith Apprentice Name Role Phone Dalia Dill M.D. Primary Care Provider +1 [phone] Encounter Details Date Type Department Care Team (Late st Contact Info) Description 08/02/2012 Historical Ophthalmology RST OPH Jameson Burks O.D. 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 Discussed importance of good blood sugar control. Plan: monitor periodically. #2 Cataract, both eyes, not visually significant. Plan: observe. 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 #2 Cataract, both eyes, not visually significant. CDM Reports - EYEGEN Id: [id number] Status: Fnl documented in this encounter Plan of Treatment Upcoming Encounters Date Type Department Care Team (Late st Contact Info) Description 07/24/2024 9:15 AM CDT Office Visit Department of Neurology in [place], [place] [address] [place] [phone] Amrik Negron D.O. [address] [place] [phone] documented as of this encounter Visit Diagnoses [...] documented as of this encounter Care Teams Metalsmith Apprentice Relationship Specialty Start Date End Date Dalia Dill M.D. [address] [place] [phone] PCP - General Family Medicine 12/01/23 documented as of this encounter
--- OUTSIDE RECORDS SUMMARY | 2024-06-22 03:44 | XMS_ITS | Encounter Summary ---
Author Organization [facility] Address [address] [place] [address] Care Team Providers Care Production Team Member Name Role Phone Dalia Dill M.D. Primary Care Provider [phone] [phone] Encounter Details Date Type Department Care Team (Late st Contact Info) Description 11/22/2005 Historical Ophthalmology RST OPH Jammie Mann M.D. 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 [address] [place] [address] documented as of this encounter Visit Diagnoses Not on filedocumented in this encounter Additional Health Concerns Infection Onset Date Last Indicated Resolved Time COVID19 Pending 11/12/2020 11/12/2020 11/12/2020 8 :37 PM CDT COVID19 Pending 04/30/2023 04/30/2023 04/30/2023 1 :34 PM CDT COVID19 Pending 10/28/2023 10/28/2023 10/28/2023 9 :59 AM CDT documented as of this encounter Care Teams Production Team Member Relationship Specialty Start Date End Date Dalia Dill M.D. [address] [place] [phone] PCP - General Family Medicine 12/01/23 documented as of this encounter
--- OUTSIDE RECORDS SUMMARY | 2024-06-22 03:44 | XMS_ITS | Encounter Summary ---
Author Organization [facility] Address [address] [place] [address] Care Team Providers Care Product Picker Name Role Phone Dalia Dill M.D. Primary Care Provider +1 [phone] Encounter Details Date Type Department Care Team (Late st Contact Info) Description 04/14/2015 Historical Ophthalmology RST OPH Lucho Finch O.D. 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 CDM Reports - EYEGEN Id: [id number] Status: Fnl documented in this encounter Plan of Treatment Upcoming Encounters Date Type Department Care Team (Late st Contact Info) Description 07/24/2024 9:15 AM CDT Office Visit Department of Neurology in [place], [place] [address] [place] [address] Amrik Negron D.O. [address] [place] [address] documented as of this encounter Visit Diagnoses [...] documented as of this encounter Care Teams Product Picker Relationship Specialty Start Date End Date Dalia Dill M.D. [address] [place] [phone] PCP - General Family Medicine 12/01/23 documented as of this encounter
--- OUTSIDE RECORDS SUMMARY | 2024-06-22 03:44 | XMS_ITS | Encounter Summary ---
Author Organization [facility] Address [address] [place] [address] Care Team Providers Care Journeyman Plumber Name Role Phone Dalia Dill M.D. Primary Care Provider +1 -[phone] Encounter Details Date Type Department Care Team (Late st Contact Info) Description 05/06/2024 CPAP Download Remote Patient Monitoring [facility] [address] [place] [address] [facility], Provider, Social History Tobacco Use Types Packs/Day Years Used Date Smoking Tobacco: Former Cigarettes 1 35 0 02/07/1962 - 02/15/1997 Smokeless Tobacco: Never Quit: 05/23/1999 Alcohol Use Standard Drinks/Week Comments Yes 1 (1 standard drink = 0.6 oz pur e alcohol) [facility] Utilities Answer Date Recorded In the past 12 months has [facility] [employer], gas, oil, or water [employer] threatened to shut off services in your [...] often do you attend chur ch or sabianism services? 1 to 4 times per year 04/02/2022 Do you belong to any clubs o r organizations such as adventist groups, unions, fraternal or athletic groups, or [...] Answer Date Recorded PHQ-2 Score 0 12/19/2023 [facility] - [...] your living situation today? [facility] 10/27/2023 Education Answer Date Recorded What is the highest level of school you have completed or the highest degree you have received? 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 [address] [place] [address] documented as of this encounter Visit Diagnoses Not on filedocumented in this encounter Additional Health Concerns Assessment Noted Time PHQ-9 Depression Total Score: 0 12/19/19 24 1:29 PM STERILE INSTRUMENT TECHNICIAN documented as of this encounter Care Teams Journeyman Plumber Relationship Specialty Start Date End Date Dalia Dill M.D. [address] [place] [address] PCP - General Family Medicine 12/01/23 documented as of this encounter
--- OUTSIDE RECORDS SUMMARY | 2024-06-22 03:44 | XMS_ITS | Encounter Summary ---
Author Organization [facility] Address [address] [place] [address] Care Team Providers Care Supervisor Electric Name Role Phone Dalia Dill M.D. Primary Care Provider [phone] Encounter Details Date Type Department Care Team (Late st Contact Info) Description 06/19/2010 Historical Ophthalmology RST OPH Yolanda Meyer O.D. 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 CDM Reports - EYEGEN Id: [id number] Status: Fnl documented in this encounter Plan of Treatment Upcoming Encounters Date Type Department Care Team (Late st Contact Info) Description 07/24/2024 9:15 AM CDT Office Visit Department of Neurology in [place], [place] [address] [place] [phone] Amrik Negron D.O. [address] [place] [phone] documented as of this encounter Visit Diagnoses [...] as of this encounter Care Teams Supervisor Electric Relationship Specialty Start Date End Date Dalia Dill M.D. [address] [place] [phone] PCP - General Family Medicine 12/01/23 documented as of this encounter
--- OUTSIDE RECORDS SUMMARY | 2024-06-22 03:44 | XMS_ITS | Encounter Summary ---
Author Organization [facility] Address [address] [place] [id number] Care Team Providers Care Marine Equipment Test Engineer Name Role Phone Dalia Dill M.D. Primary Care Provider [phone] Encounter Details Date Type Department Care Team (Late st Contact Info) Description 08/05/2009 Historical Ophthalmology RST OPH Lucho Finch O.D. 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 [address] [place] [phone] documented as of this encounter Visit Diagnoses [...] documented as of this encounter Care Teams Marine Equipment Test Engineer Relationship Specialty Start Date End Date Dalia Dill M.D. [address] [place] [phone] PCP - General Family Medicine 12/01/23 documented as of this encounter
--- OUTSIDE RECORDS SUMMARY | 2024-06-22 03:44 | XMS_ITS | Encounter Summary ---
Author Organization [facility] Address [address] [place] [address] Care Team Providers Care Signals Intelligence Analysis Manager Name Role Phone Dalia Dill M.D. Primary Care Provider [phone] Encounter Details Date Type Department Care Team (Late st Contact Info) Description 08/20/2013 Historical Ophthalmology RST OPH Artie Hill O.D. 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 CDM Reports - EYEGEN Id: [id number] Status: Fnl documented in this encounter Plan of Treatment Upcoming Encounters Date Type Department Care Team (Late st Contact Info) Description 07/24/2024 9:15 AM CDT Office Visit Department of Neurology in [place], [place] [address] [place] [address] Amrik Negron D.O. [address] [place] [phone] documented as of this encounter Visit Diagnoses [...] documented as of this encounter Care Teams Signals Intelligence Analysis Manager Relationship Specialty Start Date End Date Dalia Dill M.D. [address] [place] [phone] PCP - General Family Medicine 12/01/23 documented as of this encounter
--- NOTE | 2024-06-22 04:08 | CRLHL7_ITS ---
For Patients: As a result of the Century Cures Act, medical imaging exams and procedure reports are released immediately into your electronic medical record. You may view this report before your referring provider. If you have questions, please contact your health care provider. INDICATION: Weakness TECHNIQUE: CT head without contrast. COMPARISON: None. FINDINGS: MASS EFFECT AND VENTRICLES: No significant midline shift. The lateral ventricles are symmetric. Basal cisterns patent. No sulcal effacement. The ventricles, cisterns, and other CSF containing spaces are symmetrically prominent secondary to diffuse parenchymal volume loss but are otherwise normal as to shape and position. BRAIN: Diffuse cerebral volume loss. Periventricular and subcortical hypodensities likely secondary to age-related microvascular ischemic changes. No acute infarct or hemorrhage. VASCULAR: No acute abnormalities of the cavernous carotids and vertebral vessels on noncontrast exam. Calcification of the cavernous carotids. EXTRA-AXIAL: Extra-axial spaces are normal. EXTRA-CRANIAL: No acute calvarial or facial fractures. Sinuses and mastoids are clear. Orbits are normal. IMPRESSION: No acute intracranial abnormality. Please note that all CT scans at this facility use dose modulation, iterative reconstruction, and/or weight-based dosing when appropriate to reduce radiation dose to as low as reasonably achievable. Dictated by Yudelka Thorpe MD @ 06/22/2024 4:42:44 AM (Electronically Signed)
--- NOTE | 2024-06-22 06:02 | CRLHL7_ITS ---
For Patients: As a result of the Century Cures Act, medical imaging exams and procedure reports are released immediately into your electronic medical record. You may view this report before your referring provider. If you have questions, please contact your health care provider. INDICATION: Shortness of breath TECHNIQUE: Chest 1 views. COMPARISON: None. FINDINGS: Cardiovasculature and mediastinum: Heart size is normal. Unremarkable mediastinum. Lungs and pleural spaces: Lungs are clear. No sign of pleural effusion. No pneumothorax. Bones and soft tissues: Severe right glenohumeral joint osteoarthritis. IMPRESSION: No acute findings. Dictated by Yudelka Thorpe MD @ 06/22/2024 6:31:05 AM (Electronically Signed)
--- NOTE | 2024-06-22 06:29 | W.PM.TELEH&P ---
Telehealth- H&P: HPI History of Present Illness Time Seen by Provider: 05:45 Date Seen: 06/22/24 Chief complaint: Dizzy Narrative: Jorge Potts is seen as an Interactive Telehealth visit. Jorge Potts is a 79 year old male who is Admitted from the emergency room due to episode of dizziness. He lives at home with his . He was in his usual state of health up until around 1 AM he got up to use the bathroom as he was sitting at the edge of the toilet he realized she was very dizzy and he could not get up and it felt like his legs were weak. Because of this he was brought to the emergency room. When he got to the ER the ER doctor evaluated him. He had no neurologic deficit except that he was dizzy. CT scan of the head was done it did not show any hemorrhage. No mass lesion. No new stroke. Because of this the patient was then admitted to the hospital for further evaluation. On talking the patient he said he feels okay laying down but he does get short of breath with exertion. Also when he stands up he feels that his legs will give way and because he is very weak and dizzy. However on examination of his lower extremities while laying down seems like he has good range of motion. Review of systems: The last few days no fever, no chills, no loss of consciousness, no runny nose, no postnasal drip, no cough, no phlegm, no sore throat, no palpitations, no chest pain, is short of breath today with exertion, no shortness of breath at rest, no abdominal pain, no blood in the stool, no pain with urination, no blood in the urine, no skin rash no skin ulcers. Past medical history was reviewed Personal social history was reviewed: Patient lives at home with his is independent of all ADLs up until today he does not smoke. He rarely drinks alcoholic beverages. Home medications were reviewed Family medical history was reviewed CODE STATUS full code [facility] PFS Social History What is your current living situation?: I presently have a place to live Problems where you live: no known problems Problems where you live details: N/A In the past 12 months, utilities in danger of being shut off: no In past 12 months, lack of transportation kept you from medical appts, meetings, work, or getting things needed for daily living: no In the past 12 mos, have been you worried that your food would run out before you had money to buy more?: never true In the past 12 mos, the food you bought just didn't last and you didn't have money to buy more?: never true Highest level of school completed/degree received: 12th grade, no diploma Smoking Status: Never smoker Second hand tobacco smoke exposure: No How often do you have a drink containing alcohol: never AUDIT-C Alcohol total score: 0 Non-prescribed substance use: denies use How often does anyone, including family, friends and others, physically hurt you: never How often does anyone, including family, friends and others, insult or talk down to you: never How often does anyone, including family, friends and others, threaten you with harm: never How often does anyone, including family, friends and others, scream or curse at you: never service: Yes Meds Home Medications and Allergies Home Medications ?Medication ?Instructions ?Recorded ?Confirmed ?Type amlodipine 5 mg tablet 5 mg PO DAILY 06/22/24 06/22/24 History aspirin 81 mg capsule 81 mg PO DAILY 06/22/24 06/22/24 History blood sugar diagnostic (Accu-Chek 06/22/24 06/22/24 History Guide test strips) fluoxetine 40 mg capsule 40 mg PO DAILY 06/22/24 06/22/24 History losartan 50 mg tablet 50 mg PO DAILY 06/22/24 06/22/24 History metformin 1,000 mg tablet 1,000 mg PO BID 06/22/24 06/22/24 History metoprolol succinate 25 mg 12.5 mg PO DAILY 06/22/24 06/22/24 History tablet,extended release 24 hr pantoprazole 40 mg tablet,delayed 40 mg PO DAILY 06/22/24 06/22/24 History release rosuvastatin 10 mg tablet 10 mg PO QPM 06/22/24 06/22/24 History semaglutide 0.25 mg or 0.5 mg (2 0.5 mg subcut .weekly 06/22/24 06/22/24 History mg/3 mL) subcutaneous pen injector (Ozempic) Allergies Allergy/AdvReac Type Severity Reaction Status Date / Time cortisone Allergy Intermediate Swelling Verified 06/22/24 03:11 of Lip/Tongue/Throat Exam Narrative Exam Narrative: Physical Exam GENERAL: ?vital signs reviewed, well developed and nourished, in no distress HEENT: pupils are equal round and reactive to light, extraocular movements are grossly within normal limits and oral mucosa is moist. NECK: Supple without lymphadenopathy or thyromegaly according to nursing staff examination observation HEART: Regular rate and rhythm without any rubs, murmurs, or gallops. LUNGS: Decreased breath sounds left and right mid to basal lung wild ABDOMEN: Observation from nurse assisted exam, abdomen appears soft, nontender, and nondistended with Positive bowel sounds noted. SKIN:? Observed warm and dry with color normal Const Vital Signs, click to edit/add: Vital Signs - 24 hr 06/22/24 03:08 06/22/24 03:17 06/22/24 03:31 Temperature 97.8 F Pulse Rate 72 Pulse Rate [Pulse Oximeter] 73 Respiratory Rate 18 16 Blood Pressure 160/92 H Blood Pressure [Left Upper Arm] 151/97 H Blood Pressure [Right Arm] Pulse Oximetry 100 100 99 Oxygen Delivery Method Room Air 06/22/24 03:51 06/22/24 05:24 06/22/24 05:29 Temperature 97.8 F 97.8 F Pulse Rate 79 Pulse Rate [Pulse Oximeter] 78 Respiratory Rate 18 18 18 Blood Pressure 158/84 H Blood Pressure [Left Upper Arm] 145/85 H Blood Pressure [Right Arm] 144/96 H Pulse Oximetry 96 98 96 Oxygen Delivery Method Room Air Room Air 06/22/24 05:30 06/22/24 05:45 06/22/24 06:06 Temperature 97.8 F 97.8 F Pulse Rate Pulse Rate [Pulse Oximeter] 78 Respiratory Rate 18 18 18 Blood Pressure Blood Pressure [Left Upper Arm] 145/85 H Blood Pressure [Right Arm] 144/96 H Pulse Oximetry 96 96 Oxygen Delivery Method Room Air Room Air Hospitalist - H&P: Result Labs Labs: Short CBC 06/22/24 Range/Units 03:10 WBC 7.45 (4.50-11.00) K/uL Hgb 13.5 (13.5-17.5) gm/dL Hct 40.2 (37.0-53.0) % Plt Count 166 (140-440) K/uL BMP 06/22/24 03:10 Sodium 139 Potassium 3.9 Chloride 104 Carbon Dioxide 25 BUN 28 Creatinine 1.2 Glucose 206 H Calcium 9.6 Cardiac Enzymes 06/22/24 Range/Units 03:10 Troponin I < 0.01 (0.01-0.04) ng/mL Liver Function 06/22/24 Range/Units 03:10 Total Bilirubin 0.6 (0.1-1.5) mg/dL AST 31 (12-35) U/L ALT 27 (4-50) U/L Alkaline Phosphatase 75 (40-150) U/L Albumin 4.3 (3.3-5.0) g/dL Urine 06/22/24 Range/Units 03:21 Urine Color Yellow (Yellow) Urine Appearance Clear (Clear) Urine pH 7.0 (5.0-8.5) Ur Specific [place] 1.020 (1.000-1.030) Urine Protein 1+ A (Negative) Urine Glucose (UA) Trace A (Negative) Assessment and Plan Assessment and plan (1) Dizzy: Status: Acute (2) Benign positional vertigo: Status: Acute (3) Short of breath on exertion: Status: Acute (4) Weakness: Status: Acute Plan 1. Admit to the hospital for observation 2. Monitor patient closely check portable chest x-ray start on supplemental oxygen via nasal cannula 3. Refer to physical therapy for vestibular exercises history is suspicious for benign positional vertigo 4. Continue home medications once reconciled 5. DVT prophylaxis SCDs will be ordered 6. CODE STATUS full code Telehealth visit: Today's history and physical is via interactive telehealth by Nahomy Ramirez MD. The patient is located at [facility] . Physician is located at [facility]. Nursing staff assisted in the patient's exam. The visit being done today meets criteria for a telehealth visit and the patient or patient's parent/guardian is aware the visit is a telehealth visit. Camera start time 54406-22-2024 Camera end time 60406-22-2024 Telehealth: Statement Statement Telehealth Visit: Today's History and Physical is provided via interactive telehealth by Nahomy Ramirez MD.? Patient is located at [facility].? Provider is located at [facility].? Nursing staff assisted with the patient's exam. The visit being done today meets criteria for a telehealth visit and the patient or patient?s parent/guardian is aware the visit is a telehealth visit.
--- NOTE | 2024-06-22 06:39 | PC.NURSE ---
Shift note: Patient arrived at the floor at 0515 on a stretcher accompanied by . Alert and oriented on arrival but appeared weak. Bp on arrival was elevated, other vitals were stable. MD review through [facility] at 0545. During the MD visit patient complained of dizziness and SOB when attempt was made to prop patient up in bed for lungs auscultation. Head of bed was lowered to ease to dizziness. Oxygen 1L given per MD order. Continuous pulse monitoring in place.
[2024-06-22] MEDS: ASPIRIN 81 MG TABLET EC PO (09:04)
[2024-06-22] MEDS: LOSARTAN POTASSIUM 50 MG TABLET PO (09:04)
[2024-06-22] MEDS: OMEPRAZOLE 20 MG CAPSULE DR 40 MG PO (09:05)
[2024-06-22] MEDS: METFORMIN 1,000 MG TABLET 1000 MG PO ×2 (09:05→21:19)
[2024-06-22] MEDS: METOPROLOL SUCCINATE (XL) 25 MG TAB 12.5 MG PO (09:05)
[2024-06-22] MEDS: AMLODIPINE 5 MG TABLET PO (09:05)
[2024-06-22] MEDS: FLUOXETINE HCL 20 MG CAPSULE 40 MG PO (09:05)
[2024-06-22] MEDS: SODIUM CHLORIDE 0.9 % (FLUSH) 10 ML SYRINGE 5 ML IVF ×2 (09:05→21:19)
--- NOTE | 2024-06-22 09:15 | CRLHL7_ITS ---
For Patients: As a result of the Century Cures Act, medical imaging exams and procedure reports are released immediately into your electronic medical record. You may view this report before your referring provider. If you have questions, please contact your health care provider. Indication: Dizziness. Technique: Multiplanar multisequence noncontrast MR images of the brain. Comparison: CT brain 06/22/2024. Findings: Jsnr-[id number]-[id number] diffuse cerebral volume loss. No mass effect or midline shift. Scattered FLAIR hyperintensities in the supratentorial white matter, typical for mild chronic microvascular ischemic changes. No diffusion restriction to suggest acute infarction. No intracranial hemorrhage or pathologic extra-axial fluid collection. The major arterial flow voids of the skull base are preserved. Globes are symmetric. Mild ethmoid sinus mucosal thickening. Trace left mastoid fluid. Impression: 1. No acute intracranial abnormality. 2. Dlkr-[id number]-[id number] diffuse cerebral volume loss and mild chronic microvascular ischemic changes. Dictated by Casey Shaw MD @ 06/22/2024 12:26:58 PM (Electronically Signed)
--- NOTE | 2024-06-22 15:53 | P.IMPN_ITS ---
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 Recommended: avoid driving, use gait aid, PT/PMR referral if desired. Has outpatient follow-up 07/24/2024 PT OT consulted Status: Acute (3) Short of breath on exertion: Problem comment: Acute, prior to ED Resolved. Continue to monitor Would benefit from outpatient cardiology follow-up given report of HINKLE and lightheadedness with positional changes Status: Acute (4) Weakness: Problem comment: Acute on chronic PT and OT to assess. management services technician for discharge planning/placement needs Status: Acute (5) Hypertension: Problem comment: Continue home medications Status: Acute (6) Diabetes mellitus: Problem comment: Most recent A1c 7.8 Continue home metformin. Also on Ozempic Status: Acute (7) Hyperlipidemia: Problem comment: Continue statin Status: Acute (8) CKD stage 3 due to type 1 diabetes mellitus: Problem comment: Creatinine 1.2, monitor Status: Acute Total Time Spent Total Time Spent: Today I spent 75 minutes seeing the patient, reviewing Expanse and EPIC notes/diagnostics, discussing the care plan with our care time that includes social work, PT/OT, pharmacy, RT, [place] [facility] and documenting my impressions and plan in the medical record. Subjective Date Seen: 06/22/24 Interval history: Admitted early this morning. Seen sitting up in bed, at bedside. Reports dizziness resolved while sitting. No headache. No lightheadedness at rest. This does change later in the day with physical therapy, reporting dizziness/lightheadedness with positional changes. Has been seen by Neurology in the past for workup intermittent episodes of lightheadedness. He has an appointment in mid July as well. Dizziness/vertigo like symptoms have not been a problem in the past. Has not been recently seen by Cardiology. Last echocardiogram several years ago. Exam Narrative: Exam Narrative: PHYSICAL EXAM General: Pleasant, conversant, NAD HEENT: Normocephalic, atraumatic, sclera white, EOMI, oral mucosa moist Cardiovascular: RRR, S1S2. No pitting edema Pulmonary: CTA bilaterally without rhonchi, rales, expiratory wheezes. No dyspnea on room air Abdominal: Soft, nondistended, NTTP Neurological: Alert, answering questions appropriately, cranial nerves intact, no focal findings on exam this morning Extremities: No gross joint deformity or swelling. AROMI. Neurovascularly intact Skin: Warm, dry. Const: Vital Signs, click to edit/add: Vital Signs - 24 hr 06/22/24 03:08 06/22/24 03:17 06/22/24 03:31 Temperature 97.8 F Pulse Rate 72 Pulse Rate [Pulse Oximeter] 73 Respiratory Rate 18 16 Blood Pressure 160/92 H Blood Pressure [Le ft Upper Arm] 151/97 H Blood Pressure [Ri ght Arm] Pulse Oximetry 100 100 99 Oxygen Delivery Me thod Room Air Oxygen Flow Rate 06/22/24 03:51 06/22/24 05:24 06/22/24 05:29 Temperature 97.8 F 97.8 F Pulse Rate 79 Pulse Rate [Pulse Oximeter] 78 Respiratory Rate 18 18 18 Blood Pressure 158/84 H Blood Pressure [Le ft Upper Arm] 145/85 H Blood Pressure [Ri ght Arm] 144/96 H Pulse Oximetry 96 98 96 Oxygen Delivery Me thod Room Air Room Air Oxygen Flow Rate 06/22/24 05:30 06/22/24 05:45 06/22/24 06:06 Temperature 97.8 F 97.8 F Pulse Rate Pulse Rate [Pulse Oximeter] 78 Respiratory Rate 18 18 18 Blood Pressure Blood Pressure [Le ft Upper Arm] 145/85 H Blood Pressure [Ri ght Arm] 144/96 H Pulse Oximetry 96 96 Oxygen Delivery Me thod Room Air Room Air Oxygen Flow Rate 06/22/24 07:00 06/22/24 11:00 Temperature 97.4 F L 97.7 F Pulse Rate Pulse Rate [Pulse Oximeter] 81 86 Respiratory Rate 16 18 Blood Pressure Blood Pressure [Le ft Upper Arm] Blood Pressure [Ri ght Arm] 144/95 H 136/90 H Pulse Oximetry 100 90 Oxygen Delivery Me thod Nasal Cannula Nasal Cannula Oxygen Flow Rate 1 1 Labs Labs: Laboratory Results - last 24 hr 06/22/24 06/22/24 03:10 03:21 WBC 7.45 RBC 4.42 Hgb 13.5 Hct 40.2 MCV 91 MCH 31 MCHC 34 RDW Coeff of Benjamin 12.6 Plt Count 166 Neut % (Auto) 69.9 Lymph % (Auto) 18.4 L [place] % (Auto) 9.3 Eos % (Auto) 1.5 Baso % (Auto) 0.4 Neut # (Auto) 5.21 Lymph # (Auto) 1.40 [place] # (Auto) 0.70 Eos # (Auto) 0.11 Baso # (Auto) 0.03 Abs Immat Gran (auto) 0.04 Imm/Tot Granulo (auto) 0.5 Sodium 139 Potassium 3.9 Chloride 104 Carbon Dioxide 25 Anion Gap 10 BUN 28 Creatinine 1.2 Estimated GFR 62 Glucose 206 H Calcium 9.6 Total Bilirubin 0.6 AST 31 ALT 27 Alkaline Phosphatase 75 Troponin I < 0.01 Total Protein 6.9 Albumin 4.3 Urine Color Yellow Urine Appearance Clear Urine pH 7.0 Ur Specific [place] 1.020 Urine Protein 1+ A Urine Glucose (UA) Trace A Urine Ketones Trace A Urine Blood Negative Urine Nitrite Negative Urine Bilirubin Negative Urine Urobilinogen 0.2 Ur Leukocyte Esterase Negative Urine RBC 0-2 Urine WBC 0-2 Ur Squamous Epith Cells None Urine Bacteria None
[2024-06-22] MEDS: ROSUVASTATIN CALCIUM 10 MG TABLET PO (18:13)
--- NOTE | 2024-06-22 19:28 | PC.NURSE ---
End of shift [id number] - Pt alert, oriented, cooperative. Up with standby assistance and walker. Reported to have episode of dizziness when working with PT. Pt did not report and was not observed to experience additional episodes during remainder of shift. Pt tolerating RA and regular diet/fluids. Denies pain, SOB, n/v. Appears to be resting in bed with call light within reach at end of shift.
[2024-06-23 03:50] VITALS: BP 142/93; PULSE 77; RESP 16; TEMP 36.6; O2SAT 93
[2024-06-23 07:00] VITALS: BP 126/86; PULSE 71; RESP 18; TEMP 36.5; O2SAT 97
--- NOTE | 2024-06-23 07:22 | PC.NURSE ---
Pt is alert and oriented x3. Afebrile. Pt denies pain, dizziness and N/V. Pt slept throughout night in bed, voiding using urinal, and tolerating a regular diet. ?
[2024-06-23 07:47] VITALS: PULSE 75
--- NOTE | 2024-06-23 09:26 | P.IMPN_ITS ---
Assessment and Plan Assessment and plan (1) Dizzy: Problem comment: Acute, reports not chronic, but history of lightheadedness/imbalance difficulties Improved at rest PT assessed, not thought to be vertiginous in nature MRI brain without acute intracranial abnormalities 06/23 persistently dizzy, not vertigo, with positional changes PT/OT recommending SNF placement oil well services supervisor consult to assist with discharge planning/placement needs Status: Acute (2) Imbalance: Problem comment: Per [facility] note in EMR: #1 Multifactorial gait impairment with most prominent abnormality being peripheral neuropathy #2 Peripheral neuropathy with sensory ataxia, 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 Recommended: avoid driving, use gait aid, PT/PMR referral if desired. Has outpatient follow-up 07/24/2024 PT OT consulted Status: Acute (3) Short of breath on exertion: Problem comment: Acute, prior to ED Intermittent, brief episodes with activity. Continue to monitor ECHO ordered for Tuesday Would benefit from outpatient cardiology follow-up given report of HINKLE and lightheadedness with positional changes Status: Acute (4) Weakness: Problem comment: Acute on chronic, generalized PT and OT to assess. oil well services supervisor for discharge planning/placement needs Status: Acute (5) Hypertension: Problem comment: Continue home medications Persistently elevated, increasing amlodipine to 10 mg Status: Acute (6) Diabetes mellitus: Problem comment: Most recent A1c 7.8 Continue home metformin. Also on Ozempic - held Glucose checks ACHS and insulin sliding scale Status: Acute (7) Hyperlipidemia: Problem comment: Continue statin Status: Acute (8) CKD stage 3 due to type 1 diabetes mellitus: Problem comment: Creatinine 1.2, monitor Status: Acute Total Time Spent Total Time Spent: Today I spent 75 minutes seeing the patient, reviewing Expanse and EPIC notes/diagnostics, discussing the care plan with our care time that includes social work, PT/OT, pharmacy, RT, detention and documenting my impressions and plan in the medical record. Exam Const: Vital Signs, click to edit/add: Vital Signs - 24 hr 06/22/24 11:00 06/22/24 15:00 06/22/24 15:50 Temperature 97.7 F 98.3 F Pulse Rate 80 Pulse Rate [Pulse Oximeter] 86 85 Respiratory Rate 18 12 Blood Pressure [Ri ght Arm] 136/90 H 142/97 H Pulse Oximetry 90 97 Oxygen Delivery Me thod Nasal Cannula Room Air Oxygen Flow Rate 1 06/22/24 19:58 06/22/24 21:21 06/22/24 23:00 Temperature 98.1 F 97.9 F Pulse Rate 85 Pulse Rate [Pulse Oximeter] 82 77 Respiratory Rate 14 14 [facility]/85 134/81 Pulse Oximetry 93 95 Oxygen Delivery Me thod Room Air Room Air Oxygen Flow Rate 1 06/23/24 03:50 06/23/24 07:47 Temperature 97.8 F Pulse Rate 75 Pulse Rate [Pulse Oximeter] 77 Respiratory Rate 16 [facility] 142/93 H Pulse Oximetry 93 Oxygen Delivery Me thod Room Air Oxygen Flow Rate
[2024-06-23] MEDS: FLUOXETINE HCL 20 MG CAPSULE 40 MG PO (09:55)
[2024-06-23] MEDS: SODIUM CHLORIDE 0.9 % (FLUSH) 10 ML SYRINGE 5 ML IVF (09:56)
[2024-06-23] MEDS: LOSARTAN POTASSIUM 50 MG TABLET PO (09:56)
[2024-06-23] MEDS: METOPROLOL SUCCINATE (XL) 25 MG TAB 12.5 MG PO (09:56)
[2024-06-23] MEDS: ASPIRIN 81 MG TABLET EC PO (09:56)
[2024-06-23] MEDS: OMEPRAZOLE 20 MG CAPSULE DR 40 MG PO (09:56)
[2024-06-23] MEDS: METFORMIN 1,000 MG TABLET 1000 MG PO (09:56)
[2024-06-23] MEDS: AMLODIPINE 10 MG TABLET PO (10:05)
--- NOTE | 2024-06-23 12:50 | P.DS_ITS ---
DS: Providers Provider Date Seen: 06/23/24 Date of admission: 06/23/24 09:23 Primary care physician: Christopher Simons PCP Admitting Clinician: Nahomy Ramirze MD Consults: 06/22/24 08:00 Consult to Physical Therapy [CONS] Routine Comment: Reason(s) for PT Consult:: Balance Assessment Inability to Mobilize Any Restrictions?:: No Restrictions Comment: suspect benign positional vertigo 06/23/24 09:30 Consult to Coin Machine Collector [CONS] Routine Comment: Reason for Consult:: Discharge Planning Needs Attending Physician on discharge: Maria Elena Hernandez, [facility], PA-C Date of Discharge: 06/23/24 DS: Diagnosis Discharge Diagnosis (1) Dizzy: Status: Acute Problem details: Acute, reports not chronic, but history of lightheadedness/imbalance difficulties Improved at rest PT assessed, not thought to be vertiginous in nature, unable to trigger MRI brain without acute intracranial abnormalities r/o cerebellar stroke 06/23 - dizzy, not vertiginous, symptoms triggered with positional changes while working with PT. However, not reproduced a short time thereafter while moving with his spouse. PT/OT recommending SNF placement but patient and spouse decline. Previously had home health PT for several weeks. would like to see if this can be restarted. Discussed concern for safe discharge plan. After consideration, patient and spouse again verbalize not wanting to go back to a SNF. Would like to discharge to home today. He will continue to use his walker at all times, using cues from PT. will be available for support. Discharge to home with this plan. will [facility]. She may need his PCP for a referral, I have otherwise recommended this on his d/c paper work. Recommend outpatient follow-up with [facility], Cardiology; outpatient echo. 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 Recommended: avoid driving, use gait aid, PT/PMR referral if desired. PT OT consulted - recommending SNF. Patient and spouse declined. Has outpatient follow-up 07/24/2024. will see if she can get this moved up. (3) Short of breath on exertion: Status: Acute Problem details: Acute, prior to ED Intermittent, brief episodes with activity. Continue to monitor Would benefit from outpatient cardiology follow-up and echocardiogram given report of HINKLE and lightheadedness/non vertiginous dizziness with positional changes (4) Weakness: Status: Acute Problem details: Acute on chronic, generalized PT and OT assessed, recommending SNF. Patient and spouse declined. Resume home health therapies as able. (5) Hypertension: Status: Acute Problem details: Continue home medications Persistently elevated. Home medications had been held upon admission, resumed, increasing amlodipine to 10 mg. reports normotensive pressures at home in general. Continue amlodipine 10 mg daily, outpatient follow-up with PCP. (6) Diabetes mellitus: Status: Acute Problem details: Most recent A1c 7.8 Continue home metformin. Also on Ozempic - held Glucose checks ACHS and insulin sliding scale Resume home medications on discharge. (7) Hyperlipidemia: Status: Acute Problem details: Continue statin (8) CKD stage 3 due to type 1 diabetes mellitus: Status: Acute Problem details: Creatinine 1.2, monitor DS: Summary Hospital Course Hospital Course: Course of care and details as noted above. Chronic, acute, recurrent lightheadedness, now described as dizziness, without evidence of benign positional vertigo and history of imbalance. Previously worked up by [facility] and has follow up on 07/24/24. Recommend outpatient Cardiology and Echo as well. Remainder of chronic medical comorbidities were monitored and managed with home medications. Status at Discharge Functional status at discharge: uses cane/walker Overall status at discharge: patient is progressing back to baseline Time Spent with Patient Time attestation: Total time spent providing and/or coordinating discharge services: Time spent: Greater than 30 minutes Exam Narrative: Exam Narrative: PHYSICAL EXAM General: Pleasant, conversant, NAD Cardiovascular: RRR Pulmonary: No dyspnea Neurological: Alert, answering questions appropriately Skin: Warm, dry. Const: Vital Signs, click to edit/add: Vital Signs - 24 hr 06/22/24 15:00 06/22/24 15:50 06/22/24 19:58 Temperature 98.3 F 98.1 F Pulse Rate 80 Pulse Rate [Pulse Oximeter] 85 82 Respiratory Rate 12 14 Blood Pressure [Ri ght Arm] 142/97 H 136/85 Pulse Oximetry 97 93 Oxygen Delivery Me thod Room Air Room Air Oxygen Flow Rate 06/22/24 21:21 06/22/24 23:00 06/23/24 03:50 Temperature 97.9 F 97.8 F Pulse Rate 85 Pulse Rate [Pulse Oximeter] 77 77 Respiratory Rate 14 16 Blood Pressure [Ri ght Arm] 134/81 142/93 H Pulse Oximetry 95 93 Oxygen Delivery Me thod Room Air Room Air Oxygen Flow Rate 1 06/23/24 07:00 06/23/24 07:47 Temperature 97.7 F Pulse Rate 75 Pulse Rate [Pulse Oximeter] 71 Respiratory Rate 18 Blood Pressure [Ri ght Arm] 126/86 Pulse Oximetry 97 Oxygen Delivery Me thod Room Air Oxygen Flow Rate DS: Data Imaging MRI - head: Attestation: I have reviewed the pertinent imaging results. Radiologist's impression: [id number] diffuse cerebral volume loss. No mass effect or midline shift. Scattered FLAIR hyperintensities in the supratentorial white matter, typical for mild chronic microvascular ischemic changes. No diffusion restriction to suggest acute infarction. No intracranial hemorrhage or pathologic extra-axial fluid collection. The major arterial flow voids of the skull base are preserved. Globes are symmetric. Mild ethmoid sinus mucosal thickening. Trace left mastoid fluid. Impression: 1. No acute intracranial abnormality. 2. [id number] diffuse cerebral volume loss and mild chronic microvascular ischemic changes. Chest x-ray: Attestation: I have reviewed the pertinent imaging results. Radiologist's impression: Cardiovasculature and mediastinum: Heart size is normal. Unremarkable mediastinum. Lungs and pleural spaces: Lungs are clear. No sign of pleural effusion. No pneumothorax. Bones and soft tissues: Severe right glenohumeral joint osteoarthritis. IMPRESSION: No acute findings. CT scan - head: Attestation: I have reviewed the pertinent imaging results. Radiologist's impression: MASS EFFECT AND VENTRICLES: No significant midline shift. The lateral ventricles are symmetric. Basal cisterns patent. No sulcal effacement. The ventricles, cisterns, and other CSF containing spaces are symmetrically prominent secondary to diffuse parenchymal volume loss but are otherwise normal as to shape and position. BRAIN: Diffuse cerebral volume loss. Periventricular and subcortical hypodensities likely secondary to age-related microvascular ischemic changes. No acute infarct or hemorrhage. VASCULAR: No acute abnormalities of the cavernous carotids and vertebral vessels on noncontrast exam. Calcification of the cavernous carotids. EXTRA-AXIAL: Extra-axial spaces are normal. EXTRA-CRANIAL: No acute calvarial or facial fractures. Sinuses and mastoids are clear. Orbits are normal. IMPRESSION: No acute intracranial abnormality. Discharge Plan Discharge Disposition: Home, Self-Care Date of Admission: 06/23/24 09:23 Attending Provider on Discharge: Maria Elena Hernandez Primary Care Provider: Provider,Not a Local Condition: Stable Anticipated Discharge Date/Time: 06/23/24 12:44 Discharge Medications: New meclizine 25 mg Tablet 12.5 mg PO TID PRN (Reason: vertigo) Qty: 20 0RF amlodipine 10 mg Tablet 10 mg PO DAILY Qty: 30 0RF Continued losartan 50 mg tablet 50 mg PO DAILY (DME) Accu-Chek Guide test strips Strip MISCELLANEOUS DAILY metformin 1,000 mg tablet 1,000 mg PO BID metoprolol succinate 25 mg tablet extended release 24 hr 12.5 mg PO DAILY rosuvastatin 10 mg tablet 10 mg PO QPM Ozempic 0.25 mg or 0.5 mg (2 mg/3 mL) pen injector 0.5 mg subcut .weekly fluoxetine 40 mg capsule 40 mg PO DAILY pantoprazole 40 mg tablet,delayed release (DR/EC) 40 mg PO DAILY aspirin 81 mg capsule 81 mg PO DAILY Discontinued amlodipine 5 mg tablet 5 mg PO DAILY Discharge Orders: Discharge Order (Routine); Ordered 06/23/24 Ordered By: Maria Elena Hernandez Patient Education: Meclizine (By mouth), Amlodipine (By mouth), Benign Paroxysmal Positional Vertigo (DC) Additional Instructions: Would recommend resuming home health care therapies. Patient and spouse will follow-up on this on Tuesday. Continue to use walker at all times. Your amlodipine has been increased to 10 mg daily. You have a Neurology appointment at [facility] in July, you may consider contacting them to see if this can get moved up. Recommend outpatient Cardiology consult as well; recommend echocardiogram. Activity Level: Use Walker Activity Detail: As instructed by therapies, slow transitions from positional changes to reduce dizziness/lightheadedness. Use walker at all times. Family to assist. Resumption of home health therapies. Discharge Diet: Regular and Diabetic Follow Up Appointments: Provider,Not a Local [Primary Care Provider] - Forms: MyHealth Info Instructions
--- NOTE | 2024-06-23 15:18 | PC.NURSE ---
Discharge - Pt alert, oriented, cooperative. Up with standby assistance and walker/gait belt. Pt reported episode of lightheadedness and dizziness once during shift, otherwise asymptomatic with position changes. RN provided education to pt and spouse regarding safe change of position techniques. Pt and spouse appeared receptive and verbalized understanding. Tolerating RA and regular diet/fluid, denies pain and SOB. IV removed with catheter intact. D/c education given with pt verbalizing understanding. Pt d/c'd to home with spouse via wheelchair at approximately 1422.
== END 2024-06-23 14:22 | disposition home or self-care (01) ==
LOC: ED 04:04 → MEDSURG 06-23 12:44
PROVIDERS: Admitting Provider Hospitalist; Emergency Provider Internal Medicine; Visit Provider Hospitalist
DX: H81.10 Benign paroxysmal vertigo, unspecified ear (principal); R53.1 Weakness; R06.09 Other forms of dyspnea; R26.89 Other abnormalities of gait and mobility; G62.9 Polyneuropathy, unspecified; E11.42 Type 2 diabetes mellitus with diabetic polyneuropathy; E11.22 Type 2 diabetes mellitus with diabetic chronic kidney disease; I12.9 Hypertensive chronic kidney disease with stage 1 through stage 4 chronic kidney disease, or unspecified chronic kidney disease; N18.30 Chronic kidney disease, stage 3 unspecified; Z79.84 Long term (current) use of oral hypoglycemic drugs; Z79.82 Long term (current) use of aspirin; E78.5 Hyperlipidemia, unspecified
CPT/HCPCS: 36415; 70450; 70551; 71045; 80053; 81001; 81003; 84484; 85025; 93005; 94761; 96361; 96374; 97116; 97162; 97530; 99283; 99285; A9270; G0378; J2405

== ENCOUNTER 2024-07-15 09:16 | Outpatient (CLI) | payer MEDICARE, SELFPAY | END 2024-07-15 09:17 | disposition home or self-care (01) | PROVIDERS: Visit Provider Internal Medicine | DX: R53.1 Weakness (principal) | CPT/HCPCS: A0998 ==

== ENCOUNTER 2024-11-01 06:01 | Outpatient (CLI) | payer MEDICARE, SELFPAY | END 2024-11-01 06:02 | disposition home or self-care (01) | LOC: AMB 11-02 09:50 | PROVIDERS: Visit Provider Family Medicine | DX: R53.1 Weakness (principal) | CPT/HCPCS: A0998 ==